=== PATIENT | female | born 1945 | race Caucasian/White ===

== ENCOUNTER → 2019-10-30 09:10 | Outpatient (CLI) | payer MEDICARE, SELFPAY ==
[2015-06-21 10:17] VITALS: BMI 33.3
== END ==
PROVIDERS: Family Provider Family Medicine; PCP Family Medicine; Referring Provider Internal Medicine Gastroenterology; Visit Provider Internal Medicine Gastroenterology
DX: R19.7 Diarrhea, unspecified (principal); E11.9 Type 2 diabetes mellitus without complications
CPT/HCPCS: 82705

== ENCOUNTER → 2021-06-26 16:39 | Outpatient (CLI) | payer MEDICARE, SELFPAY ==
--- NOTE | 2021-06-26 16:43 | US_ITS ---
INDICATION: UTI EXAMINATION: US Kidney(s) complete (eg, kidneys and bladder) TECHNIQUE: Miller scale and color doppler images were obtained of the kidneys. COMPARISON: None. FINDINGS: RIGHT KIDNEY: Measures 10.5 cm in length. There is moderate hydronephrosis. No shadowing calculus, focal lesion or perinephric collection is demonstrated. LEFT KIDNEY: Measures 10.5 cm in length. There is no hydronephrosis. There are multiple stones with twinkle artifact, largest measuring 9 mm. No focal lesion or perinephric collection is demonstrated. URINARY BLADDER: No acute abnormality. US/Kidney and Bladder IMPRESSION: Moderate right hydronephrosis with no visualized obstructing stone. Nephrolithiasis on the left with no hydronephrosis. Electronically Signed: Cristino Min MD at 23:58 EDT Tel , Service support ,
== END ==
PROVIDERS: PCP Family Medicine; Referring Provider Urology; Visit Provider Urology
DX: N39.0 Urinary tract infection, site not specified (principal)
CPT/HCPCS: 76770

== ENCOUNTER → 2021-06-28 14:02 | Outpatient (CLI) | payer MEDICARE, SELFPAY ==
[2021-06-28 18:56] LABS: Anion Gap 7 (5-15); BUN 17 mg/dL (7-18); BUN/Creat Ratio 14.8 RATIO (10-20); Calcium,Total 8.5 mg/dL (8.5-10.1); Chloride 100 mmol/L (98-107); Creatinine, Serum 1.15 mg/dL (0.55-1.02); EST Glomerular Filtration Rate 49 mL/min (>60); Est Glom Filt Rate - Afr Amer 59 mL/min (>60); Glucose 97 mg/dL (74-106); Potassium 3.4 mmol/L (3.5-5.1); Sodium Level 139 mmol/L (136-145)
== END ==
PROVIDERS: PCP Family Medicine; Referring Provider Urology; Visit Provider Urology
DX: N39.0 Urinary tract infection, site not specified (principal); N13.2 Hydronephrosis with renal and ureteral calculous obstruction
CPT/HCPCS: 36415; 80048

== ENCOUNTER → 2021-07-06 13:24 | Outpatient (CLI) | payer MEDICARE, SELFPAY ==
--- NOTE | 2021-07-06 13:28 | CT_ITS ---
EXAM: CT ABDOMEN AND PELVIS WITHOUT AND WITH INTRAVENOUS CONTRAST : 1945 CLINICAL INDICATION: STONES/HYDRONEPHROSIS/UTI TECHNIQUE: Helically acquired images were obtained of the abdomen and pelvis without and with intravenous contrast. This CT exam was performed using one or more of the following dose reduction techniques: automated exposure control, adjustment of the mA and/or kV according to patient size, and/or use of iterative reconstruction technique. This report was created using [employer] report generation technology. CONTRAST: IV 100mL Isovue-300 COMPARISON: None. FINDINGS: LOWER THORAX: Unremarkable. Lung bases are clear. No cardiomegaly. No significant pericardial effusion. ABDOMEN: LIVER: Unremarkable. Homogeneous. No focal mass. GALLBLADDER AND BILE DUCTS: Gallbladder is absent. No intra- or extrahepatic biliary ductal dilation. PANCREAS: Unremarkable. No focal cystic or solid mass. SPLEEN: Multiple splenic granulomata noted. ADRENALS: Unremarkable. No nodules. KIDNEYS AND URETERS: Several stones are in place within the distal right ureter associated with right hydronephrosis and hydroureter. A small stone is present within lower pole infundibulum of the left kidney. STOMACH AND BOWEL: Unremarkable. No stomach or bowel distention. No focal inflammatory change. PELVIS: APPENDIX: No evidence of acute appendicitis. BLADDER: Unremarkable. REPRODUCTIVE: Hysterectomy noted. No adnexal mass or pelvic fluid collection. ABDOMEN and PELVIS: INTRAPERITONEAL SPACE: No ascites BONES/JOINTS: Unremarkable. No suspicious lytic or blastic abnormality. SOFT TISSUES: Unremarkable. No discrete abdominal or pelvic wall hernia. VASCULATURE: Unremarkable. Abdominal aorta is non-dilated. LYMPH NODES: Unremarkable. No enlarged lymph nodes. CT/CT Abd/Pelvis W/WO Contrast IMPRESSION: 1. Multiple small obstructive distal right ureteral stones. 2. Single nonobstructive left renal stone. Individualized dose optimization techniques were used for this CT. at 1521 Reported and signed by: Brad Carrera MD Electronically Signed: Brad Carrera MD at 15:20 EDT Tel , Service support ,
== END ==
PROVIDERS: PCP Family Medicine; Visit Provider Urology
DX: N39.0 Urinary tract infection, site not specified (principal); N13.2 Hydronephrosis with renal and ureteral calculous obstruction
CPT/HCPCS: 74178; Q9967

== ENCOUNTER 2021-07-20 06:14 | Day surgery (SDC) | payer MEDICARE, SELFPAY ==
[2021-07-20 06:50] VITALS: BP 162/68; PULSE 65; RESP 18; TEMP 36.1; O2SAT 94; BMI 33.1
[2021-07-20] MEDS: Lactated Ringers 1,000 ML 100 ML IV (06:50)
[2021-07-20 07:31] LABS: Bedside Glucose 175 mg/dL (70-110)
--- NOTE | 2021-07-20 08:12 | HP.PCM_ITS ---
HPI - General HPI Narrative APPLE HALEY, is a 75 F who presents for surgical management of right distal ureteral stones found on evaluation. She is not having pain, hematuria, dysuria etc. Informed consent was obtained. [facility] Medical History (Updated 07/20/21 @ 08:[address] Millie Little MD) Anxiety Arthritis Back pain Benign hypertension CAD (coronary artery disease) Cancer Cardiology follow-up encounter Cataract Deficient knowledge of hysterectomy Depression Diabetes Diabetes Dietary restriction Easy bruising Gallstones Gastrointestinal problem Heart disease Heartburn High blood pressure High cholesterol High triglycerides History of diverticulitis History of edema History of heart attack History of IBS History of irregular heartbeat History of pain when walking History of stress test Hydronephrosis IBS (irritable bowel syndrome) Insulin dependent diabetes mellitus Leg cramps Mixed hyperlipidemia Murmur Neuropathy Non-smoker Obesity Polyneuropathy due to type 2 diabetes mellitus Restless legs Tonsillectomy planned Ureteral calculi UTI (urinary tract infection) Wears glasses Home Medications aspirin 81 mg PO DAILY@0800 06/19/15 [History Last Taken Unknown] atorvastatin 80 mg PO QHS 06/19/15 [History Last Taken Unknown] hydrochlorothiazide 12.5 mg PO DAILY 06/19/15 [History Last Taken Unknown] insulin lispro [Humalog] 14 unit SUBCUT TID 06/19/15 [History Last Taken Unknown] potassium gluconate 500 mg PO DAILY 06/19/15 [History Last Taken Unknown] sertraline 100 mg PO DAILY 06/19/15 [History Last Taken Unknown] nqjoyt-qldzxlxq-whjzjha 36,000-114,000-180,000 unit capsule,delay rel 2 cap PO TID 02/21/21 [History Last Taken Unknown] loperamide 2 mg tablet 2 mg PO Q6H PRN 02/21/21 [History Last Taken Unknown] pen needle, diabetic 32 gauge x #150 ea 02/21/21 [Rx Last Taken Unknown] ramipril 2.5 mg capsule 2.5 ea PO QHS 02/21/21 [History Last Taken Unknown] triamterene 37.5 mg-hydrochlorothiazide 25 mg tablet 1 tab PO DAILY 02/21/21 [History Last Taken Unknown] metoprolol tartrate 25 mg tablet 25 mg PO BID 07/09/21 [History Last Taken 07/20/21 05:00] ascorbic acid (vitamin C) [Vitamin C] 500 mg PO DAILY 07/13/21 [History Last Taken Unknown] d-mannose 1,000 mg PO DAILY 07/13/21 [History Last Taken Unknown] ergocalciferol (vitamin D2) [Vitamin D2] 1,250 mcg PO BAZAN 07/13/21 [History Last Taken Unknown] insulin glargine [Lantus Solostar U-100 Insulin] 35 unit SUBCUT QHS 07/13/21 [History Last Taken Unknown] lactobacillus combination no.4 [Probiotic] 3,000 mmu cells PO DAILY 07/13/21 [History Last Taken Unknown] semaglutide [Ozempic] 1 mg SUBCUT BAZAN 07/13/21 [History Last Taken Unknown] Allergy/AdvReac Type Severity Reaction Status Date / Time Iodinated Contrast Media Allergy Other Verified 07/20/21 07:00 [CONTRASTS] niacin Allergy Anaphylaxis Verified 07/20/21 07:00 Family History Other Bowel disease CVA (cerebral vascular accident) Diabetes Myocardial infarction Parkinson disease Surgical History H/O knee surgery History of intestinal surgery Hx laparoscopic cholecystectomy Hx of colonoscopy Hx of foot surgery Hx of heart bypass surgery Hx of hysterectomy Hx of left cataract extraction Hx of tonsillectomy Social History Smoking Status: Never smoker ROS Constitutional Constitutional: Denies chills or fever(s) Eyes Eyes: Reports systems reviewed and no addt'l complaints, except as documented ENT HEENT: Reports systems reviewed and no addt'l complaints, except as documented Cardiovascular Cardiovascular: Denies abdominal pain, chest pain, diaphoresis, fatigue or naus ea Respiratory/Chest Respiratory/Chest: Denies cough, inability to speak, productive cough, shortness of breath at rest or tachypnea Gastrointestinal Gastrointestinal: Denies abdominal pain, cramping or taste impaired Genitourinary Genitourinary: Denies burning urination, flank pain, hematuria or low back pain Musculoskeletal Musculoskeletal: Reports systems reviewed and no addt'l complaints, except as documented Integumentary Integumentary: Reports systems reviewed and no addt'l complaints, except as documented Neurologic Neurologic: Reports systems reviewed and no addt'l complaints, except as documented Psychiatric Psychiatric: Reports systems reviewed and no addt'l complaints, except as documented Vital Signs Vital Signs Vital Signs: 07/20/21 06:50 Temperature 96.9 F L Temperature Source Temporal Pulse Rate 65 Respiratory Rate 18 Respiratory Pattern Normal Blood Pressure 162/68 H Blood Pressure Mean 99 Blood Pressure Source Monitor Blood Pressure Position Sitting Blood Pressure Location Left Arm Pulse Ox 94 Oxygen Delivery Method Room Air Weight Weight: 96 kg Body Mass Index (BMI) 33.1 Physical Exam Const alert, oriented x3 and no apparent distress General Appearance: cooperative, comfortable and well kempt HEENT normocephalic, head/scalp atraumatic and external ears normal Nose: external nose normal Mouth: lips normal and tongue normal Eyes no scleral icterus General Eye: normal appearance of both eyes Neck supple General: trachea midline Lymph Lymphatic: no lymphedema noted Chest inspection of chest normal and palpation of chest normal Resp normal respiratory effort, normal air movement, no retractions and no use of accessory muscles Cardio regular rate and regular rhythm GI soft to palpation, non-tender and non-distended no CVA tenderness Back/Spine no CVA tenderness Extremity normal to inspection and no calf tenderness Skin no rashes or lesions noted, no wounds, skin turgor normal, no jaundice, no petechiae and no mottling Neuro oriented x3, CN's II-XII intact bilaterally and moves all extremities Psych mental status grossly normal, thought process normal, cooperative and affect normal Results Lab / Micro Data Labs: Laboratory Results - last 24 hr 07/20/21 07:08: POC Glucose 175 H Assessment & Plan Assessment/Plan (1) Ureteral calculi: (2) Hydronephrosis: PLAN: proceed with cystoscopy, ureteroscopy, laser lithotripsy, stent insertion. informed consent obtained.
--- NOTE | 2021-07-20 08:19 | PCM.OPRPT ---
Problems Associated Problem List Diagnoses (1) Hydronephrosis: (2) Ureteral calculi: Report of Operation Date of Procedure: 07/20/21 Pre-Operative Diagnosis: Right distal ureteral calculi, right hydronephrosis Post-Operative Diagnosis: Same, passed stones with resolution of hydronephrosis, urethral prolapse Surgery/Procedure Performed:: Cystoscopy, right ureteroscopy Surgeon: Millie Little Type of Anesthesia: General Specimen's removed: None Description of Procedure: The patient is a 75-year-old female has had issues with urinary tract infections and was evaluated with a renal ultrasound. This revealed right hydronephrosis and she was further evaluated with a CT scan showing distal right ureteral stones with obstruction. Informed consent was obtained and she now presents for surgical intervention. The patient was taken to the operating room placed on the operating room table. Anesthesia monitored the head, neck, airway, IV access and vital signs throughout the case. Once anesthesia was appropriate ministered the patient was placed into dorsal lithotomy position was prepped and draped in usual sterile fashion. The patient's urethra was noted to have a significantly sized urethral prolapse. The cystoscope was inserted through the urethra under direct visualization into the urinary bladder. The bladder mucosa was visualized in its entirety and found to be without evidence of erythema ulceration or abnormality including mass or foreign body. At this time a 0.035 Glidewire was carefully used to intubate the right ureteral orifice and was seen to be curling in the renal pelvis under fluoroscopic visualization. This was secured to the drapes and a semirigid SlimLine ureteroscope was used to gently intubate the right ureteral orifice. Ureteroscopy was performed all the way up to the renal pelvis. No stones, areas of abnormality, stricture or foreign bodies were identified. The ureteroscope was removed under direct visualization. The ureteroscope was very wide and there was no evidence of injury during the ureteroscopy. This time the ureteroscope and the Glidewire were removed. The patient's bladder was emptied. She was awakened and taken to the recovery room in good condition. There were no complications during this procedure. Grafts/Implants Used: None Complications none Admit VTE Documentation VTE Present on Admission: Yes VTE Mechan Device Prophylaxis: SCD's Reason prophylaxis not ordered:: Treatment Not Indicated
[2021-07-20] MEDS: Cefazolin 2 GM in 0.9% Normal Saline 100 ML IV (08:30)
[2021-07-20 09:00] VITALS: BP 158/61; BP 162/68; PULSE 67; RESP 18; TEMP 36; O2SAT 93
[2021-07-20 09:15] VITALS: BP 136/57; BP 162/68; PULSE 64; RESP 16; O2SAT 92
--- NOTE | 2021-07-20 09:18 | PCM.DC ---
Discharge Instructions Diet Discharge Diet: No restrictions Activity Discharge Activity: No Restrictions May resume sexual activity in: No Restrictions Dressing / Incision Call your doctor if you observe: Fever of 101 or Higher, Inability to urinate, Inability to have a bowel movement and Uncontrolled pain Follow Up Care Please Follow Up With: Millie Little MD When: call for appt to be seen in 4-6 weeks Test Results: Test results from this visit will be discussed in further detail at your follow-up appointment, if applicable. Discharge Plan Admission Attending Provider: Millie Little Primary Care Provider: Reshma Marsh Discharge Orders/Prescriptions Prescriptions: New oxycodone-acetaminophen [Percocet] 5-325 mg tablet 1 tab PO Q8H PRN (Reason: pain) 2 Days Qty: 4 RF: 0 cephalexin [cephalexin] 500 MG capsule 500 mg PO Q12 3 Days Qty: 6 RF: 0 Continued ramipril 2.5 mg capsule 2.5 ea PO QHS RF: 0 triamterene-hydrochlorothiazid 37.5-25 mg tablet 1 tab PO DAILY RF: 0 Creon 36,000-114,000- 180,000 unit capsule,delayed release(DR/EC) 2 cap PO TID RF: 0 loperamide [Imodium A-D] 2 mg tablet 2 mg PO Q6H PRN (Reason: Diarrhea) RF: 0 (DME) pen needle, diabetic [BD Ultra-Fine Roseanna Pen Needle] 32 gauge x 5/32 needle See Rx Instructions .ROUTE .MEDSUPPLY Qty: 150 RF: 5 metoprolol tartrate 25 mg tablet 25 mg PO BID RF: 0 atorvastatin 80 MG tablet 80 mg PO QHS RF: 0 sertraline 100 MG tablet 100 mg PO DAILY RF: 0 aspirin 81 MG tablet,chewable 81 mg PO DAILY@0800 RF: 0 hydrochlorothiazide 25 MG tablet 12.5 mg PO DAILY RF: 0 Humalog U-100 Insulin 100 UNIT/ML cartridge 14 unit subcut TID RF: 0 potassium gluconate 500 MG tablet 500 mg PO DAILY RF: 0 ascorbic acid (vitamin C) [Vitamin C] 500 mg Tablet 500 mg PO DAILY RF: 0 ergocalciferol (vitamin D2) [Vitamin D2] 1,250 mcg (50,000 unit) Capsule 1,250 mcg PO BAZAN RF: 0 Probiotic 3 billion cell Capsule 3,000 mmu cells PO DAILY RF: 0 d-mannose 500 mg Capsule 1,000 mg PO DAILY RF: 0 Lantus Solostar U-100 Insulin 100 unit/mL (3 mL) insulin pen 35 unit subcut QHS RF: 0 Ozempic 1 mg/dose (2 mg/1.5 mL) pen injector 1 mg subcut BAZAN RF: 0 Referrals / Follow Up: Reshma Marsh PA-C [Primary Care Provider] - Disposition Disposition (needs filled in before D/C Order can be placed): Home, Self Care
[2021-07-20 09:21] LABS: Bedside Glucose 162 mg/dL (70-110)
[2021-07-20 09:30] VITALS: BP 134/56; BP 162/68; PULSE 61; RESP 16; O2SAT 94
[2021-07-20 09:41] VITALS: BP 144/61; BP 162/68; PULSE 61; RESP 16; TEMP 36.2; O2SAT 95
[2021-07-20 10:12] VITALS: BP 109/77; BP 162/68; PULSE 62; RESP 16; TEMP 36.2; O2SAT 99
== END 2021-07-20 10:19 | disposition home or self-care (01) ==
LOC: SDC 06:14 → AC 06:15
PROVIDERS: PCP Family Medicine; Referring Provider Urology; Visit Provider Urology
PROC: 0TJ98ZZ Inspection of Ureter, Via Natural or Artificial Opening Endoscopic (ICD-10-PCS; CPT 52352; principal; 2021-07-20 08:10)
DX: N81.0 Urethrocele (principal); E66.9 Obesity, unspecified; Z68.33 Body mass index [BMI] 33.0-33.9, adult; E78.2 Mixed hyperlipidemia; F32.9 Major depressive disorder, single episode, unspecified; F41.9 Anxiety disorder, unspecified; I10 Essential (primary) hypertension; I25.10 Atherosclerotic heart disease of native coronary artery without angina pectoris; I25.2 Old myocardial infarction; E11.36 Type 2 diabetes mellitus with diabetic cataract; E11.42 Type 2 diabetes mellitus with diabetic polyneuropathy; K58.9 Irritable bowel syndrome, unspecified; G25.81 Restless legs syndrome; E78.00 Pure hypercholesterolemia, unspecified; M19.90 Unspecified osteoarthritis, unspecified site; Z87.19 Personal history of other diseases of the digestive system; Z87.440 Personal history of urinary (tract) infections; Z87.442 Personal history of urinary calculi; Z79.4 Long term (current) use of insulin; Z79.82 Long term (current) use of aspirin; Z79.899 Other long term (current) drug therapy
CPT/HCPCS: 00910; 52351; 76000; 82962; J7120; J2310; J2405

== ENCOUNTER → 2021-09-17 11:17 | Outpatient (CLI) | payer MEDICARE, SELFPAY ==
--- NOTE | 2021-09-17 11:23 | US_ITS ---
EXAM: US RETROPERITONEAL LIMITED, RENAL : 1945 CLINICAL INDICATION: STONES TECHNIQUE: Limited grayscale and color Doppler sonographic evaluation of the retroperitoneum was performed. This report was created using [employer] technology. COMPARISON: None. FINDINGS: RIGHT KIDNEY: The right kidney measures 10.9 x 5.5 x 5.6 cm. No hydronephrosis. No shadowing calculus. No perinephric collection is demonstrated. LEFT KIDNEY: The left kidney measures 10.0 x 4.6 x 4.4 cm. There is a 4 mm echogenic focus in the kidney compatible with a nonobstructing calyceal stone. No perinephric collection is demonstrated. BLADDER: The bladder measures 5.4 x 6.9 x 4.7 cm for a volume of 91 mL. The bladder wall measures 3 mm. There was a left ureteral jet. US/Kidney and Bladder IMPRESSION: Nonobstructing left calyceal stone. No other abnormalities identified. at 1704 Reported and signed by: Ender Jay MD Electronically Signed: Ender Jay MD at 17:02 EST Tel , Service support ,
== END ==
PROVIDERS: PCP Family Medicine; Referring Provider Urology; Visit Provider Urology
DX: N20.0 Calculus of kidney (principal)
CPT/HCPCS: 76770

== ENCOUNTER → 2022-04-25 | Outpatient (CLI) | payer MEDICARE, SELFPAY ==
[2022-04-25 12:24] LABS: Erythrocyte Sedimentation Rate 22 mm/hr (0-30)
[2022-04-25 12:26] LABS: Absolute Lymphocyte Count 1.94 X10^3/uL (0.83-4.51); Basophil# 0.08 X10^3/uL; Basophil% 0.7 % (0-1); Eosinophil# 0.27 X10^3/uL; Eosinophils% 2.4 % (0-5); Hemoglobin 14.9 g/dL (12.0-15.0); Lymphocyte # 1.94 X10^3/ul (0.83-4.51); Lymphocyte % 17.1 % (19-41); Mean Corp Hgb Conc 32.4 g/dL (32-36); Mean Corpuscular Hgb 28.8 pg (27.0-32.0); Mean Corpuscular Volume 88.8 fL (81-99); Mean Platelet Vol. 11.5 fl (6.2-12.0); Monocyte# 0.97 X10^3/uL; Monocyte% 8.5 % (0-10); NRBC Flagged by Analyzer 0 % (0-5); Neutrophil # 7.95 X10^3/uL (2.7-7.7); Neutrophil % 70.1 % (47-70); Platelet Count 249 K/mm3 (150-450); Red Blood Count 5.18 M/mm3 (4.2-5.4); White Blood Count 11.4 K/mm3 (4.4-11.0)
[2022-04-25 12:56] LABS: ALB/GLOB Ratio 0.8 RATIO (0.9-2.4); AST(SGOT) 30 U/L (15-37); Alanine Aminotransfer ALT/SGPT 51 U/L (13-56); Albumin, Serum 3.3 g/dL (3.2-5.0); Alkaline Phosphatase 69 U/L (45-117); Amylase 59 U/L (25-115); Anion Gap 6 (5-15); BUN 25 mg/dL (7-18); BUN/Creat Ratio 18.9 RATIO (10-20); CRP 5.25 mg/L (0.0-3.0); Calcium,Total 9.3 mg/dL (8.5-10.1); Chloride 102 mmol/L (98-107); Creatinine, Serum 1.32 mg/dL (0.55-1.02); EST Glomerular Filtration Rate 42 mL/min (>60); Est Glom Filt Rate - Afr Amer 50 mL/min (>60); Glucose 191 mg/dL (74-106); LDH 185 U/L (84-246); Lipase 52 U/L (73-393); Potassium 4.2 mmol/L (3.5-5.1); Protein, Total 7.3 g/dL (6.4-8.2); Sodium Level 139 mmol/L (136-145); Thyroid Stim Hormone (TSH) 4.58 uIU/mL (0.358-3.74)
[2022-04-26 12:10] LABS: Anti-Centromere B Ab <0.2 AI (0.0-0.9); Anti-Chromatin <0.2 AI (0.0-0.9); Anti-Jo <0.2 AI (0.0-0.9); Anti-Scleroderma-70 AB <0.2 AI (0.0-0.9); RNP Ab <0.2 AI (0.0-0.9); SJOGREN'S Anti-SS-A test < 0.2 AI (0.0-0.9); SJOGREN'S Anti-SS-B test < 0.2 AI (0.0-0.9); Smith Ab <0.2 AI (0.0-0.9)
[2022-04-26 12:28] LABS: Anti-dsDNA Ab 1 IU/mL (0-9)
[2022-04-27 14:10] LABS: Endomysial Antibody IgA Negative (Negative)
[2022-04-28 14:08] LABS: Immunoglobulin A 274 mg/dL (64-422); t-Transglutaminase IgA <2 U/mL (0-3)
[2022-04-29 01:06] LABS: Albumin 3.3 g/dL (2.9-4.4); Alpha-1-Globulins 0.3 g/dL (0.0-0.4); Alpha-2-Globulins 0.9 g/dL (0.4-1.0); Cytoplasmic Ab (C-ANCA) <1:20 titer (Neg:<1:20); Immunoglobulin A 279 mg/dL (64-422); Immunoglobulin E 4 IU/mL (6-495); Immunoglobulin G 972 mg/dL (586-1602); Immunoglobulin M 109 mg/dL (26-217); PROEL- TOTAL PROTEIN 6.6 g/dL (6.0-8.5)
[2022-04-29 13:20] LABS: Perinuclear Ab (P-ANCA) <1:20 titer (Neg:<1:20)
== END | disposition home or self-care (01) ==
PROVIDERS: PCP Family Medicine; Visit Provider Nurse Practitioner Adult Health
DX: K50.90 Crohn's disease, unspecified, without complications (principal); E11.22 Type 2 diabetes mellitus with diabetic chronic kidney disease; Z79.4 Long term (current) use of insulin; N18.31 Chronic kidney disease, stage 3a; K58.9 Irritable bowel syndrome, unspecified
CPT/HCPCS: 80053; 82150; 82784; 82785; 83516; 83615; 83690; 84165; 84443; 85025; 85652; 86140; 86225; 86235; 86255; 86256; 86334

== ENCOUNTER → 2022-04-26 | Outpatient (CLI) | payer MEDICARE, SELFPAY ==
[2022-04-30 20:06] LABS: Pancreatic Elastase, Fecal 131 (>200)
[2022-05-02 15:26] LABS: Calprotectin, Stool 130 ug/g (0-120); Fats, Neutral Normal (.); Fats, Total Increased (.)
== END | disposition home or self-care (01) ==
LOC: LABSPEC 10:38
PROVIDERS: PCP Family Medicine; Referring Provider Nurse Practitioner Adult Health; Visit Provider Nurse Practitioner Adult Health
DX: K58.9 Irritable bowel syndrome, unspecified (principal); D84.9 Immunodeficiency, unspecified
CPT/HCPCS: 82653; 82705; 83630; 83993; 87177; 87209; 87506

== ENCOUNTER → 2022-05-08 | Outpatient (CLI) | payer MEDICARE, SELFPAY ==
--- NOTE | 2022-05-08 14:00 | CT_ITS ---
STUDY: CT ABDOMEN AND PELVIS WITH CONTRAST REASON FOR EXAM: Female, 76 years old. Crohn''s -- enteroscopy RADIATION DOSAGE (If Supplied By Facility): CTDIvol = ( 20.77 ) mGy, DLP = ( 2674.78 ) mGycm TECHNIQUE: Transaxial images were obtained from the dome of the diaphragm to the symphysis pubis with oral contrast. Oral and amp; IV BREEZA NEUTRAL and amp; 100mL Isovue-370 was administered. Sagittal and coronal images were reconstructed. Individualized dose optimization techniques were used for this CT. COMPARISON: Comparison is made with prior study dated 07/06/2021. FINDINGS: Stable calcified granulomas at the right lung base. Mild increased markings at the right lung base suggestive of atelectasis and/or scarring. The visualized portions of the heart are within normal limits. Normal liver. Normal gallbladder and extrahepatic biliary system. There are multiple benign calcified granulomata of the spleen. There is diffuse atrophy of the pancreas. Normal bilateral adrenal glands. 1 cm cyst in the lower pole of the right kidney. Tiny nonobstructive left intrarenal calculus. Normal visualized stomach. Normal small intestine. There are scattered colonic diverticula consistent with diverticulosis. There are surgical clips in the region of the appendix consistent with a prior appendectomy. There is diffuse atherosclerotic calcification of the abdominal aorta and its major visceral branches, without a demonstrated aneurysm. Normal inferior vena cava. Normal retroperitoneum. Normal urinary bladder. There is absence of the uterus consistent with a prior hysterectomy. Thinning of the right anterior lateral abdominal wall musculature. There are degenerative changes of the visualized lumbar spine. CT/Abdomen/Pelvis WITH Contrast IMPRESSION: Stable calcified granulomas at the right lung base with scarring. Atrophy of the pancreas. Scattered sigmoid diverticula. Electronically Signed: Leander Hill MD at 15:29 EDT ,
== END | disposition home or self-care (01) ==
LOC: CT 13:59
PROVIDERS: PCP Family Medicine; Referring Provider Nurse Practitioner Adult Health; Visit Provider Nurse Practitioner Adult Health
DX: K50.90 Crohn's disease, unspecified, without complications (principal)
CPT/HCPCS: 74177; Q9967

== ENCOUNTER → 2022-05-13 | Outpatient (CLI) | payer MEDICARE, SELFPAY ==
[2022-05-17 15:07] LABS: QNTFERON TB Mitogen Value > 10.00 IU/mL (.); QNTFERON TB Nil Value 0.04 IU/mL (.); QNTFERON TB1+ Ag Value 0.03 IU/mL (.); QNTFERON TB2+ Ag Value 0.04 IU/mL (.)
[2022-05-17 16:15] LABS: QNTIFERON TB Positive Criteria Negative (Negative)
== END | disposition home or self-care (01) ==
LOC: LAB 10:35
PROVIDERS: PCP Family Medicine; Referring Provider Nurse Practitioner Adult Health; Visit Provider Nurse Practitioner Adult Health
DX: K50.90 Crohn's disease, unspecified, without complications (principal)
CPT/HCPCS: 36415; 86480

== ENCOUNTER 2022-06-20 10:29 | Outpatient (CLI) | payer MEDICARE, SELFPAY ==
[2022-06-20] MEDS: 0.9% NaCl Peripheral Flush Adult/Peds IV (10:40)
[2022-06-20 10:47] VITALS: BP 125/50; PULSE 71; RESP 16; TEMP 35.7; O2SAT 94; BMI 34.1
== END 2022-06-20 23:59 | disposition home or self-care (01) ==
LOC: MEDOUTP 10:30
PROVIDERS: PCP Family Medicine; Referring Provider Nurse Practitioner Adult Health; Visit Provider Nurse Practitioner Adult Health
DX: K50.90 Crohn's disease, unspecified, without complications (principal)
CPT/HCPCS: 96415; 96413; J7050; A4216; Q5103

== ENCOUNTER → 2022-07-04 | Outpatient (CLI) | payer MEDICARE, SELFPAY ==
[2022-07-04 09:50] VITALS: BP 138/54; PULSE 64; RESP 16; TEMP 35.6; O2SAT 94; BMI 34.1
[2022-07-04] MEDS: 0.9% NaCl IVPB Med Flush (250 mL) 15 ML IV (10:23)
== END | disposition home or self-care (01) ==
LOC: MEDOUTP 09:41
PROVIDERS: PCP Family Medicine; Referring Provider Nurse Practitioner Adult Health; Visit Provider Nurse Practitioner Adult Health
DX: K50.90 Crohn's disease, unspecified, without complications (principal)
CPT/HCPCS: 96415; 96413; J7050; A4216; Q5103

== ENCOUNTER 2022-07-24 08:20 | Day surgery (SDC) | payer MEDICARE, SELFPAY ==
[2022-07-24] VITALS (7 sets, daily range): BP systolic 111–134; BP diastolic 54–85; PULSE 59–70; RESP 14–20; TEMP 36.4–37.3; O2SAT 95–100; BMI 33.8
--- NOTE | 2022-07-24 | EGD_PTH ---
PATIENT: APPLE HALEY LOC: EN U#:[id number] AGE/SX: 76/F ROOM: RE07/24/[address]: Dr. Artem Cortes DO : 1945 BED: DIS: 07/24/2022 SPEC #: [id number] RECD: 07/24/22 13:57 STATUS: CHARLIE REJoanne #: [id number] GEORGE: 07/24/22 00:[address]: Artem Cortes DEPT: SURGICAL PATHOLOGY RECD BY: Yash Franks ENTERED: 07/25/22 08:45 SP TYPE: EGD BIOPSY OT DR: Reshma Marsh PA-C Tissues: A - Pylorus B - Esophageal mucous membrane C - Ileum, NOS D - COLON BIOPSY Procedures: Special Stain Group II Surgery Specimen Level IV Alcian Blue/PAS (control) HEADER OPERATION: Colonoscopy, EGD ([facility] [place]) PRE-OP DIAGNOSIS: Crohn?s disease, exocrine pancreatic insufficiency TISSUE SUBMITTED: A ? Pylorus biopsy, B ? Distal esophagus biopsy, C ? Terminal ileum biopsy, D ? Random colon biopsy MICROSCOPIC DIAGNOSIS A. Pylorus, biopsy: Moderate gastritis. See microscopic description and comment. B. Distal esophagus, biopsy: Fragments of gastroesophageal mucosa with chronic inflammation. Intestinal metaplasia (goblet cell metaplasia) not identified. See comment. C. Terminal ileum, biopsy: Fragments of small intestinal mucosa, no pathologic diagnosis. D. Colon, random biopsy: A fragment of colonic mucosa with focal hyperplastic polyp changes. Additional fragments of colonic mucosa, no pathologic diagnosis. SJ:rg 07/26/2022 COMMENT A. The results of immunohistochemistry for Helicobacter pylori will be reported separately ([id number]). B. Alcian blue/PAS stain with matched control is used in the evaluation of the specimen. MICROSCOPIC DESCRIPTION Slides are reviewed. A. The specimen shows fragments of gastric mucosa with chronic inflammatory cell infiltrates in the lamina propria consisting of lymphocytes and plasma cells, consistent with moderate chronic gastritis. Focal mucosal congestion and hemorrhage are also noted. GROSS DESCRIPTION A - Received in fixative is one container labeled with the patient's name and designated pylorus biopsy. The specimen consists of two irregular fragments of light barnes soft tissue that in aggregate measure 0.6 x 0.4 x 0.1 cm. The specimen is totally submitted in one cassette. B - Received in fixative is one container labeled with the patient's name and designated distal esophagus biopsy. The specimen consists of multiple irregular fragments of light barnes soft tissue that in aggregate measure 1 x 0.3 x 0.1 cm. The specimen is totally submitted in one cassette. C - Received in fixative is one container labeled with the patient's name and designated terminal ileum biopsy. The specimen consists of one irregular fragment of light barnes soft tissue that measures 0.5 x 0.3 x 0.1 cm. The specimen is totally submitted in one cassette. D - Received in fixative is one container labeled with the patient's name and designated random colon biopsy. The specimen consists of multiple irregular fragments of light barnes soft tissue that in aggregate measure 2 x 0.8 x 0.1 cm. The specimen is totally submitted in one cassette. / SJ:dominick 07/25/2022 TC:3 CPT: 70148 x4, 90064
[2022-07-24] MEDS: Lactated Ringers 1,000 ML 15 ML IV (08:40)
--- NOTE | 2022-07-24 09:26 | HP.PCM_ITS ---
History and Physical Date of Admission: 07/24/22 ?76 F who presents to the office today for f/u Crohn's disease She established with us on 05/01/22 for 10 yrs of severe diarrhea. We confirmed that she does have Crohn's disease--Prometheus test is consistent with Crohn's, positive stool calprotectin. She also has EPI--low fecal elastase, so she should remain on Creon. Initially colestipol 1 gram BID did help with her diarrhea, she had formed stools and no nocturnal diarrhea; but the efficacy waned quickly and she still requires Imodium and is having nocturnal diarrhea again. No prior treatment for Crohn's. Infliximab has been approved, she wanted to discuss that further before starting it. 04/2022 workup: positive calprotectin, negative fecal lactoferrin, negative O&P, negative enteric pathogens, negative Quantiferon TB, Prometheus consistent with Crohn's, CRP 5.25, creatinine 1.32, BUN 25, low fecal elastase, TSH 4.58 Initial visit 05/01/22: Approximately 10 years ago, while she was still working, Tricia developed diarrhea.? This was gradual in onset, has become much worse over time, now to the point where it has a significant negative impact on her quality of life.? It is very difficult for her to leave her home due to the chronic severe urgent diarrhea.? Unless she takes multiple Imodium pills she will have watery or loose diarrhea.? Stool can occasionally be mushy.? The only time stool is formed as when she has taken Imodium.? She can still have breakthrough diarrhea even with with Imodium.? She has nocturnal diarrhea, this can be urgent and wake her up, other times she has accidents, she now has to wear depends to bed and have a pad on the bed.? The only other treatment for the diarrhea has been Creon, she thinks it may have helped a tiny bit with the diarrhea, her does not think it has helped at all. Diarrhea can be worse after greasy foods or salads. She was evaluated by quilting machine operator Dr. Sousa at [facility] several years ago.? After he did a colonoscopy he told her she had Crohn's disease.? He was transferred to another office before she could be treated.? She went to see another local quilting machine operator who repeated colonoscopy, told her she did not have Crohn's, told her she had IBS, and put her on Creon. She does have some cramping abdominal pain but denies any more significant abdominal pain.? She denies seeing any blood in the stool, no hematochezia or melena.? She denies nausea, vomiting, hematemesis.? She has occasional heartburn which she treats with Tums as needed.? She has no difficulty swallowing.? She has no early satiety.? No constipation ever.? Weight is stable. Colonoscopy report from [facility] 05/02/2016: 15 mm polyp in proximal tra nsverse colon resected, otherwise entire examined colon normal.? Pathology: Inflammatory polyp, random colon biopsy??focal active colitis with crypt ruptured granulomas. Approx 1979 needed EGD to diagnose/treat ?blockage in proximal small bowel, this was 10 yrs after cholecystectomy, told it was a buildup in the small bowel since she was status postcholecystectomy. Comorbidities include obesity, CKD, CAD, hypertension, essential tremor, anxiety, hyperlipidemia, type 2 diabetes, recurrent UTIs, depression Past surgical history: Hysterectomy, cholecystectomy, appendectomy, small bowel resection, knee surgery, heart surgery 05/08/22 CT/Abdomen/Pelvis WITH Contrast IMPRESSION: Stable calcified granulomas at the right lung base with scarring. Atrophy of the pancreas. Scattered sigmoid diverticula. ROS Const Constitutional: Positive for weight change; No fatigue ENT ENT: No difficulty swallowing Gastro GI: Positive for bloating, diarrhea and excessive flatus; No abdominal pain, belching, change in bowel habits, change in stool character, coffee ground emesis, constipation, cramping, heartburn, difficulty swallowing, feeling full early, incontinent of stools, Vomiting blood/hematemesis, Blood in stool, loose stools, Black,tarry stools, nausea/dyspepsia, pain with swallowing, vomiting or other Musc Musculoskeletal: Positive for back pain and Arthritis; No joint pain Skin Skin: No yellowing of the eye or itchy eyes Psych Psychiatric: No anxiety and No depression Endo Endocrine: Positive for weight change; No fatigue Aller/Imm Allergy/Immunologic: No itchy eyes Jose/Lymp Hematologic/Lymphatic: Positive for easy bruising; No easy bleeding Exam Const General: cooperative, healthy appearing and comfortable Nutritional Appearance: obese Orientation: alert, awake and oriented x3 HENMT Head: normal to inspection Eyes General: appearance normal, both eyes and all related structures Resp Effort & Inspection: normal respiratory effort Skin General: no rashes or lesions noted and no jaundice Neuro Speech: speech normal Gait: normal gait Psych Mood: euthymic mood Affect: normal affect Quality Reporting Tobacco Screening ([facility] 138) Smoking Status: Never smoker Assessment and Plan Assessment and Plan (1) Crohn's disease: ?Status:?Acute ?Plan: 76 yr old female with Crohn's disease Reviewed with pt and her the w/u we have done so far, confirmation of Crohn's and EPI Colestipol was actually very helpful initially but efficacy waned quickly, will rx Lomotil today Discussed treatment options, she will proceed with infliximab infusions, induction is 0, 2 and 6 wks, then maintenance is q8 wks. Discussed immune suppression. She is scheduled for EGD and colonoscopy in early Jul with f/u 2 wks later (2) Exocrine pancreatic insufficiency: ?Status:?Acute ?Plan: Continue Creon Will check CA 19-9 with future lab draw ? ? ? Medications: New I have re-examined the patient. There are no clinical changes since date of exam.
--- NOTE | 2022-07-24 09:45 | IMM_PTH ---
PATIENT: APPLE HALEY LOC: EN U#:[id number] AGE/SX: 76/F ROOM: RE07/24/[address]: Dr. Artem Cortes DO : 1945 BED: DIS: 07/24/2022 SPEC #: [id number] RECD: 07/25/22 10:21 STATUS: CHARLIE REQ #: [id number] GEORGE: 07/24/22 09:[address]: Artem Cortes DEPT: IMMUNOHISTOCHEMISTRY RECD BY: Rhona Price ENTERED: 07/25/22 10:22 SP TYPE: IMMUNO OTHR DR: Reshma Marsh PA-C Tissues: A - Pylorus Procedures: H Pylori (initial) PHYSICIAN & INSTITUTION [place] [id number] SPECIMEN INFORMATION: Tissue Source: A ? Pylorus biopsy Clinical Info: Crohn?s disease, exocrine pancreatic insufficiency Specimen Number: [id number] CPT code: 40277 METHODOLOGY: Deparaffinized sections of prefer/formalin-fixed tissue or PAP/DQ stained slides are incubated with monoclonal/polyclonal antibodies/oligonucleotide probes. Localization is made via biotin free immunoperoxidase method. Appropriate controls are performed and reacted as expected. Results on target cell population are indicated in the following table: RESULTS: ANTIBODY / CLONE RESULT Block A H Pylori (polyclonal) negative These tests were developed and their performance characteristics determined by [facility]. They may not have been cleared or approved by the U.S. Food and Drug Administration. The FDA has determined that such clearance or approval is not necessary. The above immunohistochemical/dualISH markers are ordered and reviewed by the Pathologist. INTERPRETATION: A. Pylorus, biopsy: Negative for Helicobacter pylori organisms. ASIA:dominick 07/29/2022
[2022-07-24 09:55] LABS: Bedside Glucose 194 mg/dL (74-106)
--- NOTE | 2022-07-24 10:27 | OP.CCLET_ITS ---
07/24/2022 [facility] Re : Upper GI endoscopy procedure for Tricia Marsh This procedure was performed on Sunday, July 24, 2022. My impressions and recommendations are as follows: Impressions : - LA Grade A reflux esophagitis. Biopsied. - Small hiatal hernia. - Gastric stenosis was found at the pylorus. Dilated. Biopsied. - Normal first portion of the duodenum. Recommendations : - Discharge patient to home. - Resume previous diet. - Continue present medications. - Await pathology results. - Repeat upper endoscopy for surveillance. - Return to GI office. My findings are described in the full procedure note, which is enclosed. If I can be of further assistance, please feel free to contact me at . Sincerely, Artem Cortes, 07/24/2022 10:27:03 AM This report has been signed electronically.
--- NOTE | 2022-07-24 10:27 | OP.EGD_ITS ---
Patient Name: Tricia Esteban Procedure Date: 07/24/2022 9:28 AM Date of : 1945 Age: 76 Procedure: Upper GI endoscopy Indications: Epigastric abdominal pain, Functional Dyspepsia Providers: Artem Cortes DO Medicines: Monitored Anesthesia Care Patient Profile: This is a 76 year old female. Refer to note in patient chart for documentation of history and physical. Patient has symptoms of acute abdominal distention and acute epigastric abdominal pain. Complications: No immediate complications. Procedure: Pre-Anesthesia Assessment: - Prior to the procedure, a History and Physical was performed, and patient medications and allergies were reviewed. The risks and benefits of the procedure and the sedation options and risks were discussed with the patient. All questions were answered and informed consent was obtained. Patient identification and proposed procedure were verified by the physician in the pre-procedure area. Mental Status Examination: alert and oriented. Airway Examination: normal oropharyngeal airway and neck mobility. Respiratory Examination: clear to auscultation. CV Examination: normal. Prophylactic Antibiotics: The patient does not require prophylactic antibiotics. Prior Anticoagulants: The patient has taken no previous anticoagulant or antiplatelet agents. After reviewing the risks and benefits, the patient was deemed in satisfactory condition to undergo the procedure. The anesthesia plan was to use monitored anesthesia care (MAC). Immediately prior to administration of medications, the patient was re-assessed for adequacy to receive sedatives. The heart rate, respiratory rate, oxygen saturations, blood pressure, adequacy of pulmonary ventilation, and response to care were monitored throughout the procedure. The physical status of the patient was re-assessed after the procedure. After obtaining informed consent, the endoscope was passed under direct vision. Throughout the procedure, the patient's blood pressure, pulse, and oxygen saturations were monitored continuously. The pediatric colonoscope was introduced through the mouth, and advanced to the second part of duodenum. The upper GI endoscopy was accomplished without difficulty. The patient tolerated the procedure well. Scope In: 9:39:28 AM Scope Out: 9:45:00 AM Total Procedure Duration Time 0 hours 5 minutes 32 seconds Findings: LA Grade A (one or more mucosal breaks less than 5 mm, not extending between tops of 2 mucosal folds) esophagitis with no bleeding was found 35 to 37 cm from the incisors. Biopsies were taken with a cold forceps for histology. Verification of patient identification for the specimen was done. Estimated blood loss was minimal. A small hiatal hernia was present. A benign-appearing, intrinsic moderate stenosis was found at the pylorus. This was traversed. A guide wire was placed, then the scope was withdrawn. Using the wire as a guide, dilation with a 15 mm pyloric balloon dilator was performed. The dilation site was examined following endoscope reinsertion and showed moderate improvement in luminal narrowing. Biopsies were taken with a cold forceps for histology. Verification of patient identification for the specimen was done. Estimated blood loss was minimal. The first portion of the duodenum was normal. Impression: - LA Grade A reflux esophagitis. Biopsied. - Small hiatal hernia. - Gastric stenosis was found at the pylorus. Dilated. Biopsied. - Normal first portion of the duodenum. Recommendation: - Discharge patient to home. - Resume previous diet. - Continue present medications. - Await pathology results. - Repeat upper endoscopy for surveillance. - Return to GI office. Procedure Code(s): --- Professional --- 91924, Esophagogastroduodenoscopy, flexible, transoral; with dilation of gastric/duodenal stricture(s) (eg, balloon, bougie) 22989, 59,51, Esophagogastroduodenoscopy, flexible, transoral; with biopsy, single or multiple CPT copyright 2017 [employer]. All rights reserved. The codes documented in this report are preliminary and upon journeyman glazier review may be revised to meet current compliance requirements. Artem Cortes DO 07/24/2022 10:27:03 AM This report has been signed electronically. Number of Addenda: 0 Note Initiated On: 07/24/2022 9:28 AM
--- NOTE | 2022-07-24 10:29 | OP.CCLET_ITS ---
07/24/2022 [facility] Re : Colonoscopy procedure for Tricia Marsh This procedure was performed on Sunday, July 24, 2022. My impressions and recommendations are as follows: Impressions : - Congested mucosa in the sigmoid colon, at the splenic flexure, in the transverse colon and in the ascending colon. Biopsied. - The examined portion of the ileum was normal. Biopsied. Recommendations : - Discharge patient to home. - Resume previous diet. - Continue present medications. - Await pathology results. Retroflexion was not performed on this procedure due to mild rectal prolapse. - Repeat colonoscopy is recommended for surveillance. The colonoscopy date will be determined after pathology results from today's exam become available for review. My findings are described in the full procedure note, which is enclosed. If I can be of further assistance, please feel free to contact me at . Sincerely, Artem Cortes, 07/24/2022 10:29:39 AM This report has been signed electronically.
--- NOTE | 2022-07-24 10:29 | OP.COLON_ITS ---
Patient Name: Tricia Esteban Procedure Date: 07/24/2022 9:45 AM Date of : 1945 Age: 76 Procedure: Colonoscopy Indications: Chronic diarrhea Providers: Artem Cortes DO Medicines: Monitored Anesthesia Care Patient Profile: This is a 76 year old female. Refer to note in patient chart for documentation of history and physical. Patient has symptoms of acute abdominal distention and acute epigastric abdominal pain. Last Colonoscopy: 5 years ago. Complications: No immediate complications. Procedure: Pre-Anesthesia Assessment: - Prior to the procedure, a History and Physical was performed, and patient medications and allergies were reviewed. The risks and benefits of the procedure and the sedation options and risks were discussed with the patient. All questions were answered and informed consent was obtained. Patient identification and proposed procedure were verified by the physician in the pre-procedure area. Mental Status Examination: alert and oriented. Airway Examination: normal oropharyngeal airway and neck mobility. Respiratory Examination: clear to auscultation. CV Examination: normal. Prophylactic Antibiotics: The patient does not require prophylactic antibiotics. Prior Anticoagulants: The patient has taken no previous anticoagulant or antiplatelet agents. After reviewing the risks and benefits, the patient was deemed in satisfactory condition to undergo the procedure. The anesthesia plan was to use monitored anesthesia care (MAC). Immediately prior to administration of medications, the patient was re-assessed for adequacy to receive sedatives. The heart rate, respiratory rate, oxygen saturations, blood pressure, adequacy of pulmonary ventilation, and response to care were monitored throughout the procedure. The physical status of the patient was re-assessed after the procedure. After I obtained informed consent, the scope was passed under direct vision. Throughout the procedure, the patient's blood pressure, pulse, and oxygen saturations were monitored continuously. The colonoscope was introduced through the anus and advanced to the terminal ileum. The colonoscopy was performed without difficulty. The patient tolerated the procedure well. The quality of the bowel preparation was good. Moderate Sedation: Moderate (conscious) sedation was personally administered by an anesthesia professional. The following parameters were monitored: oxygen saturation, heart rate, blood pressure, respiratory rate, EKG, adequacy of pulmonary ventilation, and response to care. Scope In: 9:47:30 AM Scope Out: 10:10:40 AM Total Procedure Duration Time 0 hours 23 minutes 10 seconds Findings: The perianal and digital rectal examinations were normal. An area of mildly congested mucosa was found in the sigmoid colon, at the splenic flexure, in the transverse colon and in the ascending colon. Biopsies were taken with a cold forceps for histology. Verification of patient identification for the specimen was done. Estimated blood loss was minimal. The terminal ileum appeared normal. Biopsies were taken with a cold forceps for histology. Verification of patient identification for the specimen was done. Estimated blood loss was minimal. Retroflexion in the rectum was not performed due to anatomy. Impression: - Congested mucosa in the sigmoid colon, at the splenic flexure, in the transverse colon and in the ascending colon. Biopsied. - The examined portion of the ileum was normal. Biopsied. Recommendation: - Discharge patient to home. - Resume previous diet. - Continue present medications. - Await pathology results. Retroflexion was not performed on this procedure due to mild rectal prolapse. - Repeat colonoscopy is recommended for surveillance. The colonoscopy date will be determined after pathology results from today's exam become available for review. Procedure Code(s): --- Professional --- 86067, Colonoscopy, flexible; with biopsy, single or multiple CPT copyright 2017 [employer]. All rights reserved. The codes documented in this report are preliminary and upon community case manager review may be revised to meet current compliance requirements. Artem Cortes DO 07/24/2022 10:29:39 AM This report has been signed electronically. Number of Addenda: 0 Note Initiated On: 07/24/2022 9:45 AM
== END 2022-07-24 11:08 | disposition home or self-care (01) ==
LOC: EN 08:25 → AC 08:26
PROVIDERS: PCP Family Medicine; Referring Provider Family Medicine; Visit Provider Internal Medicine Gastroenterology
PROC: 0DJD8ZZ Inspection of Lower Intestinal Tract, Via Natural or Artificial Opening Endoscopic (ICD-10-PCS; CPT 45378; principal; 2022-07-24 09:40)
DX: K31.1 Adult hypertrophic pyloric stenosis (principal); K50.90 Crohn's disease, unspecified, without complications; Z79.4 Long term (current) use of insulin; E11.9 Type 2 diabetes mellitus without complications; K44.9 Diaphragmatic hernia without obstruction or gangrene; K29.50 Unspecified chronic gastritis without bleeding; K21.00 Gastro-esophageal reflux disease with esophagitis, without bleeding; K63.5 Polyp of colon; K63.89 Other specified diseases of intestine; I25.10 Atherosclerotic heart disease of native coronary artery without angina pectoris; I10 Essential (primary) hypertension; F41.9 Anxiety disorder, unspecified; F32.A Depression, unspecified; E78.00 Pure hypercholesterolemia, unspecified; I25.2 Old myocardial infarction; Z79.82 Long term (current) use of aspirin; Z79.899 Other long term (current) drug therapy
CPT/HCPCS: 45380; 43245; 43239; 82962; 88305; 88313; 88342; J7120; J2405

== ENCOUNTER → 2022-08-01 | Outpatient (CLI) | payer MEDICARE, SELFPAY ==
[2022-08-01 09:43] VITALS: BP 145/54; PULSE 66; RESP 16; TEMP 35.7; O2SAT 95; BMI 34.4
[2022-08-01] MEDS: 0.9% NaCl Peripheral Flush Adult/Peds IV (09:54)
== END | disposition home or self-care (01) ==
LOC: MEDOUTP 09:36
PROVIDERS: PCP Family Medicine; Referring Provider Nurse Practitioner Adult Health; Visit Provider Nurse Practitioner Adult Health
DX: K50.90 Crohn's disease, unspecified, without complications (principal)
CPT/HCPCS: 96413; 96415; J7050; A4216; Q5103

== ENCOUNTER → 2022-08-16 | Outpatient (CLI) | payer MEDICARE, SELFPAY ==
--- NOTE | 2022-08-16 13:21 | RAD_ITS ---
STUDY: X-RAY - ABDOMEN/PELVIS REASON FOR EXAM: Female, 77 years old. KIDNEY STONES TECHNIQUE: Single AP view of the abdomen / pelvis. COMPARISON: None. FINDINGS: Normal visualized lung bases. There is an unremarkable bowel gas pattern. 6 mm calcific opacity overlying the upper pole of the right kidney worrisome for right renal stone. 3 mm calcific opacity overlying the midsection left kidney worrisome for renal stone. No definite ureteral stone. Normal soft tissue structures. Normal visualized osseous structures. RAD/Abdomen Single View IMPRESSION: Suspect bilateral renal stones. No definite ureteral stone. Electronically Signed: Trenton Oconnor MD at 17:14 EDT ,
== END | disposition home or self-care (01) ==
PROVIDERS: PCP Family Medicine; Referring Provider Urology; Visit Provider Urology
DX: N20.0 Calculus of kidney (principal)
CPT/HCPCS: 74018

== ENCOUNTER → 2022-10-03 | Outpatient (CLI) | payer MEDICARE, SELFPAY ==
[2022-10-03 09:58] VITALS: BMI 34.7
[2022-10-03] MEDS: 0.9% NaCl Peripheral Flush Adult/Peds IV (10:00)
[2022-10-03 10:07] VITALS: BP 126/51; PULSE 66; RESP 16; TEMP 35.6; BMI 34.7
[2022-10-03 12:36] VITALS: BP 143/65; PULSE 60; RESP 16; TEMP 36
[2022-10-03 13:14] VITALS: BP 116/50; PULSE 64
== END | disposition home or self-care (01) ==
LOC: MEDOUTP 09:38
PROVIDERS: PCP Family Medicine; Referring Provider Nurse Practitioner Adult Health; Visit Provider Nurse Practitioner Adult Health
DX: K50.90 Crohn's disease, unspecified, without complications (principal)
CPT/HCPCS: 96415; 96413; J7050; A4216; Q5103

== ENCOUNTER → 2022-11-29 | Outpatient (CLI) | payer MEDICARE, SELFPAY ==
[2022-11-29 09:03] VITALS: BP 112/54; PULSE 69; RESP 16; TEMP 35.9; O2SAT 95; BMI 34.7
[2022-11-29] MEDS: 0.9% NaCl Peripheral Flush Adult/Peds IV (09:30)
== END | disposition home or self-care (01) ==
LOC: MEDOUTP 08:50
PROVIDERS: PCP Family Medicine; Referring Provider Nurse Practitioner Adult Health; Visit Provider Nurse Practitioner Adult Health
DX: K50.90 Crohn's disease, unspecified, without complications (principal)
CPT/HCPCS: 96413; 96415; J7050; A4216; Q5103

== ENCOUNTER → 2022-12-16 | Outpatient (CLI) | payer MEDICARE, SELFPAY ==
[2022-12-16 12:11] LABS: Erythrocyte Sedimentation Rate 6 mm/hr (0-30)
[2022-12-16 12:12] LABS: Absolute Lymphocyte Count 2.83 X10^3/uL (0.83-4.51); Absolute Neutrophil Count 6.9 X10^3/uL (2.0-7.7); Basophil# 0.11 X10^3/uL; Eosinophil# 0.29 X10^3/uL; Eosinophils% 2.6 % (0-5); Hematocrit 45.9 % (37-47); Lymphocyte # 2.83 X10^3/ul (0.83-4.51); Lymphocyte % 25.4 % (19-41); Mean Corp Hgb Conc 32.7 g/dL (32-36); Mean Corpuscular Hgb 29.1 pg (27.0-32.0); Mean Corpuscular Volume 89.1 fL (81-99); Monocyte# 0.99 X10^3/uL; Monocyte% 8.9 % (0-10); NRBC Flagged by Analyzer 0 % (0-5); Neutrophil # 6.86 X10^3/uL (2.7-7.7); Neutrophil % 61.6 % (47-70); Platelet Count 198 K/mm3 (150-450); RBC Distribution Width CV 14.2 % (11.6-14.6); RBC Distribution Width SD 45.5 fl (35.1-43.9); Red Blood Count 5.15 M/mm3 (4.2-5.4); White Blood Count 11.1 K/mm3 (4.4-11.0)
[2022-12-16 12:43] LABS: ALB/GLOB Ratio 0.9 RATIO (0.9-2.4); AST(SGOT) 25 U/L (15-37); Alanine Aminotransfer ALT/SGPT 38 U/L (13-56); Albumin, Serum 3.5 g/dL (3.2-5.0); Alkaline Phosphatase 49 U/L (45-117); Anion Gap 3 (5-15); BUN 42 mg/dL (7-18); BUN/Creat Ratio 31.8 RATIO (10-20); CRP < 2.90 mg/L (0.0-3.0); Calcium,Total 9.5 mg/dL (8.5-10.1); Chloride 104 mmol/L (98-107); Creatinine, Serum 1.32 mg/dL (0.55-1.02); EST Glomerular Filtration Rate 42 mL/min (>60); Est Glom Filt Rate - Afr Amer 50 mL/min (>60); Globulin 4.1 g/dL (2.2-4.2); Glucose 93 mg/dL (74-106); Potassium 3.7 mmol/L (3.5-5.1); Protein, Total 7.6 g/dL (6.4-8.2); Sodium Level 139 mmol/L (136-145)
[2022-12-20 17:28] LABS: Pancreatic Elastase, Fecal 74 (>200)
[2022-12-22 13:59] LABS: Calprotectin, Stool 64 ug/g (0-120)
== END | disposition home or self-care (01) ==
PROVIDERS: PCP Family Medicine; Visit Provider Nurse Practitioner Adult Health
DX: E11.22 Type 2 diabetes mellitus with diabetic chronic kidney disease (principal); K50.90 Crohn's disease, unspecified, without complications; Z79.4 Long term (current) use of insulin; N18.31 Chronic kidney disease, stage 3a; K86.81 Exocrine pancreatic insufficiency; K58.9 Irritable bowel syndrome, unspecified
CPT/HCPCS: 36415; 80053; 82653; 83630; 83993; 85025; 85652; 86140

== ENCOUNTER 2023-01-24 09:43 | Outpatient (CLI) | payer MEDICARE, SELFPAY ==
[2023-01-24 09:52] VITALS: BP 142/52; PULSE 73; RESP 16; TEMP 35.9; O2SAT 95; BMI 35.3
[2023-01-24] MEDS: 0.9% NaCl Peripheral Flush Adult/Peds IV (10:15)
== END 2023-01-24 23:59 | disposition home or self-care (01) ==
LOC: MEDOUTP 09:43
PROVIDERS: PCP Family Medicine; Referring Provider Nurse Practitioner Adult Health; Visit Provider Nurse Practitioner Adult Health
DX: K50.90 Crohn's disease, unspecified, without complications (principal)
CPT/HCPCS: 96413; 96415; J7050; A4216; Q5103

== ENCOUNTER 2023-03-28 09:47 | Outpatient (CLI) | payer MEDICARE, SELFPAY ==
[2023-03-28 09:54] VITALS: BP 108/48; PULSE 66; RESP 14; TEMP 35.6; O2SAT 96; BMI 34.4
[2023-03-28] MEDS: 0.9% NaCl Peripheral Flush Adult/Peds IV (10:01)
== END 2023-03-28 09:48 | disposition home or self-care (01) ==
LOC: MEDOUTP 09:47
PROVIDERS: PCP Family Medicine; Referring Provider Nurse Practitioner Adult Health; Visit Provider Nurse Practitioner Adult Health
DX: K50.90 Crohn's disease, unspecified, without complications (principal)
CPT/HCPCS: 96413; 96415; J7050; A4216; Q5103

== ENCOUNTER → 2023-04-26 | Outpatient (CLI) | payer MEDICARE, SELFPAY ==
--- NOTE | 2023-04-26 07:48 | MRI_ITS ---
STUDY: MRI LEFT HIP REASON FOR EXAM: Female, 77 years old. TROCHANTERIC BURSITIS LEFT HIP TECHNIQUE: Standardized fat and water weighted pulse sequences were obtained in all 3 orthogonal planes. . MRI of the pelvis/right hip dated April 26, 2023 COMPARISON: CT of abdomen and pelvis dated May 08, 2022 FINDINGS: There is mild articular narrowing of the hip joint, with less than 50% loss of the hyaline cartilage. A small left hip joint effusion is present. No bone marrow edema or fracture or osteochondral defect is seen. There is no evidence of avascular necrosis. Labral degeneration is present without a visualized tear or detachment. Normal acetabulum. Normal femoral head. Normal femoral neck and intratrochanteric region. There is no demonstrated labral tear. Normal gluteus minimus, medius and iliopsoas tendons and distal insertions. There is no trochanteric, iliopsoas or iliopectineal bursitis. Normal superior and inferior pubic rami. Normal pubic symphysis. Normal ischial tuberosity. Normal origin of the hamstring tendons. Normal visualized iliac wing, sacroiliac joint, and sacral ala. Normal visualized soft tissue structures of the pelvis. MRI/Lower Ext Joint Only (Routine) IMPRESSION: 1. Mild left hip joint space narrowing with a small left hip joint effusion and diffuse labral degeneration Electronically Signed: Jeffrey Morel MD at 16:00 EDT ,
--- NOTE | 2023-04-26 07:49 | MRI_ITS ---
STUDY: MRI RIGHT HIP REASON FOR EXAM: Female, 77 years old. TROCHANTERIC BURSITIS TECHNIQUE: Standardized fat and water weighted pulse sequences were obtained in all 3 orthogonal planes. COMPARISON: CT of abdomen and pelvis dated May 08, 2022 FINDINGS: There is mild articular narrowing of the hip joint, with less than 50% loss of the hyaline cartilage. Normal acetabulum. Unfused small apophyseal fragments at the periphery of the acetabular roofs bilaterally, which is a normal variant. Calcification of the acetabular labrum at the lateral aspect of the right acetabular roof noted. No visualized labral tear or detachment. Normal femoral head. Normal femoral neck and intratrochanteric region. No marrow edema or occult fractures present. A small right hip joint effusion is present. There is no evidence of avascular necrosis. Normal gluteus minimus, medius and iliopsoas tendons and distal insertions. There is no trochanteric, iliopsoas or iliopectineal bursitis. Normal superior and inferior pubic rami. Normal pubic symphysis. Normal ischial tuberosity. Normal origin of the hamstring tendons. Normal visualized iliac wing, sacroiliac joint, and sacral ala. Normal visualized soft tissue structures of the pelvis. MRI/Lower Ext Joint Only (Routine) IMPRESSION: 1. Mild right hip joint space narrowing with a small joint effusion. 2. No demonstrated intertrochanteric bursitis 3. Calcification of the acetabular labrum at the lateral aspect of the right acetabular roof noted. No visualized labral tear or detachment Electronically Signed: Jeffrey Morel MD at 16:03 EDT ,
== END | disposition home or self-care (01) ==
LOC: MRI 07:41
PROVIDERS: PCP Family Medicine; Referring Provider Nurse Practitioner Family; Visit Provider Nurse Practitioner Family
DX: M70.62 Trochanteric bursitis, left hip (principal); M70.61 Trochanteric bursitis, right hip
CPT/HCPCS: 73721

== ENCOUNTER 2023-05-23 09:41 | Outpatient (CLI) | payer MEDICARE, SELFPAY ==
[2023-05-23 09:50] VITALS: BP 111/52; PULSE 66; RESP 16; TEMP 36; O2SAT 97; BMI 34.5
[2023-05-23] MEDS: 0.9% NaCl Peripheral Flush Adult/Peds IV (10:29)
[2023-05-23 13:26] VITALS: BP 120/44; PULSE 63; RESP 16; TEMP 36; O2SAT 95
== END 2023-05-23 09:42 | disposition home or self-care (01) ==
LOC: MEDOUTP 09:41
PROVIDERS: PCP Family Medicine
DX: K50.90 Crohn's disease, unspecified, without complications (principal)
CPT/HCPCS: 96413; 96415; J7050; A4216; Q5103

== ENCOUNTER 2023-07-18 09:21 | Outpatient (CLI) | payer MEDICARE, SELFPAY ==
[2023-07-18 09:31] VITALS: BP 168/71; PULSE 70; RESP 16; TEMP 35.9; O2SAT 95; BMI 35.4
[2023-07-18] MEDS: 0.9% NaCl Peripheral Flush Adult/Peds IV (09:57)
[2023-07-18] MEDS: NORMAL SALINE 0.9% IV (09:57)
[2023-07-18] MEDS: INFLIXIMAB DYYB IV (09:57)
== END 2023-07-18 09:22 | disposition home or self-care (01) ==
DX: K50.90 Crohn's disease, unspecified, without complications (principal)
CPT/HCPCS: 96413; 96415; J7050; A4216; Q5103

== ENCOUNTER → 2023-07-29 | Outpatient (CLI) | payer MEDICARE, SELFPAY ==
--- NOTE | 2023-07-29 15:40 | RAD_ITS ---
STUDY: X-RAY - ABDOMEN/PELVIS REASON FOR EXAM: Female, 77 years old. KUB- KIDNEY STONES TECHNIQUE: Single AP view of the abdomen / pelvis. COMPARISON: 08/16/2022. FINDINGS: There is a right calcified granuloma projecting over the posterior right lung base measuring 1.1 cm. Otherwise clear visualized lung bases. Midline sternotomy wires noted. There is an unremarkable bowel gas pattern. There is no demonstrated free abdominal air. The visualized liver, spleen and kidneys are grossly normal in size and morphology. Normal soft tissue structures. There are diffuse degenerative changes of the visualized lumbar spine. Degenerative disease of bilateral SI joints and hips. RAD/Abdomen Single View IMPRESSION: Nonspecific gas pattern. No distinct calcification in the region of the kidneys seen. Electronically Signed: Angella Carlson MD at 19:13 EDT ,
== END | disposition home or self-care (01) ==
LOC: MTRAD 15:39
PROVIDERS: PCP Family Medicine; Referring Provider Urology; Visit Provider Urology
DX: N20.0 Calculus of kidney (principal)
CPT/HCPCS: 74018

== ENCOUNTER 2023-09-12 09:36 | Outpatient (CLI) | payer MEDICARE, SELFPAY ==
[2023-09-12 10:06] VITALS: BP 184/87; PULSE 63; RESP 16; TEMP 36; O2SAT 98; BMI 36.0
[2023-09-12] MEDS: 0.9% NaCl Peripheral Flush Adult/Peds IV (10:20)
[2023-09-12] MEDS: 0.9% NaCl IVPB Med Flush (250 mL) 15 ML IV (10:21)
[2023-09-12] MEDS: INFLIXIMAB DYYB IV (10:46)
[2023-09-12] MEDS: NORMAL SALINE 0.9% IV (10:46)
[2023-09-12 13:54] VITALS: BP 213/79; PULSE 68; RESP 16; TEMP 36.1; O2SAT 94
== END 2023-09-12 09:37 | disposition home or self-care (01) ==
LOC: MEDOUTP 09:37
PROVIDERS: PCP Family Medicine; Referring Provider Internal Medicine Gastroenterology; Visit Provider Internal Medicine Gastroenterology
DX: K50.90 Crohn's disease, unspecified, without complications (principal)
CPT/HCPCS: 96413; 96415; J7050; A4216; Q5103

== ENCOUNTER 2023-09-12 14:05 | Emergency (ER) | payer MEDICARE, SELFPAY ==
[2023-09-12 14:06] VITALS: BP 245/95; PULSE 70; RESP 18; TEMP 35.5; O2SAT 98
[2023-09-12 14:15] VITALS: BP 244/89; PULSE 70; RESP 18; BMI 36.3
--- NOTE | 2023-09-12 14:25 | CT_ITS ---
HISTORY: hypertensive urgency. TECHNIQUE: Multiple axial images were obtained of the head without intravenous contrast. A radiation dose optimization technique was used for this scan. 234 images. COMPARISON: None. FINDINGS: BRAIN PARENCHYMA: Small zone of low attenuation in the right frontal lobe. Multiple foci and zones of low attenuation in the bilateral cerebral white matter compatible with chronic small vessel ischemic gliosis. No acute intra-axial hemorrhage identified. CSF SPACES: Generalized volume loss. No midline shift or other significant mass effect. No acute extra-axial hemorrhage seen. OTHER: Intact calvarium. No significant air fluid levels in the paranasal sinuses or mastoid air cells. Unremarkable orbits. 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 No acute intracranial hemorrhage identified. Mild chronic involutional and white matter changes. Electronically Signed: Janae Franklin MD at 15:36 EST ,
--- NOTE | 2023-09-12 14:27 | EX.ED.DYSGE1 ---
HPI History of Present Illness Chief Complaint: Hypertension Informant: patient and spouse/S.O. Narrative Narrative: 78-year-old female presenting to the emergency room with hypertension. Patient has known hypertension and currently takes ramipril 2.5 mg daily. She recently went off of metoprolol due to low blood pressure. She sees cardiology through [facility]. She states that today she went to the infusion center to get her scheduled infusion for Crohn's disease. She states her blood pressure steadily increased. She typically takes it every day but did not take it yesterday as it is Thanksgiving and she was busy cooking. She states that she does not feel any symptomology from hypertension. She denies any headache vision changes speech arm or leg symptoms. No chest pain shortness of breath or back pain. No urinary complaints. No significant swelling of the legs. Patient notes that they kept checking her pressure at the infusion center her blood pressure kept going up and she started getting more more worried and now tearful. [facility] Medical History Abnormal results of thyroid function studies Anxiety Arthritis Back pain Benign hypertension CAD (coronary artery disease) Cancer Cardiology follow-up encounter Deficient knowledge of hysterectomy Depression Dietary restriction Easy bruising Gastrointestinal problem Heart disease Heartburn High blood pressure High cholesterol High triglycerides History of Crohn's disease History of diverticulitis History of edema History of heart attack History of IBS History of irregular heartbeat History of pain when walking History of stress test Hydronephrosis Hypokalemia IBS (irritable bowel syndrome) Insulin dependent diabetes mellitus Leg cramps Mixed hyperlipidemia Murmur Neuropathy Non-smoker Obesity Polyneuropathy due to type 2 diabetes mellitus Restless legs Ureteral calculi UTI (urinary tract infection) Wears glasses Home Medications aspirin 81 mg chewable tablet 81 mg PO DAILY@0800 06/19/15 [History Last Taken 07/18/22] atorvastatin 80 mg tablet 80 mg PO QHS 06/19/15 [History Last Taken Unknown] potassium gluconate 500 mg (83 mg) tablet 500 mg PO DAILY 06/19/15 [History Last Taken Unknown] sertraline 100 mg tablet 100 mg PO DAILY 06/19/15 [History Last Taken Unknown] [id number] 36,000-114,000-180,000 unit capsule,delay rel (Creon) 2 cap PO TID 02/21/21 [History Last Taken 07/22/22] pen needle, diabetic 32 gauge x 5/32 (BD Ultra-Fine Roseanna Pen Needle) #150 ea 02/21/21 [Rx Last Taken Unknown] ramipril 2.5 mg capsule 2.5 ea PO QHS 02/21/21 [History Last Taken Unknown] metoprolol tartrate 25 mg tablet 37.5 mg PO BID 07/09/21 [History Last Taken 07/20/21 05:00] d-mannose 500 mg capsule 1,000 mg PO DAILY 07/13/21 [History Last Taken Unknown] lactobacillus combination no.4 3 billion cell capsule (Probiotic) 3,000 mmu cells PO DAILY 07/13/21 [History Last Taken Unknown] ergocalciferol (vitamin D2) 1,250 mcg (50,000 unit) capsule (Vitamin D2) 1,250 mcg PO BAZAN #4 caps 11/13/21 [Rx Last Taken Unknown] inflectra infusion 0 mg subcut PRN PRN CROHN 07/10/22 [History Last Taken 07/04/22] Humalog KwikPen Insulin 100 unit/mL subcutaneous (insulin lispro) 18 unit (0.18 mL) subcut TID SLIDING SCALE #45 mL 07/01/23 [Rx Last Taken Unknown] Lantus Solostar U-100 Insulin 100 unit/mL (3 mL) subcutaneous pen (insulin glargine) 42 unit (0.42 mL) subcut QHS #36 mL 07/01/23 [Rx Last Taken Unknown] Ozempic 2 mg/dose (8 mg/3 mL) subcutaneous pen injector (semaglutide) 2 mg (0.75 mL) subcut QWEEK #9 mL 07/01/23 [Rx Last Taken Unknown] clonidine HCl 0.1 mg tablet 0.1 mg PO Q8H PRN hypertensive emergency #10 tabs 09/12/23 [Rx Last Taken Unknown] Allergy/AdvReac Type Severity Reaction Status Date / Time Gadolinium-MRI Contrast Allergy CHILLS.AQUILES Verified 09/12/23 14:08 Medium RS [contrast dye] niacin Allergy Anaphylaxis Verified 09/12/23 14:08 Family History Mother Diabetes Hypertension Father Diabetes Hypertension Other Bowel disease CVA (cerebral vascular accident) Myocardial infarction Parkinson disease Surgical History H/O knee surgery History of cystoscopy History of intestinal surgery Hx laparoscopic cholecystectomy Hx of colonoscopy Hx of foot surgery Hx of heart bypass surgery Hx of hysterectomy Hx of left cataract extraction Hx of tonsillectomy Social History Smoking Status: Never smoker ROS ROS ED Constitutional Constitutional ED: Denies chills, fever(s) or weight loss Eyes Eyes: Denies change in vision or diplopia ENT ENT ED: Denies ear pain, rhinorrhea or sore throat Cardiovascular Cardiovascular: Denies chest pain, orthopnea, palpitations or racing heartbeat Respiratory/Chest Respiratory/Chest: Denies cough, dyspnea or orthopnea Gastrointestinal Gastrointestinal: Denies abdominal pain, diarrhea, nausea or vomiting Genitourinary Genitourinary ED: Denies dysuria, hematuria or urinary frequency Musculoskeletal Musculoskeletal: Denies arthralgias or myalgias Integumentary Denies abscess or rash Neurologic Neurologic: Denies headache(s) or weakness Psychiatric Psychiatric: Denies anxiety, depression, suicidal ideation or suicidal thoughts Endocrine Endocrinology: Denies polydipsia, polyphagia or polyuria Allergic/Immunologic Allergic/Immunologic ED: Denies mouth swelling, tongue swelling or urticaria EXAM Physical Exam Const Vital Signs: 09/12/23 14:06 09/12/23 14:15 09/12/23 14:17 Temperature 96 F L Temperature Source Temporal Pulse Rate 70 70 Respiratory Rate 18 18 Respiratory Effort Normal Respiratory Pattern Normal Blood Pressure 245/95 H 244/89 H Blood Pressure Mean 145 140 Pulse Ox 98 Oxygen Delivery Method Room Air Room Air 09/12/23 14:37 09/12/23 15:14 09/12/23 16:33 Temperature Temperature Source Pulse Rate 66 64 66 Respiratory Rate 12 14 14 Respiratory Effort Respiratory Pattern Blood Pressure 222/89 H 204/80 H 186/73 H Blood Pressure Mean 133 121 110 Pulse Ox 97 97 95 Oxygen Delivery Method Room Air Positive well nourished and well developed General Appearance ED: well developed HEENT Reports normocephalic, head/scalp atraumatic and moist mucous membranes Eyes PERRL and EOMs intact bilaterally Neck no lymphadenopathy, supple and no JVD Resp normal respiratory effort and clear to auscultation bilaterally Cardio regular rate and regular rhythm Cardio Narrative: 3 out of 6 systolic murmur GI normal to inspection, nondistended, normoactive bowel sounds and non-tender Palpation: soft Back/Spine no CVA tenderness and normal ROM Extremity normal to inspection General Extremety ED: Negative for edema General Extremity: Negative for edema Neuro oriented x3 and CN's II-XII intact bilaterally Sensorium / Orientation: alert Motor Exam: strength 5/5 throughout Psych Mood & Affect: anxious and tearful; Negative for depressed Skin no rashes or lesions noted and no wounds MDM MDM MDM Narrative Medical decision making narrative: My independent interpretation of the single view chest x-ray is no acute process. CT the brain demonstrates no acute findings. There is a noted area of hypotension in the right frontal lobe. Radiology says subacute to chronic. Patient does not recall any episodes of neurologic symptoms. Basic blood work was obtained. Creatinine 1.10 which is at baseline for the patient. Troponin at 13. No significant electrolyte abnormality. BUN is 22. Hemoglobin 14.9. Patient received a dose of clonidine. Her blood pressure is coming back down. She remains asymptomatic. I spoke with the patient and her . We talked about the evaluation findings and whether or not to admit her versus discharged home. Using shared decision making patient will be discharged home. I will write her prescription of clonidine. She is to monitor her pressure take it if she reaches 180/110 range. Should she develop any neurologic or cardiopulmonary symptoms she is to return to the emergency department or if her pressures are not declining. She will follow-up with primary care/cardiology. Patient and her History & Record Review Discussion w/independent historian: Patient and Significant other Additional record(s) reviewed:: Prior labs Lab Data Attestation: I reviewed the patient's lab results. Labs: Laboratory Results - last 24 hr 09/12/23 09/12/23 14:30 15:40 WBC 9.4 RBC 5.16 Hgb 14.9 Hct 47.7 H MCV 92.4 MCH 28.9 MCHC 31.2 L RDW Std Deviation 46.9 H RDW Coeff of Jhonny 13.7 Plt Count 182 MPV 10.8 Immature Gran % (Auto) 0.600 Neut % (Auto) 59.4 Lymph % (Auto) 26.8 [place] % (Auto) 9.7 Eos % (Auto) 2.6 Baso % (Auto) 0.9 Absolute Neuts (auto) 5.6 Absolute Lymphs (auto) 2.51 Nucleated RBC % 0 Sodium 138 Potassium 4.3 Chloride 104 Carbon Dioxide 30.0 Anion Gap 4 L BUN 22 H Creatinine 1.10 H Estim Creat Clear Calc 41.65 Est GFR (MDRD) Af Amer 62 Est GFR (MDRD) Non-Af 51 L BUN/Creatinine Ratio 20.0 Glucose 232 H Calcium 8.4 L Total Bilirubin 0.60 AST 35 ALT 32 Alkaline Phosphatase 47 Troponin I High Sens 13 Total Protein 7.2 Albumin 3.2 Globulin 4.0 Albumin/Globulin Ratio 0.8 L Urine Color Yellow Urine Clarity Clear Urine pH 7.0 Ur Specific [place] 1.010 Urine Protein Negative Urine Glucose (UA) 100 H Urine Ketones Negative Urine Occult Blood Negative Urine Nitrite Negative Urine Bilirubin Negative Urine Urobilinogen Normal Ur Leukocyte Esterase 25 H Urine RBC 0 SEEN Urine WBC 0-5 SEEN Ur Squamous Epith Cells 5-10 SEEN Urine Bacteria 1+ Urine Mucus 0 SEEN Radiography Diagnostic Testing: Clinical Impression(s) from Imaging Studies Brain CT 09/12/23 14:25 IMPRESSION: 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 No acute intracranial hemorrhage identified. Mild chronic involutional and white matter changes. Electronically Signed: Janae Franklin MD at 15:36 EST , Chest X-Ray 09/12/23 14:32 IMPRESSION: Cardiomegaly with hyperinflation and no acute or emergent finding. Electronically Signed: Cas Morgan MD at 14:49 EST , EKG Initial EKG: Attestation: I personally reviewed and interpreted this EKG as follows: Comments: Normal sinus rhythm with a ventricular rate of 63 bpm. No definitive features of ACS noted. Discharge Plan Triage Chief Complaint: Hypertension ED Provider: Catrachito Gilmore Dx/Rx/DC Orders Clinical Impression: CAD (coronary artery disease), Asymptomatic hypertensive urgency Instructions: ED High Blood Pressure Hypertension Prescriptions: New clonidine HCl 0.1 mg tablet 0.1 mg PO Q8H PRN (Reason: hypertensive emergency) Qty: 10 0RF Rx Instructions: For systolic blood pressure greater than 180 mmHg or diastolic pressure greater than 110 mmHg No Action ramipril 2.5 mg capsule 2.5 ea PO QHS Patient Comments: TAKE 1 CAPSULE BY MOUTH ONCE DAILY Creon 36,000-114,000- 180,000 unit capsule,delayed release(DR/EC) 2 cap PO TID Rx Instructions: administer with meals and/or snacks (DME) pen needle, diabetic [BD Ultra-Fine Roseanna Pen Needle] 32 gauge x 5/32 needle See Rx Instructions .ROUTE .MEDSUPPLY Qty: 150 5RF Rx Instructions: 5 times daily metoprolol tartrate 25 mg tablet 37.5 mg PO BID Hold Instructions: Order Changed inflectra infusion 0 mg subcut PRN PRN (Reason: CROHN) Ozempic 2 mg/dose (8 mg/3 mL) pen injector 2 mg subcut QWEEK Qty: 9 3RF insulin glargine [Lantus Solostar U-100 Insulin] 100 unit/mL (3 mL) insulin pen 42 unit subcut QHS Qty: 36 1RF insulin lispro [Humalog KwikPen Insulin] 100 unit/mL insulin pen 18 unit subcut TID Qty: 45 1RF atorvastatin 80 MG tablet 80 mg PO QHS sertraline 100 MG tablet 100 mg PO DAILY aspirin 81 MG tablet,chewable 81 mg PO DAILY@0800 potassium gluconate 500 MG tablet 500 mg PO DAILY Probiotic 3 billion cell Capsule 3,000 mmu cells PO DAILY d-mannose 500 mg Capsule 1,000 mg PO DAILY ergocalciferol (vitamin D2) [Vitamin D2] 1,250 mcg (50,000 unit) capsule 1,250 mcg PO BAZAN Qty: 4 2RF Hold Instructions: patient only takes in winter Primary Care Provider: Reshma Marsh Referrals: Reshma Marsh PA-C [Primary Care Provider] - 1 Week Activity Restrictions/Additional Instructions: Please monitor your blood pressure at home. If your blood pressure is substantially elevated like today take a dose of the clonidine. Recheck your blood pressure about 3 hours later. If it is still elevated you may require another emergency department visit Should you develop chest pain shortness of breath or any neurologic symptoms please return to the emergency department Please discuss your head CT with your doctor. There was a area of low attenuation of indeterminate age in the right frontal lobe. You appear asymptomatic from this. You may require further evaluation with an MRI. Disposition Disposition: Home, Self Care
--- NOTE | 2023-09-12 14:32 | RAD_ITS ---
STUDY: X-RAY CHEST REASON FOR EXAM: Female, 78 years old. Hypertension. TECHNIQUE: Single frontal view of the chest. COMPARISON: None. FINDINGS: Mild cardiomegaly, sternotomy wires, aortic tortuosity with calcification, prominent central pulmonary arteries, hyperinflation and scattered healed parenchymal granulomatous calcifications. No acute or emergent finding. No abnormality of the visualized soft tissue structures of the upper abdomen. RAD/Chest 1 View (Portable) IMPRESSION: Cardiomegaly with hyperinflation and no acute or emergent finding. Electronically Signed: Cas Morgan MD at 14:49 EST ,
[2023-09-12 14:37] VITALS: BP 222/89; PULSE 66; RESP 12; O2SAT 97
[2023-09-12 14:41] LABS: Absolute Lymphocyte Count 2.51 X10^3/uL (0.83-4.51); Absolute Neutrophil Count 5.6 X10^3/uL (2.0-7.7); Basophil# 0.08 X10^3/uL; Basophil% 0.9 % (0-1); Eosinophil# 0.24 X10^3/uL; Eosinophils% 2.6 % (0-5); Hematocrit 47.7 % (37-47); Hemoglobin 14.9 g/dL (12.0-15.0); Lymphocyte # 2.51 X10^3/ul (0.83-4.51); Lymphocyte % 26.8 % (19-41); Mean Corp Hgb Conc 31.2 g/dL (32-36); Mean Corpuscular Hgb 28.9 pg (27.0-32.0); Mean Corpuscular Volume 92.4 fL (81-99); Mean Platelet Vol. 10.8 fl (6.2-12.0); Monocyte# 0.91 X10^3/uL; Monocyte% 9.7 % (0-10); NRBC Flagged by Analyzer 0 % (0-5); Neutrophil # 5.58 X10^3/uL (2.7-7.7); Neutrophil % 59.4 % (47-70); Platelet Count 182 K/mm3 (150-450); RBC Distribution Width CV 13.7 % (11.6-14.6); RBC Distribution Width SD 46.9 fl (35.1-43.9); Red Blood Count 5.16 M/mm3 (4.2-5.4); White Blood Count 9.4 K/mm3 (4.4-11.0)
[2023-09-12] MEDS: cloNIDine HCl 0.1 MG Tablet PO (14:51)
[2023-09-12 14:59] LABS: ALB/GLOB Ratio 0.8 RATIO (0.9-2.4); AST(SGOT) 35 U/L (15-37); Alanine Aminotransfer ALT/SGPT 32 U/L (13-56); Albumin, Serum 3.2 g/dL (3.2-5.0); Alkaline Phosphatase 47 U/L (45-117); Anion Gap 4 (5-15); BUN 22 mg/dL (7-18); Calcium,Total 8.4 mg/dL (8.5-10.1); Chloride 104 mmol/L (98-107); EST Glomerular Filtration Rate 51 mL/min (>60); Est Glom Filt Rate - Afr Amer 62 mL/min (>60); Estimated Creatinine Clearance 41.65 ml/min; Glucose 232 mg/dL (74-106); Potassium 4.3 mmol/L (3.5-5.1); Protein, Total 7.2 g/dL (6.4-8.2); Sodium Level 138 mmol/L (136-145); Troponin-I HS 13 pg/mL (3.0-54.0)
[2023-09-12 15:14] VITALS: BP 204/80; PULSE 64; RESP 14; O2SAT 97
[2023-09-12 15:53] LABS: Color, Urine Yellow (Yellow); Glucose, Dipstick 100 mg/dl (Normal); Ketone-Dipstick Negative (Negative); Leukocyte Esterase-Dipstick 25 /ul (Negative); Mucous, Urine 0 SEEN /hpf (<or=2+); Nitrite-Dipstick Negative (Negative); Occult Blood-Urine Negative /ul (Negative); Protein-Dipstick Negative (Negative); Red Blood Cells-Urine 0 SEEN /hpf (0-5); Urine Bilirubin Dipstick Negative (Negative); Urine Clarity Clear (Clear); Urine Urobilinogen Normal (Normal)
[2023-09-12 16:00] LABS: Bacteria 1+ /hpf (None Seen); Squamous Epithelial Cells - UA 5-10 SEEN /hpf (5-10); White Blood Cells 0-5 SEEN /hpf (0-5)
[2023-09-12 16:33] VITALS: BP 186/73; PULSE 66; RESP 14; O2SAT 95
[2023-09-12 17:20] VITALS: BP 178/70; PULSE 66; RESP 12
== END 2023-09-12 17:21 | disposition home or self-care (01) ==
PROVIDERS: Emergency Provider Emergency Medicine; PCP Family Medicine; Visit Provider Emergency Medicine
DX: I16.0 Hypertensive urgency (principal); K50.90 Crohn's disease, unspecified, without complications; E11.42 Type 2 diabetes mellitus with diabetic polyneuropathy; I10 Essential (primary) hypertension; E78.2 Mixed hyperlipidemia; I25.10 Atherosclerotic heart disease of native coronary artery without angina pectoris; Z79.899 Other long term (current) drug therapy
CPT/HCPCS: 70450; 71045; 80053; 81001; 84484; 85025; 93005; 99283; A4216

== ENCOUNTER 2024-01-28 10:37 | Outpatient (CLI) | payer MEDICARE, SELFPAY ==
[2024-01-28 10:54] VITALS: BP 143/49; PULSE 68; RESP 16; TEMP 36; O2SAT 93; BMI 34.9
[2024-01-28] MEDS: NORMAL SALINE 0.9% IV (11:45)
[2024-01-28] MEDS: INFLIXIMAB DYYB IV (11:45)
[2024-01-28] MEDS: 0.9% NaCl Peripheral Flush Adult/Peds IV (13:00)
== END 2024-01-28 10:38 | disposition home or self-care (01) ==
LOC: MEDOUTP 10:38
PROVIDERS: PCP Family Medicine; Referring Provider Internal Medicine Gastroenterology; Visit Provider Internal Medicine Gastroenterology
DX: K50.90 Crohn's disease, unspecified, without complications (principal)
CPT/HCPCS: 96413; 96415; J7050; A4216; Q5103

== ENCOUNTER 2024-03-24 10:46 | Outpatient (CLI) | payer MEDICARE, SELFPAY ==
[2024-03-24 11:03] VITALS: BP 142/67; PULSE 67; RESP 16; TEMP 36.1; O2SAT 94; BMI 35.5
[2024-03-24] MEDS: 0.9% NaCl Peripheral Flush Adult/Peds IV (11:07)
[2024-03-24] MEDS: NORMAL SALINE 0.9% IV (11:52)
[2024-03-24] MEDS: INFLIXIMAB DYYB IV (11:52)
== END 2024-03-24 23:59 | disposition home or self-care (01) ==
LOC: MEDOUTP 10:47
PROVIDERS: PCP Family Medicine; Referring Provider Internal Medicine Gastroenterology; Visit Provider Internal Medicine Gastroenterology
DX: K50.90 Crohn's disease, unspecified, without complications (principal)
CPT/HCPCS: 96365; 96366; J7050; A4216; Q5103

== ENCOUNTER → 2024-04-01 | Outpatient (CLI) | payer MEDICARE, SELFPAY | END | disposition home or self-care (01) | PROVIDERS: PCP Family Medicine; Referring Provider Internal Medicine Gastroenterology; Visit Provider Internal Medicine Gastroenterology | DX: K50.00 Crohn's disease of small intestine without complications (principal) | CPT/HCPCS: 36415 ==

== ENCOUNTER → 2024-05-17 | Outpatient (CLI) | payer MEDICARE, SELFPAY | END | disposition home or self-care (01) | PROVIDERS: PCP Family Medicine; Referring Provider Internal Medicine Gastroenterology; Visit Provider Internal Medicine Gastroenterology | DX: K50.00 Crohn's disease of small intestine without complications (principal) | CPT/HCPCS: 36415 ==

== ENCOUNTER 2024-07-16 10:25 | Outpatient (CLI) | payer MEDICARE, SELFPAY ==
[2024-07-16 10:35] VITALS: BP 150/70; PULSE 64; RESP 16; TEMP 35.7; O2SAT 95; BMI 33.8
[2024-07-16] MEDS: 0.9% NaCl Peripheral Flush Adult/Peds IV (11:20)
[2024-07-16] MEDS: INFLIXIMAB DYYB IV (11:21)
[2024-07-16] MEDS: NORMAL SALINE 0.9% IV (11:21)
== END 2024-07-16 23:59 | disposition home or self-care (01) ==
LOC: MEDOUTP 10:25
PROVIDERS: PCP Family Medicine; Referring Provider Internal Medicine Gastroenterology; Visit Provider Internal Medicine Gastroenterology
DX: K50.90 Crohn's disease, unspecified, without complications (principal)
CPT/HCPCS: 96413; 96415; J7050; A4216; Q5103

== ENCOUNTER 2024-09-10 09:42 | Outpatient (CLI) | payer MEDICARE, SELFPAY ==
[2024-09-10 09:49] VITALS: BMI 33.7
[2024-09-10 09:59] VITALS: BP 151/90; PULSE 70; RESP 16; TEMP 35.3; O2SAT 16
[2024-09-10] MEDS: 0.9% NaCl IVPB Med Flush (250 mL) 15 ML IV (10:24)
[2024-09-10] MEDS: 0.9% NaCl Peripheral Flush Adult/Peds IV (10:24)
[2024-09-10] MEDS: NORMAL SALINE 0.9% IV (10:31)
[2024-09-10] MEDS: INFLIXIMAB DYYB IV (10:31)
[2024-09-10 13:11] VITALS: BP 176/86
== END 2024-09-10 23:59 | disposition home or self-care (01) ==
PROVIDERS: PCP Family Medicine; Referring Provider Internal Medicine Gastroenterology; Visit Provider Internal Medicine Gastroenterology
DX: K50.90 Crohn's disease, unspecified, without complications (principal)
CPT/HCPCS: 96413; 96415; J7050; A4216; Q5103

== ENCOUNTER → 2024-10-01 | Outpatient (CLI) | payer MEDICARE, SELFPAY ==
[2024-10-01 13:57] LABS: Absolute Lymphocyte Count 3.18 X10^3/uL (0.83-4.51); Absolute Neutrophil Count 6.8 X10^3/uL (2.0-7.7); Basophil# 0.13 X10^3/uL; Basophil% 1.2 % (0-1); Eosinophil# 0.19 X10^3/uL; Eosinophils% 1.7 % (0-5); Hematocrit 44.9 % (37-47); Hemoglobin 14.5 g/dL (12.0-15.0); Lymphocyte # 3.18 X10^3/ul (0.83-4.51); Lymphocyte % 28.5 % (19-41); Mean Corp Hgb Conc 32.3 g/dL (32-36); Mean Corpuscular Hgb 27.9 pg (27.0-32.0); Mean Corpuscular Volume 86.5 fL (81-99); Monocyte# 0.79 X10^3/uL; Monocyte% 7.1 % (0-10); NRBC Flagged by Analyzer 0 % (0-5); Neutrophil # 6.82 X10^3/uL (2.7-7.7); Neutrophil % 61.1 % (47-70); Platelet Count 191 K/mm3 (150-450); RBC Distribution Width SD 44.5 fl (35.1-43.9); Red Blood Count 5.19 M/mm3 (4.2-5.4); White Blood Count 11.2 K/mm3 (4.4-11.0)
[2024-10-01 14:02] LABS: Erythrocyte Sedimentation Rate 3 mm/hr (0-30)
[2024-10-01 14:23] LABS: CRP < 2.90 mg/L (0.0-3.0)
== END | disposition home or self-care (01) ==
LOC: LAB 13:40
PROVIDERS: PCP Family Medicine; Referring Provider Student in an Organized Health Care Education/Training Program; Visit Provider Student in an Organized Health Care Education/Training Program
DX: K50.00 Crohn's disease of small intestine without complications (principal)
CPT/HCPCS: 36415; 85025; 85652; 86140

== ENCOUNTER → 2024-10-07 | Outpatient (CLI) | payer MEDICARE, SELFPAY ==
[2024-10-10 03:06] LABS: Calprotectin, Stool 113 ug/g (0-120)
== END | disposition home or self-care (01) ==
LOC: LABSPEC 09:48
PROVIDERS: PCP Family Medicine; Referring Provider Student in an Organized Health Care Education/Training Program; Visit Provider Student in an Organized Health Care Education/Training Program
DX: K50.00 Crohn's disease of small intestine without complications (principal)
CPT/HCPCS: 83993

== ENCOUNTER 2024-11-05 09:53 | Outpatient (CLI) | payer MEDICARE, SELFPAY ==
[2024-11-05 10:01] VITALS: BP 165/72; PULSE 68; RESP 16; TEMP 35.6; O2SAT 94; BMI 33.2
[2024-11-05] MEDS: 0.9% NaCl Peripheral Flush Adult/Peds IV (10:04)
[2024-11-05] MEDS: INFLIXIMAB DYYB IV (10:45)
[2024-11-05] MEDS: NORMAL SALINE 0.9% IV (10:45)
== END 2024-11-05 23:59 | disposition home or self-care (01) ==
LOC: MEDOUTP 09:55
PROVIDERS: PCP Family Medicine; Referring Provider Internal Medicine Gastroenterology; Visit Provider Internal Medicine Gastroenterology
DX: K50.90 Crohn's disease, unspecified, without complications (principal)
CPT/HCPCS: 96413; 96415; A4216; Q5103

== ENCOUNTER 2024-12-31 09:51 | Outpatient (CLI) | payer MEDICARE, SELFPAY ==
[2024-12-31 10:01] VITALS: BP 155/87; PULSE 70; RESP 16; TEMP 35.7; O2SAT 95; BMI 32.5
[2024-12-31] MEDS: 0.9% NaCl Peripheral Flush Adult IV (10:15)
[2024-12-31] MEDS: INFLIXIMAB DYYB IV (10:31)
[2024-12-31] MEDS: 0.9% Normal Saline (100mL Bag) 100 ML 15 ML IV (10:31)
[2024-12-31] MEDS: NORMAL SALINE 0.9% IV (10:31)
[2024-12-31 12:54] VITALS: BP 197/67; PULSE 60; RESP 16
== END 2024-12-31 23:59 | disposition home or self-care (01) ==
LOC: MEDOUTP 09:51
PROVIDERS: PCP Family Medicine; Referring Provider Internal Medicine Gastroenterology; Visit Provider Internal Medicine Gastroenterology
DX: K50.90 Crohn's disease, unspecified, without complications (principal)
CPT/HCPCS: 96413; 96415; A4216; Q5103

== ENCOUNTER 2025-02-25 09:48 | Outpatient (CLI) | payer MEDICARE, SELFPAY ==
[2025-02-25 09:57] VITALS: BP 179/56; PULSE 64; RESP 16; TEMP 36.1; O2SAT 92; BMI 32.4
[2025-02-25] MEDS: 0.9% NaCl Peripheral Flush Adult IV (10:01)
[2025-02-25] MEDS: INFLIXIMAB DYYB IV (10:27)
[2025-02-25] MEDS: NORMAL SALINE 0.9% IV (10:27)
[2025-02-25 12:58] VITALS: BP 188/66; PULSE 61; RESP 16; TEMP 36; O2SAT 94
== END 2025-02-25 23:59 | disposition home or self-care (01) ==
LOC: MEDOUTP 09:48
PROVIDERS: PCP Family Medicine; Referring Provider Internal Medicine Gastroenterology; Visit Provider Internal Medicine Gastroenterology
DX: K50.90 Crohn's disease, unspecified, without complications (principal)
CPT/HCPCS: 96413; 96415; 96365; 96366; A4216; Q5103

== ENCOUNTER → 2025-07-09 | Outpatient (CLI) | payer MEDICARE, SELFPAY | END | disposition home or self-care (01) | PROVIDERS: PCP Family Medicine; Referring Provider Physician Assistant; Visit Provider Physician Assistant | DX: R82.90 Unspecified abnormal findings in urine (principal) | CPT/HCPCS: 87077; 87086; 87088; 87186 ==

== ENCOUNTER → 2025-09-16 | Outpatient (CLI) | payer MEDICARE, SELFPAY ==
--- OUTSIDE RECORDS SUMMARY | 2025-09-16 12:02 | XMS RPT_ITS | CCD ---
Author Organization [facility] Care Team Providers Care Pipe Straightener Name Role Phone [place] PA, PA-C Reshma Primary Care Provider [place] PA, PA-C Reshma Referring Provider Dr. Mouna Zamora Attending Provider Tracey HERNANDEZ, PLUMBING MECHANIC-C Joan Chau Attending Provider [phone] [place] PA, PA-C Reshma Primary Care Provider [place] PA, PA-C Reshma Referring Provider GIO Morataya Attending Provider FriendDr. Mcgill Attending Provider [phone] FriendDr. Mcgill Other Provider [place] PA, PA-C Reshma Primary Care Provider [place] PA, PA-C Reshma Referring Provider [phone] GIO Morataya Attending Provider FriendDr. Mcgill Attending Provider [phone] FriendDr. Mcgill Other Provider Tracey HERNANDEZ NP-Bibiana Chau Attending Provider [phone] [place] PA, PA-C Reshma Primary Care Provider [place] PA, PA-C Reshma Referring Provider [place] PA, PA-C Reshma Primary Care Provider [place] PA, PA-C Reshma Referring Provider Tracey HERNANDEZ PLUMBING MECHANIC-C Joan Chau Attending Provider [place] PA, PA-C Reshma Primary Care Provider [place] PA, PA-C Reshma Referring Provider Tracey PLUMBING MECHANIC, PLUMBING MECHANIC-C Joan Chau Attending Provider Dr. Mouna Zamora Attending Provider [phone] [place] PA, PA-C Reshma Primary Care Provider [phone] [place] PA, PA-C Reshma Referring Provider Tracey PLUMBING MECHANIC, PLUMBING MECHANIC-C Joan hCau Attending Provider [phone] Dr. Mouna Zamora Attending Provider [phone] [place] PA, PA-C Reshma Referring Provider Dr. Mouna Zamora Attending Provider VIVIEN JACOBO MD Attending Unavail able [place] PA-C, RESHMA Primary Care Unavailable VIVIEN JACOBO MD Attending Unavail able [place] PA-C, RESHMA Primary Care Unavailable [place] PA-C, RESHMA Primary Care Physician Dr. Mouna Zamora Attending Provider [place] PA, PA-C Reshma Primary Care Provider [place] PA, PA-C Reshma Referring Provider Friend, Dr. Mcgill Attending Provider Margarita Corrigan Unavailable Unavailable PILLAI AUTOMOTIVE WORKER-SPEECH TEACHERSEBASTIAN Attending Unavail able [place] PA-C, RESHMA Primary Care Unavailable [place]ILLAI AUTOMOTIVE WORKER-SPEECH TEACHERSEBASTIAN Attending Unavail able [place] PA-C, RESHMA Primary Care Unavailable ROSAS CASESPEECH TEACHERSEBASTIAN Attending Unavail able [place] PA-C, RESHMA Primary Care Unavailable LETICIA HACKETT MD, DR EID Admitting Unav ailable LETICIA HACKETT MD, DR EID Attending Unav ailable [place] PA-C, RESHMA Primary Care Unavailable LETICIA HACKETT MD, DR EID Admitting Unav ailable LETICIA HACKETT MD, DR EID Attending Unav ailable [place] PA-C, RESHMA Primary Care Unavailable LETICIA HACKETT MD, DR EID Attending Unav ailable [place] PA-C, RESHMA Primary Care Unavailable LETICIA HACKETT MD, DR EID Admitting Unav ailable LETICIA HACKETT MD, DR EID Attending Unav ailable ISRAEL GOINS, DANNY Pan Consulting Unavailable [place] PA-C, RESHMA Primary Care Unavailable [place] PA-C, Reshma Primary Care Provider Sebastian BARILLAS, Dr. Mcgill Attending Provider Sebastian BARILLAS, Dr. Mcgill Referring Provider [place] PA-C, Reshma Referring Provider Gayla Hooker Attending Provider Gayla Hooker Referring Provider [place] PA-C, Reshma Primary Care Provider Sebastian BARILLAS, Dr. Mcgill Attending Provider Sebastian BARILLAS, Dr. Mcgill Referring Provider [place] PA-C, Reshma Referring Provider King BUSTER, Dr. Perez Attending Provider [place] PA-C, Reshma Primary Care Provider Sebastian BARILLAS, Dr. Mcgill Attending Provider Sebastian BARILLAS, Dr. Mcgill Referring Provider Gayla Hooker Attending Provider [place] PA-C, Reshma Primary Care Physician [place] PA-C, Reshma Referring Provider Gayla Hooker Attending Physician Anabel GOINS, Dr. Pinto Attending Physician Arely Kc Attending Physician Jeromy Lucia Attending Physician Jeromy Lucia Attending Physician [phone] Jeromy Lucia Referring Provider Mouna Zamora Attending Unavailable [place] PA, Reshma Primary Care Unavailable [place] PA, Reshma Referring Unavailable [place] PA, Reshma Referring Unavailable [place] PA, Reshma Primary Care Unavailable Gayla Mandel Attending Unavailable [place] PA, Reshma Primary Care Unavailable Friend, Artem Attending Unavailable Friend, Artem Referring Unavailable [place] PA, Reshma Primary Care Unavailable Friend, Artem Referring Unavailable Friend, Artem Attending Unavailable Jeromy Gaytan Attending Unavailable Jeromy Gaytan Referring Unavailable [place] PA, Reshma Primary Care Unavailable [place] PA, Reshma Primary Care Unavailable Friend, Artem Attending Unavailable Friend, Artem Referring Unavailable [place] PA, Reshma Primary Care Unavailable Gayla Mandel Attending Unavailable Gayla Mandel Referring Unavailable [place] PA, Reshma Primary Care Unavailable Gayla Mandel Attending Unavailable Gayla Mandel Referring Unavailable [place] PA, Reshma Primary Care Unavailable Friend, Artem Attending Unavailable Friend, Artem Referring Unavailable [place] PA, Reshma Referring Unavailable [place] PA, Reshma Primary Care Unavailable Arely Morataya Attending Unavailable Jeromy Gaytan Attending Unavailable [place] PA, Reshma Referring Unavailable [place] PA, Reshma Primary Care Unavailable [place] PA, Reshma Primary Care Unavailable [place] PA, Reshma Referring Unavailable Gayla Mandel Attending Unavailable [place], RESHMA Consulting Unavailable [place], RESHMA Attending Unavailable [place], RESHMA Admitting Unavailable [place], RESHMA Primary Care Unavailable PROVIDER, UNKNOWN Consulting Unavailable [place], RESHMA Consulting Unavailable GAYLA MANDEL Primary Care Unavailable GAYLA MANDEL Attending Unavailable GAYLA MANDEL Admitting Unavailable PROVIDER, UNKNOWN Consulting Unavailable [place], RESHMA Consulting Unavailable GAYLA MANDEL Attending Unavailable GAYLA MANDEL Admitting Unavailable GAYLA MANDEL Primary Care Unavailable PROVIDER, UNKNOWN Consulting Unavailable ARELY MORATAYA Attending Unavailable [place], RESHMA Consulting Unavailable ARELY MORATAYA Admitting Unavailable RAFIAARELY Primary Care Unavailable PROVIDER, UNKNOWN Consulting Unavailable [place], RESHMA Attending Unavailable [place], RESHMA Admitting Unavailable [place], RESHMA Primary Care Unavailable [place], RESHMA Consulting Unavailable PROVIDER, UNKNOWN Consulting Unavailable [place], RESHMA Consulting Unavailable MOUNA ZAMORA MD Primary Care Unavailable MOUNA ZAMORA MD Attending Unavailable MOUNA ZAMORA MD Admitting Unavailable PROVIDER, UNKNOWN Consulting Unavailable [place], RESHMA Attending Unavailable [place], RSEHMA Admitting Unavailable [place], RESHMA Primary Care Unavailable [place], RESHMA Consulting Unavailable PROVIDER, UNKNOWN Consulting Unavailable [place], RESHMA Consulting Unavailable [place], RESHMA Referring Unavailable ALESHIA CARROLL MD Admitting Unavailable ALESHIA CARROLL MD Primary Care Unavailable RAOUL, ALESHIA GOINS Attending Unavailable PROVIDER, UNKNOWN Consulting Unavailable [place], RESHMA Consulting Unavailable SEBASTIAN PILLAI Primary Care Unavailable SEBASTIAN PILLAI Attending Unavailable SEBASTIAN PILLAI Admitting Unavailable PROVIDER, UNKNOWN Consulting Unavailable Allergies Allergy Classification Reported Allergen(s) Allergy Type Date of Onset Reaction(s) Facility (12 sources) guaiFENesin; Translations: [guaifenesin] Drug Allergy 04-25-20 Unknown (qualifier value) [facility] (20 sources) Niacin; Translations: [niacin] Drug Allergy 04-25-20 Anaphylaxis (disorder), Unknown (qualifier value) [facility] (4 sources) Nialamide Drug Allergy 04-25-20 [facility] Work Phone: (1 source) Iodinated Contrast Media Allergy to substance 04-25-20 Other [facility] Work Phone: (16 sources) Gadolinium-MRI Contrast Medium Allergy to substance 07-23-20 [facility] (8 sources) Contrast media; Translations: [contrast media (gadolinium-bas ed)] Drug allergy Hypothermia (finding) [facility] (8 sources) metFORMIN; Translations: [metformin] Drug Allergy Renal insufficiency (disorder) [facility] (8 sources) Sulfonamide; Translations: [sulfa drugs] Drug allergy Unknown (qualifier value) [facility] (1 source) Niacin Drug Allergy 07-09-20 [facility] Rep[facility] (1 source) Gadolinium-MRI Contrast Medium Drug allergy (disorder) 07-09-20 [facility] Repository (1 source) Contrast media Drug allergy (disorder) [facility] Rep[facility] (1 source) Niacin Drug Allergy [facility] Repository (1 source) Sulfonamides (Antibiotic) Drug allergy (disorder) [facility] Repository Medications Current Medications Medication Drug Class(es) Dates Sig (Normalized) Sig (Original) 3 ML semaglutide 2.68 MG/ML Pen Injector [Ozempic] (6 sources) Start: 07-28-2024 inject 1 dose by subcutaneous injection every week Ozempic 8 mg/3 mL (2 mg dose) subcutaneous solution Dose : 2 mg =, Subcutaneous, qWeek, in the abdomen, thigh, or upper arm, # 3 mL, 0 Refill(s) Start Date: 07/28/24 Status: Ordered acetaminophen 325 mg / oxyCODONE hydrochloride 5 mg oral tablet (4 sources) Opioid Agonist Start: 07-20-2021 take 1 tablet by mouth every eight hours Oxycodone-Acetamino phen (Percocet) 5-325 mg tablet Active 1 TABLET PO Q8H 4 2 July 20, 2021 amylase [id number] unt / lipase [id number] unt / protease [id number] unt delayed release oral capsule (20 sources) Start: 08-12-2024 take 2 capsules by mouth once daily Creon 36,000 units oral delayed release capsule 2 cap(s), Oral, qDay, swallow whole or sprinkle contents over a teaspoonful of applesauce, # 450 cap(s), 0 Refill(s) Start Date: 08/12/24 Status: Ordered Start: 04-18-2020 take [id number] ca psules by mouth three times daily at mealtime Start: 04-18-2020 Creon 36,000 u nits oral delayed release capsule 2 cap(s), Oral, TID, with each meal and 1 cap with snack, 0 Refill(s) Start Date: 04/18/20 Status: Ordered apixaban 5 mg oral tablet (14 sources) Factor Xa Inhibitor Start: 02-16-2024 take 1 tablet by mouth twice daily ascorbic acid 500 mg oral tablet (2 sources) Vitamin C Start: 07-13-2021 take 1 tablet by mouth once daily Ascorbic Acid (Vitamin C) (Vitamin C) 500 mg Tablet Active 500 MG PO DAILY July 13, 2021 12:00am aspirin 81 mg delayed release oral tablet (20 sources) Platelet Aggregation Inhibitor, Nonsteroidal Anti-inflammatory Drug Start: 08-12-2024 aspirin 81 mg oral delayed release tablet Dose : 81 mg = 1 tab(s), Oral, qAM, # 30 tab(s), 0 Refill(s) Start Date: 08/12/24 Status: Ordered Start: 03-28-2022 aspirin 81 mg oral delayed release tablet Dose : 81 mg = 1 tab(s), Oral, Daily, 0 Refill(s) Start Date: 03/28/22 Status: Ordered Start: 06-19-2015 End: 11-05-2024 take 1 tablet by mouth once daily Aspirin 81 MG tablet,chewable Discontinued 81 mg PO DAILY@0800 June 19, 2015 12:00am November 05, 2024 11:03am On Hold: recent surgery atorvastatin 80 mg oral tablet (20 sources) HMG-CoA Reductase Inhibitor Start: 06-19-2015 take 1 tablet by mouth at bedtime cephalexin 500 mg oral capsule (20 sources) Cephalosporin Antibacterial Start: 07-09-2025 End: 07-14-2025 take 1 capsule by mouth twice daily Cephalexin 500 mg capsule Discontinued 500 mg PO TWICE A DAY 10 5 0 July 09, 2025 12:00am July 13, 2025 12:00am July 14, 2025 12:11am Start: 07-20-2021 End: 04-25-2022 take 1 capsule by mouth every twelve hours Cephalexin 500 MG capsule Discontinued 500 mg PO EVERY 12 HOURS 6 3 0 July 20, 2021 12:00am April 25, 2022 10:30am post-operative cloNIDine hydrochloride 0.1 mg oral tablet (7 sources) Central alpha-2 Adrenergic Agonist Start: 09-12-2023 clopidogrel 75 mg oral tablet (12 sources) [id number] Platelet Inhibitor Start: 07-21-2024 take 1 tablet by mouth once daily colestipol hydrochloride 1000 mg oral tablet (20 sources) Bile Acid Sequestrant Start: 09-27-2022 colestipol 1 g oral tablet Dose : 2 gram(s) = 2 tab(s), Oral, BID, # 120 tab(s), 0 Refill(s) Start Date: 09/27/22 Status: Ordered Start: 07-23-2022 End: 12-19-2022 Colestipol 1 gram Tablet Dis continued 1 g PO TWICE A DAY July 23, 2022 12:00am December 19, 2022 10:06am Start: 04-25-2022 take 1 g by mouth twice daily Colestipol Active 1 GM PO TWICE A DAY 60 April 25, 2022 12:00am Take your other medicines at least 1 hour before or 4 hours after you take colestipol. D-Mannose (20 sources) Start: 07-13-2021 take 1 capsule by mouth once d aily Start: 07-13-2021 take 1 capsule by mo uth once daily D-Mannose 500 mg Capsule Active 1000 mg PO DAILY July 13, 2021 12:00am Complies with drug therapy Start: 07-13-2021 take 1 capsule by mo uth once daily D-Mannose 500 mg Capsule Active 1000 mg PO DAILY July 13, 2021 12:00am Start: 07-13-2021 take 1000 mg by mouth once kev ly D-Mannose Active 1000 MG PO DAILY July 12, 2021 11:00pm Start: 07-13-2021 take 1000 mg by mouth once kev ly D-Mannose Active 1000 MG PO DAILY July 13, 2021 12:00am D3-50 (50,000 units) oral capsule (2 sources) Start: 10-02-2020 D3-50 (50,000 units) oral capsule Dose : 50,000 International_Unit = 1 cap(s), Oral, qWeek, # 12 cap(s), 3 Refill(s), Pharmacy: [id number], 170.2, cm, 06/21/20 14:39:00 EDT, Height, kg, 06/21/20 14:39:00 EDT, Dosing Weight Start Date: 10/02/20 Status: Ordered ezetimibe 10 mg oral tablet (2 sources) Dietary Cholesterol Absorption Inhibitor Start: 07-06-2025 take 1 tablet by mouth once daily hydroCHLOROthiazide 25 mg oral tablet (5 sources) Thiazide Diuretic Start: 11-13-2023 hydroCHLOROthiazide 25 mg oral tablet Dose : 25 mg = 1 tab(s), Oral, qDay, # 30 tab(s), 0 Refill(s) Start Date: 11/13/23 Status: Ordered Start: 06-19-2015 take 12.5 mg by mout h once daily Hydrochlorothiazide Active 12.5 MG PO DAILY June 19, 2015 12:00am hydroCHLOROthiazide 25 mg / triamterene 37.5 mg oral tablet (2 sources) Potassium-sparing Diuretic, Thiazide Diuretic Start: 02-21-2021 take 1 tablet by mouth once daily Triamterene-Hydrochlorothiazid Active 1 TABLET PO DAILY February 21, 2021 12:00am inflectra infusion (16 sources) Start: 07-10-2022 Start: 07-10-2022 inflectra infu bo Active 0 mg SC NEEDED as needed for CROHN July 10, 2022 12:00am Complies with drug therapy Start: 07-10-2022 inflectra infu bo Active 0 mg SC NEEDED as needed for CROHN July 10, 2022 12:00am Start: 07-10-2022 inflectra infu bo Active 0 MG SC NEEDED July 09, 2022 11:00pm Start: 07-10-2022 inflectra infu bo Active 0 MG SC NEEDED July 10, 2022 12:00am inFLIXimab-dyyb 100 mg injection (8 sources) Tumor Necrosis Factor Jennifer Start: 06-26-2023 Inflectra 100 mg intravenous injection Dose : 3 mg/kg =, Intravenous, q8wk, as an infusion, # 3 EA, 0 Refill(s) Start Date: 06/26/23 Status: Ordered 3 ml insulin lispro 100 unt/ml pen injector (20 sources) Insulin Analog Start: 08-12-2024 HumaLOG Alfonso KwikPen 100 units/mL injectable PEN Dose : 8 unit(s) =, Subcutaneous, acLunch, # 5 EA, 0 Refill(s), PEN Start Date: 08/12/24 Status: Ordered Start: 07-01-2023 End: 01-24-2025 Insulin Lispro (Humalog Kwik pen Insulin) 100 unit/mL insulin pen Discontinued 18 U SC THREE TIMES A DAY 45 February 09, 2024 11:36am January 24, 2025 10:56am SLIDING SCALE Start: 09-06-2021 End: 07-01-2023 Insulin Lispro (Humalog Kwik pen Insulin) 100 unit/mL insulin pen Discontinued 14 U SC THREE TIMES A DAY July 23, 2022 9:54am January 03, 2023 10:27am SLIDING SCALE Start: 10-02-2020 HumaLOG KwikPe n 100 units/mL injectable PEN Dose : 10 unit(s) =, Subcutaneous, acBreakfast, # 12 mL, 3 Refill(s), Pharmacy: [id number], Uncontrolled diabetes mellitus, 170.2, cm, 06/21/20 14:39:00 EDT, Height, kg, 06/21/20 14:39:00 EDT, Dosing Weight Start Date: 10/02/20 Status: Ordered Start: 10-02-2020 inject 10 [IU] by bazan bcutaneous injection at breakfast, then inject 10 [IU] by subcutaneous injection once at dinner, then inject 40 [IU] by subcutaneous injection once daily HumaLOG KwikPen 100 units/mL injectable PEN See Instructions, INJECT 10 UNITS SUBCUTANEOUSLY WITH BREAKFAST AND 8u at LUNCH AND 10 UNITS WITH DINNER OR PER SLIDING SCALE. (MAXIMUM OF 40 UNITS PER DAY.), # 12 mL, 3 Refill(s), Pharmacy: [id number], Uncontrolled diabetes mellitus, 170.2, cm, 06/21/20 14:39:00 EDT, Height, kg, 06/21/20 14:39:00 EDT, Dosing Weight Start Date: 10/02/20 Status: Ordered Start: 06-19-2015 End: 09-06-2021 Insulin Lispro (Humalog U-10 0 Insulin) 100 unit/mL cartridge Discontinued 14 U SC THREE TIMES A DAY 37.8 3 September 06, 2021 3:06pm September 06, 2021 4:17pm Lactobacillus Combination No .4 (Probiotic) 3 billion cell Capsule (20 sources) Start: 07-13-2021 take 3 capsules by m outh once daily Start: 07-13-2021 take 3 capsules by m outh once daily Lactobacillus Combination No.4 (Probiotic) 3 billion cell Capsule Active 3000 NMA PO DAILY July 13, 2021 12:00am Complies with drug therapy Start: 07-13-2021 take 3 capsules by m outh once daily Lactobacillus Combination No.4 (Probiotic) 3 billion cell Capsule Active 3000 NMA PO DAILY July 13, 2021 12:00am Start: 07-13-2021 take 3 capsules by m outh once daily Lactobacillus Combination No.4 (Probiotic) 3 billion cell Capsule Active 3000 MMU CELLS PO DAILY July 12, 2021 11:00pm Start: 07-13-2021 take 3 capsules by m outh once daily Lactobacillus Combination No.4 (Probiotic) 3 billion cell Capsule Active 3000 MMU CELLS PO DAILY July 13, 2021 12:00am methocarbamol 500 mg oral tablet (1 source) Muscle Relaxant Start: 07-28-2024 End: 08-04-2024 methocarbamol 500 mg oral tablet Dose : 1,000 mg = 2 tab(s), Oral, QID, PRN as needed for pain, X 7 day(s), # 21 tab(s), 0 Refill(s), 08/04/24 2:54:00 PM EDT, Pharmacy: [facility], 170.2, cm, 07/27/24 16:29:00 EDT, Height, kg, 07/27/24 16:29:00 EDT, Dosing Weight Start Date: 07/28/24 Stop Date: 08/04/24 Status: Ordered 24 hr metoprolol succinate 25 mg extended release oral tablet (20 sources) beta-Adrenergic Jennifer Start: 07-06-2025 take 1 tablet by mouth every twenty-four hours at bedtime Start: 01-24-2025 End: 07-06-2025 take 1 tablet by mouth twice daily Metoprolol Tartrate 25 mg tablet Discontinued 25 mg PO TWICE A DAY January 24, 2025 10:36am July 06, 2025 10:22am Start: 08-17-2024 End: 08-18-2024 take 3 tablets by mouth once in the morning metoprolol tartrate 25 mg oral tablet Start: 08/18/24 8:00:00 AM EDT, Dose = 37.5 mg, = 3 EA, Oral, Hold if HR (bpm) Start Date: 08/18/24 Stop Date: 08/18/24 Status: Completed Start: 07-27-2024 End: 07-28-2024 metoprolol tartrate 25 mg or al tablet Start: 07/28/24 8:00:00 AM EDT, Dose = 37.5 mg, = 3 EA, Oral, 0, 07/27/24 16:55:00 EDT Start Date: 07/28/24 Stop Date: 07/28/24 Status: Completed Start: 07-21-2024 End: 07-21-2024 metoprolol tartrate 25 mg or al tablet Start: 07/21/24 8:00:00 AM EDT, Dose = 37.5 mg, = 3 EA, Oral, 07/20/24 15:09:00 EDT Start Date: 07/21/24 Stop Date: 07/21/24 Status: Completed Start: 07-20-2024 End: 07-20-2024 metoprolol tartrate 25 mg or al tablet Start: 07/20/24 5:00:00 PM EDT, Dose = 37.5 mg, = 3 EA, Oral, 07/20/24 15:09:00 EDT Start Date: 07/20/24 Stop Date: 07/20/24 Status: Completed Start: 04-26-2024 metoprolol tar trate 37.5 mg oral tablet Dose : 37.5 mg = 1 tab(s), Oral, BID, # 60 tab(s), 6 Refill(s), Pharmacy: [id number], 170.2, cm, 02/16/24 14:02:00 EDT, Height, kg, 02/16/24 14:02:00 EDT, Dosing Weight Start Date: 04/26/24 Status: Ordered Start: 04-10-2023 metoprolol tar trate 37.5 mg oral tablet Dose : 37.5 mg = 1 tab(s), Oral, BID, # 180 tab(s), 3 Refill(s), Pharmacy: [id number], 170.2, cm, 04/10/23 13:09:00 EDT, Height, kg, 04/10/23 13:09:00 EDT, Dosing Weight Start Date: 04/10/23 Status: Ordered Start: 07-09-2021 End: 01-24-2025 Metoprolol Tartrate 25 mg ta blet Discontinued 37.5 mg PO TWICE A DAY July 09, 2021 12:00am January 24, 2025 10:36am Start: 07-09-2021 take 37.5 mg by mout h twice daily Metoprolol Tartrate Active 37.5 MG PO TWICE A DAY July 09, 2021 12:00am Start: 07-09-2021 take 25 mg by mouth twice reinaldo y Metoprolol Tartrate Active 25 MG PO TWICE A DAY July 08, 2021 11:00pm nutritional supplement (2 sources) Start: 09-27-2022 nutritional supplement 0 Refill(s) Start Date: 09/27/22 Status: Ordered potassium chloride 1.33 meq oral tablet (8 sources) Start: 06-21-2020 potassium chlo ride 99 mg oral tablet Dose : 99 mg = 1 tab(s), Oral, qAM, Take with food, # 100 tab(s), 0 Refill(s) Start Date: 06/21/20 Status: Ordered potassium gluconate 2.13 meq oral tablet (20 sources) Start: 06-19-2015 take 1 tablet by mouth once daily Probiotic Formula (Bacillus Coagulans) oral capsule (4 sources) Start: 08-12-2024 take 1 capsule by mouth once daily in the morning Probiotic Formula (Bacillus Coagulans) oral capsule Dose = 1 cap(s), Oral, qAM, # 30 cap(s), 0 Refill(s) Start Date: 08/12/24 Status: Ordered ramipril 2.5 mg oral capsule (20 sources) Angiotensin Converting Enzyme Inhibitor Start: 02-21-2021 Start: 04-18-2020 ramipril 2.5 m g oral capsule Dose : 2.5 mg = 1 cap(s), Oral, qHS, TAKE 1 CAPSULE BY MOUTH ONCE DAILY Start Date: 04/18/20 Status: Ordered semaglutide 14 mg oral tablet (20 sources) Start: 10-23-2022 take 1 tablet by mouth once daily Semaglutide (Rybelsus) 14 mg tablet Active 14 MG PO DAILY October 23, 2022 12:00am Start: 07-13-2021 End: 11-13-2021 Semaglutide (Ozempic) 1 mg/d ose (2 mg/1.5 mL) pen injector Discontinued 1 MG SC July 13, 2021 10:58am November 13, 2021 8:55am Start: 02-21-2021 End: 07-13-2021 Semaglutide (Ozempic) 1 mg/d ose (2 mg/1.5 mL) pen injector Discontinued 1 MG SC EVERY WEEK May 30, 2021 8:06am July 13, 2021 10:58am Start: 10-03-2020 Ozempic (0.25 mg or 0.5 mg dose) 2 mg/1.5 mL subcutaneous solution See Instructions, INJECT 0.5 SUBCUTANEOUSLY ONCE A WEEK, # 2 mL, 2 Refill(s), Pharmacy: [id number], 170.2, cm, 06/21/20 14:39:00 EDT, Height, kg, 06/21/20 14:39:00 EDT, Dosing Weight Start Date: 10/03/20 Status: Ordered Semaglutide (12 sources) Start: 10-25-2024 Start: 10-25-2024 Semaglutide (O zempic) 2 mg/dose (8 mg/3 mL) pen injector Active 2 mg SC EVERY WEEK 9 October 25, 2024 9:33am Complies with drug therapy Start: 02-09-2024 End: 10-25-2024 Semaglutide (Ozempic) 2 mg/d ose (8 mg/3 mL) pen injector Discontinued 2 mg SC EVERY WEEK 9 February 09, 2024 11:36am October 25, 2024 9:33am Start: 10-10-2023 End: 02-09-2024 Semaglutide (Ozempic) 2 mg/d ose (8 mg/3 mL) pen injector Discontinued 2 mg SC EVERY WEEK 9 October 10, 2023 2:16pm February 09, 2024 11:36am Start: 07-01-2023 End: 10-10-2023 Semaglutide (Ozempic) 2 mg/d ose (8 mg/3 mL) pen injector Discontinued 2 mg SC EVERY WEEK 9 July 01, 2023 10:31am October 10, 2023 2:16pm Start: 01-24-2023 End: 07-01-2023 Semaglutide (Ozempic) 2 mg/d ose (8 mg/3 mL) pen injector Discontinued 1 mg SC EVERY WEEK January 24, 2023 9:59am July 01, 2023 10:32am Start: 01-03-2023 End: 01-24-2023 Semaglutide (Ozempic) 2 mg/d ose (8 mg/3 mL) pen injector Discontinued 2 mg SC EVERY WEEK 9 January 03, 2023 12:00am January 24, 2023 9:59am Semaglutide (Ozempic) 2 mg/d ose (8 mg/3 mL) pen injector (20 sources) Start: 10-25-2024 Semaglutide (O zempic) 2 mg/dose (8 mg/3 mL) pen injector Active 2 mg SC EVERY WEEK October 25, 2024 9:33am Start: 02-09-2024 End: 10-25-2024 Semaglutide (Ozempic) 2 mg/d ose (8 mg/3 mL) pen injector Discontinued 2 mg SC EVERY WEEK February 09, 2024 11:36am October 25, 2024 9:33am Start: 10-10-2023 End: 02-09-2024 Semaglutide (Ozempic) 2 mg/d ose (8 mg/3 mL) pen injector Discontinued 2 mg SC EVERY WEEK October 10, 2023 2:16pm February 09, 2024 11:36am Start: 10-10-2023 Semaglutide (O zempic) 2 mg/dose (8 mg/3 mL) pen injector Active 2 MG SC EVERY WEEK October 10, 2023 2:16pm Start: 07-01-2023 End: 10-10-2023 Semaglutide (Ozempic) 2 mg/d ose (8 mg/3 mL) pen injector Discontinued 2 mg SC EVERY WEEK July 01, 2023 10:31am October 10, 2023 2:16pm Start: 07-01-2023 End: 10-10-2023 Semaglutide (Ozempic) 2 mg/d ose (8 mg/3 mL) pen injector Discontinued 2 MG SC EVERY WEEK July 01, 2023 10:31am October 10, 2023 2:16pm Start: 07-01-2023 Semaglutide (O zempic) 2 mg/dose (8 mg/3 mL) pen injector Active 2 MG SC EVERY WEEK July 01, 2023 9:31am Start: 07-01-2023 Semaglutide (O zempic) 2 mg/dose (8 mg/3 mL) pen injector Active 2 MG SC EVERY WEEK July 01, 2023 10:31am Start: 01-24-2023 End: 07-01-2023 Semaglutide (Ozempic) 2 mg/d ose (8 mg/3 mL) pen injector Discontinued 1 mg SC EVERY WEEK January 24, 2023 9:59am July 01, 2023 10:32am Start: 01-24-2023 End: 07-01-2023 Semaglutide (Ozempic) 2 mg/d ose (8 mg/3 mL) pen injector Discontinued 1 MG SC EVERY WEEK January 24, 2023 8:59am July 01, 2023 9:32am Start: 01-24-2023 End: 07-01-2023 Semaglutide (Ozempic) 2 mg/d ose (8 mg/3 mL) pen injector Discontinued 1 MG SC EVERY WEEK January 24, 2023 9:59am July 01, 2023 10:32am Start: 01-24-2023 Semaglutide (O zempic) 2 mg/dose (8 mg/3 mL) pen injector Active 1 MG SC EVERY WEEK January 24, 2023 9:59am Start: 01-03-2023 End: 01-24-2023 Semaglutide (Ozempic) 2 mg/d ose (8 mg/3 mL) pen injector Discontinued 2 mg SC EVERY WEEK January 03, 2023 12:00am January 24, 2023 9:59am Start: 01-03-2023 End: 01-24-2023 Semaglutide (Ozempic) 2 mg/d ose (8 mg/3 mL) pen injector Discontinued 2 MG SC EVERY WEEK January 02, 2023 11:00pm January 24, 2023 8:59am Start: 01-03-2023 End: 01-24-2023 Semaglutide (Ozempic) 2 mg/d ose (8 mg/3 mL) pen injector Discontinued 2 MG SC EVERY WEEK January 03, 2023 12:00am January 24, 2023 9:59am sertraline 100 mg oral tablet (20 sources) Serotonin Reuptake Inhibitor Start: 06-19-2015 take 1 tablet by mouth at bedtime Rortqps-Dnyv-Epsts- Oreg-Capryl (6 sources) Start: 07-23-2022 take 1 capsule by mouth once daily Vcxmlsc-Jlyv-Kb zzs-Qmol-Bahsga Active 1 CAP PO DAILY July 22, 2022 11:00pm Start: 07-23-2022 take 1 capsule by mouth once daily Yjdclvx-Fnzf-Evljy-Oreg-Capryl Active 1 CAP PO DAILY July 23, 2022 12:00am Turmeric extract (5 sources) Start: 08-12-2024 turmeric 1000 mg oral capsule Dose : 1,000 mg = 1 cap(s), Oral, qHS, 0 Refill(s) Start Date: 08/12/24 Status: Ordered Start: 07-20-2024 take 1 tablet by shameka th once daily turmeric 500 mg oral capsule 1 tab, Oral, Daily, 0 Refill(s) Start Date: 07/20/24 Status: Ordered Completed/Discontinued Medications Medication Drug Class(es) Dates Sig (Normalized) Sig (Original) atropine sulfate 0.025 mg / diphenoxylate hydrochloride 2.5 mg oral tablet (18 sources) Anticholinergic, Cholinergic Muscarinic Antagonist, Antidiarrheal Start: 06-06-2022 End: 08-15-2022 Diphenoxylate-Atrop ine (Lomotil) 2.5-0.025 mg tablet Discontinued 1 {tbl} PO TWICE A DAY as needed for diarrhea 60 2 June 06, 2022 12:00am August 15, 2022 10:34am ergocalciferol 1.25 mg oral capsule (20 sources) Provitamin D2 Compound Start: 07-13-2021 End: 07-26-2024 Ergocalciferol (Vitamin D2) (Vitamin D2) 1,250 mcg (50,000 unit) capsule Discontinued 1250 ug PO BAZAN 4 2 November 13, 2021 8:56am July 26, 2024 9:58am 3 ml insulin glargine 100 unt/ml pen injector (20 sources) Insulin Analog Start: 07-01-2023 End: 01-12-2025 Insulin Glargine (Lantus Solostar U-100 Insulin) 100 unit/mL (3 mL) insulin pen Discontinued 42 U SC AT BEDTIME 36 1 February 09, 2024 11:36am January 12, 2025 8:26am Diabetes mellitus Type 2 diabetes mellitus without complications Start: 06-20-2022 End: 07-01-2023 Insulin Glargine (Lantus Alexa ostar U-100 Insulin) 100 unit/mL (3 mL) insulin pen Discontinued 38 U SC AT BEDTIME 36 1 January 03, 2023 10:24am July 01, 2023 10:33am Diabetes mellitus Type 2 diabetes mellitus without complications Start: 07-13-2021 End: 06-20-2022 Insulin Glargine (Lantus Alexa ostar U-100 Insulin) 100 unit/mL (3 mL) insulin pen Discontinued 35 U SC AT BEDTIME 31.5 3 September 06, 2021 3:06pm June 20, 2022 10:54am Start: 02-21-2021 End: 07-13-2021 Insulin Glargine (Lantus Alexa ostar U-100 Insulin) 100 unit/mL (3 mL) insulin pen Discontinued 35 U SC DAILY 15 5 February 21, 2021 12:00am July 13, 2021 10:58am Start: 04-18-2020 inject 1 dose by sub cutaneous injection once daily at bedtime Lantus Solostar Pen 100 units/mL 3 mL Pen Dose : 42 unit(s) =, Subcutaneous, qHS Start Date: 04/18/20 Status: Ordered Start: 06-19-2015 End: 02-21-2021 Insulin Glargine (Lantus) 10 0 UNIT/ML solution Discontinued 55 U SC AT BEDTIME June 19, 2015 12:00am February 21, 2021 2:41pm loperamide hydrochloride 2 mg oral tablet (20 sources) Opioid Agonist Start: 02-21-2021 End: 12-19-2022 take 1 tablet by mouth every six hours as needed for diarrhea Loperamide (Imodium A-D) 2 mg tablet Discontinued 2 mg PO EVERY 6 HOURS as needed for Diarrhea February 21, 2021 12:00am December 19, 2022 10:06am [facility] Medication (5 sources) Start: 07-20-2024 [facility] Medicatio n 1 cap(s), Oral, BID, 0 Refill(s), 97.3 Start Date: 07/20/24 Status: Ordered Start: 07-20-2024 [facility] Medicatio n Oral, Daily, 0 Refill(s), 97.3 Start Date: 07/20/24 Status: Ordered nitrofurantoin, macrocrystals 25 mg / nitrofurantoin, monohydrate 75 mg oral capsule (1 source) Nitrofuran Antibacterial Start: 06-26-2023 End: 07-06-2023 nitrofurantoin macrocrystals-monohydrate 100 mg oral capsule Dose : 100 mg = 1 cap(s), Oral, BID, Take with food, # 20 cap(s), 0 Refill(s), 99.9 Start Date: 06/26/23 Stop Date: 07/06/23 Status: Ordered pioglitazone 15 mg oral tablet (20 sources) Peroxisome Proliferator Receptor alpha Agonist, Peroxisome Proliferator Receptor gamma Agonist, Thiazolidinedione Start: 06-19-2015 End: 07-09-2021 take 1 tablet by mouth once daily Pioglitazone 15 MG tablet Discontinued 15 mg PO DAILY June 19, 2015 12:00am July 09, 2021 11:42am Semaglutide (20 sources) Start: 07-23-2022 End: 01-03-2023 Semaglutide (Ozempic) 1 mg/dose (4 mg/3 mL) pen injector Discontinued 1 mg SC BAZAN July 23, 2022 9:54am January 03, 2023 10:26am Start: 07-23-2022 End: 01-03-2023 Semaglutide (Ozempic) 1 mg/d ose (4 mg/3 mL) pen injector Discontinued 1 MG SC BAZAN July 23, 2022 8:54am January 03, 2023 9:26am Start: 07-23-2022 End: 01-03-2023 Semaglutide (Ozempic) 1 mg/d ose (4 mg/3 mL) pen injector Discontinued 1 MG SC BAZAN July 23, 2022 9:54am January 03, 2023 10:26am Start: 07-23-2022 Semaglutide (O zempic) 1 mg/dose (4 mg/3 mL) pen injector Active 1 MG SC BAZAN July 23, 2022 8:54am Start: 07-23-2022 Semaglutide (O zempic) 1 mg/dose (4 mg/3 mL) pen injector Active 1 MG SC BAZAN July 23, 2022 9:54am Start: 07-10-2022 End: 07-23-2022 Semaglutide (Ozempic) 1 mg/d ose (4 mg/3 mL) pen injector Discontinued 1 mg SC EVERY WEEK 3 July 10, 2022 11:32am July 23, 2022 9:54am Start: 07-10-2022 End: 07-23-2022 Semaglutide (Ozempic) 1 mg/d ose (4 mg/3 mL) pen injector Discontinued 1 mg SC EVERY WEEK 3 July 10, 2022 11:32am July 23, 2022 9:54am Start: 07-10-2022 End: 07-23-2022 Semaglutide (Ozempic) 1 mg/d ose (4 mg/3 mL) pen injector Discontinued 1 MG SC EVERY WEEK 3 July 10, 2022 10:32am July 23, 2022 8:54am Start: 07-10-2022 End: 07-23-2022 Semaglutide (Ozempic) 1 mg/d ose (4 mg/3 mL) pen injector Discontinued 1 MG SC EVERY WEEK July 10, 2022 11:32am July 23, 2022 9:54am Start: 01-07-2022 End: 07-10-2022 Semaglutide (Ozempic) 1 mg/d ose (4 mg/3 mL) pen injector Discontinued 1 mg SC EVERY WEEK 3 January 07, 2022 11:56am July 10, 2022 11:32am Start: 01-07-2022 End: 07-10-2022 Semaglutide (Ozempic) 1 mg/d ose (4 mg/3 mL) pen injector Discontinued 1 mg SC EVERY WEEK January 07, 2022 11:56am July 10, 2022 11:32am Start: 01-07-2022 End: 07-10-2022 Semaglutide (Ozempic) 1 mg/d ose (4 mg/3 mL) pen injector Discontinued 1 MG SC EVERY WEEK January 07, 2022 10:56am July 10, 2022 10:32am Start: 01-07-2022 End: 07-10-2022 Semaglutide (Ozempic) 1 mg/d ose (4 mg/3 mL) pen injector Discontinued 1 MG SC EVERY WEEK January 07, 2022 11:56am July 10, 2022 11:32am Start: 01-07-2022 Semaglutide (O zempic) 1 mg/dose (4 mg/3 mL) pen injector Active 1 MG SC EVERY WEEK 3 January 07, 2022 11:56am Start: 11-13-2021 End: 01-07-2022 Semaglutide (Ozempic) 1 mg/d ose (4 mg/3 mL) pen injector Discontinued 1 mg SC EVERY WEEK 3 November 13, 2021 1:00am January 07, 2022 11:56am Start: 11-13-2021 End: 01-07-2022 Semaglutide (Ozempic) 1 mg/d ose (4 mg/3 mL) pen injector Discontinued 1 mg SC EVERY WEEK 3 November 13, 2021 1:00am January 07, 2022 11:56am Start: 11-13-2021 End: 01-07-2022 Semaglutide (Ozempic) 1 mg/d ose (4 mg/3 mL) pen injector Discontinued 1 MG SC EVERY WEEK 3 November 13, 2021 12:00am January 07, 2022 10:56am Start: 11-13-2021 End: 01-07-2022 Semaglutide (Ozempic) 1 mg/d ose (4 mg/3 mL) pen injector Discontinued 1 MG SC EVERY WEEK 3 November 13, 2021 1:00am January 07, 2022 11:56am Semaglutide (Ozempic) 1 mg/d ose (2 mg/1.5 mL) pen injector (15 sources) Start: 07-13-2021 End: 11-13-2021 Semaglutide (Ozempic) 1 mg/d ose (2 mg/1.5 mL) pen injector Discontinued 1 mg SC July 13, 2021 10:58am November 13, 2021 8:55am Start: 05-30-2021 End: 07-13-2021 Semaglutide (Ozempic) 1 mg/d ose (2 mg/1.5 mL) pen injector Discontinued 1 mg SC EVERY WEEK 3 May 30, 2021 8:06am July 13, 2021 10:58am Start: 05-30-2021 End: 07-13-2021 Semaglutide (Ozempic) 1 mg/d ose (2 mg/1.5 mL) pen injector Discontinued 1 mg SC EVERY WEEK 3 May 30, 2021 8:06am July 13, 2021 10:58am Start: 02-21-2021 End: 05-30-2021 Semaglutide (Ozempic) 1 mg/d ose (2 mg/1.5 mL) pen injector Discontinued 1 mg SC EVERY WEEK 3 February 21, 2021 12:00am May 30, 2021 8:06am Start: 02-21-2021 End: 05-30-2021 Semaglutide (Ozempic) 1 mg/d ose (2 mg/1.5 mL) pen injector Discontinued 1 mg SC EVERY WEEK 3 February 21, 2021 12:00am May 30, 2021 8:06am Problems Active Problems Problem Classification Problem Date Documented Date Episodic/Chronic Calculus of urinary tract (20 sources) Ureteric stone; Translations: [Calculus of ureter] 07-20-2021 Episodic Cardiac dysrhythmias (10 sources) Atrial fibrillation; Translations: [Paroxysmal atrial fibrillation] Onset: 07-20-2024 06-28-2021 Chronic Cardiac dysrhythmias (8 sources) Intermittent palpitations 06-14-2020 Episodic Chronic kidney disease (9 sources) Chronic kidney disease stage 3; Translations: [Chronic kidney disease, stage 3 unspecified] Onset: 07-20-2024 04-18-2020 Chronic Chronic kidney disease (2 sources) Chronic kidney disease; Translations: [Chronic kidney disease, stage 3a] Onset: 07-06-2025 Conditions associated with dizziness or vertigo (8 sources) Lightheadedness 09-29-2023 Episodic Coronary atherosclerosis and other heart disease (20 sources) Coronary arteriosclerosis; Translations: [Atherosclerotic heart disease of [place] coronary artery without angina pectoris] Onset: 07-20-2024 Chronic Comment on above: S/P JOSUE to LAD in 1 994 Diabetes mellitus with complications (20 sources) Polyneuropathy due to type 2 diabetes mellitus; Translations: [Type 2 diabetes mellitus with diabetic polyneuropathy] Onset: 08-17-2024 Chronic Diabetes mellitus without complication (20 sources) Diabetes mellitus; Translations: [Type 2 diabetes mellitus without complications] Onset: 07-20-2024 Chronic Disorders of lipid metabolism (20 sources) Mixed hyperlipidemia; Translations: [Mixed hyperlipidemia] Onset: 07-20-2024 Chronic Essential hypertension (20 sources) Benign hypertension; Translations: [Essential (primary) hypertension] Onset: 07-20-2024 Chronic Genitourinary symptoms and ill-defined conditions (2 sources) Unspecified abnormal findings in urine; Translations: [Urgency of urination] Onset: 07-09-2025 Episodic Heart valve disorders (19 sources) Aortic valve stenosis; Translations: [Aortic stenosis, non-rheumatic ] Onset: 07-20-2024 04-10-2023 Chronic Hypertension with complications and secondary hypertension (7 sources) Hypertensive urgency ; Translations: [Hypertensive urgency] 09-12-2023 Chronic Nutritional deficiencies (9 sources) Vitamin D deficiency; Translations: [Vitamin D deficiency, unspecified] Onset: 01-24-2025 04-18-2020 Chronic Other aftercare (2 sources) MCFP (current) use of insulin; Translations: [MCFP (current) use of insulin] Onset: 07-06-2025 Episodic Other circulatory disease (1 source) History of transient ischemic attack; Translations: [Personal history of transient ischemic attack (TIA), and cerebral infarction without residual deficits] Onset: 07-20-2024 Episodic Other diseases of kidney and ureters (20 sources) Hydronephrosis; Translations: [Unspecified hydronephrosis] 07-20-2021 Episodic Other lower respiratory disease (8 sources) Lung mass 06-14-2020 Episodic Other lower respiratory disease (3 sources) Shortness of breath; Translations: [Shortness of breath] Onset: 07-25-2025 Episodic Other nutritional; endocrine; and metabolic disorders (20 sources) Obesity; Translations: [Obesity, unspecified] 01-07-2022 Chronic Other nutritional; endocrine; and metabolic disorders (9 sources) Obesity, unspecified; Translations: [Obesity, unspecified] Chronic Other nutritional; endocrine; and metabolic disorders (1 source) Obese class I; Translations: [Body mass index (BMI) 33.0-33.9, adult] Onset: 07-20-2024 Chronic Other nutritional; endocrine; and metabolic disorders (8 sources) Overweight 06-14-2020 Episodic Other screening for suspected conditions (not mental disorders or infectious disease) (20 sources) Raised TSH level; Translations: [Other specified abnormal findings of blood chemistry] Episodic Pancreatic disorders (not diabetes) (20 sources) Exocrine pancreatic insufficiency; Translations: [Exocrine pancreatic insufficiency] Episodic Regional enteritis and ulcerative colitis (20 sources) Crohn's disease; Translations: [Crohn's disease, unspecified, without complications] Onset: 07-20-2024 Chronic Residual codes; unclassified (8 sources) Preoperative state 06-14-2020 Episodic Syncope (8 sources) Syncope 06-27-2023 Episodic Transient cerebral ischemia (1 source) Transient cerebral ischemic attack, unspecified; Translations: [Transient cerebral ischemic attack, unspecified] Onset: 04-02-2025 Chronic Unclassified (1 source) Flank pain, right side; Translations: [Flank pain, right side] Onset: 08-23-2025 Unclassified (1 source) Long-term (current) use of injectable non-insulin antidiabetic drugs; Translations: [Long-term (current) use of injectable non-insulin antidiabetic drugs] Onset: 04-02-2025 Urinary tract infections (2 sources) Urinary tract infectious disease; Translations: [Urinary tract infection, site not specified] 07-09-2025 Episodic Past or Other Problems Problem Classification Problem Date Documented Date Episodic/Chronic Allergic reactions (2 sources) Radiographic dye allergy status; Translations: [Allergy status to sulfonamides status] Onset: 04-02-2025 Episodic Bacterial infection; unspecified site (1 source) Personal history of Methicillin resistant Staphylococcus aureus infection; Translations: [Personal history of Methicillin resistant Staphylococcus aureus infection] Onset: 04-02-2025 Episodic Coronary atherosclerosis and other heart disease (2 sources) Presence of aortocoronary bypass graft; Translations: [Presence of coronary angioplasty implant and graft] Onset: 04-02-2025 Episodic Malaise and fatigue (2 sources) Weakness; Translations: [Weakness] Onset: 04-02-2025 Episodic Noninfectious gastroenteritis (20 sources) Chronic diarrhea; Translations: [Noninfective gastroenteritis and colitis, unspecified] Onset: 03-30-2025 Episodic Other aftercare (1 source) Other local company intermodal truck driver (current) drug therapy; Translations: [Other local company intermodal truck driver (current) drug therapy] Onset: 04-02-2025 Episodic Other aftercare (1 source) terminal block assembler (current) use of anticoagulants; Translations: [MCFP (current) use of anticoagulants] Onset: 04-02-2025 Episodic Other aftercare (1 source) terminal block assembler (current) use of aspirin; Translations: [terminal block assembler (current) use of aspirin] Onset: 04-02-2025 Episodic Other circulatory disease (1 source) Personal history of transient ischemic attack (TIA), and cerebral infarction without residual deficits; Translations: [Personal history of transient ischemic attack (TIA), and cerebral infarction without residual deficits] Onset: 04-02-2025 Episodic Residual codes; unclassified (1 source) Acquired absence of other specified parts of digestive tract; Translations: [Acquired absence of other specified parts of digestive tract] Onset: 04-02-2025 Episodic Residual codes; unclassified (1 source) Acquired absence of both cervix and uterus; Translations: [Acquired absence of both cervix and uterus] Onset: 04-02-2025 Episodic Results Test Name Value Interpretation Reference Range Facility URINE CULTURE [CCL]on 2024 Bacteria identified Cx Nom (U) URCUL See Results Below See Below CULTURE, URINE NORMAL UROGENITAL JEROME 50,000-<100,000 CFU/ml Normal urogenital jerome SOURCE: Urine (Nonspecific) [facility] [place] [address] Curly Martínez III, M.D. [id number] SEND TO IC NO Normal [facility] Comment on above: Performed By: #### 2 [id number] #### [place] [id number] Bacteria Ur Culton Bacteria identified Cx Nom (U) ORGANISM ID: 1 50,000-<100,000 CFU/ml Normal urogenital jerome Normal [facility] Comment on above: Performed By: #### 6 30-4 #### [facility] CLIA [id number] [address] [place] [address] [place] CBC + DIFFon 07-15-2025 Baso # 0.03 x10EE3/UL Normal 0.00 - 0.10 [facility] Comment on above: Performed By: #### 2 [id number] #### [facility],[address] [place], [place] [id number] Basophils/100 WBC (Bld) 0.4 % Normal 0.0 - 2.0 [facility] Comment on above: Performed By: #### 2 [id number] #### [place] [address] CBC + DIFF Normal [facility] Comment on above: Result Comment: CBC- COMPLETE BLOOD COUNT Performed By: #### 2 [id number] #### [facility],[address] [place] [address] EO # 0.12 x10EE3/UL Normal 0.00 - 0.50 [facility] Comment on above: Performed By: #### 2 [id number] #### [place] [address] Eosinophils/100 WBC (Bld) 1.5 % Normal 0.0 - 7.0 [facility] Comment on above: Performed By: #### 2 [id number] #### [place] [address] Erythrocyte distribution width (RBC) [Ratio] 14.7 % Normal 12.0 - 15.6 [facility] Comment on above: Performed By: #### 2 82877 #### [place] [address] Hematocrit (Bld) [Volume fraction] 43.2 % Normal 34.0 - 46.0 [facility] Comment on above: Performed By: #### 2 [id number] #### [facility],[address] [place] [address] Hemoglobin (Bld) [Mass/Vol] 14.8 g/dL Normal 12.0 - 16.0 [facility] Comment on above: Performed By: #### 2 13819 #### [place] [address] Lymph # 1.77 x10EE3/UL Normal 0.80 - 2.80 [facility] Comment on above: Performed By: #### 2 31789 #### [facility],[address] [place] [address] Lymphocytes/100 WBC (Bld) 22.3 % Normal 20.0 - 45.0 [facility] Comment on above: Performed By: #### 2 60182 #### [facility],[address] [place] [address] MANUAL DIFF N/A Normal [facility] Comment on above: Performed By: #### 2 [id number] #### [facility],[address] [place] [address] MCH (RBC) [Entitic mass] 29 pg Normal 27 - 33 [facility] Comment on above: Performed By: #### 2 [id number] #### [facility],[address] [place] [address] MCHC 34 X10 3 Normal 32 - 36 [facility] Comment on above: Performed By: #### 2 [id number] #### [facility],[address] [place] [address] MCV (RBC) [Entitic vol] 84 fL Normal 80 - 99 [facility] Comment on above: Performed By: #### 2 [id number] #### [facility],[address] [place] [address] [place] # 0.78 x10EE3/UL Normal 0.20 - 1.00 [facility] Comment on above: Performed By: #### 2 38203 #### [facility],[address] [place] [address] MONOS % 9.9 % Normal 0.0 - 10.0 [facility] Comment on above: Performed By: #### 2 [id number] #### [place] [address] Morphology Marshal (Bld) [Interp] N/A Normal [facility] Comment on above: Performed By: #### 2 01256 #### [place] [address] Neut # 5.21 x10EE3/UL Normal 1.50 - 7.10 [facility] Comment on above: Performed By: #### 2 20931 #### [facility],[address] [place] [address] Neutrophils/100 WBC (Bld) 65.9 % Normal 46.0 - 76.0 [facility] Comment on above: Performed By: #### 2 [id number] #### [facility],[address] [place] [address]44 PLATELET 183 x10EE3/UL Normal 150 - 450 [facility] Comment on above: Performed By: #### 2 93900 #### [facility],[address] [place] [address]39 Platelet mean volume (Bld) [Entitic vol] 9.4 fL Normal 6.6 - 10.5 [facility] Comment on above: Result Comment: AUTO MATED DIFFERENTIAL Performed By: #### 2 [id number] #### [facility],[address] [place] [address]502 RBC 5.14 x 10EE6/UL Normal 4.10 - 5.30 [facility] Comment on above: Performed By: #### 2 20624 #### [facility],[address] [place] [address]758 WBC 7.9 x 10EE3/UL Normal 4.5 - 10.8 [facility] Comment on above: Performed By: #### 2 79748 #### [facility],[address] [place] [address] 12181 CMP with eGFRon 07-15-2025 AGE 79 years Normal [facility] Comment on above: Performed By: #### 2 05771 #### [facility],[address] [place] [address] 13593 Albumin [Mass/Vol] 3.2 g/dL Low 3.4 - 5.0 [facility] Comment on above: Performed By: #### 2 17626 #### [facility],[address] [place] [address] Albumin/Globulin [Mass ratio] 0.9 {ratio} Normal 0.9 - 1.6 [facility] Comment on above: Performed By: #### 2 [id number] #### [facility],[address] [place] [address] 36712 ALK PHOS 55 U/L Normal 46 - 116 [facility] Comment on above: Performed By: #### 2 [id number] #### [facility],[address] [place] [address] 27483 ALT [Catalytic activity/Vol] 45 U/L Normal 16 - 63 [facility] Comment on above: Performed By: #### 2 11088 #### [facility],[address] [place] [address] 32448 Anion gap [Moles/Vol] 8 mmol/L Low 10 - 20 [facility] Comment on above: Performed By: #### 2 [id number] #### [facility],[address] [place] [address] 84820 AST [Catalytic activity/Vol] 36 U/L Normal 13 - 39 [facility] Comment on above: Performed By: #### 2 [id number] #### [facility],[address] [place] [address] 39388 B/C RATIO 20 ratio Normal 0 - 30 [facility] Comment on above: Performed By: #### 2 80848 #### [facility],[address] [place] [address] 47537 Bilirubin [Mass/Vol] 0.6 mg/dL Normal 0.2 - 1.0 [facility] Comment on above: Performed By: #### 2 23492 #### [facility],[address] [place] [address] 66443 Calcium [Mass/Vol] 8.6 mg/dL Normal 8.5 - 10.1 [facility] Comment on above: Performed By: #### 2 87678 #### [facility],[address] [place] [address] 67417 Chloride [Moles/Vol] 103 mmol/L Normal 98 - 107 [facility] Comment on above: Performed By: #### 2 67809 #### [facility],[address] [place] [address] 68873 CMP with eGFR Normal [facility] Comment on above: Result Comment: COMP REHENSIVE METABOLIC PANEL Performed By: #### 2 51739 #### [facility],[address] [place] [address] 63134 CO2 [Moles/Vol] 33.5 mmol/L High 21.0 - 32.0 [facility] Comment on above: Performed By: #### 2 58085 #### [facility],[address] [place] [address] 78039 Creatinine [Mass/Vol] 1.19 mg/dL High 0.55 - 1.02 [facility] Comment on above: Performed By: #### 2 13477 #### [facility],[address] [place] [address] 95113 eGFR 44 ML/MINUTE Low 60 - 999 [facility] Comment on above: Performed By: #### 2 72161 #### [facility],[address] [place] [address] 48661 eGFR(AA) 53 ML/MINUTE Low 60 - 999 [facility] Comment on above: Result Comment: ACCO RDING TO THE NATIONAL KIDNEY DISEASE EDUCATION PROGRAM(NKDE), A NORMAL eGFR IS A VALUE GREATER THAN OR EQUAL TO 60 ML/MIN/1.73 SQ METERS. CHRONIC KIDNEY DISEASE: <60mL/MIN/1.73 SQ METERS KIDNEY FAILURE: <15mL/MIN/1.73 SQ METERS THIS TEST SHOULD ONLY BE USED FOR PATIENTS 18 YEARS OF AGE AND OLDER. Performed By: #### 2 78054 #### [facility],[address] [place] [address] 07191 Globulin (S) [Mass/Vol] 3.5 g/dL Normal 1.5 - 3.8 [facility] Comment on above: Performed By: #### 2 46636 #### [facility],[address] [place] [address] 29438 Glucose [Mass/Vol] 144 mg/dL High 74 - 106 [facility] Comment on above: Performed By: #### 2 67269 #### [facility],[address] [place] [address] 12480 Potassium [Moles/Vol] 4.2 mmol/L Normal 3.5 - 5.1 [facility] Comment on above: Performed By: #### 2 98428 #### [facility],[address] [place] [address] 93282 Protein [Mass/Vol] 6.7 g/dL Normal 6.4 - 8.2 [facility] Comment on above: Performed By: #### 2 39982 #### [facility],[address] [place] [address] 83872 Sodium [Moles/Vol] 140 mmol/L Normal 136 - 145 [facility] Comment on above: Performed By: #### 2 75630 #### [facility],[address] [place] [address] 05302 Urea nitrogen [Mass/Vol] 24 mg/dL High 7 - 18 [facility] Comment on above: Performed By: #### 2 88310 #### [facility],[address] [place] [address] 82165 LIPID PROFILEon 07-15-2025 Cholesterol [Mass/Vol] 101 mg/dL Normal 0 - 240 [facility] Comment on above: Performed By: #### 2 07776 #### [facility],[address] [place] [address] 67119 Cholesterol in HDL [Mass/Vol] 48 mg/dL Normal 40 - 60 [facility] Comment on above: Performed By: #### 2 86450 #### [facility],[address] [place] [address] 28427 Cholesterol in LDL [Mass/Vol] 33 mg/dL Normal 0 - 129 [facility] Comment on above: Performed By: #### 2 44825 #### [facility],[address] [place] [address] 19245 Cholesterol.total/Chol esterol in HDL [Mass ratio] 2.1 {ratio} Normal 0.0 - 5.0 [facility] Comment on above: Performed By: #### 2 17845 #### [facility],[address] [place] [address] 08320 Lipid 1996 panel Normal [facility] Comment on above: Result Comment: LIPI D PROFILE Performed By: #### 2 60166 #### [facility],[address] [place], [place] [id number] Triglyceride [Mass/Vol] 101 mg/dL Normal 0 - 150 [facility] Comment on above: Performed By: #### 2 13365 #### [facility],[address] [place] [address] 06998 TSHon 07-15-2025 TSH Qn 3.00 m[IU]/L Normal 0.35 - 3.74 [facility] Comment on above: Performed By: #### 2 60468 #### [facility],[address] [place] [address] 15292 URINE MICROALBUMIN W/CREATIN INE, RANDOMon 07-15-2025 CREATININE UR 145.66 mg/dl Normal [facility] Comment on above: Performed By: #### 2 78448 #### [facility],[address] [place] [address] 53695 MICROALBUMIN UR 3.8 mg/dL Normal 0.1 - 11.6 [facility] Comment on above: Performed By: #### 2 80116 #### [facility],[address] [place] [address] 35710 UACR 26 mg/g Normal [facility] Comment on above: Performed By: #### 2 54474 #### [facility],[address] [facility] [address] Urine Cultureon 07-14-2025 [facility] Urine Culture Urine Culture Escherichia coli [place] Count 11,000-25,000 Escherichia coli: REACTION Ampicillin Islt DREW >=32 Ampicillin+Sulbac Islt DREW 4 S Cefepime Islt DREW <=0.12 S cefTRIAXone Islt DREW <=0.25 S Ciprofloxacin Islt DREW >=4 R B-Lactamase Extended Susc Islt NEG Gentamicin Islt DREW <=1 S levoFLOXacin Islt DREW 4 R Meropenem Islt DREW <=0.25 S Nitrofurantoin Islt DREW 32 S Pip+Tazo Islt DREW <=4 S TMP SMX Islt DREW >=320 R Normal [facility] Comment on above: Performed By: #### M 100.2200 #### [facility] [address] [place] [address], [id number] Laboratory - Chemistry and C hemistry - challengeOrdered By: Jeromy Gaytan on 07-09-2025 Bilirubin Ql (U) Negative [facility] Glucose Ql (U) Negative [facility] Ketones Ql (U) Negative [facility] pH (U) 6.5 [pH] [facility] Specific gravity (U) [Rel density] 1.020 [facility] Urobilinogen (U) [Mass/Vol] Negative [facility] - Hematology and Cell countsOrdered By: Jeromy Gaytan on 07-09-2025 Hemoglobin Ql (U) Negative [facility] - Specimen inform ationOrdered By: Jeromy Gaytan on 07-09-2025 Clarity (U) Cloudy [facility] Color (U) Dk Yellow [facility] - UrinalysisOrder ed By: Jeromy Gaytan on 07-09-2025 Nitrite Ql (U) Negative [facility] Protein Ql (U) 2+ [facility] No Panel InformationOrdered By: Jeromy Gaytan on 07-09-2025 Urine Leukocytes Positive [facility] Urine Non-Hemolyzed Blood Moderate [facility] Urgent Care Visit Reporton 0 07-09-2025 Urgent Care Visit Report [facility] [address], [address] [place] [address] OFFICE VISIT Date of Service: 07/09/25 MR#: [id number] Acct: [id number] Name: APPLE ESTEBAN Rep #: [id number] : 1945 Provider: ALBERTO Sauceda Age/Sex: 79/F Location: [facility] [place] [facility] Status: Signed Intake Vital Signs 07/06/25 10:17 07/09/25 08:58 Height 5 ft 7 in Weight: 200 lb BMI 31.3 BP 128/82 H 126/60 H Blood Pressure Location Lt brachial Lt brachial Position Sitting Sitting Respiration 16 Pulse 63 74 Pulse Source Monitor NIBP Temp 97.6 F L Temp Source Oral Pulse Oximetry (%) 93 94 Oxygen Delivery Method room air room air Intake Visit Reasons: CONCERN FOR UTI Chief Complaint: urinary urgency and decreased output Program Writer Required: No Is patient in pain?: No Allergies Gadolinium-MRI Contrast Medium (contrast dye) Allergy (Verified 07/09/25 08:59) CHILLS.RIGORS niacin Allergy (Verified 07/09/25 08:59) Anaphylaxis Is last menstrual period known: No Post menopausal: Yes Patient : No Have you fallen in the past year?: No Nurse's Note: urinary urgency and decreased output today. denies abd pain/back pain/fever. concern for UTI [facility] Medical History (Updated 07/09/25 @ 11:11 by ALBERTO Sauceda) Abnormal results of thyroid function studies History of Crohn's disease Hypokalemia Hydronephrosis Ureteral calculi Wears glasses Cancer Depression Anxiety Insulin dependent diabetes mellitus Easy bruising Restless legs Back pain Dietary restriction History of IBS History of diverticulitis Heartburn Non-smoker Leg cramps History of pain when walking History of edema History of heart attack History of stress test Cardiology follow-up encounter History of irregular heartbeat Obesity Benign hypertension Mixed hyperlipidemia CAD (coronary artery disease) Polyneuropathy due to type 2 diabetes mellitus Deficient knowledge of hysterectomy Neuropathy Murmur IBS (irritable bowel syndrome) High triglycerides High cholesterol High blood pressure Heart disease Gastrointestinal problem UTI (urinary tract infection) Arthritis Surgical History History of cystoscopy Hx of left cataract extraction Hx of colonoscopy History of intestinal surgery Hx of foot surgery Hx of heart bypass surgery Hx of hysterectomy Hx laparoscopic cholecystectomy Hx of tonsillectomy H/O knee surgery Family History Mother Diabetes Hypertension Father Diabetes Hypertension Other Bowel disease CVA (cerebral vascular accident) Myocardial infarction Parkinson disease Social History Smoking Status: Never smoker HPI HPI Chief Complaint: urinary urgency and decreased output Details: APPLE ESTEBAN, is a 79 F who presents to the office today for evaluation of UTI symptoms. Patient states that she has been experiencing urinary urgency and decreased urinary output starting today but denies symptoms of dysuria, fever, chills, abdominal pain, nausea, and vomiting. Patient notes that she has a past medical history for recurrent UTI for which she sees urology. Patient denies any treatment for this issue at this time. ROS Const Constitutional: No body ache, chills, fatigue or fever(s) Gastro GI: No abdominal pain, change in bowel habits, diarrhea or vomiting Genitourinary-Female: Positive for urinary frequency, urinary urgency and suprapubic fullness; No painful urination or blood in urine Musc Musculoskeletal: Positive for back pain; No joint pain Endo Endocrine: No fatigue Exam Const General: healthy appearing and no acute distress GI Palpation: soft, no guarding and nontender Other: No CVA tenderness bilaterally Results POC Urinalysis Dip (Clinic) Office Urine Color Dk Yellow Last Edit by Lauren Henderson on 07/09/25 09:17 Office Urine Clarity Cloudy Last Edit by Lauren Henderson on 07/09/25 09:17 Office Urine Glucose Negative Last Edit by Lauren Henderson on 07/09/25 09:17 Office Urine Ketones Negative Last Edit by Lauren Henderson on 07/09/25 09:17 Off Ur Spec [place] 1.020 Last Edit by Lauren Henderson on 07/09/25 09:17 Office Urine pH 6.5 Last Edit by Lauren Henderson on 07/09/25 09:17 Office Urine Bilirubin Negative Last Edit by Lauren Henderson on 07/09/25 09:17 Office Urine Urobilinogen Negative Last Edit by Lauren Henderson on 07/09/25 09:17 Office Urine Blood Negative Last Edit by Lauren Henderson on 07/09/25 09:17 Office Urine Blood Hemolyzed Moderate Last Edit by Lauren Henderson on 07/09/25 09:17 Office Urine Protein 2+ Last Edit by Lauren Henderson on 07/09/25 09:17 Office (more content not included)... Normal [facility] Urine cultureOrdered By: Jamar Gaytan on 07-09-2025 Bacteria identified Cx Nom (U) Escherichia coli Abnormal [facility] Endocrinology Visit Reporton 07-06-2025 Endocrinology Visit Report [facility] [address] [facility] [place] [address] OFFICE VISIT Date of Service: 07/06/25 MR#: [id number] Acct: [id number] Name: APPLE ESTEBAN Rep #: [id number] : 1945 Provider: GIO trindiad Age/Sex: 79/F Location: [facility] Status: Signed Intake Vital Signs 01/24/25 10:32 02/25/25 09:57 07/06/25 10:17 Height 5 ft 7 in 5 ft 7 in 5 ft 7 in Weight: 207 lb 3.2 oz 200 lb BMI 32.4 31.3 BP 179/56 H 128/82 H Blood Pressure Location Lt brachial Position Sitting Sitting Respiration 16 Pulse 64 63 Pulse Source Monitor Temp 96.9 F L Temp Source Temporal Pulse Oximetry (%) 92 93 Oxygen Delivery Method room air Intake Visit Reasons: 4 M FU Chief Complaint: f/u diabetes Program Writer Required: No Accompanied by: Self Is patient in pain?: No Allergies Gadolinium-MRI Contrast Medium (contrast dye) Allergy (Verified 07/06/25 10:22) CHILLS.RIGORS niacin Allergy (Verified 07/06/25 10:22) Anaphylaxis Medications ???Medication ???Instructions ???Recorded ???Confirmed ???Type atorvastatin 80 mg tablet 80 mg PO QHS 06/19/15 07/06/25 His tory potassium gluconate 500 mg (83 mg) 500 mg PO DAILY 06/19/15 5 History tablet sertraline 100 mg tablet 100 mg PO QHS 06/19/15 07/06/25 Hi story oaotyb-xtjbklat-ggynglx 3 cap PO TID 02/21/21 07/06/25 His tory 36,000-114,000-180,000 unit capsule,delay rel (Creon) ramipril 2.5 mg capsule 2.5 ea PO QHS 02/21/21 07/06/25 Hi story d-mannose 500 mg capsule 1,000 mg PO DAILY 07/13/21 5 History lactobacillus combination no.4 3 3,000 mmu cells PO DAILY 07/13/21 07/06/25 History billion cell capsule (Probiotic) inflectra infusion 0 mg subcut PRN PRN CROHN 07/10/22 07/06/25 History clonidine HCl 0.1 mg tablet 0.1 mg PO Q8H PRN hypertensive 07/06/25 Rx emergency #10 tabs pen needle, diabetic 32 gauge x #150 ea 10/10/23 07/06/25 Rx 5/32 (BD Ultra-Fine Roseanna Pen Needle) apixaban 5 mg tablet (Eliquis) 5 mg PO BID 03/24/24 07/06/25 Hist ory clopidogrel 75 mg tablet 75 mg PO DAILY 09/10/24 07/06/25 H istory Ozempic 2 mg/dose (8 mg/3 mL) 2 mg (0.75 mL) subcut QWEEK #9 mL 10/25/24 07/06/25 Rx subcutaneous pen injector (semaglutide) Lantus Solostar U-100 Insulin 100 42 unit (0.42 mL) subcut QHS #36 mL 01/12/25 07/06/25 Rx unit/mL (3 mL) subcutaneous pen (insulin glargine) Humalog KwikPen Insulin 100 18 unit (0.18 mL) subcut TID 01/2407/06/25 Rx unit/mL subcutaneous (insulin SLIDING SCALE #45 mL lispro) ezetimibe 10 mg tablet 10 mg PO QDAY 07/06/25 07/06/25 Hi story metoprolol succinate 25 mg 25 mg PO QHS 07/06/25 07/06/25 His tory tablet,extended release 24 hr Have you fallen in the past year?: No PFSH Medical History Abnormal results of thyroid function studies History of Crohn's disease Hypokalemia Hydronephrosis Ureteral calculi Wears glasses Cancer Depression Anxiety Insulin dependent diabetes mellitus Easy bruising Restless legs Back pain Dietary restriction History of IBS History of diverticulitis Heartburn Non-smoker Leg cramps History of pain when walking History of edema History of heart attack History of stress test Cardiology follow-up encounter History of irregular heartbeat Obesity Benign hypertension Mixed hyperlipidemia CAD (coronary artery disease) Polyneuropathy due to type 2 diabetes mellitus Deficient knowledge of hysterectomy Neuropathy Murmur IBS (irritable bowel syndrome) High triglycerides High cholesterol High blood pressure Heart disease Gastrointestinal problem UTI (urinary tract infection) Arthritis Surgical History History of cystoscopy Hx of left cataract extraction Hx of colonoscopy History of intestinal surgery Hx of foot surgery Hx of heart bypass surgery Hx of hysterectomy Hx laparoscopic cholecystectomy Hx of tonsillectomy H/O knee surgery Family History Mother Diabetes Hypertension Father Diabetes Hypertension Other Bowel disease CVA (cerebral vascular accident) Myocardial infarction Parkinson disease Social History Smoking Status: Never smoker HPI HPI Chief Complaint: f/u diabetes Details: APPLE ESTEBAN, is a 79 F who presents to the office today for evaluation and management of diabetes. Pt had stroke in March of this year resulting in right sided deficits, reports she is recovering well. A1C today is 6.8%, improved from 01/24/25 at 7.2%. She has lost 6 lbs since that (more content not included)... Normal [facility] - Hematology and Cell countsOrdered By: Arely Morataya on 07-06-2025 HbA1c (Bld) [Mass fraction] 6.8 % High 4.2-6.3 [facility] CALPROTECTIN, FECAL [CCL]on 04-15-2025 CALPROTECTIN, FECAL [CCL] Normal [facility] Comment on above: Result Comment: _CAL PROTECTIN, FECAL [CCL]_ SEE SCANNED REPORT Performed By: #### 2 53363 #### [facility],[address] [place] [address] 80258 Calprotectin (Stl) [Mass/Mas s]on 04-13-2025 CALPROTECTIN, FECAL QUANTITATIVE 51.8 ug/g High <50 [facility] Comment on above: Order Comment: Speci men Type: STOOL SPECIMEN Ordering Facility: [facility] Address: [address] [place] [address] Performed By: #### 3 8445-3 #### [facility] CLIA [id number] [address] [place] [address] STATES OF [facility] C-REACTIVE PROTEINon 025 CRP 0.06 mg/dl Normal 0.00 - 0.90 [facility] Comment on above: Performed By: #### 2 73444 #### [facility],[address] [place], [place] [phone] SEDRATEon 04-11-2025 SEDRATE 4 mm/hr Normal 0 - 30 [facility] Comment on above: Performed By: #### 2 37823 #### [facility],[address] [place], [place] [phone] BMP with eGFRon 04-04-2025 AGE 79 years Normal [facility] Comment on above: Performed By: #### 2 65180 #### [facility],[address] [place], [place] [phone] Anion gap [Moles/Vol] 14 mmol/L Normal 10 - 20 [facility] Comment on above: Performed By: #### 2 80728 #### [facility],[address] [place], [place] [phone] BMP with eGFR Normal [facility] Comment on above: Result Comment: BASI C METABOLIC PANEL Performed By: #### 2 83802 #### [facility],[address] [place] [address] 13516 Calcium [Mass/Vol] 8.7 mg/dL Normal 8.5 - 10.1 [facility] Comment on above: Performed By: #### 2 62225 #### [facility],[address] [place], [place] [phone] Chloride [Moles/Vol] 105 mmol/L Normal 98 - 107 [facility] Comment on above: Performed By: #### 2 91808 #### [facility],[address] [place] [address] CO2 [Moles/Vol] 27.5 mmol/L Normal 21.0 - 32.0 [facility] Comment on above: Performed By: #### 2 68269 #### [facility],[address] [place] [address] Creatinine [Mass/Vol] 1.27 mg/dL High 0.55 - 1.02 [facility] Comment on above: Performed By: #### 2 57116 #### [facility],[address] [place], [place] [phone] eGFR 41 ML/MINUTE Low 60 - 999 [facility] Comment on above: Performed By: #### 2 09956 #### [facility],[address] [place], [place] [phone] eGFR(AA) 49 ML/MINUTE Low 60 - 999 [facility] Comment on above: Result Comment: ACCO RDING TO THE NATIONAL KIDNEY DISEASE EDUCATION PROGRAM(NKDE), A NORMAL eGFR IS A VALUE GREATER THAN OR EQUAL TO 60 ML/MIN/1.73 SQ METERS. CHRONIC KIDNEY DISEASE: <60mL/MIN/1.73 SQ METERS KIDNEY FAILURE: <15mL/MIN/1.73 SQ METERS THIS TEST SHOULD ONLY BE USED FOR PATIENTS 18 YEARS OF AGE AND OLDER. Performed By: #### 2 57295 #### [facility],[address] [place], [place] [phone] Glucose [Mass/Vol] 210 mg/dL High 74 - 106 [facility] Comment on above: Performed By: #### 2 04805 #### [facility],[address] [place] [address] 95782 Potassium [Moles/Vol] 3.7 mmol/L Normal 3.5 - 5.1 [facility] Comment on above: Performed By: #### 2 31559 #### [facility],[address] [place] [address] 92158 Sodium [Moles/Vol] 143 mmol/L Normal 136 - 145 [facility] Comment on above: Performed By: #### 2 63269 #### [facility],[address] [place] [address] 86609 Urea nitrogen [Mass/Vol] 39 mg/dL High 7 - 18 [facility] Comment on above: Performed By: #### 2 08458 #### [facility],[address] [place] [address] 42106 CBC + DIFFon 04-04-2025 Baso # 0.03 x10EE3/UL Normal 0.00 - 0.10 [facility] Comment on above: Performed By: #### 2 06163 ####[facility],[address] [place] [address] 13851 Basophils/100 WBC (Bld) 0.3 % Normal 0.0 - 2.0 [facility] Comment on above: Performed By: #### 2 81923 ####[facility],[address] [place] [address] 12731 CBC + DIFF Normal [facility] Comment on above: Result Comment: CBC- COMPLETE BLOOD COUNT Performed By: #### 2 69902 ####[facility],[address] [place] [address] 22999 EO # 0.22 x10EE3/UL Normal 0.00 - 0.50 [facility] Comment on above: Performed By: #### 2 48838 ####[facility],[address] [place] [address] 91148 Eosinophils/100 WBC (Bld) 2.0 % Normal 0.0 - 7.0 [facility] Comment on above: Performed By: #### 2 38823 ####[facility],[address] [place] [address] Erythrocyte distribution width (RBC) [Ratio] 14.3 % Normal 12.0 - 15.6 [facility] Comment on above: Performed By: #### 2 46852 ####[facility],[address] [place] [address] Hematocrit (Bld) [Volume fraction] 42.4 % Normal 34.0 - 46.0 [facility] Comment on above: Performed By: #### 2 94863 ####[facility],[address] [place] [address] Hemoglobin (Bld) [Mass/Vol] 14.4 g/dL Normal 12.0 - 16.0 [facility] [place] Comment on above: Performed By: #### 2 71681 ####[place] [address] Lymph # 3.79 x10EE3/UL High 0.80 - 2.80 [facility] Comment on above: Performed By: #### 2 29870 ####[facility],[address] [place] [address] Lymphocytes/100 WBC (Bld) 35.7 % Normal 20.0 - 45.0 [facility] Comment on above: Performed By: #### 2 27017 ####[facility],[address] [place], [place] [id number] MANUAL DIFF N/A Normal [facility] Comment on above: Performed By: #### 2 46207 ####[facility],[address] [place], [place] [address] MCH (RBC) [Entitic mass] 29 pg Normal 27 - 33 [facility] Comment on above: Performed By: #### 2 10172 ####[place] [address] MCHC 34 X10 3 Normal 32 - 36 [facility] Comment on above: Performed By: #### 2 88828 ####[facility],[address] [place] [address] MCV (RBC) [Entitic vol] 86 fL Normal 80 - 99 [facility] Comment on above: Performed By: #### 2 43618 ####[facility],[address] [place] [address] [place] # 0.92 x10EE3/UL Normal 0.20 - 1.00 [facility] Comment on above: Performed By: #### 2 50105 ####[facility],[address] [place] [address] MONOS % 8.6 % Normal 0.0 - 10.0 [facility] Comment on above: Performed By: #### 2 91019 ####[facility],[address] [place] [address] Morphology Marshal (Bld) [Interp] N/A Normal [facility] Comment on above: Performed By: #### 2 31223 ####[facility],[address] [place] [address] Neut # 5.66 x10EE3/UL Normal 1.50 - 7.10 [facility] Comment on above: Performed By: #### 2 50801 ####[facility],[address] [place] [address] Neutrophils/100 WBC (Bld) 53.4 % Normal 46.0 - 76.0 [facility] Comment on above: Performed By: #### 2 14681 ####[facility],[address] [place] [address] PLATELET 149 x10EE3/UL Low 150 - 450 [facility] Comment on above: Performed By: #### 2 35952 ####[facility],[address] [place] [address] Platelet mean volume (Bld) [Entitic vol] 9.7 fL Normal 6.6 - 10.5 [facility] Comment on above: Result Comment: AUTO MATED DIFFERENTIAL Performed By: #### 2 47525 ####[address] [address] RBC 4.94 x 10EE6/UL Normal 4.10 - 5.30 [facility] Comment on above: Performed By: #### 2 49776 ####[facility],[address] [place] [address] WBC 10.6 x 10EE3/UL Normal 4.5 - 10.8 [facility] Comment on above: Performed By: #### 2 13610 ####[facility],[address] [place] [address]682 CV ECHO COMPLETE WITHOUT CON TRASTon 04-04-2025 CV ECHO COMPLETE WITHOUT CONTRAST [place] [address] Patient: APPLE ESTEBAN Phone#: : 1945 Age: 79 Gender: F Pt. Type: Out Account: [id number] Location: [facility] Ordering: SALMA ADAME Exam Date: 04/04/2025/10:01 Family Phys: RESHMA MARSH Charge Code: [id number] Physician: Johnston Order #: [id number] Dose#: PROCEDURE: ECHOCARDIOGRAM WITH DOPPLER AND COLOR FLOW HISTORY: Isabelle, Hyster, open heart INDICATIONS: TIA/CVA COMPARISON: None. TECHNIQUE: A 2-D ultrasound, color spectral Doppler and M-mode evaluation of the heart and great vessels. PATIENT MEASUREMENTS: Height (in.): 67 BSA: 2.03 Weight (lbs.): 201 BP: 152/100 [employer] Principal: GEOVANI M MODE 2D MEASUREMENTS AND CALCULATIONS: LVIDd: 4.46 cm LVIDs: 3.14 cm IVSd: 0.80 cm LVPWd: 1.07 cm LVOT diam: 1.85 cm FS: 29.48 % LA diam: 4.1 cm LA Volume Index: 23.4 mm/m2 LA A4 Area: 14.91 cm2 RA A4 Area: 12 cm2 RVDd: 3.7 cm TAPSE: 19.9 mm DOPPLER MEASUREMENTS AND CALCULATIONS MITRAL MV E MAX scarlet: 1.06 m/s MV A MAX scarlet: 1.17 m/s MV E-A ratio: 0.90 MVA VTI 1.77 cm2 MV V2 max: 1.21 m/s MV max P.82 mm[Hg] MV V2 mean: 0.76 m/s Continued Report - Page 2 of 3 Patient: APPLE ESTEBAN Phone#: : 1945 Age: 79 Gender: F Pt. Type: Out Account: [id number] Location: [facility] Ordering: SALMA ADAME Exam Date: 04/04/2025/10:01 Family Phys: RESHMA [place] Charge Code: [id number] Physician: Johnston Order #: [id number] Dose#: MV mean P.57 mm[Hg] MV V2 VTI: 39.79 cm MV PHT: 91.17 ms MVA PHT 2.41 cm2 Lat Peak E' Scarlet Septal Peak E' SCARLET AORTIC Ao V2 max: 2.34 m/s Ao max P.84 mm[Hg] Ao V2 mean: 1.77 m/s Ao mean P.38 mm[Hg] Ao V2 VTI: 55.64 cm MIRTHA (V Max): 1.40 cm2 MIRTHA (VTI): 1.26 cm2 LV V1 Max 1.21 m/s LV V1 Max PG 5.86 mm[Hg] LV V1 Mean PG 3.32 mm[Hg] LV V1 mean 0.84 m/s LV V1 VTI 26.11 cm PULMONIC PA V2 Max 0.89 m/s PA Max PG 3.15 mm[Hg] TRICUSPID TR Max Scarlet 3.19 m/s TR max PG 40.76 mm[Hg] RVSP 44 mm Hg 2D/M-MODE AND COLOR FLOW LEFT VENTRICLE: Left ventricle is normal in size and thickness. Systolic ejection fraction 55-60% with normal wall motion. Diastolic dysfunction is present. WALL MOTION: 1 - Basal anterior: Normal. 7 - Mid anterior: Normal. 13 - Apical anterior: Normal. 2 - Basal anteroseptal: Normal. 8 - Mid anteroseptal: Normal. 14 - Apical septal: Normal. 3 - Basal inferoseptal: Normal. 9 - Mid inferoseptal: Normal. 15 - Apical inferior: Normal. 4 - Basal inferior: Normal. 10-Mid inferior: Normal. 16 - Apical lateral: Normal. 5 - Basal inferolateral: Normal. 11-Mid inferolateral: Normal. 6 - Basal anterolateral: Normal. 12-Mid anterolateral: Normal. RIGHT VENTRICLE: Right ventricle is normal in size and systolic function. LEFT ATRIUM: Left atrium is normal in size. RIGHT ATRIUM: Right atrium is normal in size. Continued Report - Page 3 of 3 Patient: APPLE ESTEBAN Phone#: : 1945 Age: 79 Gender: F Pt. Type: Out Account: [id number] Location: [facility] Ordering: SALMA ADAME Exam Date: 04/04/2025/10:01 Family Phys: [facility] Charge Code: [id number] Physician: Johnston Order #: [id number] Dose#: ATRIAL SEPTUM: There is no large interatrial shunt seen. PFO was not assessed. MITRAL VALVE: There is mild mitral annular calcification seen. Mitral valve leaflets appear normal in structure. There is trivial regurgitation no stenosis seen TRICUSPID VALVE: Tricuspid valve is normal structure. There is mild regurgitation and no stenosis seen. AORTIC VALVE: There is a well-seated bioprosthetic aortic valve seen. Maximum velocity across the valve is 2.3 m/sec with mean gradient of 13 mm Hg. Acceleration time across the valve is 75 ms. There is no prosthetic valve stenosis or regurgitation seen. PULMONIC VALVE: Inadequately visualized. AORTIC ROOT: Inadequately visualized AORTIC ARCH: Inadequately visualized DESC THORACIC AORTA: Inadequately visualized. Doppler shows normal flow IVC/SVC: IVC is normal in size with more than 50% collapse of inspiration. Estimated atrial pressure is 3 mm Hg. PULMONARY VEINS: Normal pulmonic vein flow. PERICARDIUM: There is no pericardial effusion seen. CONCLUSION: 1. Left ventricle is normal in size and thickness. Systolic ejection fraction 55-60% with normal wall motion 2. There is mild mitral annular calcification seen. Mitral valve leaflets appear normal in structure. There is trivial regurgitation seen. 3. There is mild tricuspid valve regurgitation seen. 4. There is a well-seated bioprosthetic aortic valve seen. There is no prosthetic valve stenosis or regurgitation seen. 5. Right ventricle is normal in size and systolic function. 6. Estimated systolic pressure is 44 mm Hg suggestive of mild pulmonary hyperte (more content not included)... Normal [facility] MR MRI BRAIN W/O CONTRASTon 04-04-2025 MR MRI BRAIN W/O CONTRAST [place] [address] Patient: APPLE ESTEBAN Phone#: : 1945 Age: 79 Gender: F Pt. Type: Out Account: [id number] Location: [facility] Ordering: SALMA ADAME Exam Date: 04/04/2025/8:38 Family Phys: RESHMA MARSH Charge Code: [id number] Physician: Johnston Order #: [id number] Dose#: PROCEDURE: MRI BRAIN WITHOUT CONTRAST COMPARISON: None. INDICATIONS: Stroke TECHNIQUE: A variety of imaging planes and parameters were utilized for visualization of suspected pathology. Images were performed without contrast. FINDINGS: CEREBRUM: Age-appropriate atrophy is present, without visible acute hemorrhage or lesion. Abnormal signal in the right frontal Gonzales consistent with encephalomalacia. There is an 8 millimeter focus of abnormal signal on FLAIR imaging and diffusion weighted imaging in the left thalamus consistent with acute ischemia. CEREBELLUM: No edema, hemorrhage, mass, acute infarction, or inappropriate atrophy. BRAINSTEM: No edema, hemorrhage, mass, acute infarction, or inappropriate atrophy. CSF SPACES: Ventricles, cisterns, and sulci are appropriate for age. No hydrocephalus, subarachnoid hemorrhage, or mass. SKULL: No mass or other significant visible lesion. SINUSES: Limited views demonstrate no significant mucosal thickening or fluid. ORBITS: Limited views are unremarkable. OTHER: Negative. CONCLUSION: 1. 8 millimeter focus of abnormal signal in the left thalamus consistent with acute ischemia. 2. This report was communicated by telephone to Dr. Carroll at the dictation time shown below. Dictated by: Gin Cardenas MD on 04/04/2025 at 9:35 Approved by: Gin Cardenas MD on 04/04/2025 at 9:57 Normal [facility] BMP with eGFRon 04-03-2025 AGE 79 years Normal [facility] Comment on above: Performed By: #### 2 89362 ####[facility],[address] [place], [place] [id number] Anion gap [Moles/Vol] 15 mmol/L Normal 10 - 20 [facility] Comment on above: Performed By: #### 2 95979 ####[facility],[address] [place] [address] BMP with eGFR Normal [facility] Comment on above: Result Comment: BASI C METABOLIC PANEL Performed By: #### 2 94437 ####[facility],[address] [place], [place] [id number] Calcium [Mass/Vol] 9.1 mg/dL Normal 8.5 - 10.1 [facility] Comment on above: Performed By: #### 2 78892 ####[facility],[address] [place] [address] Chloride [Moles/Vol] 103 mmol/L Normal 98 - 107 [facility] Comment on above: Performed By: #### 2 13511 ####[facility],[address] [place] [address] CO2 [Moles/Vol] 27.2 mmol/L Normal 21.0 - 32.0 [facility] Comment on above: Performed By: #### 2 86293 ####[facility],[address] [place], [place] [id number] Creatinine [Mass/Vol] 1.40 mg/dL High 0.55 - 1.02 [facility] Comment on above: Performed By: #### 2 07078 ####[facility],[address] [place], [place] [id number] eGFR 36 ML/MINUTE Low 60 - 999 [facility] Comment on above: Performed By: #### 2 07691 ####[facility],[address],[place] [address] eGFR(AA) 44 ML/MINUTE Low 60 - 999 [facility] Comment on above: Result Comment: ACCO RDING TO THE NATIONAL KIDNEY DISEASE EDUCATION PROGRAM(NKDE), A NORMAL eGFR IS A VALUE GREATER THAN OR EQUAL TO 60 ML/MIN/1.73 SQ METERS. CHRONIC KIDNEY DISEASE: <60mL/MIN/1.73 SQ METERS KIDNEY FAILURE: <15mL/MIN/1.73 SQ METERS THIS TEST SHOULD ONLY BE USED FOR PATIENTS 18 YEARS OF AGE AND OLDER. Performed By: #### 2 67165 ####[facility],[address] [place] [address]00 Glucose [Mass/Vol] 370 mg/dL High 74 - 106 [facility] Comment on above: Performed By: #### 2 59707 ####[facility],[address] [place] [address]134 Potassium [Moles/Vol] 4.2 mmol/L Normal 3.5 - 5.1 [facility] Comment on above: Performed By: #### 2 91307 ####[facility],[address] [place] [address]7737 Sodium [Moles/Vol] 141 mmol/L Normal 136 - 145 [facility] Comment on above: Performed By: #### 2 91452 ####[facility],[address] [place] [address] 99222 Urea nitrogen [Mass/Vol] 31 mg/dL High 7 - 18 [facility] Comment on above: Performed By: #### 2 82743 ####[facility],[address] [place] [address] 01589 CBC + DIFFon 04-03-2025 Baso # 0.01 x10EE3/UL Normal 0.00 - 0.10 [facility] Comment on above: Performed By: #### 2 67944 ####[facility],[address] [place] [address]59[address] Basophils/100 WBC (Bld) 0.1 % Normal 0.0 - 2.0 [facility] Comment on above: Performed By: #### 2 31242 ####[facility],[address] [place] [address] CBC + DIFF Normal [facility] Comment on above: Result Comment: CBC- COMPLETE BLOOD COUNT Performed By: #### 2 39969 ####[facility],[address] [place] [address] EO # 0.03 x10EE3/UL Normal 0.00 - 0.50 [facility] Comment on above: Performed By: #### 2 88409 ####[place] [address] Eosinophils/100 WBC (Bld) 0.3 % Normal 0.0 - 7.0 [facility] Comment on above: Performed By: #### 2 67212 ####[facility],[address] [place] [address] Erythrocyte distribution width (RBC) [Ratio] 13.9 % Normal 12.0 - 15.6 [facility] Comment on above: Performed By: #### 2 50439 ####[facility],[address] [place] [address] Hematocrit (Bld) [Volume fraction] 43.0 % Normal 34.0 - 46.0 [facility] Comment on above: Performed By: #### 2 06521 ####[facility],[address] [place] [address] Hemoglobin (Bld) [Mass/Vol] 15.0 g/dL Normal 12.0 - 16.0 [facility] Comment on above: Performed By: #### 2 44025 ####[place] [address] Lymph # 1.15 x10EE3/UL Normal 0.80 - 2.80 [facility] Comment on above: Performed By: #### 2 03211 ####[facility],[address] [place] [address] Lymphocytes/100 WBC (Bld) 10.3 % Low 20.0 - 45.0 [facility] Comment on above: Performed By: #### 2 35230 ####[facility],[address] [place] [address] MANUAL DIFF N/A Normal [facility] Comment on above: Performed By: #### 2 48669 ####[facility],[address] [place] [address] MCH (RBC) [Entitic mass] 29 pg Normal 27 - 33 [facility] Comment on above: Performed By: #### 2 06404 ####[place] [address] MCHC 35 X10 3 Normal 32 - 36 [facility] Comment on above: Performed By: #### 2 75565 ####[place] [address] MCV (RBC) [Entitic vol] 84 fL Normal 80 - 99 [facility] Comment on above: Performed By: #### 2 29449 ####[facility],[address] [place] [address] [place] # 0.14 x10EE3/UL Low 0.20 - 1.00 [facility] Comment on above: Performed By: #### 2 33980 ####[facility],[address] [place] [address] MONOS % 1.2 % Normal 0.0 - 10.0 [facility] Comment on above: Performed By: #### 2 68583 ####[facility],[address] [place] [address] Morphology Marshal (Bld) [Interp] N/A Normal [facility] Comment on above: Performed By: #### 2 18773 ####[place] [address] Neut # 9.93 x10EE3/UL High 1.50 - 7.10 [facility] Comment on above: Performed By: #### 2 22336 ####[facility],[address] [place] [address]49 Neutrophils/100 WBC (Bld) 88.2 % High 46.0 - 76.0 [facility] Comment on above: Performed By: #### 2 23591 ####[facility],[address] [place] [address]4095 PLATELET 132 x10EE3/UL Low 150 - 450 [facility] Comment on above: Performed By: #### 2 54824 ####[address] [address] Platelet mean volume (Bld) [Entitic vol] 9.9 fL Normal 6.6 - 10.5 [facility] Comment on above: Result Comment: AUTO MATED DIFFERENTIAL Performed By: #### 2 83737 ####[address] [address] RBC 5.12 x 10EE6/UL Normal 4.10 - 5.30 [facility] Comment on above: Performed By: #### 2 67811 ####[address] [address] WBC 11.3 x 10EE3/UL High 4.5 - 10.8 [facility] Comment on above: Performed By: #### 2 08693 ####[facility],[address] [place] [address] ED MED ADMINISTRATION DETAIL on 04-03-2025 ED MED ADMINISTRATION DETAIL Resource Room [place] [address] [phone] 04/02/2025 Patient: APPLE ESTEBAN Sex: Female : 1945 Age: 79y MEASUREMENTS: Wt: 95.3 kg, Ht/Amaury: 67.0 in, BMI: 32.89 ALLERGIES: CT contrast dye, heart cath dye, niacin Medication Ordered Medication Administration Date/Time DiphenhydrAMINE 18:46 04/02 DiphenhydrAMINE (Benadryl) IVP 50 mg given via Given (Benadryl) IVP 50 Site# 1. Allergies verified and confirmed 5 rights. IV patency 18:46 04/02/2025 mg (NOW x1) established. IV site checked: no pain, redness, or swelling. IV Padmini Kruger R.N. flushed thoroughly pre-medication administration. Information Scanned reviewed with patient. Verbalizes understanding. - 18:46 Padmini Kruger R.N. MethylPREDNISolo 18:45 04/02 MethylPREDNISolone Sodium Succ (Solu-Medrol) IVP Given ne Sodium Succ 125 mg given via Site# 1. Allergies verified and confirmed 5 rights. 18:45 04/02/2025 (Solu-Medrol) IVP IV patency established. IV site checked: no pain, redness, or Padmini Kruger R.N. 125 mg (NOW x1) swelling. IV flushed thoroughly pre-medication administration. Scanned Information reviewed with patient. Verbalizes understanding. - 18:46 Padmini Kruger R.N. HydrALAZINE IVP 5 19:06 04/02 HydrALAZINE IVP 5 mg given via Site# 1. Allergies Given mg (NOW x1) verified and confirmed 5 rights. IV patency established. IV site 19:06 04/02/2025 checked: no pain, redness, or swelling. IV flushed thoroughly Padmini Kruger R.N. pre-medication administration. Information reviewed with patient. Scanned Verbalizes understanding. Medication Wastage: 15 mg wasted. - 19:08 Padmini Kruger R.N. 1 of 1 Normal [facility] ED NURSES CLINICAL NOTEon ED NURSES CLINICAL NOTE Nurse Narrative Nurse Clinical [address] [address] [id number] 04/02/2025 18:15:00 Patient: APPLE ESTEBAN Sex: Female : 1945 Age: 79y Disposition: Observation to Med/Surg Disposition Decision Time: 22:37 04/02/2025 Departure Time: 23:01 04/02/2025 TRIAGE Arrived by private vehicle. Historian: (patient). Accompanied by family. Primary physician (Salma). Triage time: 18:15 04/02/2025. Acuity: LEVEL 2. Chief Complaint: NUMBNESS and (numbness and tingling to the right side). Patient was last known well (10:00 04/02/2025). The patient has had trouble walking. Patient is on anticoagulation (blood thinner) therapy: includes eliquis. SEPSIS SCREEN: NEGATIVE. SIRS criteria negative. No possible sources of infection. -- 18:35 04/02/25 EDT Padimni Kruger R.N. 18:17 04/02/25. BP: 191/76 MAP: 114. HR: 75. RR: 18. O2 saturation: 96% -- 18:29 04/02/25 BRI Kruger R.N. 18:29 04/02/25. Pain level now 0/10. -- 18:30 04/02/25 BRI Kruger R.N. 19:27 04/02/25. Temperature: 98.1 F. -- 19:27 04/02/25 BRI Kruger R.N. Measurements: 18:35 04/02/25 Wt: 95.3 kg, Ht/Amaury: 67.0 in, BMI: 32.89 -- 18:35 04/02/25 BRI Kruger R.N. Medications: 1 of 6 Nurse Narrative Gogo [place] U-100 Insulin 100 unit/mL (3 mL) subcutaneous pen: 42 units once a day at bedtime. -- 18:46 04/02/25 RBI Ferraro R.N. semaglutide 2 mg/dose (8 mg/3 mL) subcutaneous pen injector: 2 mg weekly . -- 18:48 04/02/25 MATHEUST Maida Ferraro R.N. Eliquis 5 mg tablet: 5 mg twice a day . -- 18:48 04/02/25 MATHEUST Maida Ferraro R.N. atorvastatin 80 mg tablet: 80 mg once a day . -- 18:49 04/02/25 BRI Ferraro R.N. inFLIXimab 100 mg intravenous solution: (Every 8 weeks) -- 18:51 04/02/25 EDT Maida Ferraro R.N. insulin lispro (U-100) 100 unit/mL subcutaneous pen: 1 sliding scale dose . -- 18:53 04/02/25 BRI Ferraro R.N. metoprolol tartrate 25 mg tablet: 25 mg once a day . -- 18:54 04/02/25 BRI Ferraro R.N. Creon 36,000 unit-114,000 unit-180,000 unit capsule,delayed release: (3 capsules with meal, 2 capsules with snack) -- 18:55 04/02/25 MATHEUST Maida Ferraro R.N. ramipriL 2.5 mg capsule: 2.5 mg once a day . -- 18:56 04/02/25 BRI Ferraro R.N. sertraline 100 mg tablet: 100 mg once a day . -- 18:57 04/02/25 BRI Ferraro R.N. potassium chloride oral: 99 mg . -- 18:59 04/02/25 BRI Ferraro R.N. aspirin 81 mg tablet -- 18:59 04/02/25 BRI Ferraro R.N. 18:15 04/02/25. Preferred Pharmacy: ([facility] in [place]). -- 18:35 04/02/25 BRI Kruger R.N. Allergies: niacin -- 18:22 04/02/25 BRI Kruger R.N. heart cath dye -- 18:22 04/02/[address] contrast dye -- 18:34 04/02/25 BRI Kruger R.N. Home Medications/Allergy Information Source: patient -- 18:23 04/02/25 MATHEUST Padmini Kruger R.N. Problems: Myocardial Infarction -- 18:24 04/02/25 BRI Kruger R.N. Heart Disease -- 18:25 04/02/25 BRI Kruger R.N. Hypercholesterolemia -- 18:25 04/02/25 BRI Kruger R.N. Hypertension -- 18:25 04/02/25 BRI Kruger R.N. CVA - Cerebrovascular Accident -- 18:25 04/02/25 BRI Kruger R.N. Diabetes Mellitus -- 18:26 04/02/25 BRI Kruger R.N. Neuropathy -- 18:32 04/02/25 BRI Kruger R.N. 2 of 6 Nurse Narrative Crohn's Disease -- 18:55 04/02/25 BRI Kruger R.N. Surgeries: Valve Replacement -- 18:24 04/02/25 BRI Kruger R.N. cardiac bypass -- 18:24 04/02/25 BRI Kruger R.N.Correction -- 18:35 04/02/25 BRI Kruger R.N. Appendectomy -- 18:24 04/02/25 BRI Kruger R.N. Cholecystectomy -- 18:24 04/02/25 BRI Kruger R.N. Bowel Surgery -- 18:26 04/02/25 BRI Kruger R.N. Tonsillectomy -- 18:26 04/02/25 BRI Kruger R.N. Hysterectomy -- 18:27 04/02/25 BRI Kruger R.N. Arthroplasty of knee -- 18:27 04/02/25 BRI Kruger R.N. Coronary Artery Bypass Graft -- 18:35 04/02/25 BRI Kruger R.N. History 18:15 04/02/25. PAST MEDICAL HX: Immunizations: up-to-date. SOCIAL HX: Never smoker. No alcohol use or drug use. The patient has not traveled outside the [place] Infectious disease exposure: No infectious disease exposure. ABUSE ASSESSMENT: The patient answered yes to the question(s) Do you feel safe in your home? and no to the question(s) Are you afraid to go home?. Abuse denied. No suspicion of abuse. -- 18:35 04/02/25 BRI Kruger R.N. 19:27 04/02/25. SELF HARM ASSESSMENT: Self harm assessment was performed. The patient answered no to the question(s) Have you recently felt down, depressed, or hopeless? and Do you have thoughts of harming or killing yourself?. FALL RISK ASSESSMENT: Fall risk assessment completed. Risk factors identified include patient medications (more content not included)... Normal [facility] ED ORDER SHEET (CPOE ONLY)on 04-03-2025 ED ORDER SHEET (CPOE ONLY) Order Sheet Order Sheet [facility] [address] [place] [address] [id number] 04/02/2025 Patient: APPLE ESTEBAN Sex: Female : 1945 Age: 79y MEASUREMENTS: Wt: 95.3 kg, Ht/Amaury: 67.0 in, BMI: 32.89 ALLERGIES: CT contrast dye, heart cath dye, niacin MEDICATION/IV/DRIP/FLUID ORDERS Order Description Priority Entered Acknowledged Completed DiphenhydrAMINE (Benadryl) 18:35 04/02/2025 18:46 IVP50 mg (NOW x1) Elio Valverde D.O. 04/02/2025 Padmini Kruger R.N. MethylPREDNISolone Sodium 18:35 04/02/2025 18:46 Succ (Solu-Medrol) INR164 mg Elio Valverde D.O. 04/02/2025 (NOW x1) Padmini Kruger R.N. HydrALAZINE IVP5 mg (NOW 18:58 04/02/2025 19:04 19:08 x1) Elio Valverde D.O. 04/02/2025 04/02/2025 Padmini Mcdermott R.N. R.NEnriqueta LAB ORDERS Order Description Priority Entered Acknowledged Collected Completed CBC w Diff Stat Stat 18:25 04/02/2025 18:38 04/02/2025 18:53 04/02/2025 Padmini Jennings Shauna Ewing, 1 of 4 Order Sheet Shaggy.Roland Perez.N. R.N. CMP Stat Stat 18:25 04/02/2025 18:38 04/02/2025 18:53 04/02/2025 Padmini Jennings Shauna Ewing, D.O. R.N. REnriquetaN. Glucose Bedside Stat Stat 18:25 04/02/2025 18:38 04/02/2025 18:53 04/02/2025 Padmini Jennings Shauna Ewing, D.O. R.N. R.NEnriqueta EKG - ED Stat Stat 18:25 04/02/2025 18:38 04/02/2025 18:53 04/02/2025 Padmini Jennings Shauna Ewing, D.O. R.N. R.N. Troponin-I Stat Stat 18:26 04/02/2025 18:38 04/02/2025 18:53 04/02/2025 Padmini Jennings Shauna Ewing, D.O. R.N. R.N. hospitalist please 21:57 04/02/2025 21:58 04/02/2025 22:13 04/02/2025 King Mercer, Gerald Russell, R.Clement DIAGNOSTIC STUDY ORDERS Order Description Priority Entered Acknowledged Completed CT Brain wo Cont Stat Stat 18:25 04/02/2025 18:38 18:53 Elio Valverde D.O. 04/02/2025 04/02/2025 Padmini Mcdermott R.N. R.N. Reason for Study: Brain Attack CTA Head [place] of [place] w Stat 18:25 04/02/2025 18:38 18:53 Recons Stat Elio Valverde D.O. 04/02/2025 04/02/2025 Padmini Mcdermott, 2 of 4 Order Sheet R.N. R.N. Reason for Study: stroke symptoms CTA Carotids w IVC Recons Stat 18:25 04/02/2025 18:38 18:53 Stat Elio Valverde D.O. 04/02/2025 04/02/2025 Padmini Mcdermott R.N. R.N. Order Comments: 18:25 04/02/2025: Status: Not . Elio Valverde D.O. Reason for Study: stroke symptoms STAFF ORDERS Order Description Priority Entered Acknowledged Collected Completed IV Saline Lock 18:25 04/02/2025 18:38 04/02/2025 18:53 04/02/2025 Padmini Jennings Shauna Ewing, D.O. R.N. R.N. Hand Rounder 18:25 04/02/2025 18:38 04/02/2025 18:53 04/02/2025 Padmini Jennings Shauna Ewing, D.O. R.N. REnriquetaNEnriqueta Pulse Oximeter 18:25 04/02/2025 18:38 04/02/2025 18:53 04/02/2025 Padmini Jennings Shauna Ewing, D.O. R.NEnriqueta REnriquetaNEnriqueta Vital signs every 15 18:25 04/02/2025 18:38 04/02/2025 18:53 04/02/2025 minutes Padmini Jennings Shauna Ewing, D.O. R.NEnriqueta R.NEnriqueta perform NIH stroke 18:25 04/02/2025 18:38 04/02/2025 18:53 04/02/2025 scale if neuro changes Padmini Jennings Shauna Ewing, D.O. R.N. RMohan Initiate Telemedicine 18:25 04/02/2025 18:38 04/02/2025 18:53 04/02/2025 3 of 4 Order Sheet Consult Padmini Jennings Shauna Ewing, D.O. R.NEnriqueta RMohan [Electronically signed by Elio Valverde D.O. (04/02/2025 19:05 EDT)] 4 of 4 Normal [facility] ED PHYSICIAN CLINICAL REPORT on 04-03-2025 ED PHYSICIAN CLINICAL REPORT Narrative Physician Clinical Narrative [address] [address] [id number] 04/02/2025 18:15:00 Patient: APPLE ESTEBAN Sex: Female : 1945 Age: 79y Measurements Wt: 95.3 kg, Ht/Amaury: 67.0 in, BMI: 32.89 Initial Vital Sign Measured Time BP MAP HR RR O2Sat ETCO2 Temp Pain GCS RTS 18:17 04/02/2025 191/76 114 75 18 96% Time Seen: 18:15 04/02/2025. Arrived- By private vehicle. Historian- patient. HISTORY OF PRESENT ILLNESS Chief Complaint: WEAKNESS and DIFFICULTY STANDING. This started 8 hours 15 minutes ago and is still present. The patient has had weakness, numbness,, tingling, and difficulty walking. No impaired speech or swallowing, visual disturbance or recent fall. No dizziness or altered mental status. Similar symptoms previously. None. Recent medical care: Not recently seen/assessed. REVIEW OF SYSTEMS RESPIRATORY: No difficulty breathing. CVS: No chest pain. NEUROLOGICAL: No headache or head injury. CONSTITUTIONAL: No fever. GI: No abdominal pain, nausea, black stools or vomiting. THROAT: No sore throat. Status: Not . 1 of 15 Narrative PAST HISTORY See nurses notes. Crohn's Disease CVA - Cerebrovascular Accident Diabetes Mellitus Heart Disease Hypercholesterolemia Hypertension Myocardial Infarction Neuropathy Surgeries: Appendectomy Arthroplasty of knee Bowel Surgery Cholecystectomy Coronary Artery Bypass Graft Hysterectomy Tonsillectomy Valve Replacement Medications: aspirin 81 mg tablet atorvastatin 80 mg tablet: 80 mg once a day . Creon 36,000 unit-114,000 unit-180,000 unit capsule,delayed release: (3 capsules with meal, 2 capsules with snack) Eliquis 5 mg tablet: 5 mg twice a day . inFLIXimab 100 mg intravenous solution: (Every 8 weeks) insulin lispro (U-100) 100 unit/mL subcutaneous pen: 1 sliding scale dose . Lantus Solostar U-100 Insulin 100 unit/mL (3 mL) subcutaneous pen: 42 units once a day at bedtime. metoprolol tartrate 25 mg tablet: 25 mg once a day . potassium chloride oral: 99 mg . ramipriL 2.5 mg capsule: 2.5 mg once a day . semaglutide 2 mg/dose (8 mg/3 mL) subcutaneous pen injector: 2 mg weekly . sertraline 100 mg tablet: 100 mg once a day . 2 of 15 Narrative Allergies: CT contrast dye heart cath dye niacin Home Medications/Allergy Information Source: patient - Padmini Gerald Kruger, 04/02/2025 18:23 EDT SOCIAL HISTORY Never smoker. No alcohol use or drug use. ADDITIONAL NOTES The nursing notes have been reviewed. PHYSICAL EXAM Vital Signs: Have been reviewed. Appearance: Alert. No acute distress. Head: Head atraumatic. Eyes: Pupils equal, round and reactive to light. No nystagmus. ENT: Normal ENT inspection. Airway intact. Pharynx normal. Neck: Normal inspection. Neck supple. CVS: Normal heart rhythm and rate. Heart sounds normal. Pulses normal. Respiratory: No respiratory distress. Painless inspiration. Skin: Skin warm and dry. Normal skin color. No rash. Normal skin turgor. Extremities: Extremities exhibit normal ROM. No lower extremity edema. Neuro: Alert. Oriented X 3. Mood/affect normal. Speech normal. No cranial nerve deficit. No cerebellar findings. No motor deficit. No sensory deficit. PROGRESS AND PROCEDURES MEDICAL DECISION MAKING: (79-year-old female presenting with right-sided weakness in her right arm and right leg. Onset was about 10:00 a.m. this morning. Patient has a history of stroke. She is on Eliquis for history of heart valve replacement. Patient is outside the window for tenecteplase. Patient noted to be hypertensive on arrival. She states she has been hypotensive recently. Differential includes intracranial hemorrhage, stroke, 3 of 15 Narrative TIA, ACS, dehydration, anemia, electrolyte abnormalities. NIH stroke scale score is [address] brain and CTA will be obtained. Patient reports history of contrast dye therefore she will be premedicated before CT angiogram. She will go down for CT of the brain before this. EKG will be obtained to rule out Arrhythmia or AFib. Chest x-ray to rule out any acute process. CBC, CMP, troponin we will also be obtained to rule out metabolic causes. EKG interpreted by myself shows sinus rhythm at 74 change presently on my interpretation.). (Electronically signed by Elio Valverde D.O. 04/02/25 19:05:12 EDT) Generated by [facility] Physician Clinical [address] [address] [phone] 04/02/2025 18:15:00 [id number] Sex: Female : 1945 Age: 79y Disposition: Observation to Med/Surg Disposition Decision Time: 22:37 04/02/2025 Departure Time: 23:01 04/02/2025 Measurements Wt: 95.3 kg, Ht/Amaury: 67.0 in, BMI: 32.89 Init (more content not included)... Normal [facility] ED [facility] 04-03-[address] [place] [address] [phone] 04/02/2025 Patient: APPLE ESTEBAN Sex: Female : 1945 Age: 79y Facility Professional Category Item Description Code Code Quantity Fee Total Nurse/E/M EMERGENCY 892984 1 $0.00 $0.00 DEPT VISIT HIGH SEVERITYFUNCJ (70436-22) Nurse/IV/IM/Infusions IVP additional 200160 2 $0.00 $0.00 push (62219) Nurse/IV/IM/Infusions IVP initial (12352) 156820 1 $0.00 $0.00 Grand $0.00 Total Providers King Jennings D.O. Chief Complaint WEAKNESS and DIFFICULTY STANDING. Principal Diagnosis 1 of 2 Superbill Single acute transient ischemic attack. ICD-10 Codes G45.9: Transient cerebral ischemic attack, unspecified 2 of 2 Normal [facility] ED VISIT SUMMARYon ED VISIT SUMMARY Visit Overview Visit Overview [facility] [address] [place] [address] [id number] 04/02/2025 Patient: APPLE ESTEBAN Sex: Female : 1945 Age: 79y 04/03/2025 06:57 AM EDT ED Arrival:18:15 04/02/2025 EDT Status:not Recent Travel:no Language:eng Adv Directive: Isolation Status: Ethnicity:N Fall Risk:risk Infectious Disease Exposure:no Measurements:5'7 / 170.2 Self-Harm Status:no risk Sepsis Screen:negative cm 210.0 lb / 95.3 kg Chief Complaint:NUMBNESS, ([place]), and (numbness and tingling to the right side) ALLERGIES CT contrast dye heart cath dye niacin HOME MEDICATIONS aspirin 81 mg tablet atorvastatin 80 mg tablet: 80 mg once a day . Creon 36,000 unit-114,000 unit-180,000 unit capsule,delayed release: (3 capsules with meal, 2 capsules with snack) 1 of 4 Visit Overview Eliquis 5 mg tablet: 5 mg twice a day . inFLIXimab 100 mg intravenous solution: (Every 8 weeks) insulin lispro (U-100) 100 unit/mL subcutaneous pen: 1 sliding scale dose . Lantus Solostar U-100 Insulin 100 unit/mL (3 mL) subcutaneous pen: 42 units once a day at bedtime. metoprolol tartrate 25 mg tablet: 25 mg once a day . potassium chloride oral: 99 mg . ramipriL 2.5 mg capsule: 2.5 mg once a day . semaglutide 2 mg/dose (8 mg/3 mL) subcutaneous pen injector: 2 mg weekly . sertraline 100 mg tablet: 100 mg once a day . PAST MEDICAL HISTORY / PROBLEMS Crohn's Disease CVA - Cerebrovascular Accident Diabetes Mellitus Heart Disease Hypercholesterolemia Hypertension Immunizations: up-to-date Myocardial Infarction Neuropathy See nurses notes PAST SURGICAL HISTORY Appendectomy Arthroplasty of knee Bowel Surgery Cholecystectomy Coronary Artery Bypass Graft Hysterectomy Tonsillectomy Valve Replacement SOCIAL HISTORY Smoking status: No Alcohol use: No Drug use: No 2 of 4 Visit Overview ED COURSE MEDICATIONS GIVEN IN EMERGENCY DEPARTMENT 18:45 04/02/25 MethylPREDNISolone Sodium Succ (Solu-Medrol) IVP 125 mg 18:46 04/02/25 DiphenhydrAMINE (Benadryl) IVP 50 mg 19:06 04/02/25 HydrALAZINE IVP 5 mg IV SITE INFORMATION 18:20 04/02/25 Site #1 right AC, 18g. Saline lock. INTAKE OUTPUT REASSESMENT (most recent) 18:22 04/02/25. Ambulatory to room. ( Pt arrives ambulatory with assisted help to ER#2 c/o numbness to the right arm and difficulty walking with the right leg. Pt reports sxs were sudden at 1000am. Pt is a known diabetic, hx of previous CVA to the right side, HTN, cardiac stents and bypass on Eliquis. No difficulty with speech, no facial droop is noted.). GENERAL / NEURO / PSYCH: Awake. Oriented X 4. Alert. Appears in no acute distress. Speech normal. Mood/affect normal. Moves extremities with decreased movement of the right upper and lower extremity. Strength is unequal; left wastewater treatment operator is greater than the right wastewater treatment operator and left foot push/pull is greater than the right foot push/pull. The patient has weakness. The patient has numbness. No sensory deficit. Abnormal gait. NIH Stroke Scale: score 2. Performed at 18:04/02/2025. Level of Consciousness: alert (0). LOC Questions: both (0). LOC Commands: both (0). Best gaze: normal (0). Visual field loss: none (0). Facial palsy: normal (0). Motor arm: no drift right arm (0) and no drift left arm (0). Motor leg: drift right leg (1). Limb ataxia: one limb (1). Sensory loss: none (0). Aphasia: none (0). Dysarthria: normal (0). Extinction and inattention: none (0). HEENT: No facial asymmetry noted. RESPIRATORY: Respirations not labored. CVS: Normal sinus rhythm noted. Capillary refill less than 2 seconds. SKIN: Skin is intact, warm and dry. VITAL SIGNS First Vitals Last Vitals Temp 18:17 04/02/25 Temp 22:55 04/02/25 BP 18:17 04/02/25 191/76 BP 22:55 04/02/25 HR 18:17 04/02/25 75 HR 22:55 04/02/25 76 RR 18:17 04/02/25 18 RR 22:55 04/02/25 O2 Sat 18:17 04/02/25 96% O2 Sat 22:55 04/02/25 92% Pain 18:17 04/02/25 Pain 22:55 04/02/25 3 of 4 Visit Overview First Vitals Last Vitals ETCO2 18:17 04/02/25 ETCO2 22:55 04/02/25 GCS 18:17 04/02/25 GCS 22:55 04/02/25 RTS 18:17 04/02/25 RTS 22:55 04/02/25 PROCEDURES NURSING INTERVENTIONS LABS / STUDIES LABS / STUDIES ORDERED CBC w Diff CMP CT Brain wo Cont CTA Carotids w IVC Recons CTA Head [place] of [place] w Recons EKG - ED Glucose Bedside hospitalist please Troponin-I CLINICAL IMPRESSION SINGLE ACUTE TRANSIENT ISCHEMIC ATTACK 4 of 4 Normal [facility] ED VITALS FLOW SHEETon 04-03 ED VITALS FLOW SHEET Vitals Vital Sign Flow Sheet [facility] [address] [place] [address] [id number] 04/02/2025 Patient: APPLE ESTEBAN Sex: Female : 1945 Age: 79y Measurements Wt: 95.3 kg, Ht/Amaury: 67.0 in, BMI: 32.89 Measured Time BP MAP HR RR O2Sat ETCO2 Temp Pain GCS RTS 22:55 04/02/2025 76 92% 22:50 04/02/2025 76 91% 22:50 04/02/2025 192/72 107 76 22:45 04/02/2025 78 92% 22:40 04/02/2025 76 89% 22:35 04/02/2025 75 93% 22:35 04/02/2025 203/72 115 76 22:30 04/02/2025 76 89% 22:25 04/02/2025 74 91% 22:20 04/02/2025 75 93% 22:20 04/02/2025 189/75 113 74 22:15 04/02/2025 75 92% 22:10 04/02/2025 75 92% 22:05 04/02/2025 75 92% 22:05 04/02/2025 174/100 124 75 1 of 4 Vitals Measured Time BP MAP HR RR O2Sat ETCO2 Temp Pain GCS RTS 22:00 04/02/2025 75 94% 21:55 04/02/2025 76 93% 21:50 04/02/2025 189/83 108 75 21:50 04/02/2025 76 93% 21:45 04/02/2025 77 93% 21:40 04/02/2025 76 92% 21:35 04/02/2025 201/70 113 73 21:35 04/02/2025 74 90% 21:30 04/02/2025 72 93% 21:25 04/02/2025 75 95% 21:20 04/02/2025 71 94% 21:20 04/02/2025 200/66 106 71 21:15 04/02/2025 70 93% 21:10 04/02/2025 71 93% 21:05 04/02/2025 70 93% 21:05 04/02/2025 197/74 115 70 21:00 04/02/2025 70 93% 20:55 04/02/2025 70 93% 20:50 04/02/2025 71 93% 20:50 04/02/2025 191/70 110 71 20:45 04/02/2025 71 95% 20:40 04/02/2025 71 93% 20:35 04/02/2025 71 94% 20:35 04/02/2025 171/63 122 71 20:30 04/02/2025 76 94% 2 of 4 Vitals Measured Time BP MAP HR RR O2Sat ETCO2 Temp Pain GCS RTS 20:25 04/02/2025 73 94% 20:21 04/02/2025 176/59 112 71 20:20 04/02/2025 73 93% 20:15 04/02/2025 74 94% 20:10 04/02/2025 87 97% 20:05 04/02/2025 76 92% 20:05 04/02/2025 216/67 121 78 20:04 04/02/2025 81 91% 19:59 04/02/2025 79 91% 19:54 04/02/2025 75 93% 19:49 04/02/2025 79 93% 19:44 04/02/2025 72 95% 19:40 04/02/2025 74 95% 19:35 04/02/2025 74 93% 19:35 04/02/2025 206/71 116 74 19:30 04/02/2025 72 94% 19:27 04/02/2025 98.1 F 19:25 04/02/2025 70 95% 19:20 04/02/2025 71 93% 19:20 04/02/2025 215/70 118 71 19:17 04/02/2025 210/75 120 71 19:15 04/02/2025 72 93% 19:10 04/02/2025 225/78 118 74 19:10 04/02/2025 74 93% 19:05 04/02/2025 74 95% 3 of 4 Vitals Measured Time BP MAP HR RR O2Sat ETCO2 Temp Pain GCS RTS 19:05 04/02/2025 219/78 125 73 19:00 04/02/2025 77 96% 18:55 04/02/2025 78 93% 18:51 04/02/2025 201/73 115 79 18:50 04/02/2025 80 93% 18:45 04/02/2025 77 94% 18:42 04/02/2025 77 93% 18:37 04/02/2025 77 95% 18:35 04/02/2025 203/82 122 77 18:34 04/02/2025 75 93% 18:33 04/02/2025 236/135 169 74 18:29 04/02/2025 0 18:29 04/02/2025 74 96% 18:24 04/02/2025 74 96% 18:19 04/02/2025 75 94% 18:17 04/02/2025 191/76 114 75 18 96% 4 of 4 Normal [facility] CBC + DIFFon 04-02-2025 Baso # 0.03 x10EE3/UL Normal 0.00 - 0.10 [facility] Comment on above: Performed By: #### 2 [id number] #### [facility],[address] [place] [id number] Basophils/100 WBC (Bld) 0.4 % Normal 0.0 - 2.0 [facility] Comment on above: Performed By: #### 2 16300 #### [facility],[address] [place] [address] [phone] CBC + DIFF Normal [facility] Comment on above: Result Comment: CBC- COMPLETE BLOOD COUNT Performed By: #### 2 05950 #### [facility],[address] [place] [address] 66422 EO # 0.23 x10EE3/UL Normal 0.00 - 0.50 [facility] Comment on above: Performed By: #### 2 39372 #### [facility],[address] [place] [address] 52477 Eosinophils/100 WBC (Bld) 2.8 % Normal 0.0 - 7.0 [facility] Comment on above: Performed By: #### 2 16580 #### [facility],[address] [place] [address] 65489 Erythrocyte distribution width (RBC) [Ratio] 14.2 % Normal 12.0 - 15.6 [facility] Comment on above: Performed By: #### 2 01678 #### [facility],[address] [place] [address] Hematocrit (Bld) [Volume fraction] 43.3 % Normal 34.0 - 46.0 [facility] Comment on above: Performed By: #### 2 22659 #### [facility],[address] [place] [address] Hemoglobin (Bld) [Mass/Vol] 15.0 g/dL Normal 12.0 - 16.0 [facility] Comment on above: Performed By: #### 2 19712 #### [facility],[address] [place] [address] Lymph # 2.57 x10EE3/UL Normal 0.80 - 2.80 [facility] Comment on above: Performed By: #### 2 65198 #### [facility],[address] [place] [address] Lymphocytes/100 WBC (Bld) 31.2 % Normal 20.0 - 45.0 [facility] Comment on above: Performed By: #### 2 61179 #### [facility],[address] [place] [address] MANUAL DIFF N/A Normal [facility] Comment on above: Performed By: #### 2 17886 #### [facility],[address] [place] [address] MCH (RBC) [Entitic mass] 30 pg Normal 27 - 33 [facility] Comment on above: Performed By: #### 2 90531 #### [facility],[address] [place] [address] MCHC 35 X10 3 Normal 32 - 36 [facility] Comment on above: Performed By: #### 2 53631 #### [facility],[address] [place], [place] [phone] MCV (RBC) [Entitic vol] 85 fL Normal 80 - 99 [facility] Comment on above: Performed By: #### 2 40146 #### [facility],[address] [place] [address]265 [place] # 0.86 x10EE3/UL Normal 0.20 - 1.00 [facility] Comment on above: Performed By: #### 2 75505 #### [facility],[address] [place] [address] 16684 MONOS % 10.4 % High 0.0 - 10.0 [facility] Comment on above: Performed By: #### 2 82739 #### [facility],[address] [place] [address] 32012 Morphology Marshal (Bld) [Interp] N/A Normal [facility] Comment on above: Performed By: #### 2 76538 #### [facility],[address] [place] [address] 39904 Neut # 4.56 x10EE3/UL Normal 1.50 - 7.10 [facility] Comment on above: Performed By: #### 2 94318 #### [facility],[address] [place] [address] 89853 Neutrophils/100 WBC (Bld) 55.3 % Normal 46.0 - 76.0 [facility] Comment on above: Performed By: #### 2 45405 #### [facility],[address] [place] [address] 91264 PLATELET 152 x10EE3/UL Normal 150 - 450 [facility] Comment on above: Performed By: #### 2 67812 #### [facility],[address] [place] [address] 96691 Platelet mean volume (Bld) [Entitic vol] 9.4 fL Normal 6.6 - 10.5 [facility] Comment on above: Result Comment: AUTO MATED DIFFERENTIAL Performed By: #### 2 62954 #### [facility],[address] [place] [address] 62423 RBC 5.08 x 10EE6/UL Normal 4.10 - 5.30 [facility] Comment on above: Performed By: #### 2 05298 #### [facility],[address] [place] [address] 41637 WBC 8.3 x 10EE3/UL Normal 4.5 - 10.8 [facility] Comment on above: Performed By: #### 2 57489 #### [facility],[address] [place] [address] CMP with eGFRon 04-02-2025 AGE 79 years Normal [facility] Comment on above: Performed By: #### 2 64658 #### [facility],[address] [place] [address] Albumin [Mass/Vol] 3.8 g/dL Normal 3.4 - 5.0 [facility] Comment on above: Performed By: #### 2 78321 #### [facility],[address] [place] [address] Albumin/Globulin [Mass ratio] 1.0 {ratio} Normal 0.9 - 1.6 [facility] Comment on above: Performed By: #### 2 05979 #### [facility],[address] [place] [address] ALK PHOS 76 U/L Normal 46 - 116 [facility] Comment on above: Performed By: #### 2 63104 #### [facility],[address] [place], [place] [phone] ALT [Catalytic activity/Vol] 41 U/L Normal 16 - 63 [facility] Comment on above: Performed By: #### 2 17815 #### [address] [address] Anion gap [Moles/Vol] 10 mmol/L Normal 10 - 20 [facility] Comment on above: Performed By: #### 2 65851 #### [facility],[address] [place] [address] 45644 AST [Catalytic activity/Vol] 31 U/L Normal 13 - 39 [facility] Comment on above: Performed By: #### 2 61254 #### [facility],[address] [place] [address] 35216 B/C RATIO 19 ratio Normal 0 - 30 [facility] Comment on above: Performed By: #### 2 [id number] #### [facility],[address] [place] [address]285 Bilirubin [Mass/Vol] 0.6 mg/dL Normal 0.2 - 1.0 [facility] Comment on above: Performed By: #### 2 43268 #### [facility],[address] [place] [address] 59093 Calcium [Mass/Vol] 9.2 mg/dL Normal 8.5 - 10.1 [facility] Comment on above: Performed By: #### 2 62059 #### [facility],[address] [place], [place] [id number] Chloride [Moles/Vol] 104 mmol/L Normal 98 - 107 [facility] Comment on above: Performed By: #### 2 49452 #### [facility],[address] [place] [address] CMP with eGFR Normal [facility] Comment on above: Result Comment: COMP REHENSIVE METABOLIC PANEL Performed By: #### 2 82341 #### [facility],[address] [place], [place] [id number] CO2 [Moles/Vol] 32.2 mmol/L High 21.0 - 32.0 [facility] Comment on above: Performed By: #### 2 21440 #### [facility],[address] [place] [address] 76050 Creatinine [Mass/Vol] 1.64 mg/dL High 0.55 - 1.02 [facility] Comment on above: Performed By: #### 2 85894 #### [facility],[address],[place] [address] eGFR 30 ML/MINUTE Low 60 - 999 [facility] Comment on above: Performed By: #### 2 40191 #### [facility],[address] [place] [address] 71482 eGFR(AA) 37 ML/MINUTE Low 60 - 999 [facility] Comment on above: Result Comment: ACCO RDING TO THE NATIONAL KIDNEY DISEASE EDUCATION PROGRAM(NKDE), A NORMAL eGFR IS A VALUE GREATER THAN OR EQUAL TO 60 ML/MIN/1.73 SQ METERS. CHRONIC KIDNEY DISEASE: <60mL/MIN/1.73 SQ METERS KIDNEY FAILURE: <15mL/MIN/1.73 SQ METERS THIS TEST SHOULD ONLY BE USED FOR PATIENTS 18 YEARS OF AGE AND OLDER. Performed By: #### 2 77807 #### [address] [address] Globulin (S) [Mass/Vol] 4.0 g/dL High 1.5 - 3.8 [facility] Comment on above: Performed By: #### 2 43438 #### [address] [address] Glucose [Mass/Vol] 126 mg/dL High 74 - 106 [facility] Comment on above: Performed By: #### 2 19385 #### [address] [address] Potassium [Moles/Vol] 3.9 mmol/L Normal 3.5 - 5.1 [facility] Comment on above: Performed By: #### 2 36426 #### [address] [address] Protein [Mass/Vol] 7.8 g/dL Normal 6.4 - 8.2 [facility] Comment on above: Performed By: #### 2 04918 #### [address] [address] Sodium [Moles/Vol] 142 mmol/L Normal 136 - 145 [facility] Comment on above: Performed By: #### 2 42561 #### [facility],[address] [place] [address] 24700 Urea nitrogen [Mass/Vol] 31 mg/dL High 7 - 18 [facility] Comment on above: Performed By: #### 2 60971 #### [facility],[address] [place] [address] ANGIOGRAPHY HEAD W/CONTRA STon 04-02-2025 CT ANGIOGRAPHY HEAD W/CONTRAST [address] [address] Patient: APPLE ESTEBAN Phone#: : 1945 Age: 79 Gender: F Pt. Type: ER Account: [id number] Location: [facility] Ordering: ELIO VALVERDE Exam Date: 04/02/2025/18:38 Family Phys: RESHMA [place] Charge Code: [id number] Physician: Johnston Order #: [id number] Dose#: 5.1 mGy PROCEDURE: CT ANGIOGRAPHY HEAD WITH CONTRAST COMPARISON: None. INDICATIONS: Stroke symptoms. TECHNIQUE: After obtaining the patient's consent, CT images of the head were obtained with non- ionic contrast, and MPR and 3D imaging were created and interpreted to optimize visualization of vascular anatomy. All CT scans at this facility use dose modulation, iterative reconstruction, and/or weight based dosing when appropriate to reduce radiation dose to as low as reasonably achievable. IV CONTRAST: Omnipaque 350,70ml TOTAL DOSE: 5.1 CTDIvol(mGy) FINDINGS: VASCULATURE: Intercranial internal carotid arteries: Atherosclerotic calcification of the cavernous carotid arteries with narrowing. Anterior circulation: Normal. No significant stenosis. No visible aneurysm or vascular malformation. Middle circulation: Normal. No significant stenosis. No visible aneurysm or vascular malformation. Posterior circulation: Normal. No significant stenosis. No visible aneurysm or vascular malformation. Left posterior communicating artery present. Vertebrobasilar circulation: Normal. No significant stenosis. No visible aneurysm or vascular malformation. CONCLUSION: 1. Patient intercranial arteries. 2. Atherosclerotic narrowing of the cavernous carotid arteries. Dictated by: Nahomy Kendrick MD on 04/02/2025 at 21:18 Approved by: Nahomy Kendrick MD on 04/02/2025 at 21:42 Normal [facility] CT ANGIOGRAPHY [facility] [address] CT [address]GRAPHY [address] [address] Patient: APPLE ESTEBNA Phone#: : 1945 Age: 79 Gender: F Pt. Type: ER Account: [id number] Location: [facility] Ordering: ELIOJALEESA VALVERDE Exam Date: 04/02/2025/19:54 Family Phys: RESHMA [place] Charge Code: [id number] Physician: Johnston Order #: [id number] Dose#: 5.1 mGy PROCEDURE: CT ANGIOGRAPHY CAROTIDS WITH CONTRAST COMPARISON: None. INDICATIONS: Stroke symptoms. TECHNIQUE: After obtaining the patient's consent, CT images of the neck were obtained with non- ionic intravenous contrast material. MPR/MIPS and 3D images were created to optimize visualization of vascular anatomy. All CT scans at this facility use dose modulation, iterative reconstruction, and/or weight based dosing when appropriate to reduce radiation dose to as low as reasonably achievable. IV CONTRAST: Omnipaque 350,70ml TOTAL DOSE: 5.1 CTDIvol(mGy) FINDINGS: LEFT INTERNAL CAROTID: No hemodynamically significant stenosis or dissection. EXTERNAL CAROTID: No hemodynamically significant stenosis or dissection. COMMON CAROTID: Atherosclerotic calcification at the bifurcation. VERTEBRAL: No hemodynamically significant stenosis or dissection. RIGHT INTERNAL CAROTID: No hemodynamically significant stenosis or dissection. EXTERNAL CAROTID: No hemodynamically significant stenosis or dissection. COMMON CAROTID: Atherosclerotic calcification resulting in approximately 50% narrowing at the bifurcation. VERTEBRAL: No hemodynamically significant stenosis or dissection. OTHER: The visualized soft tissues of the neck are also unremarkable. CONCLUSION: 1. Patent carotid and vertebral arteries of the neck. [address] [address] Patient: APPLE ESTEBAN Phone#: : 1945 Age: 79 Gender: F Pt. Type: ER Account: [id number] Location: 052 Ordering: ELIO VALVERDE Exam Date: 04/02/2025/19:54 Family Phys: RESHMA MARSH Charge Code: [id number] Physician: Johnston Order #: [id number] Dose#: 5.1 mGy Dictated by: Nahomy Kendrick MD on 04/02/2025 at 21:08 Approved by: Nahomy Kendrick MD on 04/02/2025 at 21:17 Normal [facility] CT BRAIN W/O CONTRASTon - CT BRAIN W/O CONTRAST [place] [address] Patient: APPLE ESTEBAN Phone#: : 1945 Age: 79 Gender: F Pt. Type: ER Account: [id number] Location: 052 Ordering: ELIO VALVERDE Exam Date: 04/02/2025/18:38 Family Phys: RESHMA MARSH Charge Code: [id number] Physician: Johnston Order #: [id number] Dose#: 57.50 PROCEDURE: CT BRAIN WITHOUT CONTRAST COMPARISON: None. INDICATIONS: Brain attack. TECHNIQUE: CT images were obtained without contrast material. All CT scans at this facility use dose modulation, iterative reconstruction, and/or weight based dosing when appropriate to reduce radiation dose to as low as reasonably achievable. IV CONTRAST: No IV contrast used,0ml TOTAL DOSE: 57.50 CTDIvol(mGy) FINDINGS: CEREBRUM: No edema, hemorrhage, mass. Global atrophy. Age-indeterminate lacunar infarct in the left frontal lobe. Right frontal lobe encephalomalacia. Periventricular deep cerebral white matter hypodensities, in a patient this age group most consistent with small vessel ischemic disease. CEREBELLUM: No edema, hemorrhage, mass. Global atrophy. BRAINSTEM: No edema, hemorrhage, mass, or inappropriate atrophy. CSF SPACES: Ventricles, cisterns, and sulci are proportionate to the degree of atrophy and symmetric in size and configuration. No subarachnoid hemorrhage, or mass. SKULL: No mass or other significant visible lesion. SINUSES: Limited views demonstrate no significant mucosal thickening or fluid. ORBITS: Limited views are unremarkable. OTHER: Atherosclerotic calcifications of the intracranial arteries. CONCLUSION: 1. Age-indeterminate left frontal lobe infarct, otherwise no appreciable acute intracranial abnormality. Note: An acute ischemic event or extension of a chronic ischemic process may not be initially evident on CT. 2. Right frontal encephalomalacia, presumably from prior infarct. 3. Small vessel ischemic disease 4. Global atrophy and atherosclerosis [place] [address] Patient: APPLE ESTEBAN Phone#: : 1945 Age: 79 Gender: F Pt. Type: ER Account: [id number] Location: [facility] Ordering: ELIO VALVERDE Exam Date: 04/02/2025/18:38 Family Phys: RESHMA MARSH Charge Code: [id number] Physician: Johnston Order #: [id number] Dose#: 57.50 Dictated by: Nahomy Kendrick MD on 04/02/2025 at 19:11 Approved by: Nahomy Kendrick MD on 04/02/2025 at 19:19 Normal [facility] TROPONINon 04-02-2025 HS TROPONIN 10.2 pg/mL Normal 0.0 - 51.4 [facility] Comment on above: Performed By: #### 2 98150 ####[facility],[address] [place], [place] [id number] Gastroenterology Visit Repor ton 03-30-2025 Gastroenterology Visit Report [facility]astroenterology [address] [place] [id number] OFFICE VISIT Date of Service: 03/30/25 MR#: [id number] Acct: [id number] Name: APPLE ESTEBAN Rep #: [id number] 3 : 1945 Provider: ALBERTO Quinonez Age/Sex: 79/F Location: [facility] Status: Signed Intake Vital Signs 09/10/24 09:49 02/25/25 09:57 Height 5 ft 7 in 5 ft 7 in Intake Visit Reasons: 6 M FU Chief Complaint: Crohns Allergies Gadolinium-MRI Contrast Medium (contrast dye) Allergy (Verified 02/25/25 09:59) CHILLS.RIGORS niacin Allergy (Verified 02/25/25 09:59) Anaphylaxis Have you fallen in the past year?: No Nurse's Note: * OV 03/30/25 Pt here for a f/u and reports she is doing well. Pt reports she has occasional diarrhea but feels it is well controlled. Continues Creon. [facility] Medical History Abnormal results of thyroid function studies History of Crohn's disease Hypokalemia Hydronephrosis Ureteral calculi Wears glasses Cancer Depression Anxiety Insulin dependent diabetes mellitus Easy bruising Restless legs Back pain Dietary restriction History of IBS History of diverticulitis Heartburn Non-smoker Leg cramps History of pain when walking History of edema History of heart attack History of stress test Cardiology follow-up encounter History of irregular heartbeat Obesity Benign hypertension Mixed hyperlipidemia CAD (coronary artery disease) Polyneuropathy due to type 2 diabetes mellitus Deficient knowledge of hysterectomy Neuropathy Murmur IBS (irritable bowel syndrome) High triglycerides High cholesterol High blood pressure Heart disease Gastrointestinal problem UTI (urinary tract infection) Arthritis Surgical History History of cystoscopy Hx of left cataract extraction Hx of colonoscopy History of intestinal surgery Hx of foot surgery Hx of heart bypass surgery Hx of hysterectomy Hx laparoscopic cholecystectomy Hx of tonsillectomy H/O knee surgery Family History Mother Diabetes Hypertension Father Diabetes Hypertension Other Bowel disease CVA (cerebral vascular accident) Myocardial infarction Parkinson disease Social History Smoking Status: Never smoker HPI HPI Chief Complaint: Crohns Details: APPLE ESTEBAN, is a 79 F who presents to the office today for f/u. OV 04.01.24 pt reports that she is doing well overall denies GI symptoms of concern at this time. Pt reports a formed BM every day or every other day; denies blood in the stool. P:t denies diarrhea, abdominal pain, skin changes, new arthritis, and new vision changes. Pt continues with inflectra infusions and creon. Last OV 10.01.24 Pt has been doing well with no GI complaints. She continues with Inflectra infusions every 12 weeks. She is having diarrhea only on occasion. Certain foods will give her diarrhea like onions. Also continues with creon. She had heart valve surgery in July 2024 and continues to recover from this. CRP 12..24; normal ESR 12..24; 3 normal Calprotectin 10.07.24; 113 normal *Continue inflectra OV 03.30.25 Pt doing well today. She is having diarrhea just on occasion. She continues with Inflectra. ROS Const Constitutional: No anorexia, fatigue, fever(s), weight change or sleep problems Eyes Eyes: No change in vision ENT ENT: No abnormal hearing, difficulty swallowing, mouth lesions, tongue swelling or throat swelling Resp Respiratory: No cough or shortness of breath Cardio Cardiology: No chest pain at rest, chest pain with exertion, shortness of breath or dyspnea on exertion Gastro GI: No difficulty swallowing Genitourinary-Female: No difficulty urinating or burning urination Musc Musculoskeletal: No joint pain, joint swelling, muscle weakness or decreased muscle mass Skin Skin: No hair loss in leg, yellowing of the eye, itchy eyes, rash, skin ulcer or skin swelling Neuro Neurology: No abnormal hearing, abnormal movements, confusion, unsteady gait/balance or memory loss Psych Psychiatric: No anxiety, No confusion and No memory loss Endo Endocrine: No fatigue or weight change Aller/Imm Allergy/Immunologic: No itchy eyes, throat swelling or tongue swelling Jose/Lymp Hematologic/Lymphatic: No easy bleeding, easy bruising or enlarged lymph nodes Exam Const General: cooperative and healthy appearing Resp Effort Inspection: normal respiratory effort Cardio Rate: regular rate Rhythm: regular rhythm GI Inspection: normal to inspection Auscultation: normal bowel sounds Palpation: soft and nontender Assessment and Plan Assessment an (more content not included)... Normal [facility] CMP with eGFRon 02-11-2025 AGE 79 years Normal [facility] Comment on above: Performed By: #### 2 96478 #### [facility],[address] [place] [address] Albumin [Mass/Vol] 3.4 g/dL Normal 3.4 - 5.0 [facility] Comment on above: Performed By: #### 2 32261 #### [facility],[address] [place] [address] Albumin/Globulin [Mass ratio] 1.0 {ratio} Normal 0.9 - 1.6 [facility] Comment on above: Performed By: #### 2 56388 #### [facility],[address] [place] [address] ALK PHOS 52 U/L Normal 46 - 116 [facility] Comment on above: Performed By: #### 2 90164 #### [facility],[address] [place] [address]99 ALT [Catalytic activity/Vol] 45 U/L Normal 16 - 63 [facility] Comment on above: Performed By: #### 2 50357 #### [facility],[address] [place] [address] Anion gap [Moles/Vol] 8 mmol/L Low 10 - 20 [facility] Comment on above: Performed By: #### 2 88986 #### [facility],[address] [place] [address]362 AST [Catalytic activity/Vol] 37 U/L Normal 13 - 39 [facility] Comment on above: Performed By: #### 2 92905 #### [facility],[address] [place] [address] B/C RATIO 18 ratio Normal 0 - 30 [facility] Comment on above: Performed By: #### 2 85796 #### [facility],[address] [place] [address] Bilirubin [Mass/Vol] 0.6 mg/dL Normal 0.2 - 1.0 [facility] Comment on above: Performed By: #### 2 33862 #### [facility],[address] [place] [address] Calcium [Mass/Vol] 8.8 mg/dL Normal 8.5 - 10.1 [facility] Comment on above: Performed By: #### 2 51691 #### [facility],[address] [place] [address] Chloride [Moles/Vol] 108 mmol/L High 98 - 107 [facility] Comment on above: Performed By: #### 2 61157 #### [facility],[address] [place] [address] CMP with eGFR Normal [facility] Comment on above: Result Comment: COMP REHENSIVE METABOLIC PANEL Performed By: #### 2 45005 #### [facility],[address] [place] [address] CO2 [Moles/Vol] 33.2 mmol/L High 21.0 - 32.0 [facility] Comment on above: Performed By: #### 2 65919 #### [facility],[address] [place] [address] Creatinine [Mass/Vol] 1.12 mg/dL High 0.55 - 1.02 [facility] Comment on above: Performed By: #### 2 98553 #### [facility],[address] [place] [address] eGFR 47 ML/MINUTE Low 60 - 999 [facility] Comment on above: Performed By: #### 2 06933 #### [facility],[address] [place] [address] eGFR(AA) 57 ML/MINUTE Low 60 - 999 [facility] Comment on above: Result Comment: ACCO RDING TO THE NATIONAL KIDNEY DISEASE EDUCATION PROGRAM(NKDE), A NORMAL eGFR IS A VALUE GREATER THAN OR EQUAL TO 60 ML/MIN/1.73 SQ METERS. CHRONIC KIDNEY DISEASE: <60mL/MIN/1.73 SQ METERS KIDNEY FAILURE: <15mL/MIN/1.73 SQ METERS THIS TEST SHOULD ONLY BE USED FOR PATIENTS 18 YEARS OF AGE AND OLDER. Performed By: #### 2 18775 #### [facility],[address] [place] [address] Globulin (S) [Mass/Vol] 3.5 g/dL Normal 1.5 - 3.8 [facility] Comment on above: Performed By: #### 2 83024 #### [facility],[address] [place] [address]31 Glucose [Mass/Vol] 91 mg/dL Normal 74 - 106 [facility] Comment on above: Performed By: #### 2 88859 #### [facility],[address] [place] [address]66 Potassium [Moles/Vol] 3.1 mmol/L Low 3.5 - 5.1 [facility] Comment on above: Performed By: #### 2 62915 #### [facility],[address] [place] [address] Protein [Mass/Vol] 6.9 g/dL Normal 6.4 - 8.2 [facility] Comment on above: Performed By: #### 2 63035 #### [facility],[address] [place] [address] Sodium [Moles/Vol] 146 mmol/L High 136 - 145 [facility] Comment on above: Performed By: #### 2 35499 #### [facility],[address] [place] [address] Urea nitrogen [Mass/Vol] 20 mg/dL High 7 - 18 [facility] Comment on above: Performed By: #### 2 73810 #### [facility],[address] [place] [address] LIPID PROFILEon 02-11-2025 Cholesterol [Mass/Vol] 133 mg/dL Normal 0 - 240 [facility] Comment on above: Performed By: #### 2 46911 #### [facility],[address] [place] [address]64 Cholesterol in HDL [Mass/Vol] 49 mg/dL Normal 40 - 60 [facility] Comment on above: Performed By: #### 2 90350 #### [facility],[address] [place] [address] Cholesterol in LDL [Mass/Vol] 60 mg/dL Normal 0 - 129 [facility] Comment on above: Performed By: #### 2 11102 #### [facility],[address] [place] [address]408 Cholesterol.total/Chol esterol in HDL [Mass ratio] 2.7 {ratio} Normal 0.0 - 5.0 [facility] Comment on above: Performed By: #### 2 21932 #### [facility],[address] [place] [address]21 Lipid 1996 panel Normal [facility] Comment on above: Result Comment: LIPI D PROFILE Performed By: #### 2 80655 #### [facility],[address] [place] [address] Triglyceride [Mass/Vol] 122 mg/dL Normal 0 - 150 [facility] Comment on above: Performed By: #### 2 83569 #### [facility],[address] [place] [address]953 TSHon 02-11-2025 TSH Qn 3.39 m[IU]/L Normal 0.35 - 3.74 [facility] Comment on above: Performed By: #### 2 65834 #### [facility],[address] [place] [address] 32976 URINE MICROALBUMIN W/CREATIN INE, RANDOMon 02-11-2025 CREATININE UR 104.21 mg/dl Normal [facility] Comment on above: Performed By: #### 2 11714 ####[facility],[address] [place] [address]889 MICROALBUMIN UR 7.3 mg/dL Normal 0.1 - 11.6 [facility] Comment on above: Performed By: #### 2 76160 ####[facility],[address] [place] [address] 16604 UACR 70 mg/g Normal [facility] Comment on above: Performed By: #### 2 48548 ####[facility],[address] [place], [place] [id number] VITAMIN D, 25 HYDROXYon 01-19 VitD 34.20 ng/mL Normal 30.00 - 100 [facility] Comment on above: Result Comment: 25-O HD3 indicates both endogenous production and supplementation. 25-OHD2 is an indicator of exogenous sources, such as diet or supplementation. Therapy is based on measurement of Total 25-OHD, with levels <20 ng/mL indicative of Vitamin D deficiency, while levels between 20 ng/mL and 30 ng/mL suggest insufficiency. Optimal levels are >=30ng/mL. Vitamin D, 25-OH D3 Not Established Vitamin D, 25-OH D2 Not Established Performed By: #### 2 87258 ####[facility],[address] [place], [place] [id number] Endocrinology Visit Reporton 01-24-2025 Endocrinology Visit Report [facility] [address] [place] [address] OFFICE VISIT Date of Service: 01/24/25 MR#: [id number] Acct: [id number] Name: APPLE ESTEBAN Rep #: [id number] 1 : 1945 Provider: Isac Soliz Age/Sex: 79/F Location: [facility] Status: Signed Intake Vital Signs 07/26/24 09:52 12/31/24 10:01 01/24/25 10:32 Height 5 ft 7 in 5 ft 7 in 5 ft 7 in Weight: 206 lb 4 oz BMI 32.3 BP 136/80 H Blood Pressure Location Rt brachial Position Sitting Pulse 70 Pulse Source Monitor Pulse Oximetry (%) 92 Oxygen Delivery Method room air Intake Visit Reasons: 6 M FU Chief Complaint: Diabetes Allergies Gadolinium-MRI Contrast Medium (contrast dye) Allergy (Verified 01/24/25 10:34) CHILLS.RIGORS niacin Allergy (Verified 01/24/25 10:34) Anaphylaxis Medications ???Medication ???Instructions ???Recorded ???Confirmed ???Type atorvastatin 80 mg tablet 80 mg PO QHS 06/19/15 01/24/25 His tory potassium gluconate 500 mg (83 mg) 500 mg PO DAILY 06/19/15 5 History tablet sertraline 100 mg tablet 100 mg PO QHS 06/19/15 01/24/25 Hi story ybnvte-lhkvwzsu-fcbvtfu 3 cap PO TID 02/21/21 01/24/25 His tory 36,000-114,000-180,000 unit capsule,delay rel (Creon) ramipril 2.5 mg capsule 2.5 ea PO QHS 02/21/21 01/24/25 Hi story d-mannose 500 mg capsule 1,000 mg PO DAILY 07/13/21 5 History lactobacillus combination no.4 3 3,000 mmu cells PO DAILY 07/13/21 01/24/25 History billion cell capsule (Probiotic) inflectra infusion 0 mg subcut PRN PRN CROHN 07/10/22 01/24/25 History clonidine HCl 0.1 mg tablet 0.1 mg PO Q8H PRN hypertensive 01/24/25 Rx emergency #10 tabs pen needle, diabetic 32 gauge x #150 ea 10/10/23 10/01/24 Rx 5/32 (BD Ultra-Fine Roseanna Pen Needle) apixaban 5 mg tablet (Eliquis) 5 mg PO BID 03/24/24 01/24/25 Hist ory clopidogrel 75 mg tablet 75 mg PO DAILY 09/10/24 01/24/25 H istory Ozempic 2 mg/dose (8 mg/3 mL) 2 mg (0.75 mL) subcut QWEEK #9 mL 10/25/24 01/24/25 Rx subcutaneous pen injector (semaglutide) Lantus Solostar U-100 Insulin 100 42 unit (0.42 mL) subcut QHS #36 mL 01/12/25 01/24/25 Rx unit/mL (3 mL) subcutaneous pen (insulin glargine) Humalog KwikPen Insulin 100 18 unit (0.18 mL) subcut TID 01/2401/24/25 Rx unit/mL subcutaneous (insulin SLIDING SCALE #45 mL lispro) metoprolol tartrate 25 mg tablet 25 mg PO BID 04/07/25 04/07/25 His tory Have you fallen in the past year?: No PFSH Medical History Abnormal results of thyroid function studies History of Crohn's disease Hypokalemia Hydronephrosis Ureteral calculi Wears glasses Cancer Depression Anxiety Insulin dependent diabetes mellitus Easy bruising Restless legs Back pain Dietary restriction History of IBS History of diverticulitis Heartburn Non-smoker Leg cramps History of pain when walking History of edema History of heart attack History of stress test Cardiology follow-up encounter History of irregular heartbeat Obesity Benign hypertension Mixed hyperlipidemia CAD (coronary artery disease) Polyneuropathy due to type 2 diabetes mellitus Deficient knowledge of hysterectomy Neuropathy Murmur IBS (irritable bowel syndrome) High triglycerides High cholesterol High blood pressure Heart disease Gastrointestinal problem UTI (urinary tract infection) Arthritis Surgical History History of cystoscopy Hx of left cataract extraction Hx of colonoscopy History of intestinal surgery Hx of foot surgery Hx of heart bypass surgery Hx of hysterectomy Hx laparoscopic cholecystectomy Hx of tonsillectomy H/O knee surgery Family History Mother Diabetes Hypertension Father Diabetes Hypertension Other Bowel disease CVA (cerebral vascular accident) Myocardial infarction Parkinson disease Social History Smoking Status: Never smoker HPI HPI Chief Complaint: Diabetes Details: APPLE ESTEBAN, is a 79 F who presents to the office today for follow up. A1C is 7.2% up from 6.8% She is taking Lantus daily and Humalog with meals. She is using fingersticks. She is now interested in using a CGM. She has exocrine pancreatic insufficiency. She has hypothyroidism and is taking levothyroxine. She has CAD. She is on statin and NOEL. ROS Const Constitutional: No fatigue or weight change ENT ENT: No dizziness/vertigo Cardio Cardiology: No chest pain at rest, chest pain with exertion, shortness of breath or palpitations Skin (more content not included)... Normal [facility] - Hematology and Cell countsOrdered By: Mouna Zamora on 01-24-2025 HbA1c (Bld) [Mass fraction] 7.2 % High 4.2-6.3 [facility] Calprotectin, Stoolon [address] 113 ug/g Normal 0-120 [facility] Comment on above: Result Comment: Conc entration Interpretation Follow-Up < 5 - 50 ug/g Normal None >50 -120 ug/g Borderline Re-evaluate in 4-6 weeks >120 ug/g Abnormal Repeat as clinically indicated Performed at: [facility] [facility] [id number] [place] Attendant: Jovanna Carrasquillo MD, Phone: [phone] Performed By: #### L 7000.0700 #### [facility] [address] [place], [place], [id number] Calprotectin stoolOrdered By : Gayla Mandel on 10-07-2024 Stool Calprotectin 113 ug/g 0-120 [facility] Comment on above: Concentration Interp retation Follow-Up< 5 - 50 ug/g Normal None>50 -120 ug/g Borderline Re-evaluate in 4-6 weeks >120 ug/g Abnormal Repeat as clinically indicatedPerformed at: [facility] [facility] [address] [id number] Director: Jovanna Carrasquillo MD, Phone: [phone] Absolute neutrophil countOrd ered By: Gayla Mandel on 10-01-2024 Neutrophils (Bld) [#/Vol] 6.8 10*3/uL 2.0-7.7 [facility] Basophil percentageOrdered B y: Gayla Mandel on 10-01-2024 Basophils/100 WBC (Bld) 1.2 % High 0-1 [facility] C-reactive protein measureme nt by high sensitivity methodOrdered By: Gayla Mandel on 10-01-2024 C-Reactive Protein Extended Range < 2.90 mg/L 0.0-3.0 [facility] Comment on above: C-Reactive Protein ( CRP) provides useful information for thediagnosis, therapy and monitoring of inflammatory processesand associated diseases. For the evaluation of Relative Riskfor Cardiovascular Disease, a High Sensitivity CRP (HSCRP)should be ordered. CBC W/Diff, Automatedon 12-1 3-2024 Absolute Lymph 3.18 X10 3/uL Normal 0.83-4.51 [facility] Comment on above: Performed By: #### L 100.0100, L501.6710, L101.9900 #### [facility] [address] [place], [address] Absolute Neut 6.8 X10 3/uL Normal 2.0-7.7 [facility] Comment on above: Performed By: #### L 100.0100, L501.6710, L101.9900 #### [facility] [address] [place], [address] Basophils/100 WBC (Bld) 1.2 % High 0-1 [facility] Comment on above: Performed By: #### L 100.0100, L501.6710, L101.9900 #### [facility] [address] [place], [address] Eosinophils/100 WBC (Bld) 1.7 % Normal 0-5 [facility] Comment on above: Performed By: #### L 100.0100, L501.6710, L101.9900 #### [facility] [address] [place], [address] Erythrocyte distribution width (RBC) [Ratio] 14.0 % Normal 11.6-14.6 [facility] Comment on above: Performed By: #### L 100.0100, L501.6710, L101.9900 #### [facility] [address] [place], [address] Hematocrit (Bld) [Volume fraction] 44.9 % Normal 37-47 [facility] Comment on above: Performed By: #### L 100.0100, L501.6710, L101.9900 #### [facility] [address] [place], [address] Hemoglobin (Bld) [Mass/Vol] 14.5 g/dL Normal 12.0-15.0 [facility] Comment on above: Performed By: #### L 100.0100, L501.6710, L101.9900 #### [facility] [address] [place], [address] IG% 0.400 Normal 0.0-0.9 [facility] Comment on above: Result Comment: IG% - Immature Granulocytes (promyelocytes, myelocytes and metamyelocytes) > 1% indicates that a LEFT SHIFT is Present. Performed By: #### L 100.0100, L501.6710, L101.9900 #### [facility] [address] [place], [address] Lymphocytes/100 WBC (Bld) 28.5 % Normal 19-41 [facility] Comment on above: Performed By: #### L 100.0100, L501.6710, L101.9900 #### [facility] [address] [place], [address] MCH (RBC) [Entitic mass] 27.9 pg Normal 27.0-32.0 [facility] Comment on above: Performed By: #### L 100.0100, L501.6710, L101.9900 #### [facility] [address] [place], [address] MCHC (RBC) [Mass/Vol] 32.3 g/dL Normal 32-36 [facility] Comment on above: Performed By: #### L 100.0100, L501.6710, L101.9900 #### [facility] [address] [place], [address] MCV (RBC) [Entitic vol] 86.5 fL Normal 81-99 [facility] Comment on above: Performed By: #### L 100.0100, L501.6710, L101.9900 #### [facility] [address] [place], [address] Monocytes/100 WBC (Bld) 7.1 % Normal 0-10 [facility] Comment on above: Performed By: #### L 100.0100, L501.6710, L101.9900 #### [facility] [address] [place], [address] Neutrophils/100 WBC (Bld) 61.1 % Normal 47-70 [facility] Comment on above: Performed By: #### L 100.0100, L501.6710, L101.9900 #### [facility] [address] [place], [address] Nucleated RBC (Bld) [#/Vol] 0 10*3/uL Normal 0-5 [facility] Comment on above: Performed By: #### L 100.0100, L501.6710, L101.9900 #### [facility] [address] [place], [address] Platelet mean volume (Bld) [Entitic vol] 11.0 fL Normal 6.2-12.0 [facility] Comment on above: Performed By: #### L 100.0100, L501.6710, L101.9900 #### [facility] [address] [place], [address] Platelets (Bld) [#/Vol] 191 10*3/uL Normal 150-450 [facility] Comment on above: Performed By: #### L 100.0100, L501.6710, L101.9900 #### [facility] [address] [place], [address] RBC (Bld) [#/Vol] 5.19 10*6/uL Normal 4.2-5.4 [facility] Comment on above: Performed By: #### L 100.0100, L501.6710, L101.9900 #### [facility] [address] [place], [address] RDW SD 44.5 fl High 35.1-43.9 [facility] Comment on above: Performed By: #### L 100.0100, L501.6710, L101.9900 #### [facility] [address] [place], [address] WBC (Bld) [#/Vol] 11.2 10*3/uL High 4.4-11.0 [facility] Comment on above: Performed By: #### L 100.0100, L501.6710, L101.9900 #### [facility] [address] [place], [address] CRPon 10-01-2024 C-REACTIVE PROT < 2.90 Normal 0.0-3.0 [facility] Comment on above: Result Comment: C-Re active Protein (CRP) provides useful information for the diagnosis, therapy and monitoring of inflammatory processes and associated diseases. For the evaluation of Relative Risk for Cardiovascular Disease, a High Sensitivity CRP (HSCRP) should be ordered. Performed By: #### L 100.0100, L501.6710, L101.9900 #### [facility] [address] [place], [address] Eosinophil percentageOrdered By: Gayla Mandel on 10-01-2024 Eosinophils/100 WBC (Bld) 1.7 % 0-5 [facility] Erythrocyte Sed Rateon 10-01 SED RATE 3 mm/hr Normal 0-30 [facility] Comment on above: Performed By: #### L 100.0100, L501.6710, L101.9900 #### [facility] [address] [place], [address] Erythrocyte distribution wid th ratioOrdered By: Gayla Mandel on 10-01-2024 Erythrocyte distribution width (RBC) [Ratio] 14.0 % 11.6-14.6 [facility] Erythrocyte distribution wid th standard deviationOrdered By: Gayla Mandel on 10-01-2024 Erythrocyte distribution width (RBC) [Entitic vol] 44.5 fL High 35.1-43.9 [facility] Erythrocyte sedimentation ra teOrdered By: Gayla Mandel on 10-01-2024 ESR (Bld) [Velocity] 3 mm/h 0-30 [facility] Gastroenterology Visit Repor ton 10-01-2024 Gastroenterology Visit Report [facility] Gastroenterology [address] [place] [address] OFFICE VISIT Date of Service: 10/01/24 MR#: [id number] Acct: [id number] Name: APPLE ESTEBAN Rep #: [id number] 4 : 1945 Provider: ALBERTO Quinonez Age/Sex: 79/F Location: [facility] [place] Status: Signed Intake Vital Signs 03/24/24 11:03 09/10/24 09:49 Height 5 ft 7 in 5 ft 7 in Intake Visit Reasons: 6 M FU Chief Complaint: Crohn disease Allergies Gadolinium-MRI Contrast Medium (contrast dye) Allergy (Verified 09/10/24 09:50) CHILLS.RIGORS niacin Allergy (Verified 09/10/24 09:50) Anaphylaxis Medications ???Medication ???Instructions ???Recorded ???Confirmed ???Type aspirin 81 mg chewable tablet 81 mg PO DAILY@0800 06/19/15 10/01/24 History atorvastatin 80 mg tablet 80 mg PO QHS 06/19/15 10/01/24 History potassium gluconate 500 mg (83 mg) 500 mg PO DAILY 06/19/15 10/01/24 History tablet sertraline 100 mg tablet 100 mg PO QHS 06/19/15 10/01/24 History zennqe-thsbqhnl-dgiefbi 3 cap PO TID 02/21/21 10/01/24 History 36,000-114,000-180,000 unit capsule,delay rel (Creon) ramipril 2.5 mg capsule 2.5 ea PO QHS 02/21/21 10/01/24 History metoprolol tartrate 25 mg tablet 37.5 mg PO BID 07/09/21 10/01/24 History d-mannose 500 mg capsule 1,000 mg PO DAILY 07/13/21 10/01/24 History lactobacillus combination no.4 3 3,000 mmu cells PO DAILY 07/13/21 10/01/24 History billion cell capsule (Probiotic) inflectra infusion 0 mg subcut PRN PRN CROHN 07/10/22 10/01/24 History clonidine HCl 0.1 mg tablet 0.1 mg PO Q8H PRN hypertensive 09/12/23 10/01/24 Rx emergency #10 tabs pen needle, diabetic 32 gauge x #150 ea 10/10/23 10/01/24 Rx 5/32 (BD Ultra-Fine Roseanna Pen Needle) Humalog KwikPen Insulin 100 18 unit (0.18 mL) subcut TID 02/09/24 10/01/24 Rx unit/mL subcutaneous (insulin SLIDING SCALE #45 mL lispro) Lantus Solostar U-100 Insulin 100 42 unit (0.42 mL) subcut QHS #36 mL 02/09/24 10/01/24 Rx unit/mL (3 mL) subcutaneous pen (insulin glargine) Ozempic 2 mg/dose (8 mg/3 mL) 2 mg (0.75 mL) subcut QWEEK #9 mL 02/09/24 10/01/24 Rx subcutaneous pen injector (semaglutide) apixaban 5 mg tablet (Eliquis) 5 mg PO BID 03/24/24 10/01/24 History clopidogrel 75 mg tablet 75 mg PO DAILY 09/10/24 10/01/24 History Have you fallen in the past year?: No PFSH Medical History Abnormal results of thyroid function studies History of Crohn's disease Hypokalemia Hydronephrosis Ureteral calculi Wears glasses Cancer Depression Anxiety Insulin dependent diabetes mellitus Easy bruising Restless legs Back pain Dietary restriction History of IBS History of diverticulitis Heartburn Non-smoker Leg cramps History of pain when walking History of edema History of heart attack History of stress test Cardiology follow-up encounter History of irregular heartbeat Obesity Benign hypertension Mixed hyperlipidemia CAD (coronary artery disease) Polyneuropathy due to type 2 diabetes mellitus Deficient knowledge of hysterectomy Neuropathy Murmur IBS (irritable bowel syndrome) High triglycerides High cholesterol High blood pressure Heart disease Gastrointestinal problem UTI (urinary tract infection) Arthritis Surgical History History of cystoscopy Hx of left cataract extraction Hx of colonoscopy History of intestinal surgery Hx of foot surgery Hx of heart bypass surgery Hx of hysterectomy Hx laparoscopic cholecystectomy Hx of tonsillectomy H/O knee surgery Family History Mother Diabetes Hypertension Father Diabetes Hypertension Other Bowel disease CVA (cerebral vascular accident) Myocardial infarction Parkinson disease Social History Smoking Status: Never smoker HPI HPI Chief Complaint: Crohn disease Details: APPLE ESTEBAN, is a 79 F who presents to the office today for f/u. OV 04.01.24 pt reports that she is doing well overall denies GI symptoms of concern at this time. Pt reports a formed BM every day or every other day; denies blood in the stool. P:t denies diarrhea, abdominal pain, skin changes, new arthritis, and new vision changes. Pt continues with inflectra infusions and creon. OV 10.01.24 Pt has been doing well with no GI complaints. She continues with Inflectra infusions every 12 weeks. She is having diarrhea only on occasion. Certain foods will give her diarrhea like onions. Also continues with creon. She had heart valve surgery in July 2024 and continues to recover from this. ROS Const Constitutional: No fatigue, fever(s) or weight change ENT ENT: N (more content not included)... Normal [facility] Hematocrit Auto (Bld) [Volum e fraction]Ordered By: Gayla Mandel on 10-01-2024 Hematocrit (Bld) [Volume fraction] 44.9 % 37-47 [facility] Hemoglobin measurementOrdere d By: Gayla Mandel on 10-01-2024 Hemoglobin (Bld) [Mass/Vol] 14.5 g/dL 12.0-15.0 [facility] Immature granulocytes/100 WB C Auto (Bld)Ordered By: Gayla Mandel on 10-01-2024 Immature granulocytes/100 WBC (Bld) 0.400 % 0.0-0.9 [facility] Comment on above: IG% - Immature Granu locytes (promyelocytes, myelocytes and metamyelocytes) > 1% indicates that a LEFT SHIFT is Present. Lymphocytes Auto (Unsp spec) [#/Vol]Ordered By: Gayla Mandel on 10-01-2024 Lymphocytes (Bld) [#/Vol] 3.18 10*3/uL 0.83-4.51 [facility] Lymphocytes/100 WBC Auto (Un sp spec)Ordered By: Gayla Mandel on 10-01-2024 Lymphocytes/100 WBC (Bld) 28.5 % 19-41 [facility] MCV (mean corpuscular volume ) determinationOrdered By: Gayla Mandel on 10-01-2024 MCV (RBC) [Entitic vol] 86.5 fL 81-99 [facility] Mean corpuscular hemoglobin (MCH) determinationOrdered By: Gayla Mandel on 10-01-2024 MCH (RBC) [Entitic mass] 27.9 pg 27.0-32.0 [facility] Mean corpuscular hemoglobin concentration (MCHC) determinationOrdered By: Gayla Mandel on 10-01-2024 MCHC (RBC) [Mass/Vol] 32.3 g/dL 32-36 [facility] Mean platelet volume determi nationOrdered By: Gayla Mandel on 10-01-2024 Platelet mean volume (Bld) [Entitic vol] 11.0 fL 6.2-12.0 [facility] Monocyte percentageOrdered B y: Gayla Mandel on 10-01-2024 Monocytes/100 WBC (Bld) 7.1 % 0-10 [facility] Neutrophil percentageOrdered By: Gayla Mandel on 10-01-2024 Neutrophils/100 WBC (Bld) 61.1 % 47-70 [facility] Nucleated red blood cell per centageOrdered By: Gayla Mandel on 10-01-2024 Nucleated RBC/100 WBC (Bld) [Ratio] 0 % 0-5 [facility] Platelet countOrdered By: Theresa Mandel on 10-01-2024 Platelets (Bld) [#/Vol] 191 10*3/uL 150-450 [facility] RBC Auto (Bld) [#/Vol]Ordere d By: Gayla Mandel on 10-01-2024 RBC (Bld) [#/Vol] 5.19 10*6/uL 4.2-5.4 [facility] White blood cell (WBC) count Ordered By: Gayla Mandel on 10-01-2024 WBC (Bld) [#/Vol] 11.2 10*3/uL High 4.4-11.0 [facility] .Auto Diffon 09-14-2024 Basophil, Absolute 0.1 10 3/mcL Normal 0.0-0.3 [facility] Comment on above: Performed By: #### C BC, ADIFF, ANEU, BMP, GFR #### [address] [address] Basophils/100 WBC (Bld) 0.6 % Normal 0.0-2.5 [facility] Comment on above: Performed By: #### C BC, ADIFF, ANEU, BMP, GFR #### [address] [address] Eosinophil, Absolute 0.3 10 3/mcL Normal 0.0-0.7 [facility] Comment on above: Performed By: #### C BC, ADIFF, ANEU, BMP, GFR #### [address] [address] Eosinophils/100 WBC (Bld) 2.7 % Normal 0.0-6.0 [facility] Comment on above: Performed By: #### C BC, ADIFF, ANEU, BMP, GFR #### [address] [address] Lymphocyte, Absolute 3.0 10 3/mcL Normal 0.9-4.3 [facility] Comment on above: Performed By: #### C BC, ADIFF, ANEU, BMP, GFR #### [address] [address] Lymphocytes/100 WBC (Bld) 29.8 % Normal 20.0-40.0 [facility] Comment on above: Performed By: #### C BC, ADIFF, ANEU, BMP, GFR #### [address] [address] Monocyte, Absolute 0.8 10 3/mcL Normal 0.1-1.4 [facility] Comment on above: Performed By: #### C BC, ADIFF, ANEU, BMP, GFR #### [address] [address] Monocytes/100 WBC (Bld) 8.3 % Normal 2.0-13.0 [facility] Comment on above: Performed By: #### C BC, ADIFF, ANEU, BMP, GFR #### [address] [address] Neutrophils/100 WBC (Bld) 58.6 % Normal 50.0-75.0 [facility] Comment on above: Performed By: #### C BC, ADIFF, ANEU, BMP, GFR #### [address] [address] .GFRon 09-14-2024 GFR Non- 56 ml/min/1.73sqm [facility] Comment on above: Result Comment: GFR Population mean for , Non- Americans Ages 20-29 = 116 mL/min/1.73 sq.m. Ages 30-39 = 107 mL/min/1.73 sq.m. Ages 40-49 = 99 mL/min/1.73 sq.m. Ages 50-59 = 93 mL/min/1.73 sq.m. Ages 60-69 = 85 mL/min/1.73 sq.m. Ages 70+ = 75 mL/min/1.73 sq.m. Chronic Kidney Disease: Less than 60 mL/min/1.73 square meters End Stage Renal Disease: Less than 15 mL/min/1.73 square meters Performed By: #### C BC, ADIFF, ANEU, BMP, GFR #### [address] [address] GFR >60 Normal [facility] Comment on above: Result Comment: GFR Population mean for , Non- Americans Ages 20-29 = 116 mL/min/1.73 sq.m. Ages 30-39 = 107 mL/min/1.73 sq.m. Ages 40-49 = 99 mL/min/1.73 sq.m. Ages 50-59 = 93 mL/min/1.73 sq.m. Ages 60-69 = 85 mL/min/1.73 sq.m. Ages 70+ = 75 mL/min/1.73 sq.m. Chronic Kidney Disease: Less than 60 mL/min/1.73 square meters End Stage Renal Disease: Less than 15 mL/min/1.73 square meters Performed By: #### C BC, ADIFF, ANEU, BMP, GFR #### [address] [address] .NEUABSon 09-14-2024 Neutrophil, Absolute 5.9 10 3/mcL Normal 2.3-8.1 [facility] Comment on above: Performed By: #### C BC, ADIFF, ANEU, BMP, GFR #### [address] [address] BMPon 09-14-2024 BUN/Creatinine Ratio 18.8 ratio Normal 10.0-22.0 [facility] Comment on above: Order Comment: TO BE COMPLETED BETWEEN 09/07/24-10/31/24 AT [facility] PRIOR TO OFFICE VISIT. Performed By: #### C BC, ADIFF, ANEU, BMP, GFR #### [place] [address] Calcium [Mass/Vol] 9.5 mg/dL Normal 8.7-10.4 [facility] Comment on above: Order Comment: TO BE COMPLETED BETWEEN 09/07/24-10/31/24 AT ANY [facility] PRIOR TO OFFICE VISIT. Performed By: #### C BC, ADIFF, ANEU, BMP, GFR #### [place] [id number] Chloride [Moles/Vol] 102 mmol/L Normal 98-110 [facility] Comment on above: Order Comment: TO BE COMPLETED BETWEEN 09/07/24-10/31/24 AT ANY [facility] PRIOR TO OFFICE VISIT. Performed By: #### C BC, ADIFF, ANEU, BMP, GFR #### [address] [address] CO2 [Moles/Vol] 36 mmol/L High 22-32 [facility] Comment on above: Order Comment: TO BE COMPLETED BETWEEN 09/07/24-10/31/24 AT ANY [facility] PRIOR TO OFFICE VISIT. Performed By: #### C BC, ADIFF, ANEU, BMP, GFR #### [address] [address] Creatinine [Mass/Vol] 0.96 mg/dL Normal 0.50-1.20 [facility] Comment on above: Order Comment: TO BE COMPLETED BETWEEN 09/07/24-10/31/24 AT ANY [facility] PRIOR TO OFFICE VISIT. Result Comment: Test ing performed on Hyperpia analyzer using enzymatic creatinine methodology. Performed By: #### C BC, ADIFF, ANEU, BMP, GFR #### [address] [address] Electrolyte Balance 6.0 mEq/L Normal 4.0-15.0 [facility] Comment on above: Order Comment: TO BE COMPLETED BETWEEN 09/07/24-10/31/24 AT ANY [facility] PRIOR TO OFFICE VISIT. Performed By: #### C BC, ADIFF, ANEU, BMP, GFR #### [place] [id number] Glucose [Mass/Vol] 133 mg/dL High 82-115 [facility] Comment on above: Order Comment: TO BE COMPLETED BETWEEN 09/07/24-10/31/24 AT ANY [facility] PRIOR TO OFFICE VISIT. Performed By: #### C BC, ADIFF, ANEU, BMP, GFR #### [address] [address] Potassium [Moles/Vol] 4.1 mmol/L Normal 3.5-5.0 [facility] Comment on above: Order Comment: TO BE COMPLETED BETWEEN 09/07/24-10/31/24 AT ANY [facility] PRIOR TO OFFICE VISIT. Performed By: #### C BC, ADIFF, ANEU, BMP, GFR #### [address] [address] Sodium [Moles/Vol] 144 mmol/L Normal 136-145 [facility] Comment on above: Order Comment: TO BE COMPLETED BETWEEN 09/07/24-10/31/24 AT ANY [facility] PRIOR TO OFFICE VISIT. Performed By: #### C BC, ADIFF, ANEU, BMP, GFR #### [place] [address] Urea nitrogen [Mass/Vol] 18.0 mg/dL Normal 8.0-22.0 [facility] Comment on above: Order Comment: TO BE COMPLETED BETWEEN 09/07/24-10/31/24 AT ANY [facility] PRIOR TO OFFICE VISIT. Performed By: #### C BC, ADIFF, ANEU, BMP, GFR #### [place] [id number] CBCon 09-14-2024 Erythrocyte distribution width (RBC) [Ratio] 14.7 % Normal 11.5-15.5 [facility] Comment on above: Order Comment: TO BE COMPLETED BETWEEN 09/07/24-10/31/24 AT [facility] PRIOR TO OFFICE VISIT. Performed By: #### C BC, ADIFF, ANEU, BMP, GFR #### [place] [address] Hematocrit (Bld) [Volume fraction] 44.3 % Normal 34.0-46.0 [facility] Comment on above: Order Comment: TO BE COMPLETED BETWEEN 09/07/24-10/31/24 AT ANY [facility] PRIOR TO OFFICE VISIT. Performed By: #### C BC, ADIFF, ANEU, BMP, GFR #### [place] [address] Hgb 14.8 G/dL Normal 12.0-16.0 [facility] Comment on above: Order Comment: TO BE COMPLETED BETWEEN 09/07/24-10/31/24 AT ANY [facility] PRIOR TO OFFICE VISIT. Performed By: #### C BC, ADIFF, ANEU, BMP, GFR #### [place] [address] MCH (RBC) [Entitic mass] 29.0 pg Normal 27.0-33.0 [facility] Comment on above: Order Comment: TO BE COMPLETED BETWEEN 09/07/24-10/31/24 AT ANY [facility] PRIOR TO OFFICE VISIT. Performed By: #### C BC, ADIFF, ANEU, BMP, GFR #### [place] [id number] MCHC 33.3 G/dL Normal 32.0-36.0 [facility] Comment on above: Order Comment: TO BE COMPLETED BETWEEN 09/07/24-10/31/24 AT ANY [facility] PRIOR TO OFFICE VISIT. Performed By: #### C BC, ADIFF, ANEU, BMP, GFR #### [address] [address] MCV (RBC) [Entitic vol] 87.0 fL Normal 80.0-99.0 [facility] Comment on above: Order Comment: TO BE COMPLETED BETWEEN 09/07/24-10/31/24 AT ANY [facility] PRIOR TO OFFICE VISIT. Performed By: #### C BC, ADIFF, ANEU, BMP, GFR #### [place] [id number] Platelet 169 10 3/mcL Normal 150-450 [facility] Comment on above: Order Comment: TO BE COMPLETED BETWEEN 09/07/24-10/31/24 AT ANY [facility] PRIOR TO OFFICE VISIT. Performed By: #### C BC, ADIFF, ANEU, BMP, GFR #### [place] [address] Platelet mean volume (Bld) [Entitic vol] 9.9 fL Normal 6.6-10.5 [facility] Comment on above: Order Comment: TO BE COMPLETED BETWEEN 09/07/24-10/31/24 AT ANY [facility] PRIOR TO OFFICE VISIT. Performed By: #### C BC, ADIFF, ANEU, BMP, GFR #### [place] [id number] RBC 5.09 10 6/mcL Normal 4.10-5.30 [facility] Comment on above: Order Comment: TO BE COMPLETED BETWEEN 09/07/24-10/31/24 AT ANY [facility] PRIOR TO OFFICE VISIT. Performed By: #### C BC, ADIFF, ANEU, BMP, GFR #### [place] [address] WBC 10.0 10 3/mcL Normal 4.5-10.8 [facility] Comment on above: Order Comment: TO BE COMPLETED BETWEEN 09/07/24-10/31/24 AT ANY [facility] PRIOR TO OFFICE VISIT. Performed By: #### C BC, ADIFF, ANEU, BMP, GFR #### [place] [address] LABORATORYOrdered By: SYSTEM SYSTEM on 09-14-2024 Basophils (Bld) [#/Vol] 0.1 103/mcL Normal 0.0 - 0.3 10^3/mcL AH Workflow SS Basophils/100 WBC (Bld) 0.6 % Normal 0.0 - 2.5 % AH Workflow SS Calcium [Mass/Vol] 9.5 mg/dL Normal 8.7 - 10. 4 mg/dL ADM SS Chloride [Moles/Vol] 102 mmol/L Normal 98 - 11 0 mEq/L ADM SS CO2 [Moles/Vol] 36 mmol/L High 22 - 32 mEq/L ADM SS Creatinine [Mass/Vol] 0.96 mg/dL Normal 0.50 - 1.20 mg/dL AH ADM SS Comment on above: Interpretive Data: T esting performed on Hyperpia analyzer using enzymatic creatinine methodology. Electrolyte Balance 6.0 mEq/L Normal 4.0 - 15 .0 mEq/L ADM SS Eosinophils (Bld) [#/Vol] 0.3 103/mcL Normal 0.0 - 0.7 10^3/mcL AH Workflow SS Eosinophils/100 WBC (Bld) 2.7 % Normal 0.0 - 6.0 % AH Workflow SS Erythrocyte distribution width (RBC) [Ratio] 14.7 % Normal 11.5 - 15.5 % AH Workflow SS GFR/1.73 sq M.predicted among blacks MDRD (S/P/Bld) [Vol rate/Area] ml/min/1.73sqm Invalid Interpretation Code Chemistry S Comment on above: Interpretive Data: GFR Population mean for , Non- Americans Ages 20-29 = 116 mL/min/1.73 sq.m. Ages 30-39 = 107 mL/min/1.73 sq.m. Ages 40-49 = 99 mL/min/1.73 sq.m. Ages 50-59 = 93 mL/min/1.73 sq.m. Ages 60-69 = 85 mL/min/1.73 sq.m. Ages 70+ = 75 mL/min/1.73 sq.m. Chronic Kidney Disease: Less than 60 mL/min/1.73 square meters End Stage Renal Disease: Less than 15 mL/min/1.73 square meters GFR/1.73 sq M.predicted among non-blacks MDRD (S/P/Bld) [Vol rate/Area] 56 ml/min/1.73sqm Invalid Interpretation Code Chemistry S Comment on above: Interpretive Data: GFR Population mean for , Non- Americans Ages 20-29 = 116 mL/min/1.73 sq.m. Ages 30-39 = 107 mL/min/1.73 sq.m. Ages 40-49 = 99 mL/min/1.73 sq.m. Ages 50-59 = 93 mL/min/1.73 sq.m. Ages 60-69 = 85 mL/min/1.73 sq.m. Ages 70+ = 75 mL/min/1.73 sq.m. Chronic Kidney Disease: Less than 60 mL/min/1.73 square meters End Stage Renal Disease: Less than 15 mL/min/1.73 square meters Glucose [Mass/Vol] 133 mg/dL High 82 - 115 mg/dL AH ADM SS Hematocrit (Bld) [Volume fraction] 44.3 % Normal 34.0 - 46.0 % AH Workflow SS Hemoglobin (Bld) [Mass/Vol] 14.8 G/dL Normal 12.0 - 16.0 G/dL AH Workflow SS Lymphocytes (Bld) [#/Vol] 3.0 103/mcL Normal 0.9 - 4.3 10^3/mcL AH Workflow SS Lymphocytes/100 WBC (Bld) 29.8 % Normal 20.0 - 40.0 % AH Workflow SS MCH (RBC) [Entitic mass] 29.0 pg Normal 27.0 - 33.0 pg AH Workflow SS MCHC 33.3 G/dL Normal 32.0 - 36.0 G/dL AH Workflow SS MCV (RBC) [Entitic vol] 87.0 fL Normal 80.0 - 99.0 fL AH Workflow SS Monocytes (Bld) [#/Vol] 0.8 103/mcL Normal 0.1 - 1.4 10^3/mcL AH Workflow SS Monocytes/100 WBC (Bld) 8.3 % Normal 2.0 - 13.0 % AH Workflow SS Neutrophils (Bld) [#/Vol] 5.9 103/mcL Normal 2.3 - 8.1 10^3/mcL Workflow SS Neutrophils/100 WBC (Bld) 58.6 % Normal 50.0 - 75.0 % AH Workflow SS Platelet mean volume (Bld) [Entitic vol] 9.9 fL Normal 6.6 - 10.5 fL Workflow SS Platelets (Bld) [#/Vol] 169 103/mcL Normal 150 - 450 10^3/mcL AH Workflow SS Potassium [Moles/Vol] 4.1 mmol/L Normal 3.5 - 5.0 mEq/L ADM SS RBC (Bld) [#/Vol] 5.09 106/mcL Normal 4.10 - 5.30 10^6/mcL Workflow SS Sodium [Moles/Vol] 144 mmol/L Normal 136 - 145 mEq/L ADM SS Urea nitrogen [Mass/Vol] 18.0 mg/dL Normal 8.0 - 22.0 mg/dL ADM SS Urea nitrogen/Creatinine [Mass ratio] 18.8 ratio Normal 10.0 - 22.0 ratio ADM SS WBC (Bld) [#/Vol] 10.0 103/mcL Normal 4.5 - 10.8 10^3/mcL Workflow SS .Auto Diffon 08-18-2024 Basophil, Absolute 0.1 10 3/mcL Normal 0.0-0.3 [facility] Comment on above: Performed By: #### C BC, ADIFF, ANEU, BMP, GFR #### [address] [address] Basophils/100 WBC (Bld) 0.5 % Normal 0.0-2.5 [facility] Comment on above: Performed By: #### C BC, ADIFF, ANEU, BMP, GFR #### [address] [address] Eosinophil, Absolute 0.0 10 3/mcL Normal 0.0-0.7 [facility] Comment on above: Performed By: #### C BC, ADIFF, ANEU, BMP, GFR #### [address] [address] Eosinophils/100 WBC (Bld) 0.1 % Normal 0.0-6.0 [facility] Comment on above: Performed By: #### C BC, ADIFF, ANEU, BMP, GFR #### [address] [address] Lymphocyte, Absolute 1.4 10 3/mcL Normal 0.9-4.3 [facility] Comment on above: Performed By: #### C BC, ADIFF, ANEU, BMP, GFR #### [address] [address] Lymphocytes/100 WBC (Bld) 9.7 % Low 20.0-40.0 [facility] Comment on above: Performed By: #### C BC, ADIFF, ANEU, BMP, GFR #### [address] [address] Monocyte, Absolute 1.4 10 3/mcL Normal 0.1-1.4 [facility] Comment on above: Performed By: #### C BC, ADIFF, ANEU, BMP, GFR #### [address] [address] Monocytes/100 WBC (Bld) 9.3 % Normal 2.0-13.0 [facility] Comment on above: Performed By: #### C BC, ADIFF, ANEU, BMP, GFR #### [address] [address] Neutrophils/100 WBC (Bld) 80.4 % High 50.0-75.0 [facility] Comment on above: Performed By: #### C BC, ADIFF, ANEU, BMP, GFR #### [address] [address] .GFRon 08-18-2024 GFR >60 Normal [facility] Comment on above: Result Comment: GFR Population mean for , Non- Americans Ages 20-29 = 116 mL/min/1.73 sq.m. Ages 30-39 = 107 mL/min/1.73 sq.m. Ages 40-49 = 99 mL/min/1.73 sq.m. Ages 50-59 = 93 mL/min/1.73 sq.m. Ages 60-69 = 85 mL/min/1.73 sq.m. Ages 70+ = 75 mL/min/1.73 sq.m. Chronic Kidney Disease: Less than 60 mL/min/1.73 square meters End Stage Renal Disease: Less than 15 mL/min/1.73 square meters Performed By: #### C BC, ADIFF, ANEU, BMP, GFR #### [address] [address] GFR Non- 51 ml/min/1.73sqm Normal [facility] Comment on above: Result Comment: GFR Population mean for , Non- Americans Ages 20-29 = 116 mL/min/1.73 sq.m. Ages 30-39 = 107 mL/min/1.73 sq.m. Ages 40-49 = 99 mL/min/1.73 sq.m. Ages 50-59 = 93 mL/min/1.73 sq.m. Ages 60-69 = 85 mL/min/1.73 sq.m. Ages 70+ = 75 mL/min/1.73 sq.m. Chronic Kidney Disease: Less than 60 mL/min/1.73 square meters End Stage Renal Disease: Less than 15 mL/min/1.73 square meters Performed By: #### C BC, ADIFF, ANEU, BMP, GFR #### [address] [address] .NEUABSon 08-18-2024 Neutrophil, Absolute 11.9 10 3/mcL High 2.3-8.1 [facility] Comment on above: Performed By: #### C BC, ADIFF, ANEU, BMP, GFR #### [address] [address] BMPon 08-18-2024 BUN/Creatinine Ratio 27.6 ratio High 10.0-22.0 [facility] Comment on above: Performed By: #### C BC, ADIFF, ANEU, BMP, GFR #### [address] [address] Calcium [Mass/Vol] 9.3 mg/dL Normal 8.7-10.4 [facility] Comment on above: Performed By: #### C BC, ADIFF, ANEU, BMP, GFR #### [address] [address] Chloride [Moles/Vol] 105 mmol/L Normal 98-110 [facility] Comment on above: Performed By: #### C BC, ADIFF, ANEU, BMP, GFR #### [address] [address] CO2 [Moles/Vol] 31 mmol/L Normal 22-32 [facility] Comment on above: Performed By: #### C BC, ADIFF, ANEU, BMP, GFR #### [address] [address] Creatinine [Mass/Vol] 1.05 mg/dL Normal 0.50-1.20 [facility] Comment on above: Result Comment: Test ing performed on Hyperpia analyzer using enzymatic creatinine methodology. Performed By: #### C BC, ADIFF, ANEU, BMP, GFR #### [address] [address] Electrolyte Balance 6.0 mEq/L Normal 4.0-15.0 [facility] Comment on above: Performed By: #### C BC, ADIFF, ANEU, BMP, GFR #### [address] [address] Glucose [Mass/Vol] 290 mg/dL High 82-115 [facility] Comment on above: Performed By: #### C BC, ADIFF, ANEU, BMP, GFR #### [address] [address] Potassium [Moles/Vol] 3.5 mmol/L Normal 3.5-5.0 [facility] Comment on above: Performed By: #### C BC, ADIFF, ANEU, BMP, GFR #### [address] [address] Sodium [Moles/Vol] 142 mmol/L Normal 136-145 [facility] Comment on above: Performed By: #### C BC, ADIFF, ANEU, BMP, GFR #### [address] [address] Urea nitrogen [Mass/Vol] 29.0 mg/dL High 8.0-22.0 [facility] Comment on above: Performed By: #### C BC, ADIFF, ANEU, BMP, GFR #### [address] [address] CBCon 08-18-2024 Erythrocyte distribution width (RBC) [Ratio] 15.4 % Normal 11.5-15.5 [facility] Comment on above: Performed By: #### C BC, ADIFF, ANEU, BMP, GFR #### [place] [address] Hematocrit (Bld) [Volume fraction] 36.9 % Normal 34.0-46.0 [facility] Comment on above: Performed By: #### C BC, ADIFF, ANEU, BMP, GFR #### [place] [address] Hgb 12.4 G/dL Normal 12.0-16.0 [facility] Comment on above: Performed By: #### C BC, ADIFF, ANEU, BMP, GFR #### [place] [address] MCH (RBC) [Entitic mass] 29.5 pg Normal 27.0-33.0 [facility] Comment on above: Performed By: #### C BC, ADIFF, ANEU, BMP, GFR #### [place] [address] MCHC 33.5 G/dL Normal 32.0-36.0 [facility] Comment on above: Performed By: #### C BC, ADIFF, ANEU, BMP, GFR #### [place] [address] MCV (RBC) [Entitic vol] 87.9 fL Normal 80.0-99.0 [facility] Comment on above: Performed By: #### C BC, ADIFF, ANEU, BMP, GFR #### [place] [address] Platelet 154 10 3/mcL Normal 150-450 [facility] Comment on above: Performed By: #### C BC, ADIFF, ANEU, BMP, GFR #### [place] [address] Platelet mean volume (Bld) [Entitic vol] 9.7 fL Normal 6.6-10.5 [facility] Comment on above: Performed By: #### C BC, ADIFF, ANEU, BMP, GFR #### [facility] [address] [place] [address] RBC 4.20 10 6/mcL Normal 4.10-5.30 [facility] Comment on above: Performed By: #### C BC, ADIFF, ANEU, BMP, GFR #### [facility] [address] [place] [address] WBC 14.8 10 3/mcL High 4.5-10.8 [facility] Comment on above: Performed By: #### C BC, ADIFF, ANEU, BMP, GFR #### [facility] [address] [place] [address] LABORATORYOrdered By: Pearl Morataya on 08-18-2024 Blood Glucose Testing Reason Routine (08/18/24 11:19 AM) [facility] Work Phone: Glucose [Mass/Vol] 99 mg/dL Normal 82 - 115 mg/dL [facility] Work Phone: Blood Glucose Testing Reason Routine (08/18/24 7:17 AM) [facility] Work Phone: Glucose [Mass/Vol] 184 mg/dL High 82 - 115 mg/dL [facility] Work Phone: LABORATORYOrdered By: Marva scott on 08-18-2024 Blood Glucose Testing Reason Routine (08/18/24 8:26 AM) [facility] Work Phone: Glucose [Mass/Vol] 184 mg/dL High 82 - 115 mg/dL [facility] Work Phone: LABORATORYOrdered By: SYSTEM SYSTEM on 08-18-2024 Basophils (Bld) [#/Vol] 0.1 103/mcL Normal 0.0 - 0.3 10^3/mcL AH Workflow SS Basophils/100 WBC (Bld) 0.5 % Normal 0.0 - 2.5 % AH Workflow SS Calcium [Mass/Vol] 9.3 mg/dL Normal 8.7 - 10. 4 mg/dL AH ADM SS Chloride [Moles/Vol] 105 mmol/L Normal 98 - 11 0 mEq/L ADM SS CO2 [Moles/Vol] 31 mmol/L Normal 22 - 32 mEq/L ADM SS Creatinine [Mass/Vol] 1.05 mg/dL Normal 0.50 - 1.20 mg/dL ADM SS Comment on above: Interpretive Data: T esting performed on Hyperpia analyzer using enzymatic creatinine methodology. Electrolyte Balance 6.0 mEq/L Normal 4.0 - 15 .0 mEq/L ADM SS Eosinophils (Bld) [#/Vol] 0.0 103/mcL Normal 0.0 - 0.7 10^3/mcL Workflow SS Eosinophils/100 WBC (Bld) 0.1 % Normal 0.0 - 6.0 % Workflow SS Erythrocyte distribution width (RBC) [Ratio] 15.4 % Normal 11.5 - 15.5 % Workflow SS GFR/1.73 sq M.predicted among blacks MDRD (S/P/Bld) [Vol rate/Area] ml/min/1.73sqm Invalid Interpretation Code ADM SS Comment on above: Interpretive Data: GFR Population mean for , Non- Americans Ages 20-29 = 116 mL/min/1.73 sq.m. Ages 30-39 = 107 mL/min/1.73 sq.m. Ages 40-49 = 99 mL/min/1.73 sq.m. Ages 50-59 = 93 mL/min/1.73 sq.m. Ages 60-69 = 85 mL/min/1.73 sq.m. Ages 70+ = 75 mL/min/1.73 sq.m. Chronic Kidney Disease: Less than 60 mL/min/1.73 square meters End Stage Renal Disease: Less than 15 mL/min/1.73 square meters GFR/1.73 sq M.predicted among non-blacks MDRD (S/P/Bld) [Vol rate/Area] 51 ml/min/1.73sqm Invalid Interpretation Code ADM SS Comment on above: Interpretive Data: GFR Population mean for , Non- Americans Ages 20-29 = 116 mL/min/1.73 sq.m. Ages 30-39 = 107 mL/min/1.73 sq.m. Ages 40-49 = 99 mL/min/1.73 sq.m. Ages 50-59 = 93 mL/min/1.73 sq.m. Ages 60-69 = 85 mL/min/1.73 sq.m. Ages 70+ = 75 mL/min/1.73 sq.m. Chronic Kidney Disease: Less than 60 mL/min/1.73 square meters End Stage Renal Disease: Less than 15 mL/min/1.73 square meters Glucose [Mass/Vol] 290 mg/dL High 82 - 115 mg/dL AH ADM SS Hematocrit (Bld) [Volume fraction] 36.9 % Normal 34.0 - 46.0 % AH Workflow SS Hemoglobin (Bld) [Mass/Vol] 12.4 G/dL Normal 12.0 - 16.0 G/dL AH Workflow SS Lymphocytes (Bld) [#/Vol] 1.4 103/mcL Normal 0.9 - 4.3 10^3/mcL AH Workflow SS Lymphocytes/100 WBC (Bld) 9.7 % Low 20.0 - 40.0 % AH Workflow SS MCH (RBC) [Entitic mass] 29.5 pg Normal 27.0 - 33.0 pg AH Workflow SS MCHC 33.5 G/dL Normal 32.0 - 36.0 G/dL AH Workflow SS MCV (RBC) [Entitic vol] 87.9 fL Normal 80.0 - 99.0 fL AH Workflow SS Monocytes (Bld) [#/Vol] 1.4 103/mcL Normal 0.1 - 1.4 10^3/mcL AH Workflow SS Monocytes/100 WBC (Bld) 9.3 % Normal 2.0 - 13.0 % AH Workflow SS Neutrophils (Bld) [#/Vol] 11.9 103/mcL High 2.3 - 8.1 10^3/mcL AH Workflow SS Neutrophils/100 WBC (Bld) 80.4 % High 50.0 - 75.0 % AH Workflow SS Platelet mean volume (Bld) [Entitic vol] 9.7 fL Normal 6.6 - 10.5 fL AH Workflow SS Platelets (Bld) [#/Vol] 154 103/mcL Normal 150 - 450 10^3/mcL AH Workflow SS Potassium [Moles/Vol] 3.5 mmol/L Normal 3.5 - 5.0 mEq/L AH ADM SS PT Coag (PPP) [Time] 12.0 s Normal 9.0 - 1 4.4 seconds AH [facility] SS Comment on above: Interpretive Data: E ffective 05/03/08, Protime results may be affected by some antibiotics (i.e. Ciprofloxacin, Azithromycin, Bactrim) which may potentiate the action of oral anticoagulants, with further increases in Protime/INR. PT International Ratio 1.0 ratio Invalid [facility] Code [facility]: Interpretive Data: [employer] (CHEST, 1991, [id number]) recommended therapeutic range for oral anticoagulant therapy is: LOW RISK: Prophylaxis of venous thrombosis INR: 2.0-3.0 Treatment of pulmonary embolism 2.0-3.0 Prevention of systemic embolism 2.0-3.0 HIGH RISK: Mechanical prosthetic valves 2.5-3.5 RBC (Bld) [#/Vol] 4.20 106/mcL Normal 4.10 - 5.30 10^6/mcL Workflow SS Sodium [Moles/Vol] 142 mmol/L Normal 136 - 145 mEq/L ADM SS Urea nitrogen [Mass/Vol] 29.0 mg/dL High 8.0 - 22.0 mg/dL ADM SS Urea nitrogen/Creatinine [Mass ratio] 27.6 ratio High 10.0 - 22.0 ratio ADM SS WBC (Bld) [#/Vol] 14.8 103/mcL High 4.5 - 10.8 10^3/mcL Workflow SS PROon 08-18-2024 INR Coag (PPP) [Relative time] 1.0 {INR} Normal [facility] Comment on above: Result Comment: [employer] (CHEST, 1991, [id number]) recommended therapeutic range for oral anticoagulant therapy is: LOW RISK: Prophylaxis of venous thrombosis INR: 2.0-3.0 Treatment of pulmonary embolism 2.0-3.0 Prevention of systemic embolism 2.0-3.0 HIGH RISK: Mechanical prosthetic valves 2.5-3.5 Performed By: #### C BC, ADIFF, ANEU, BMP, GFR #### [place] [address] PT Coag (PPP) [Time] 12.0 s Normal 9.0-14.4 [facility] Comment on above: Result Comment: Effe ctive 07/15/08, Protime results may be affected by some antibiotics (i.e. Ciprofloxacin, Azithromycin, Bactrim) which may potentiate the action of oral anticoagulants, with further increases in Protime/INR. Performed By: #### C BC, ADIFF, ANEU, BMP, GFR #### [address] [address] .Auto Diffon 08-17-2024 Basophil, Absolute 0.0 10 3/mcL Normal 0.0-0.3 [facility] Comment on above: Performed By: #### C BC, ADIFF, ANEU, BMP, GFR #### [address] [address] Basophils/100 WBC (Bld) 0.1 % Normal 0.0-2.5 [facility] Comment on above: Performed By: #### C BC, ADIFF, ANEU, BMP, GFR #### [address] [address] Eosinophil, Absolute 0.0 10 3/mcL Normal 0.0-0.7 [facility] Comment on above: Performed By: #### C BC, ADIFF, ANEU, BMP, GFR #### [address] [address] Eosinophils/100 WBC (Bld) 0.1 % Normal 0.0-6.0 [facility] Comment on above: Performed By: #### C BC, ADIFF, ANEU, BMP, GFR #### [address] [address] Lymphocyte, Absolute 0.8 10 3/mcL Low 0.9-4.3 [facility] Comment on above: Performed By: #### C BC, ADIFF, ANEU, BMP, GFR #### [address] [address] Lymphocytes/100 WBC (Bld) 7.1 % Low 20.0-40.0 [facility] Comment on above: Performed By: #### C BC, ADIFF, ANEU, BMP, GFR #### [address] [address] Monocyte, Absolute 0.2 10 3/mcL Normal 0.1-1.4 [facility] Comment on above: Performed By: #### C BC, ADIFF, ANEU, BMP, GFR #### [address] [address] Monocytes/100 WBC (Bld) 1.3 % Low 2.0-13.0 [facility] Comment on above: Performed By: #### C BC, ADIFF, ANEU, BMP, GFR #### [address] [address] Neutrophils/100 WBC (Bld) 91.4 % High 50.0-75.0 [facility] Comment on above: Performed By: #### C BC, ADIFF, ANEU, BMP, GFR #### [address] [address] .GFRon 08-17-2024 GFR Non- >[address] [facility] Comment on above: Result Comment: GFR Population mean for , Non- Americans Ages 20-29 = 116 mL/min/1.73 sq.m. Ages 30-39 = 107 mL/min/1.73 sq.m. Ages 40-49 = 99 mL/min/1.73 sq.m. Ages 50-59 = 93 mL/min/1.73 sq.m. Ages 60-69 = 85 mL/min/1.73 sq.m. Ages 70+ = 75 mL/min/1.73 sq.m. Chronic Kidney Disease: Less than 60 mL/min/1.73 square meters End Stage Renal Disease: Less than 15 mL/min/1.73 square meters Performed By: #### C BC, ADIFF, ANEU, BMP, GFR #### [address] [address] GFR >60 [facility] Comment on above: Result Comment: GFR Population mean for , Non- Americans Ages 20-29 = 116 mL/min/1.73 sq.m. Ages 30-39 = 107 mL/min/1.73 sq.m. Ages 40-49 = 99 mL/min/1.73 sq.m. Ages 50-59 = 93 mL/min/1.73 sq.m. Ages 60-69 = 85 mL/min/1.73 sq.m. Ages 70+ = 75 mL/min/1.73 sq.m. Chronic Kidney Disease: Less than 60 mL/min/1.73 square meters End Stage Renal Disease: Less than 15 mL/min/1.73 square meters Performed By: #### C BC, ADIFF, ANEU, BMP, GFR #### [address] [address] GFR Non- >[address] [facility] Comment on above: Result Comment: GFR Population mean for , Non- Americans Ages 20-29 = 116 mL/min/1.73 sq.m. Ages 30-39 = 107 mL/min/1.73 sq.m. Ages 40-49 = 99 mL/min/1.73 sq.m. Ages 50-59 = 93 mL/min/1.73 sq.m. Ages 60-69 = 85 mL/min/1.73 sq.m. Ages 70+ = 75 mL/min/1.73 sq.m. Chronic Kidney Disease: Less than 60 mL/min/1.73 square meters End Stage Renal Disease: Less than 15 mL/min/1.73 square meters Performed By: #### C BC, ADIFF, ANEU, BMP, GFR #### [address] [address] GFR >60 [facility] Comment on above: Result Comment: GFR Population mean for , Non- Americans Ages 20-29 = 116 mL/min/1.73 sq.m. Ages 30-39 = 107 mL/min/1.73 sq.m. Ages 40-49 = 99 mL/min/1.73 sq.m. Ages 50-59 = 93 mL/min/1.73 sq.m. Ages 60-69 = 85 mL/min/1.73 sq.m. Ages 70+ = 75 mL/min/1.73 sq.m. Chronic Kidney Disease: Less than 60 mL/min/1.73 square meters End Stage Renal Disease: Less than 15 mL/min/1.73 square meters Performed By: #### C BC, ADIFF, ANEU, BMP, GFR #### [address] [id number] .NEUABSon 08-17-2024 Neutrophil, Absolute 11.0 10 3/mcL High 2.3-8.1 [facility] Comment on above: Performed By: #### C BC, ADIFF, ANEU, BMP, GFR #### [address] [address] ABO/Rh (Gel)on 08-17-2024 ABO/Rh Interp Positive Invalid Interpretation Code [facility] Comment on above: Performed By: #### C BC, ADIFF, ANEU, BMP, GFR #### [address] [address] ABS (Gel)on 08-17-2024 ABSC Interp (Gel) Negative Normal [facility] Comment on above: Performed By: #### C BC, ADIFF, ANEU, BMP, GFR #### [address] [address] APTTon 08-17-2024 aPTT Coag (Bld) [Time] 27.3 s Normal 25.0-35.0 [facility] Comment on above: Result Comment: For Heparin anticoagulation therapy, the recommended therapeutic range is: 54-77 seconds (APTT Correlation with Anti-Xa therapeutic range of 0.3-0.7 units/ml). PLEASE REFERENCE THE PHARMACY PROTOCOL FOR DOSING. Performed By: #### G FR, LIPID, A1C, CBC, ADIFF, ANEU, BMP, MG #### [address] [id number] BMPon 08-17-2024 BUN/Creatinine Ratio 27.7 ratio High 10.0-22.0 [facility] Comment on above: Order Comment: withi n 1/2 hour of admission to [facility]ICU Performed By: #### C BC, ADIFF, ANEU, BMP, GFR #### [address] [address] Calcium [Mass/Vol] 8.8 mg/dL Normal 8.7-10.4 [facility] Comment on above: Order Comment: withi n 1/2 hour of admission to [facility] Performed By: #### C BC, ADIFF, ANEU, BMP, GFR #### [address] [address] Chloride [Moles/Vol] 106 mmol/L Normal 98-110 [facility] Comment on above: Order Comment: withi n 1/2 hour of admission to [facility] Performed By: #### C BC, ADIFF, ANEU, BMP, GFR #### [address] [address] CO2 [Moles/Vol] 25 mmol/L Normal 22-32 [facility] Comment on above: Order Comment: withi n 1/2 hour of admission to [facility] Performed By: #### C BC, ADIFF, ANEU, BMP, GFR #### [address] [address] Creatinine [Mass/Vol] 0.83 mg/dL Normal 0.50-1.20 [facility] Comment on above: Order Comment: withi n 1/2 hour of admission to [facility] Result Comment: Test ing performed on Hyperpia analyzer using enzymatic creatinine methodology. Performed By: #### C BC, ADIFF, ANEU, BMP, GFR #### [address] [address] [address] Electrolyte Balance 10.0 mEq/L Normal 4.0-15.0 [facility] Comment on above: Order Comment: withi n 1/2 hour of admission to CVSICU Performed By: #### C BC, ADIFF, ANEU, BMP, GFR #### [address] [address] Glucose [Mass/Vol] 369 mg/dL High 82-115 [facility] Comment on above: Order Comment: withi n 1/2 hour of admission to CVSICU Performed By: #### C BC, ADIFF, ANEU, BMP, GFR #### [address] [address] Potassium [Moles/Vol] 3.7 mmol/L Normal 3.5-5.0 [facility] Comment on above: Order Comment: withi n 1/2 hour of admission to CVSICU Performed By: #### C BC, ADIFF, ANEU, BMP, GFR #### [address] [address] Sodium [Moles/Vol] 141 mmol/L Normal 136-145 [facility] Comment on above: Order Comment: withi n 1/2 hour of admission to CVSICU Performed By: #### C BC, ADIFF, ANEU, BMP, GFR #### [address] [address] Urea nitrogen [Mass/Vol] 23.0 mg/dL High 8.0-22.0 [facility] Comment on above: Order Comment: withi n 1/2 hour of admission to CVSICU Performed By: #### C BC, ADIFF, ANEU, BMP, GFR #### [address] [address] BUN/Creatinine Ratio 28.6 ratio High 10.0-22.0 [facility] Comment on above: Performed By: #### C BC, ADIFF, ANEU, BMP, GFR #### [address] [address] Calcium [Mass/Vol] 9.4 mg/dL Normal 8.7-10.4 [facility] Comment on above: Performed By: #### C BC, ADIFF, ANEU, BMP, GFR #### [address] [address] Chloride [Moles/Vol] 105 mmol/L Normal 98-110 [facility] Comment on above: Performed By: #### C BC, ADIFF, ANEU, BMP, GFR #### [address] [address] CO2 [Moles/Vol] 27 mmol/L Normal 22-32 [facility] Comment on above: Performed By: #### C BC, ADIFF, ANEU, BMP, GFR #### [address] [address] Creatinine [Mass/Vol] 0.84 mg/dL Normal 0.50-1.20 [facility] Comment on above: Result Comment: Test ing performed on Hyperpia analyzer using enzymatic creatinine methodology. Performed By: #### C BC, ADIFF, ANEU, BMP, GFR #### [address] [address] Electrolyte Balance 9.0 mEq/L Normal 4.0-15.0 [facility] Comment on above: Performed By: #### C BC, ADIFF, ANEU, BMP, GFR #### [address] [address] Glucose [Mass/Vol] 299 mg/dL High 82-115 [facility] Comment on above: Performed By: #### C BC, ADIFF, ANEU, BMP, GFR #### [address] [address] Potassium [Moles/Vol] 4.2 mmol/L Normal 3.5-5.0 [facility] Comment on above: Result Comment: Spec imen slightly hemolyzed. Performed By: #### C BC, ADIFF, ANEU, BMP, GFR #### [place] [id number] Sodium [Moles/Vol] 141 mmol/L Normal 136-145 [facility] Comment on above: Performed By: #### C BC, ADIFF, ANEU, BMP, GFR #### [place] [id number] Urea nitrogen [Mass/Vol] 24.0 mg/dL High 8.0-22.0 [facility] Comment on above: Performed By: #### C BC, ADIFF, ANEU, BMP, GFR #### [place] [id number] CBCon 08-17-2024 Erythrocyte distribution width (RBC) [Ratio] 14.9 % Normal 11.5-15.5 [facility] Comment on above: Order Comment: withi n 1/2 hour of admission to CVSICU Performed By: #### C BC, ADIFF, ANEU, BMP, GFR #### [place] [id number] Hematocrit (Bld) [Volume fraction] 38.4 % Normal 34.0-46.0 [facility] Comment on above: Order Comment: withi n 1/2 hour of admission to CVSICU Performed By: #### C BC, ADIFF, ANEU, BMP, GFR #### [place] [id number] Hgb 13.0 G/dL Normal 12.0-16.0 [facility] Comment on above: Order Comment: withi n 1/2 hour of admission to CVSICU Performed By: #### C BC, ADIFF, ANEU, BMP, GFR #### [place] [address] MCH (RBC) [Entitic mass] 29.6 pg Normal 27.0-33.0 [facility] Comment on above: Order Comment: withi n 1/2 hour of admission to CVSICU Performed By: #### C BC, ADIFF, ANEU, BMP, GFR #### [place] [address] MCHC 33.9 G/dL Normal 32.0-36.0 [facility] Comment on above: Order Comment: withi n 1/2 hour of admission to CVSICU Performed By: #### C BC, ADIFF, ANEU, BMP, GFR #### [place] [address] MCV (RBC) [Entitic vol] 87.3 fL Normal 80.0-99.0 [facility] Comment on above: Order Comment: withi n 1/2 hour of admission to CVSICU Performed By: #### C BC, ADIFF, ANEU, BMP, GFR #### [place] [address] Platelet 151 10 3/mcL Normal 150-450 [facility] Comment on above: Order Comment: withi n 1/2 hour of admission to CVSICU Performed By: #### C BC, ADIFF, ANEU, BMP, GFR #### [place] [address] Platelet mean volume (Bld) [Entitic vol] 9.9 fL Normal 6.6-10.5 [facility] Comment on above: Order Comment: withi n 1/2 hour of admission to CVSICU Performed By: #### C BC, ADIFF, ANEU, BMP, GFR #### [place] [address] RBC 4.40 10 6/mcL Normal 4.10-5.30 [facility] Comment on above: Order Comment: withi n 1/2 hour of admission to CVSICU Performed By: #### C BC, ADIFF, ANEU, BMP, GFR #### [facility] [address] [place] [address] WBC 12.0 10 3/mcL High 4.5-10.8 [facility] Comment on above: Order Comment: withi n 1/2 hour of admission to CVSICU Performed By: #### C BC, ADIFF, ANEU, BMP, GFR #### [facility] [address] [place] [address] FIBon 08-17-2024 Fibrinogen 459 mg/dL Normal 250-560 [facility] Comment on above: Performed By: #### G FR, LIPID, A1C, CBC, ADIFF, ANEU, BMP, MG #### [address] [address] LABORATORYOrdered By: Bishop Browne on 08-17-2024 Blood Glucose Interventions Notify physician (08/17/24 3:37 PM) [facility] Work Phone: LABORATORYOrdered By: SYSTEM SYSTEM on 08-17-2024 Basophils (Bld) [#/Vol] 0.0 103/mcL Normal 0.0 - 0.3 10^3/mcL AH Workflow SS Basophils/100 WBC (Bld) 0.1 % Normal 0.0 - 2.5 % AH Workflow SS Calcium [Mass/Vol] 8.8 mg/dL Normal 8.7 - 10. 4 mg/dL ADM SS Chloride [Moles/Vol] 106 mmol/L Normal 98 - 11 0 mEq/L AH ADM SS CO2 [Moles/Vol] 25 mmol/L Normal 22 - 32 mEq/L AH ADM SS Creatinine [Mass/Vol] 0.83 mg/dL Normal 0.50 - 1.20 mg/dL AH ADM SS Comment on above: Interpretive Data: T esting performed on Hyperpia analyzer using enzymatic creatinine methodology. Electrolyte Balance 10.0 mEq/L Normal 4.0 - 15 .0 mEq/L AH ADM SS Eosinophils (Bld) [#/Vol] 0.0 103/mcL Normal 0.0 - 0.7 10^3/mcL AH Workflow SS Eosinophils/100 WBC (Bld) 0.1 % Normal 0.0 - 6.0 % Workflow SS Erythrocyte distribution width (RBC) [Ratio] 14.9 % Normal 11.5 - 15.5 % Workflow SS GFR/1.73 sq M.predicted among blacks MDRD (S/P/Bld) [Vol rate/Area] ml/min/1.73sqm Invalid Interpretation Code [facility] Comment on above: Interpretive Data: GFR Population mean for , Non- Americans Ages 20-29 = 116 mL/min/1.73 sq.m. Ages 30-39 = 107 mL/min/1.73 sq.m. Ages 40-49 = 99 mL/min/1.73 sq.m. Ages 50-59 = 93 mL/min/1.73 sq.m. Ages 60-69 = 85 mL/min/1.73 sq.m. Ages 70+ = 75 mL/min/1.73 sq.m. Chronic Kidney Disease: Less than 60 mL/min/1.73 square meters End Stage Renal Disease: Less than 15 mL/min/1.73 square meters GFR/1.73 sq M.predicted among non-blacks MDRD (S/P/Bld) [Vol rate/Area] ml/min/1.73sqm Invalid Interpretation Code [facility] Comment on above: Interpretive Data: GFR Population mean for , Non- Americans Ages 20-29 = 116 mL/min/1.73 sq.m. Ages 30-39 = 107 mL/min/1.73 sq.m. Ages 40-49 = 99 mL/min/1.73 sq.m. Ages 50-59 = 93 mL/min/1.73 sq.m. Ages 60-69 = 85 mL/min/1.73 sq.m. Ages 70+ = 75 mL/min/1.73 sq.m. Chronic Kidney Disease: Less than 60 mL/min/1.73 square meters End Stage Renal Disease: Less than 15 mL/min/1.73 square meters Glucose [Mass/Vol] 369 mg/dL High 82 - 115 mg/dL ADM Hematocrit (Bld) [Volume fraction] 38.4 % Normal 34.0 - 46.0 % Workflow SS Hemoglobin (Bld) [Mass/Vol] 13.0 G/dL Normal 12.0 - 16.0 G/dL AH Workflow SS Lymphocytes (Bld) [#/Vol] 0.8 103/mcL Low 0.9 - 4.3 10^3/mcL AH Workflow SS Lymphocytes/100 WBC (Bld) 7.1 % Low 20.0 - 40.0 % AH Workflow SS MCH (RBC) [Entitic mass] 29.6 pg Normal 27.0 - 33.0 pg AH Workflow SS MCHC 33.9 G/dL Normal 32.0 - 36.0 G/dL Workflow SS MCV (RBC) [Entitic vol] 87.3 fL Normal 80.0 - 99.0 fL Workflow SS Monocytes (Bld) [#/Vol] 0.2 103/mcL Normal 0.1 - 1.4 10^3/mcL AH Workflow SS Monocytes/100 WBC (Bld) 1.3 % Low 2.0 - 13.0 % AH Workflow SS Neutrophils (Bld) [#/Vol] 11.0 103/mcL High 2.3 - 8.1 10^3/mcL Workflow SS Neutrophils/100 WBC (Bld) 91.4 % High 50.0 - 75.0 % Workflow SS Platelet mean volume (Bld) [Entitic vol] 9.9 fL Normal 6.6 - 10.5 fL Workflow SS Platelets (Bld) [#/Vol] 151 103/mcL Normal 150 - 450 10^3/mcL AH Workflow SS Potassium [Moles/Vol] 3.7 mmol/L Normal 3.5 - 5.0 mEq/L ADM SS RBC (Bld) [#/Vol] 4.40 106/mcL Normal 4.10 - 5.30 10^6/mcL AH Workflow SS Sodium [Moles/Vol] 141 mmol/L Normal 136 - 145 mEq/L ADM SS Urea nitrogen [Mass/Vol] 23.0 mg/dL High 8.0 - 22.0 mg/dL AH ADM SS Urea nitrogen/Creatinine [Mass ratio] 27.7 ratio High 10.0 - 22.0 ratio AH ADM SS WBC (Bld) [#/Vol] 12.0 103/mcL High 4.5 - 10.8 10^3/mcL AH Workflow SS aPTT Coag (Bld) [Time] 27.3 s Normal 25.0 - 35.0 seconds [facility] SS Comment on above: Interpretive Data: F or Heparin anticoagulation therapy, the recommended therapeutic range is: 54-77 seconds (APTT Correlation with Anti-Xa therapeutic range of 0.3-0.7 units/ml). PLEASE REFERENCE THE PHARMACY PROTOCOL FOR DOSING. Calcium [Mass/Vol] 9.4 mg/dL Normal 8.7 - 10. 4 mg/dL AH ADM SS Chloride [Moles/Vol] 105 mmol/L Normal 98 - 11 0 mEq/L AH ADM SS CO2 [Moles/Vol] 27 mmol/L Normal 22 - 32 mEq/L AH ADM SS Creatinine [Mass/Vol] 0.84 mg/dL Normal 0.50 - 1.20 mg/dL AH ADM SS Comment on above: Interpretive Data: T esting performed on Hyperpia analyzer using enzymatic creatinine methodology. Electrolyte Balance 9.0 mEq/L Normal 4.0 - 15 .0 mEq/L AH ADM SS Fibrinogen 459 mg/dL Normal 250 - 560 mg/dL [facility] SS GFR/1.73 sq M.predicted among blacks MDRD (S/P/Bld) [Vol rate/Area] ml/min/1.73sqm Invalid Interpretation Code [facility] S Comment on above: Interpretive Data: GFR Population mean for , Non- Americans Ages 20-29 = 116 mL/min/1.73 sq.m. Ages 30-39 = 107 mL/min/1.73 sq.m. Ages 40-49 = 99 mL/min/1.73 sq.m. Ages 50-59 = 93 mL/min/1.73 sq.m. Ages 60-69 = 85 mL/min/1.73 sq.m. Ages 70+ = 75 mL/min/1.73 sq.m. Chronic Kidney Disease: Less than 60 mL/min/1.73 square meters End Stage Renal Disease: Less than 15 mL/min/1.73 square meters GFR/1.73 sq M.predicted among non-blacks MDRD (S/P/Bld) [Vol rate/Area] ml/min/1.73sqm Invalid Interpretation Code [facility] S Comment on above: Interpretive Data: GFR Population mean for , Non- Americans Ages 20-29 = 116 mL/min/1.73 sq.m. Ages 30-39 = 107 mL/min/1.73 sq.m. Ages 40-49 = 99 mL/min/1.73 sq.m. Ages 50-59 = 93 mL/min/1.73 sq.m. Ages 60-69 = 85 mL/min/1.73 sq.m. Ages 70+ = 75 mL/min/1.73 sq.m. Chronic Kidney Disease: Less than 60 mL/min/1.73 square meters End Stage Renal Disease: Less than 15 mL/min/1.73 square meters Glucose [Mass/Vol] 299 mg/dL High 82 - 115 mg/dL ADM SS Platelets (Bld) [#/Vol] 171 103/mcL Normal 150 - 450 10^3/mcL AH Workflow SS Potassium [Moles/Vol] 4.2 mmol/L Normal 3.5 - 5.0 mEq/L ADM SS Comment on above: Result Comment: Spec imen slightly hemolyzed. PT Coag (PPP) [Time] 12.9 s Normal 9.0 - 1 4.4 seconds [facility] SS Comment on above: Interpretive Data: E ffective 05/03/08, Protime results may be affected by some antibiotics (i.e. Ciprofloxacin, Azithromycin, Bactrim) which may potentiate the action of oral anticoagulants, with further increases in Protime/INR. PT International Ratio 1.1 ratio Invalid Interpretation Code [facility] Comment on above: Interpretive Data: Dhara lugo [employer] (CHEST, 1992, 102:[id number]) recommended therapeutic range for oral anticoagulant therapy is: LOW RISK: Prophylaxis of venous thrombosis INR: 2.0-3.0 Treatment of pulmonary embolism 2.0-3.0 Prevention of systemic embolism 2.0-3.0 HIGH RISK: Mechanical prosthetic valves 2.5-3.5 Sodium [Moles/Vol] 141 mmol/L Normal 136 - 145 mEq/L ADM SS Urea nitrogen [Mass/Vol] 24.0 mg/dL High 8.0 - 22.0 mg/dL ADM SS Urea nitrogen/Creatinine [Mass ratio] 28.6 ratio High 10.0 - 22.0 ratio ADM SS LABORATORYOrdered By: Erin Banks on 08-17-2024 ABO and Rh group Nom (Bld) Blood group A Rh(D) positive Invalid Interpretation Code BB Auto SS Blood group antibody screen Ql Negative ABSC (08/17/24 7:39 AM) Normal AH BB Auto SS PLTon 08-17-2024 Platelet 171 10 3/mcL Normal 150-450 [facility] Comment on above: Performed By: #### G FR, LIPID, A1C, CBC, ADIFF, ANEU, BMP, MG #### [facility] [address] [place] [address] PROon 08-17-2024 INR Coag (PPP) [Relative time] 1.1 {INR} Normal [facility] Comment on above: Result Comment: [employer] (CHEST, 1992, 102:[id number]) recommended therapeutic range for oral anticoagulant therapy is: LOW RISK: Prophylaxis of venous thrombosis INR: 2.0-3.0 Treatment of pulmonary embolism 2.0-3.0 Prevention of systemic embolism 2.0-3.0 HIGH RISK: Mechanical prosthetic valves 2.5-3.5 Performed By: #### G FR, LIPID, A1C, CBC, ADIFF, ANEU, BMP, MG #### [address] [address] PT Coag (PPP) [Time] 12.9 s Normal 9.0-14.4 [facility] Comment on above: Result Comment: Effe ctive 05/03/08, Protime results may be affected by some antibiotics (i.e. Ciprofloxacin, Azithromycin, Bactrim) which may potentiate the action of oral anticoagulants, with further increases in Protime/INR. Performed By: #### G FR, LIPID, A1C, CBC, ADIFF, ANEU, BMP, MG #### [address] [address] .Auto Diffon 08-12-2024 Basophil, Absolute 0.1 10 3/mcL Normal 0.0-0.3 [facility] Comment on above: Performed By: #### C BC, ADIFF, ANEU, BMP, GFR #### [facility] [address] [place] [address] Basophils/100 WBC (Bld) 0.7 % Normal 0.0-2.5 [facility] Comment on above: Performed By: #### C BC, ADIFF, ANEU, BMP, GFR #### [place] [id number] [place] [address] Eosinophil, Absolute 0.3 10 3/mcL Normal 0.0-0.7 [facility] Comment on above: Performed By: #### C BC, ADIFF, ANEU, BMP, GFR #### [address] [address] Eosinophils/100 WBC (Bld) 2.4 % Normal 0.0-6.0 [facility] Comment on above: Performed By: #### C BC, ADIFF, ANEU, BMP, GFR #### [address] [address] Lymphocyte, Absolute 2.0 10 3/mcL Normal 0.9-4.3 [facility] Comment on above: Performed By: #### C BC, ADIFF, ANEU, BMP, GFR #### [address] [address] Lymphocytes/100 WBC (Bld) 17.9 % Low 20.0-40.0 [facility] Comment on above: Performed By: #### C BC, ADIFF, ANEU, BMP, GFR #### [address] [address] Monocyte, Absolute 0.9 10 3/mcL Normal 0.1-1.4 [facility] Comment on above: Performed By: #### C BC, ADIFF, ANEU, BMP, GFR #### [address] [address] Monocytes/100 WBC (Bld) 7.8 % Normal 2.0-13.0 [facility] Comment on above: Performed By: #### C BC, ADIFF, ANEU, BMP, GFR #### [address] [address] Neutrophils/100 WBC (Bld) 71.2 % Normal 50.0-75.0 [facility] Comment on above: Performed By: #### C BC, ADIFF, ANEU, BMP, GFR #### [address] [address] .GFRon 08-12-2024 GFR >60 Normal [facility] Comment on above: Result Comment: GFR Population mean for , Non- Americans Ages 20-29 = 116 mL/min/1.73 sq.m. Ages 30-39 = 107 mL/min/1.73 sq.m. Ages 40-49 = 99 mL/min/1.73 sq.m. Ages 50-59 = 93 mL/min/1.73 sq.m. Ages 60-69 = 85 mL/min/1.73 sq.m. Ages 70+ = 75 mL/min/1.73 sq.m. Chronic Kidney Disease: Less than 60 mL/min/1.73 square meters End Stage Renal Disease: Less than 15 mL/min/1.73 square meters Performed By: #### G FR, LIPID, A1C, CBC, ADIFF, ANEU, BMP, MG #### [address] [address] GFR Non- 55 ml/min/1.73sqm Normal [facility] Comment on above: Result Comment: GFR Population mean for , Non- Americans Ages 20-29 = 116 mL/min/1.73 sq.m. Ages 30-39 = 107 mL/min/1.73 sq.m. Ages 40-49 = 99 mL/min/1.73 sq.m. Ages 50-59 = 93 mL/min/1.73 sq.m. Ages 60-69 = 85 mL/min/1.73 sq.m. Ages 70+ = 75 mL/min/1.73 sq.m. Chronic Kidney Disease: Less than 60 mL/min/1.73 square meters End Stage Renal Disease: Less than 15 mL/min/1.73 square meters Performed By: #### G FR, LIPID, A1C, CBC, ADIFF, ANEU, BMP, MG #### [address] [address] .NEUABSon 08-12-2024 Neutrophil, Absolute 8.1 10 3/mcL Normal 2.3-8.1 [facility] Comment on above: Performed By: #### C BC, ADIFF, ANEU, BMP, GFR #### [address] [address] BMPon 08-12-2024 BUN/Creatinine Ratio 21.4 ratio Normal 10.0-22.0 [facility] Comment on above: Performed By: #### G FR, LIPID, A1C, CBC, ADIFF, ANEU, BMP, MG #### [address] [address] Calcium [Mass/Vol] 9.3 mg/dL Normal 8.7-10.4 [facility] Comment on above: Performed By: #### G FR, LIPID, A1C, CBC, ADIFF, ANEU, BMP, MG #### [address] [address] Chloride [Moles/Vol] 105 mmol/L Normal 98-110 [facility] Comment on above: Performed By: #### G FR, LIPID, A1C, CBC, ADIFF, ANEU, BMP, MG #### [address] [address] CO2 [Moles/Vol] 34 mmol/L High 22-32 [facility] Comment on above: Performed By: #### G FR, LIPID, A1C, CBC, ADIFF, ANEU, BMP, MG #### [place] [id number] Creatinine [Mass/Vol] 0.98 mg/dL Normal 0.50-1.20 [facility] Comment on above: Result Comment: Test ing performed on Hyperpia analyzer using enzymatic creatinine methodology. Performed By: #### G FR, LIPID, A1C, CBC, ADIFF, ANEU, BMP, MG #### [address] [address] Electrolyte Balance 1.0 mEq/L Low 4.0-15.0 [facility] Comment on above: Performed By: #### G FR, LIPID, A1C, CBC, ADIFF, ANEU, BMP, MG #### [address] [address] Glucose [Mass/Vol] 187 mg/dL High 82-115 [facility] Comment on above: Performed By: #### G FR, LIPID, A1C, CBC, ADIFF, ANEU, BMP, MG #### [place] [id number] Potassium [Moles/Vol] 3.6 mmol/L Normal 3.5-5.0 [facility] Comment on above: Performed By: #### G FR, LIPID, A1C, CBC, ADIFF, ANEU, BMP, MG #### [place] [address] Sodium [Moles/Vol] 140 mmol/L Normal 136-145 [facility] Comment on above: Performed By: #### G FR, LIPID, A1C, CBC, ADIFF, ANEU, BMP, MG #### [place] [address] Urea nitrogen [Mass/Vol] 21.0 mg/dL Normal 8.0-22.0 [facility] Comment on above: Performed By: #### G FR, LIPID, A1C, CBC, ADIFF, ANEU, BMP, MG #### [place] [address] CBCon 08-12-2024 Erythrocyte distribution width (RBC) [Ratio] 15.0 % Normal 11.5-15.5 [facility] Comment on above: Performed By: #### C BC, ADIFF, ANEU, BMP, GFR #### [place] [address] Hematocrit (Bld) [Volume fraction] 42.6 % Normal 34.0-46.0 [facility] Comment on above: Performed By: #### C BC, ADIFF, ANEU, BMP, GFR #### [place] [address] Hgb 14.0 G/dL Normal 12.0-16.0 [facility] Comment on above: Performed By: #### C BC, ADIFF, ANEU, BMP, GFR #### [place] [address] MCH (RBC) [Entitic mass] 28.8 pg Normal 27.0-33.0 [facility] Comment on above: Performed By: #### C BC, ADIFF, ANEU, BMP, GFR #### [place] [address] MCHC 32.8 G/dL Normal 32.0-36.0 [facility] Comment on above: Performed By: #### C BC, ADIFF, ANEU, BMP, GFR #### [address] [address] MCV (RBC) [Entitic vol] 87.8 fL Normal 80.0-99.0 [facility] Comment on above: Performed By: #### C BC, ADIFF, ANEU, BMP, GFR #### [address] [address] Platelet 186 10 3/mcL Normal 150-450 [facility] Comment on above: Performed By: #### C BC, ADIFF, ANEU, BMP, GFR #### [address] [address] Platelet mean volume (Bld) [Entitic vol] 9.8 fL Normal 6.6-10.5 [facility] Comment on above: Performed By: #### C BC, ADIFF, ANEU, BMP, GFR #### [place] [address] RBC 4.86 10 6/mcL Normal 4.10-5.30 [facility] Comment on above: Performed By: #### C BC, ADIFF, ANEU, BMP, GFR #### [address] [address] WBC 11.3 10 3/mcL High 4.5-10.8 [facility] Comment on above: Performed By: #### C BC, ADIFF, ANEU, BMP, GFR #### [place] [address] LABORATORYOrdered By: SYSTEM SYSTEM on 08-12-2024 Basophils (Bld) [#/Vol] 0.1 103/mcL Normal 0.0 - 0.3 10^3/mcL AH Workflow SS Basophils/100 WBC (Bld) 0.7 % Normal 0.0 - 2.5 % AH Workflow SS Calcium [Mass/Vol] 9.3 mg/dL Normal 8.7 - 10. 4 mg/dL AH ADM SS Chloride [Moles/Vol] 105 mmol/L Normal 98 - 11 0 mEq/L AH ADM SS CO2 [Moles/Vol] 34 mmol/L High 22 - 32 mEq/L AH ADM SS Creatinine [Mass/Vol] 0.98 mg/dL Normal 0.50 - 1.20 mg/dL AH ADM SS Comment on above: Interpretive Data: T esting performed on Hyperpia analyzer using enzymatic creatinine methodology. Electrolyte Balance 1.0 mEq/L Low 4.0 - 15 .0 mEq/L ADM SS Eosinophils (Bld) [#/Vol] 0.3 103/mcL Normal 0.0 - 0.7 10^3/mcL AH Workflow SS Eosinophils/100 WBC (Bld) 2.4 % Normal 0.0 - 6.0 % Workflow SS Erythrocyte distribution width (RBC) [Ratio] 15.0 % Normal 11.5 - 15.5 % Workflow SS GFR/1.73 sq M.predicted among blacks MDRD (S/P/Bld) [Vol rate/Area] ml/min/1.73sqm Invalid Interpretation Code [facility] Comment on above: Interpretive Data: GFR Population mean for , Non- Americans Ages 20-29 = 116 mL/min/1.73 sq.m. Ages 30-39 = 107 mL/min/1.73 sq.m. Ages 40-49 = 99 mL/min/1.73 sq.m. Ages 50-59 = 93 mL/min/1.73 sq.m. Ages 60-69 = 85 mL/min/1.73 sq.m. Ages 70+ = 75 mL/min/1.73 sq.m. Chronic Kidney Disease: Less than 60 mL/min/1.73 square meters End Stage Renal Disease: Less than 15 mL/min/1.73 square meters GFR/1.73 sq M.predicted among non-blacks MDRD (S/P/Bld) [Vol rate/Area] 55 ml/min/1.73sqm Invalid Interpretation Code [facility] Comment on above: Interpretive Data: GFR Population mean for , Non- Americans Ages 20-29 = 116 mL/min/1.73 sq.m. Ages 30-39 = 107 mL/min/1.73 sq.m. Ages 40-49 = 99 mL/min/1.73 sq.m. Ages 50-59 = 93 mL/min/1.73 sq.m. Ages 60-69 = 85 mL/min/1.73 sq.m. Ages 70+ = 75 mL/min/1.73 sq.m. Chronic Kidney Disease: Less than 60 mL/min/1.73 square meters End Stage Renal Disease: Less than 15 mL/min/1.73 square meters Glucose [Mass/Vol] 187 mg/dL High 82 - 115 mg/dL ADM SS Hematocrit (Bld) [Volume fraction] 42.6 % Normal 34.0 - 46.0 % AH Workflow SS Hemoglobin (Bld) [Mass/Vol] 14.0 G/dL Normal 12.0 - 16.0 G/dL AH Workflow SS Lymphocytes (Bld) [#/Vol] 2.0 103/mcL Normal 0.9 - 4.3 10^3/mcL AH Workflow SS Lymphocytes/100 WBC (Bld) 17.9 % Low 20.0 - 40.0 % AH Workflow SS MCH (RBC) [Entitic mass] 28.8 pg Normal 27.0 - 33.0 pg AH Workflow SS MCHC 32.8 G/dL Normal 32.0 - 36.0 G/dL AH Workflow SS MCV (RBC) [Entitic vol] 87.8 fL Normal 80.0 - 99.0 fL AH Workflow SS Monocytes (Bld) [#/Vol] 0.9 103/mcL Normal 0.1 - 1.4 10^3/mcL AH Workflow SS Monocytes/100 WBC (Bld) 7.8 % Normal 2.0 - 13.0 % AH Workflow SS Neutrophils (Bld) [#/Vol] 8.1 103/mcL Normal 2.3 - 8.1 10^3/mcL AH Workflow SS Neutrophils/100 WBC (Bld) 71.2 % Normal 50.0 - 75.0 % AH Workflow SS Platelet mean volume (Bld) [Entitic vol] 9.8 fL Normal 6.6 - 10.5 fL AH Workflow SS Platelets (Bld) [#/Vol] 186 103/mcL Normal 150 - 450 10^3/mcL AH Workflow SS Potassium [Moles/Vol] 3.6 mmol/L Normal 3.5 - 5.0 mEq/L AH ADM SS RBC (Bld) [#/Vol] 4.86 106/mcL Normal 4.10 - 5.30 10^6/mcL AH Workflow SS Sodium [Moles/Vol] 140 mmol/L Normal 136 - 145 mEq/L ADM SS Urea nitrogen [Mass/Vol] 21.0 mg/dL Normal 8.0 - 22.0 mg/dL AH ADM SS Urea nitrogen/Creatinine [Mass ratio] 21.4 ratio Normal 10.0 - 22.0 ratio AH ADM SS WBC (Bld) [#/Vol] 11.3 103/mcL High 4.5 - 10.8 10^3/mcL AH Workflow SS CT ANGIOGRAPHY TAVR PLANNING on 08-06-2024 CT ANGIOGRAPHY TAVR PLANNING ORIGINAL EXAMINATION: 1. CTA HEART WITH IV CONTRAST 2. CTA CHEST WITH IV CONTRAST 3. CTA ABDOMEN & PELVIS WITH IV CONTRAST TECHNIQUE: 1. Noncontrast CT of the heart was obtained for calcium scoring (if performed). 2. CTA heart with IV contrast performed using retrospective ECG gating from the superior mediastinum to about 1 cm above the AV to the diaphragm. 3. CTA chest/abdomen/pelvis with IV contrast performed. 4. Aortic root measurements performed at 35% RR interval. Automated exposure control, iterative reconstruction, and/or weight based adjustment of the mA/kV was utilized to reduce the radiation dose to as low as reasonably achievable. Multiplanar and 3D reconstructions were created and reviewed on a separate workstation. COMPLICATIONS: None ACQUISITION HR (bpm): 74, Regular TECHNICAL QUALITY: Acceptable LIMITATIONS: None Lumen diameter measured as the narrowest point of the artery. STENOSIS: Normal: 0% stenosis Minimal: <25% stenosis Mild: 25-49% Moderate: 50-69% Severe: >=70% Abbreviations: LM: left main, RCA: right coronary artery, HR: heart rate, PA: pulmonary artery, Asc: ascending, Ao: Aorta, STJ: sinotubular junction, SoV: sinuses of Valsalva, LVOT: left ventricular outflow tract; Noris: diameter; Ht: height; NC: non-coronary; ABD: abdominal; AV: aortic valve; MV: mitral valve; NIRANJAN: common iliac artery; EIA: external iliac artery; HY[employer]OE[employer]IC PLANT ELECTRICAL ENGINEER: common femoral artery COMPARISON: None HISTORY: ORDERING SYSTEM PROVIDED HISTORY: Reason for Exam: severe aortic stenosis PRE-OP VALVE REPLACEMENT,HX OF SEVERE AORTIC STENOSIS FINDINGS: PRE-TAVR VASCULAR: Unless specified, all measurements are in mm. SoV Diameters RT: 29.7 NC: 27.2 LT: 29.8 3-cusp angulation (degrees): KAZAKH 3, CAU 4.8 Asc Ao Noris: 28.9 (@ 4 cm distal to annulus) STJ Noris: 27.5 SoV Ht: 17 LVOT Noris: 23.6 ANNULUS Diameter: 27.5 x 22.6 Area (mm^2): 460 Perimeter: 78.9 Height RCA: 15.8 Height LM: 14.3 ABD Ao Dmin: 8.8 RIGHT Dmin: NIRANJAN: 3.5 EIA: 6.9 [employer]OE[employer] ELECTRICAL ENGINEER: 7.0 LEFT Dmin: NIRANJAN: 5.2 EIA: 7.0 [employer]LECTRICAL ENGINEER: 7.2 Right axillary: 6.6 Right subclavian: 7.6 Brachiocephalic: 7.9 Left axillary 5.9 Left subclavian: 6.3 AORTIC VALVE Calcium Score: 2203.2 Calcium Vol (mm^3): 1404.3 Cusp #: Tricuspid Cusp thickening: Mild thickening. CALCIUM Cusp: Mild. No severely calcified cusp which may obstruct coronary ostia. Annulus: Mild Distribution: Asymmetric without extension to LVOT CORONARY DOMINANCE: Right ANOMALIES: None. LM gives rise to the LAD and LCx. CALCIUM: Severe with RCA stenting. GRAFTS: Josue to LAD territory is evident. NON-CORONARY HEART: Mild biatrial enlargement. MITRAL VALVE THICKENING: Mild thickening. CALCIFICATION: Moderate PERICARDIUM: EFFUSION: None THICKENING: None. CALCIFICATION: None MAIN PA: Non-dilated. No embolus centrally. THORACIC Ao ASCENDING: Diameter: Non-aneurysmal Calcified plaque: Minimal Tortuosity: None ARCH: Branches: 4-vessel, left vertebral artery arising as 4th branch Diameter: Non-aneurysmal Calcified plaque: Moderate Tortuosity: None DESCENDING: Diameter: Non-aneurysmal Calcified plaque: Mild Tortuosity: None ABD Ao SUPRARENAL Diameter: Non-aneurysmal Calcified plaque: Mild Tortuosity: None INFRARENAL Diameter: Non-aneurysmal Calcified plaque: Moderate Tortuosity: None Celiac: No severe stenosis. SMA: No severe stenosis. ALISSA: No severe stenosis. RIGHT Renal: No severe stenosis. Single renal artery. LEFT Renal: No severe stenosis. Dual renal arteries. RIGHT NIRANJAN Diameter: Non-aneurysmal Calcified plaque: Severe Tortuosity: None EIA Diameter: Non-aneurysmal Calcified plaque: None Tortuosity: None [employer] ELECTRICAL ENGINEER Diameter: Non-aneurysmal Calcified plaque: Mild Bifurcation: @ mid 1/3 of femoral head LEFT NIRANJAN Diameter: Non-aneurysmal Calcified plaque: Severe Tortuosity: None EIA Diameter: Non-aneurysmal Calcified plaque: None Tortuosity: None [employer] ELECTRICAL ENGINEER Diameter: Non-aneurysmal Calcified plaque: Mild Bifurcation: Below femoral head NONVASCULAR: CHEST LUNGS: No consolidation. There is evidence of prior granulomatous disease, with calcified nodules and lymph nodes throughout the chest. There are other scattered punctate noncalcified nodules in the right upper lobe measuring to 3 mm. AIRWAYS: Trachea and mainstem bronchi are patent. PLEURA: No effusion. No pneumothorax. LYMPHATIC: No hilar, mediastinal, or axillary adenopathy. BONES: No suspicious osseous lesion. Sternotomy wires. ABD/PELVIS LIVER: Unremarkable. BILIARY: No extra or intrahepatic duct dilatation. GALLBLADDER: S (more content not included)... Normal [facility] .Auto Diffon 07-28-2024 Basophil, Absolute 0.0 10 3/mcL Normal 0.0-0.3 [facility] Comment on above: Performed By: #### G FR, LIPID, A1C, CBC, ADIFF, ANEU, BMP, MG #### [address] [address] Basophils/100 WBC (Bld) 0.2 % Normal 0.0-2.5 [facility] Comment on above: Performed By: #### G FR, LIPID, A1C, CBC, ADIFF, ANEU, BMP, MG #### [address] [address] Eosinophil, Absolute 0.0 10 3/mcL Normal 0.0-0.7 [facility] Comment on above: Performed By: #### G FR, LIPID, A1C, CBC, ADIFF, ANEU, BMP, MG #### [address] [address] Eosinophils/100 WBC (Bld) 0.0 % Normal 0.0-6.0 [facility] Comment on above: Performed By: #### G FR, LIPID, A1C, CBC, ADIFF, ANEU, BMP, MG #### [address] [address] Lymphocyte, Absolute 2.1 10 3/mcL Normal 0.9-4.3 [facility] Comment on above: Performed By: #### G FR, LIPID, A1C, CBC, ADIFF, ANEU, BMP, MG #### [place] [address] [place] [address] Lymphocytes/100 WBC (Bld) 14.3 % Low 20.0-40.0 [facility] Comment on above: Performed By: #### G FR, LIPID, A1C, CBC, ADIFF, ANEU, BMP, MG #### [place] [id number] [place] [address] Monocyte, Absolute 1.4 10 3/mcL Normal 0.1-1.4 [facility] Comment on above: Performed By: #### G FR, LIPID, A1C, CBC, ADIFF, ANEU, BMP, MG #### [address] [address] Monocytes/100 WBC (Bld) 9.6 % Normal 2.0-13.0 [facility] Comment on above: Performed By: #### G FR, LIPID, A1C, CBC, ADIFF, ANEU, BMP, MG #### [address] [address] Neutrophils/100 WBC (Bld) 75.9 % High 50.0-75.0 [facility] Comment on above: Performed By: #### G FR, LIPID, A1C, CBC, ADIFF, ANEU, BMP, MG #### [address] [address] .GFRon 07-28-2024 GFR >60 Normal [facility] Comment on above: Result Comment: GFR Population mean for , Non- Americans Ages 20-29 = 116 mL/min/1.73 sq.m. Ages 30-39 = 107 mL/min/1.73 sq.m. Ages 40-49 = 99 mL/min/1.73 sq.m. Ages 50-59 = 93 mL/min/1.73 sq.m. Ages 60-69 = 85 mL/min/1.73 sq.m. Ages 70+ = 75 mL/min/1.73 sq.m. Chronic Kidney Disease: Less than 60 mL/min/1.73 square meters End Stage Renal Disease: Less than 15 mL/min/1.73 square meters Performed By: #### C BC, ADIFF, ANEU, BMP, GFR #### [address] [address] GFR Non- 54 ml/min/1.73sqm Normal [facility] Comment on above: Result Comment: GFR Population mean for , Non- Americans Ages 20-29 = 116 mL/min/1.73 sq.m. Ages 30-39 = 107 mL/min/1.73 sq.m. Ages 40-49 = 99 mL/min/1.73 sq.m. Ages 50-59 = 93 mL/min/1.73 sq.m. Ages 60-69 = 85 mL/min/1.73 sq.m. Ages 70+ = 75 mL/min/1.73 sq.m. Chronic Kidney Disease: Less than 60 mL/min/1.73 square meters End Stage Renal Disease: Less than 15 mL/min/1.73 square meters Performed By: #### C BC, ADIFF, ANEU, BMP, GFR #### [address] [address] .NEUABSon 07-28-2024 Neutrophil, Absolute 11.0 10 3/mcL High 2.3-8.1 [facility] Comment on above: Performed By: #### G FR, LIPID, A1C, CBC, ADIFF, ANEU, BMP, MG #### [place] [id number] A1Con 07-28-2024 Glucose [Mass/Vol] 140 mg/dL Normal [facility] Comment on above: Result Comment: Beronica mated Average Glucose calculated by equation ((28.7xA1C)-46.7) Estimated average glucose (eAG) is a calculated value from Hemoglobin A1C and is kiosk sales representative of the average blood glucose level in the last 2-3 month period. Normal range: less than 114 mg/dL Performed By: #### C BC, ADIFF, ANEU, BMP, GFR #### [address] [address] HbA1c (Bld) [Mass fraction] 6.5 % High 4.0-6.0 [facility] Comment on above: Performed By: #### C BC, ADIFF, ANEU, BMP, GFR #### [address] [address] BMPon 07-28-2024 BUN/Creatinine Ratio 24.2 ratio High 10.0-22.0 [facility] Comment on above: Performed By: #### G FR, LIPID, A1C, CBC, ADIFF, ANEU, BMP, MG #### [address] [address] Calcium [Mass/Vol] 9.3 mg/dL Normal 8.7-10.4 [facility] Comment on above: Performed By: #### G FR, LIPID, A1C, CBC, ADIFF, ANEU, BMP, MG #### [address] [address] Chloride [Moles/Vol] 99 mmol/L Normal 98-110 [facility] Comment on above: Performed By: #### G FR, LIPID, A1C, CBC, ADIFF, ANEU, BMP, MG #### [address] [address] CO2 [Moles/Vol] 34 mmol/L High 22-32 [facility] Comment on above: Performed By: #### G FR, LIPID, A1C, CBC, ADIFF, ANEU, BMP, MG #### [address] [address] Creatinine [Mass/Vol] 0.99 mg/dL Normal 0.50-1.20 [facility] Comment on above: Result Comment: Test ing performed on Hyperpia analyzer using enzymatic creatinine methodology. Performed By: #### G FR, LIPID, A1C, CBC, ADIFF, ANEU, BMP, MG #### [address] [address] Electrolyte Balance 6.0 mEq/L Normal 4.0-15.0 [facility] Comment on above: Performed By: #### G FR, LIPID, A1C, CBC, ADIFF, ANEU, BMP, MG #### [address] [address] Glucose [Mass/Vol] 240 mg/dL High 82-115 [facility] Comment on above: Performed By: #### G FR, LIPID, A1C, CBC, ADIFF, ANEU, BMP, MG #### [address] [address] Potassium [Moles/Vol] 3.7 mmol/L Normal 3.5-5.0 [facility] Comment on above: Performed By: #### G FR, LIPID, A1C, CBC, ADIFF, ANEU, BMP, MG #### [place] [address] Sodium [Moles/Vol] 139 mmol/L Normal 136-145 [facility] Comment on above: Performed By: #### G FR, LIPID, A1C, CBC, ADIFF, ANEU, BMP, MG #### [place] [address] Urea nitrogen [Mass/Vol] 24.0 mg/dL High 8.0-22.0 [facility] Comment on above: Performed By: #### G FR, LIPID, A1C, CBC, ADIFF, ANEU, BMP, MG #### [place] [address] CBCon 07-28-2024 Erythrocyte distribution width (RBC) [Ratio] 14.4 % Normal 11.5-15.5 [facility] Comment on above: Performed By: #### G FR, LIPID, A1C, CBC, ADIFF, ANEU, BMP, MG #### [place] [address] Hematocrit (Bld) [Volume fraction] 41.6 % Normal 34.0-46.0 [facility] Comment on above: Performed By: #### G FR, LIPID, A1C, CBC, ADIFF, ANEU, BMP, MG #### [place] [address] Hgb 13.8 G/dL Normal 12.0-16.0 [facility] Comment on above: Performed By: #### G FR, LIPID, A1C, CBC, ADIFF, ANEU, BMP, MG #### [place] [address] MCH (RBC) [Entitic mass] 28.6 pg Normal 27.0-33.0 [facility] Comment on above: Performed By: #### G FR, LIPID, A1C, CBC, ADIFF, ANEU, BMP, MG #### [address] [address] MCHC 33.1 G/dL Normal 32.0-36.0 [facility] Comment on above: Performed By: #### G FR, LIPID, A1C, CBC, ADIFF, ANEU, BMP, MG #### [address] [address] MCV (RBC) [Entitic vol] 86.3 fL Normal 80.0-99.0 [facility] Comment on above: Performed By: #### G FR, LIPID, A1C, CBC, ADIFF, ANEU, BMP, MG #### [place] [address] Platelet 188 10 3/mcL Normal 150-450 [facility] Comment on above: Performed By: #### G FR, LIPID, A1C, CBC, ADIFF, ANEU, BMP, MG #### [place] [address] Platelet mean volume (Bld) [Entitic vol] 9.3 fL Normal 6.6-10.5 [facility] Comment on above: Performed By: #### G FR, LIPID, A1C, CBC, ADIFF, ANEU, BMP, MG #### [place] [id number] RBC 4.82 10 6/mcL Normal 4.10-5.30 [facility] Comment on above: Performed By: #### G FR, LIPID, A1C, CBC, ADIFF, ANEU, BMP, MG #### [place] [id number] WBC 14.5 10 3/mcL High 4.5-10.8 [facility] Comment on above: Performed By: #### G FR, LIPID, A1C, CBC, ADIFF, ANEU, BMP, MG #### [place] [address] LABORATORYOrdered By: Robel Rob on 07-28-2024 Blood Glucose Testing Reason Routine (07/28/24 12:24 PM) [facility] Work Phone: Glucose [Mass/Vol] 224 mg/dL High 82 - 115 mg/dL [facility] Work Phone: Blood Glucose Testing Reason Routine (07/28/24 8:00 AM) [facility] Work Phone: Glucose [Mass/Vol] 202 mg/dL High 82 - 115 mg/dL [facility] Work Phone: LABORATORYOrdered By: Alysia Perez on 07-28-2024 Blood Glucose Testing Reason Routine (07/28/24 11:25 AM) [facility] Work Phone: Glucose [Mass/Vol] 271 mg/dL High 82 - 115 mg/dL [facility] Work Phone: LABORATORYOrdered By: SYSTEM SYSTEM on 07-28-2024 Basophils (Bld) [#/Vol] 0.0 103/mcL Normal 0.0 - 0.3 10^3/mcL Workflow SS Basophils/100 WBC (Bld) 0.2 % Normal 0.0 - 2.5 % Workflow SS Calcium [Mass/Vol] 9.3 mg/dL Normal 8.7 - 10. 4 mg/dL ADM SS Chloride [Moles/Vol] 99 mmol/L Normal 98 - 11 0 mEq/L ADM SS CO2 [Moles/Vol] 34 mmol/L High 22 - 32 mEq/L ADM SS Creatinine [Mass/Vol] 0.99 mg/dL Normal 0.50 - 1.20 mg/dL ADM SS Comment on above: Interpretive Data: T esting performed on Hyperpia analyzer using enzymatic creatinine methodology. Electrolyte Balance 6.0 mEq/L Normal 4.0 - 15 .0 mEq/L ADM SS Eosinophils (Bld) [#/Vol] 0.0 103/mcL Normal 0.0 - 0.7 10^3/mcL Workflow SS Eosinophils/100 WBC (Bld) 0.0 % Normal 0.0 - 6.0 % Workflow SS Erythrocyte distribution width (RBC) [Ratio] 14.4 % Normal 11.5 - 15.5 % Workflow SS GFR/1.73 sq M.predicted among blacks MDRD (S/P/Bld) [Vol rate/Area] ml/min/1.73sqm Invalid Interpretation Code ADM SS Comment on above: Interpretive Data: GFR Population mean for , Non- Americans Ages 20-29 = 116 mL/min/1.73 sq.m. Ages 30-39 = 107 mL/min/1.73 sq.m. Ages 40-49 = 99 mL/min/1.73 sq.m. Ages 50-59 = 93 mL/min/1.73 sq.m. Ages 60-69 = 85 mL/min/1.73 sq.m. Ages 70+ = 75 mL/min/1.73 sq.m. Chronic Kidney Disease: Less than 60 mL/min/1.73 square meters End Stage Renal Disease: Less than 15 mL/min/1.73 square meters GFR/1.73 sq M.predicted among non-blacks MDRD (S/P/Bld) [Vol rate/Area] 54 ml/min/1.73sqm Invalid Interpretation Code ADM SS Comment on above: Interpretive Data: GFR Population mean for , Non- Americans Ages 20-29 = 116 mL/min/1.73 sq.m. Ages 30-39 = 107 mL/min/1.73 sq.m. Ages 40-49 = 99 mL/min/1.73 sq.m. Ages 50-59 = 93 mL/min/1.73 sq.m. Ages 60-69 = 85 mL/min/1.73 sq.m. Ages 70+ = 75 mL/min/1.73 sq.m. Chronic Kidney Disease: Less than 60 mL/min/1.73 square meters End Stage Renal Disease: Less than 15 mL/min/1.73 square meters Glucose [Mass/Vol] 140 mg/dL Invalid Interpretation Code AH Auto Chem SS Comment on above: Interpretive Data: E stimated average glucose (eAG) is a calculated value from Hemoglobin A1C and is kiosk sales representative of the average blood glucose level in the last 2-3 month period. Normal range: less than 114 mg/dL Glucose [Mass/Vol] 240 mg/dL High 82 - 115 mg/dL ADM SS HbA1c (Bld) [Mass fraction] 6.5 % High 4.0 - 6.0 % Auto Chem SS Hematocrit (Bld) [Volume fraction] 41.6 % Normal 34.0 - 46.0 % Workflow SS Hemoglobin (Bld) [Mass/Vol] 13.8 G/dL Normal 12.0 - 16.0 G/dL AH Workflow SS Lymphocytes (Bld) [#/Vol] 2.1 103/mcL Normal 0.9 - 4.3 10^3/mcL AH Workflow SS Lymphocytes/100 WBC (Bld) 14.3 % Low 20.0 - 40.0 % AH Workflow SS Magnesium [Mass/Vol] 2.0 mg/dL Normal 1.6 - 2 .4 mg/dL AH ADM SS MCH (RBC) [Entitic mass] 28.6 pg Normal 27.0 - 33.0 pg AH Workflow SS MCHC 33.1 G/dL Normal 32.0 - 36.0 G/dL AH Workflow SS MCV (RBC) [Entitic vol] 86.3 fL Normal 80.0 - 99.0 fL AH Workflow SS Monocytes (Bld) [#/Vol] 1.4 103/mcL Normal 0.1 - 1.4 10^3/mcL AH Workflow SS Monocytes/100 WBC (Bld) 9.6 % Normal 2.0 - 13.0 % AH Workflow SS Neutrophils (Bld) [#/Vol] 11.0 103/mcL High 2.3 - 8.1 10^3/mcL AH Workflow SS Neutrophils/100 WBC (Bld) 75.9 % High 50.0 - 75.0 % AH Workflow SS Platelet mean volume (Bld) [Entitic vol] 9.3 fL Normal 6.6 - 10.5 fL AH Workflow SS Platelets (Bld) [#/Vol] 188 103/mcL Normal 150 - 450 10^3/mcL AH Workflow SS Potassium [Moles/Vol] 3.7 mmol/L Normal 3.5 - 5.0 mEq/L AH ADM SS RBC (Bld) [#/Vol] 4.82 106/mcL Normal 4.10 - 5.30 10^6/mcL AH Workflow SS Sodium [Moles/Vol] 139 mmol/L Normal 136 - 145 mEq/L AH ADM SS Urea nitrogen [Mass/Vol] 24.0 mg/dL High 8.0 - 22.0 mg/dL AH ADM SS Urea nitrogen/Creatinine [Mass ratio] 24.2 ratio High 10.0 - 22.0 ratio AH ADM SS WBC (Bld) [#/Vol] 14.5 103/mcL High 4.5 - 10.8 10^3/mcL AH Workflow SS LABORATORYOrdered By: Lucita Juan on 07-28-2024 Cholesterol [Mass/Vol] 128 mg/dL Normal 50 - 199 mg/dL AH ADM SS Comment on above: Interpretive Data: C holesterol Reference Interval: Less than 200 Desirable 200-239 Borderline high risk 240 and above High risk Cholesterol in HDL [Mass/Vol] 35 mg/dL Low 40 - 59 mg/dL AH ADM SS Cholesterol in LDL [Mass/Vol] 67 mg/dL Normal 0 - 129 mg/dL AH ADM SS Triglyceride [Mass/Vol] 129 mg/dL Normal 3 - 149 mg/dL ADM SS LIPIDon 07-28-2024 Cholesterol [Mass/Vol] 128 mg/dL Normal 50-199 [facility] Comment on above: Result Comment: Chol esterol Reference Interval: Less than 200 Desirable 200-239 Borderline high risk 240 and above High risk Performed By: #### C BC, ADIFF, ANEU, BMP, GFR #### [address] [address] Cholesterol in HDL [Mass/Vol] 35 mg/dL Low 40-59 [facility] Comment on above: Performed By: #### C BC, ADIFF, ANEU, BMP, GFR #### [address] [address] Cholesterol in LDL [Mass/Vol] 67 mg/dL Normal 0-129 [facility] Comment on above: Performed By: #### C BC, ADIFF, ANEU, BMP, GFR #### [address] [address] Triglyceride [Mass/Vol] 129 mg/dL Normal 3-149 [facility] Comment on above: Performed By: #### C BC, ADIFF, ANEU, BMP, GFR #### [address] [address] MGon 07-28-2024 Magnesium [Mass/Vol] 2.0 mg/dL Normal 1.6-2.4 [facility] Comment on above: Performed By: #### G FR, LIPID, A1C, CBC, ADIFF, ANEU, BMP, MG #### [address] [address] XR CHEST 1 VIEWon 07-28-2024 XR CHEST 1 VIEW ORIGINAL HISTORY: Chest pain COMPARISON: No FINDINGS: The film is mildly rotated. There are sternotomy wires. The lungs are clear. The pulmonary vasculature is unremarkable in appearance. IMPRESSION: Clear lungs. Interpreted by: Adelaide Benz MD Preliminary Report By: Adelaide Benz MD Electronically signed By Adelaide Benz MD Dictated Date: 07/28/2024 10:42:03 AM Prelim Date: 07/28/2024 10:42:27 AM Sign Date: 07/28/2024 10:42:27 AM Ordering Provider: ASHLEY Miranda [facility] .Auto Diffon 07-27-2024 Basophil, Absolute 0.0 10 3/mcL Normal 0.0-0.3 [facility] Comment on above: Performed By: #### C BC, ADIFF, ANEU, BMP, GFR #### [address] [address] Basophils/100 WBC (Bld) 0.3 % Normal 0.0-2.5 [facility] Comment on above: Performed By: #### C BC, ADIFF, ANEU, BMP, GFR #### [address] [address] Eosinophil, Absolute 0.0 10 3/mcL Normal 0.0-0.7 [facility] Comment on above: Performed By: #### C BC, ADIFF, ANEU, BMP, GFR #### [address] [address] Eosinophils/100 WBC (Bld) 0.0 % Normal 0.0-6.0 [facility] Comment on above: Performed By: #### C BC, ADIFF, ANEU, BMP, GFR #### [address] [address] Lymphocyte, Absolute 1.2 10 3/mcL Normal 0.9-4.3 [facility] Comment on above: Performed By: #### C BC, ADIFF, ANEU, BMP, GFR #### [address] [address] Lymphocytes/100 WBC (Bld) 9.3 % Low 20.0-40.0 [facility] Comment on above: Performed By: #### C BC, ADIFF, ANEU, BMP, GFR #### [address] [address] Monocyte, Absolute 0.3 10 3/mcL Normal 0.1-1.4 [facility] Comment on above: Performed By: #### C BC, ADIFF, ANEU, BMP, GFR #### [address] [address] Monocytes/100 WBC (Bld) 2.4 % Normal 2.0-13.0 [facility] Comment on above: Performed By: #### C BC, ADIFF, ANEU, BMP, GFR #### [address] [address] Neutrophils/100 WBC (Bld) 88.0 % High 50.0-75.0 [facility] Comment on above: Performed By: #### C BC, ADIFF, ANEU, BMP, GFR #### [address] [address] Basophil, Absolute 0.0 10 3/mcL Normal 0.0-0.3 [facility] Comment on above: Performed By: #### C BC, ADIFF, ANEU, BMP, GFR #### [address] [address] Basophils/100 WBC (Bld) 0.2 % Normal 0.0-2.5 [facility] Comment on above: Performed By: #### C BC, ADIFF, ANEU, BMP, GFR #### [address] [address] Eosinophil, Absolute 0.0 10 3/mcL Normal 0.0-0.7 [facility] Comment on above: Performed By: #### C BC, ADIFF, ANEU, BMP, GFR #### [address] [address] Eosinophils/100 WBC (Bld) 0.0 % Normal 0.0-6.0 [facility] Comment on above: Performed By: #### C BC, ADIFF, ANEU, BMP, GFR #### [address] [address] Lymphocyte, Absolute 1.1 10 3/mcL Normal 0.9-4.3 [facility] Comment on above: Performed By: #### C BC, ADIFF, ANEU, BMP, GFR #### [address] [address] Lymphocytes/100 WBC (Bld) 9.1 % Low 20.0-40.0 [facility] Comment on above: Performed By: #### C BC, ADIFF, ANEU, BMP, GFR #### [address] [address] Monocyte, Absolute 0.3 10 3/mcL Normal 0.1-1.4 [facility] Comment on above: Performed By: #### C BC, ADIFF, ANEU, BMP, GFR #### [address] [address] Monocytes/100 WBC (Bld) 2.4 % Normal 2.0-13.0 [facility] Comment on above: Performed By: #### C BC, ADIFF, ANEU, BMP, GFR #### [address] [address] Neutrophils/100 WBC (Bld) 88.3 % High 50.0-75.0 [facility] Comment on above: Performed By: #### C BC, ADIFF, ANEU, BMP, GFR #### [address] [address] .GFRon 07-27-2024 GFR >60 Normal [facility] Comment on above: Result Comment: GFR Population mean for , Non- Americans Ages 20-29 = 116 mL/min/1.73 sq.m. Ages 30-39 = 107 mL/min/1.73 sq.m. Ages 40-49 = 99 mL/min/1.73 sq.m. Ages 50-59 = 93 mL/min/1.73 sq.m. Ages 60-69 = 85 mL/min/1.73 sq.m. Ages 70+ = 75 mL/min/1.73 sq.m. Chronic Kidney Disease: Less than 60 mL/min/1.73 square meters End Stage Renal Disease: Less than 15 mL/min/1.73 square meters Performed By: #### C BC, ADIFF, ANEU, BMP, GFR #### [address] [address] GFR Non- >[address] [facility] Comment on above: Result Comment: GFR Population mean for , Non- Americans Ages 20-29 = 116 mL/min/1.73 sq.m. Ages 30-39 = 107 mL/min/1.73 sq.m. Ages 40-49 = 99 mL/min/1.73 sq.m. Ages 50-59 = 93 mL/min/1.73 sq.m. Ages 60-69 = 85 mL/min/1.73 sq.m. Ages 70+ = 75 mL/min/1.73 sq.m. Chronic Kidney Disease: Less than 60 mL/min/1.73 square meters End Stage Renal Disease: Less than 15 mL/min/1.73 square meters Performed By: #### C BC, ADIFF, ANEU, BMP, GFR #### [address] [address] GFR >60 [facility] Comment on above: Result Comment: GFR Population mean for , Non- Americans Ages 20-29 = 116 mL/min/1.73 sq.m. Ages 30-39 = 107 mL/min/1.73 sq.m. Ages 40-49 = 99 mL/min/1.73 sq.m. Ages 50-59 = 93 mL/min/1.73 sq.m. Ages 60-69 = 85 mL/min/1.73 sq.m. Ages 70+ = 75 mL/min/1.73 sq.m. Chronic Kidney Disease: Less than 60 mL/min/1.73 square meters End Stage Renal Disease: Less than 15 mL/min/1.73 square meters Performed By: #### C BC, ADIFF, ANEU, BMP, GFR #### [address] [address] GFR Non- >[address] [facility] MAIN Comment on above: Result Comment: GFR Population mean for , Non- Americans Ages 20-29 = 116 mL/min/1.73 sq.m. Ages 30-39 = 107 mL/min/1.73 sq.m. Ages 40-49 = 99 mL/min/1.73 sq.m. Ages 50-59 = 93 mL/min/1.73 sq.m. Ages 60-69 = 85 mL/min/1.73 sq.m. Ages 70+ = 75 mL/min/1.73 sq.m. Chronic Kidney Disease: Less than 60 mL/min/1.73 square meters End Stage Renal Disease: Less than 15 mL/min/1.73 square meters Performed By: #### C BC, ADIFF, ANEU, BMP, GFR #### [address] [address] .NEUABSon 07-27-2024 Neutrophil, Absolute 11.8 10 3/mcL High 2.3-8.1 [facility] Comment on above: Performed By: #### C BC, ADIFF, ANEU, BMP, GFR #### [place] [address] Neutrophil, Absolute 10.6 10 3/mcL High 2.3-8.1 [facility] Comment on above: Performed By: #### C BC, ADIFF, ANEU, BMP, GFR #### [address] [address] BMPon 07-27-2024 BUN/Creatinine Ratio 25.0 ratio High 10.0-22.0 [facility] Comment on above: Performed By: #### C BC, ADIFF, ANEU, BMP, GFR #### [address] [address] Calcium [Mass/Vol] 8.9 mg/dL Normal 8.7-10.4 [facility] Comment on above: Performed By: #### C BC, ADIFF, ANEU, BMP, GFR #### [address] [address] Chloride [Moles/Vol] 105 mmol/L Normal 98-110 [facility] Comment on above: Performed By: #### C BC, ADIFF, ANEU, BMP, GFR #### [address] [address] CO2 [Moles/Vol] 29 mmol/L Normal 22-32 [facility] Comment on above: Performed By: #### C BC, ADIFF, ANEU, BMP, GFR #### [address] [address] Creatinine [Mass/Vol] 0.76 mg/dL Normal 0.50-1.20 [facility] Comment on above: Result Comment: Test ing performed on Hyperpia analyzer using enzymatic creatinine methodology. Performed By: #### C BC, ADIFF, ANEU, BMP, GFR #### [place] [id number] Electrolyte Balance 8.0 mEq/L Normal 4.0-15.0 [facility] Comment on above: Performed By: #### C BC, ADIFF, ANEU, BMP, GFR #### [place] [id number] Glucose [Mass/Vol] 245 mg/dL High 82-115 [facility] Comment on above: Performed By: #### C BC, ADIFF, ANEU, BMP, GFR #### [place] [id number] Potassium [Moles/Vol] 3.8 mmol/L Normal 3.5-5.0 [facility] Comment on above: Performed By: #### C BC, ADIFF, ANEU, BMP, GFR #### [place] [id number] Sodium [Moles/Vol] 142 mmol/L Normal 136-145 [facility] Comment on above: Performed By: #### C BC, ADIFF, ANEU, BMP, GFR #### [place] [id number] Urea nitrogen [Mass/Vol] 19.0 mg/dL Normal 8.0-22.0 [facility] Comment on above: Performed By: #### C BC, ADIFF, ANEU, BMP, GFR #### [place] [id number] CAIONon 07-27-2024 Calcium Ionized 1.11 mmol/L Low 1.12-1.32 [facility] Comment on above: Result Comment: No n ormals available: specimen drawn from IV arm. Performed By: #### C BC, ADIFF, ANEU, BMP, GFR #### [place] [address] CBCon 07-27-2024 Erythrocyte distribution width (RBC) [Ratio] 14.4 % Normal 11.5-15.5 [facility] Comment on above: Performed By: #### C BC, ADIFF, ANEU, BMP, GFR #### [place] [address] Hematocrit (Bld) [Volume fraction] 44.1 % Normal 34.0-46.0 [facility] Comment on above: Performed By: #### C BC, ADIFF, ANEU, BMP, GFR #### [place] [address] Hgb 14.7 G/dL Normal 12.0-16.0 [facility] Comment on above: Performed By: #### C BC, ADIFF, ANEU, BMP, GFR #### [place] [address] MCH (RBC) [Entitic mass] 29.0 pg Normal 27.0-33.0 [facility] Comment on above: Performed By: #### C BC, ADIFF, ANEU, BMP, GFR #### [place] [address] MCHC 33.3 G/dL Normal 32.0-36.0 [facility] Comment on above: Performed By: #### C BC, ADIFF, ANEU, BMP, GFR #### [place] [address] MCV (RBC) [Entitic vol] 87.1 fL Normal 80.0-99.0 [facility] Comment on above: Performed By: #### C BC, ADIFF, ANEU, BMP, GFR #### [place] [address] Platelet 198 10 3/mcL Normal 150-450 [facility] Comment on above: Performed By: #### C BC, ADIFF, ANEU, BMP, GFR #### [place] [address] Platelet mean volume (Bld) [Entitic vol] 9.8 fL Normal 6.6-10.5 [facility] Comment on above: Performed By: #### C BC, ADIFF, ANEU, BMP, GFR #### [place] [address] RBC 5.07 10 6/mcL Normal 4.10-5.30 [facility] Comment on above: Performed By: #### C BC, ADIFF, ANEU, BMP, GFR #### [place] [address] WBC 13.4 10 3/mcL High 4.5-10.8 [facility] Comment on above: Performed By: #### C BC, ADIFF, ANEU, BMP, GFR #### [place] [address] Erythrocyte distribution width (RBC) [Ratio] 14.3 % Normal 11.5-15.5 [facility] Comment on above: Performed By: #### C BC, ADIFF, ANEU, BMP, GFR #### [place] [address] Hematocrit (Bld) [Volume fraction] 44.2 % Normal 34.0-46.0 [facility] Comment on above: Performed By: #### C BC, ADIFF, ANEU, BMP, GFR #### [place] [address] Hgb 14.9 G/dL Normal 12.0-16.0 [facility] Comment on above: Performed By: #### C BC, ADIFF, ANEU, BMP, GFR #### [place] [address] MCH (RBC) [Entitic mass] 29.0 pg Normal 27.0-33.0 [facility] Comment on above: Performed By: #### C BC, ADIFF, ANEU, BMP, GFR #### [place] [address] MCHC 33.7 G/dL Normal 32.0-36.0 [facility] Comment on above: Performed By: #### C BC, ADIFF, ANEU, BMP, GFR #### [place] [address] MCV (RBC) [Entitic vol] 86.0 fL Normal 80.0-99.0 [facility] Comment on above: Performed By: #### C BC, ADIFF, ANEU, BMP, GFR #### [place] [id number] Platelet 177 10 3/mcL Normal 150-450 [facility] Comment on above: Performed By: #### C BC, ADIFF, ANEU, BMP, GFR #### [place] [address] Platelet mean volume (Bld) [Entitic vol] 9.9 fL Normal 6.6-10.5 [facility] Comment on above: Performed By: #### C BC, ADIFF, ANEU, BMP, GFR #### [place] [address] RBC 5.14 10 6/mcL Normal 4.10-5.30 [facility] Comment on above: Performed By: #### C BC, ADIFF, ANEU, BMP, GFR #### [place] [id number] WBC 12.0 10 3/mcL High 4.5-10.8 [facility] Comment on above: Performed By: #### C BC, ADIFF, ANEU, BMP, GFR #### [place] [id number] CMPon 07-27-2024 Albumin Level 3.4 G/dL Normal 3.2-4.8 [facility] Comment on above: Performed By: #### C BC, ADIFF, ANEU, BMP, GFR #### [place] [address] Albumin/Globulin [Mass ratio] 1.0 {ratio} Normal 0.9-1.6 [facility] Comment on above: Performed By: #### C BC, ADIFF, ANEU, BMP, GFR #### [place] [address] ALP [Catalytic activity/Vol] 65 U/L Normal 38-126 [facility] Comment on above: Performed By: #### C BC, ADIFF, ANEU, BMP, GFR #### [facility] [address] [place], [place] [address] ALT [Catalytic activity/Vol] 24 U/L Normal 10-49 [facility] Comment on above: Performed By: #### C BC, ADIFF, ANEU, BMP, GFR #### [address] [address] AST [Catalytic activity/Vol] 25 U/L Normal 8-34 [facility] Comment on above: Performed By: #### C BC, ADIFF, ANEU, BMP, GFR #### [address] [address] Bili Total 0.90 mg/dL Normal 0.20-1.20 [facility] Comment on above: Result Comment: Use of this assay is not recommended for patients undergoing treatment with eltrombopag due to the potential for falsely elevated results. Performed By: #### C BC, ADIFF, ANEU, BMP, GFR #### [place] [id number] BUN/Creatinine Ratio 25.0 ratio High 10.0-22.0 [facility] Comment on above: Performed By: #### C BC, ADIFF, ANEU, BMP, GFR #### [address] [address] Calcium [Mass/Vol] 9.1 mg/dL Normal 8.7-10.4 [facility] Comment on above: Performed By: #### C BC, ADIFF, ANEU, BMP, GFR #### [address] [address] Chloride [Moles/Vol] 103 mmol/L Normal 98-110 [facility] Comment on above: Performed By: #### C BC, ADIFF, ANEU, BMP, GFR #### [address] [address] CO2 [Moles/Vol] 30 mmol/L Normal 22-32 [facility] Comment on above: Performed By: #### C BC, ADIFF, ANEU, BMP, GFR #### [address] [address] Creatinine [Mass/Vol] 0.76 mg/dL Normal 0.50-1.20 [facility] Comment on above: Result Comment: Test ing performed on [employer] CH analyzer using enzymatic creatinine methodology. Performed By: #### C BC, ADIFF, ANEU, BMP, GFR #### [address] [address] Electrolyte Balance 7.0 mEq/L Normal 4.0-15.0 [facility] Comment on above: Performed By: #### C BC, ADIFF, ANEU, BMP, GFR #### [address] [address] Globulin 3.5 G/dL Normal 1.5-3.8 [facility] Comment on above: Performed By: #### C BC, ADIFF, ANEU, BMP, GFR #### [address] [address] Glucose [Mass/Vol] 303 mg/dL High 82-115 [facility] Comment on above: Performed By: #### C BC, ADIFF, ANEU, BMP, GFR #### [address] [address] Potassium [Moles/Vol] 3.8 mmol/L Normal 3.5-5.0 [facility] Comment on above: Performed By: #### C BC, ADIFF, ANEU, BMP, GFR #### [address] [address] Sodium [Moles/Vol] 140 mmol/L Normal 136-145 [facility] Comment on above: Performed By: #### C BC, ADIFF, ANEU, BMP, GFR #### [address] [address] Total Protein 6.9 G/dL Normal 5.7-8.2 [facility] Comment on above: Result Comment: No te - New Reference Range in effect 20 Performed By: #### C BC, ADIFF, ANEU, BMP, GFR #### [address] [address] Urea nitrogen [Mass/Vol] 19.0 mg/dL Normal 8.0-22.0 [facility] Comment on above: Performed By: #### C BC, ADIFF, ANEU, BMP, GFR #### [facility] [address] [place] [address] LABORATORYOrdered By: SYSTEM SYSTEM on 07-27-2024 Albumin BCP dye [Mass/Vol] 3.4 G/dL Normal 3.2 - 4.8 G/dL ADM SS Albumin/Globulin [Mass ratio] 1.0 {ratio} Normal 0.9 - 1.6 ratio AH ADM SS ALP [Catalytic activity/Vol] 65 U/L Normal 38 - 126 U/L AH ADM SS ALT No additional P-5'-P [Catalytic activity/Vol] 24 U/L Normal 10 - 49 U/L AH ADM SS AST [Catalytic activity/Vol] 25 U/L Normal 8 - 34 U/L AH ADM SS Basophils (Bld) [#/Vol] 0.0 103/mcL Normal 0.0 - 0.3 10^3/mcL Workflow SS Basophils/100 WBC (Bld) 0.3 % Normal 0.0 - 2.5 % AH Workflow SS Bilirubin [Mass/Vol] 0.90 mg/dL Normal 0.20 - 1.20 mg/dL AH ADM SS Comment on above: Interpretive Data: U se of this assay is not recommended for patients undergoing treatment with eltrombopag due to the potential for falsely elevated results. Calcium [Mass/Vol] 9.1 mg/dL Normal 8.7 - 10. 4 mg/dL AH ADM SS Chloride [Moles/Vol] 103 mmol/L Normal 98 - 11 0 mEq/L AH ADM SS CO2 [Moles/Vol] 30 mmol/L Normal 22 - 32 mEq/L AH ADM SS Creatinine [Mass/Vol] 0.76 mg/dL Normal 0.50 - 1.20 mg/dL AH ADM SS Comment on above: Interpretive Data: T esting performed on Hyperpia analyzer using enzymatic creatinine methodology. Electrolyte Balance 7.0 mEq/L Normal 4.0 - 15 .0 mEq/L AH ADM SS Eosinophils (Bld) [#/Vol] 0.0 103/mcL Normal 0.0 - 0.7 10^3/mcL AH Workflow SS Eosinophils/100 WBC (Bld) 0.0 % Normal 0.0 - 6.0 % AH Workflow SS Erythrocyte distribution width (RBC) [Ratio] 14.4 % Normal 11.5 - 15.5 % Workflow SS GFR/1.73 sq M.predicted among blacks MDRD (S/P/Bld) [Vol rate/Area] ml/min/1.73sqm Invalid Interpretation Code [facility] Comment on above: Interpretive Data: GFR Population mean for , Non- Americans Ages 20-29 = 116 mL/min/1.73 sq.m. Ages 30-39 = 107 mL/min/1.73 sq.m. Ages 40-49 = 99 mL/min/1.73 sq.m. Ages 50-59 = 93 mL/min/1.73 sq.m. Ages 60-69 = 85 mL/min/1.73 sq.m. Ages 70+ = 75 mL/min/1.73 sq.m. Chronic Kidney Disease: Less than 60 mL/min/1.73 square meters End Stage Renal Disease: Less than 15 mL/min/1.73 square meters GFR/1.73 sq M.predicted among non-blacks MDRD (S/P/Bld) [Vol rate/Area] ml/min/1.73sqm Invalid Interpretation Code [facility] Comment on above: Interpretive Data: GFR Population mean for , Non- Americans Ages 20-29 = 116 mL/min/1.73 sq.m. Ages 30-39 = 107 mL/min/1.73 sq.m. Ages 40-49 = 99 mL/min/1.73 sq.m. Ages 50-59 = 93 mL/min/1.73 sq.m. Ages 60-69 = 85 mL/min/1.73 sq.m. Ages 70+ = 75 mL/min/1.73 sq.m. Chronic Kidney Disease: Less than 60 mL/min/1.73 square meters End Stage Renal Disease: Less than 15 mL/min/1.73 square meters Globulin 3.5 G/dL Normal 1.5 - 3.8 G/dL [facility] SS Glucose [Mass/Vol] 303 mg/dL High 82 - 115 mg/dL [facility] SS Hematocrit (Bld) [Volume fraction] 44.1 % Normal 34.0 - 46.0 % Workflow SS Hemoglobin (Bld) [Mass/Vol] 14.7 G/dL Normal 12.0 - 16.0 G/dL Workflow Lymphocytes (Bld) [#/Vol] 1.2 103/mcL Normal 0.9 - 4.3 10^3/mcL AH Workflow SS Lymphocytes/100 WBC (Bld) 9.3 % Low 20.0 - 40.0 % AH Workflow SS Magnesium [Mass/Vol] 1.8 mg/dL Normal 1.6 - 2 .4 mg/dL AH ADM SS MCH (RBC) [Entitic mass] 29.0 pg Normal 27.0 - 33.0 pg AH Workflow SS MCHC 33.3 G/dL Normal 32.0 - 36.0 G/dL AH Workflow SS MCV (RBC) [Entitic vol] 87.1 fL Normal 80.0 - 99.0 fL AH Workflow SS Monocytes (Bld) [#/Vol] 0.3 103/mcL Normal 0.1 - 1.4 10^3/mcL AH Workflow SS Monocytes/100 WBC (Bld) 2.4 % Normal 2.0 - 13.0 % AH Workflow SS Neutrophils (Bld) [#/Vol] 11.8 103/mcL High 2.3 - 8.1 10^3/mcL AH Workflow SS Neutrophils/100 WBC (Bld) 88.0 % High 50.0 - 75.0 % AH Workflow SS Platelet mean volume (Bld) [Entitic vol] 9.8 fL Normal 6.6 - 10.5 fL AH Workflow SS Platelets (Bld) [#/Vol] 198 103/mcL Normal 150 - 450 10^3/mcL AH Workflow SS Potassium [Moles/Vol] 3.8 mmol/L Normal 3.5 - 5.0 mEq/L ADM SS Protein [Mass/Vol] 6.9 G/dL Normal 5.7 - 8.2 G/dL ADM SS Comment on above: Interpretive Data: * *Note - New Reference Range in effect 20 RBC (Bld) [#/Vol] 5.07 106/mcL Normal 4.10 - 5.30 10^6/mcL AH Workflow SS Sodium [Moles/Vol] 140 mmol/L Normal 136 - 145 mEq/L ADM SS TSH Qn 0.967 mIU/mL Normal 0.550 - 4.780 mIU/mL ADM SS Comment on above: Interpretive Data: * *Note - New Reference Range in effect 20 Urea nitrogen [Mass/Vol] 19.0 mg/dL Normal 8.0 - 22.0 mg/dL ADM SS Urea nitrogen/Creatinine [Mass ratio] 25.0 ratio High 10.0 - 22.0 ratio ADM SS WBC (Bld) [#/Vol] 13.4 103/mcL High 4.5 - 10.8 10^3/mcL Workflow SS Basophils (Bld) [#/Vol] 0.0 103/mcL Normal 0.0 - 0.3 10^3/mcL Workflow SS Basophils/100 WBC (Bld) 0.2 % Normal 0.0 - 2.5 % Workflow SS Calcium [Mass/Vol] 8.9 mg/dL Normal 8.7 - 10. 4 mg/dL ADM SS Chloride [Moles/Vol] 105 mmol/L Normal 98 - 11 0 mEq/L ADM SS CO2 [Moles/Vol] 29 mmol/L Normal 22 - 32 mEq/L ADM SS Creatinine [Mass/Vol] 0.76 mg/dL Normal 0.50 - 1.20 mg/dL ADM SS Comment on above: Interpretive Data: T esting performed on Hyperpia analyzer using enzymatic creatinine methodology. Electrolyte Balance 8.0 mEq/L Normal 4.0 - 15 .0 mEq/L ADM SS Eosinophils (Bld) [#/Vol] 0.0 103/mcL Normal 0.0 - 0.7 10^3/mcL Workflow SS Eosinophils/100 WBC (Bld) 0.0 % Normal 0.0 - 6.0 % Workflow SS Erythrocyte distribution width (RBC) [Ratio] 14.3 % Normal 11.5 - 15.5 % Workflow SS GFR/1.73 sq M.predicted among blacks MDRD (S/P/Bld) [Vol rate/Area] ml/min/1.73sqm Invalid Interpretation Code Chemistry S Comment on above: Interpretive Data: GFR Population mean for , Non- Americans Ages 20-29 = 116 mL/min/1.73 sq.m. Ages 30-39 = 107 mL/min/1.73 sq.m. Ages 40-49 = 99 mL/min/1.73 sq.m. Ages 50-59 = 93 mL/min/1.73 sq.m. Ages 60-69 = 85 mL/min/1.73 sq.m. Ages 70+ = 75 mL/min/1.73 sq.m. Chronic Kidney Disease: Less than 60 mL/min/1.73 square meters End Stage Renal Disease: Less than 15 mL/min/1.73 square meters GFR/1.73 sq M.predicted among non-blacks MDRD (S/P/Bld) [Vol rate/Area] ml/min/1.73sqm Invalid Interpretation Code Chemistry S Comment on above: Interpretive Data: GFR Population mean for , Non- Americans Ages 20-29 = 116 mL/min/1.73 sq.m. Ages 30-39 = 107 mL/min/1.73 sq.m. Ages 40-49 = 99 mL/min/1.73 sq.m. Ages 50-59 = 93 mL/min/1.73 sq.m. Ages 60-69 = 85 mL/min/1.73 sq.m. Ages 70+ = 75 mL/min/1.73 sq.m. Chronic Kidney Disease: Less than 60 mL/min/1.73 square meters End Stage Renal Disease: Less than 15 mL/min/1.73 square meters Glucose [Mass/Vol] 245 mg/dL High 82 - 115 mg/dL ADM SS Hematocrit (Bld) [Volume fraction] 44.2 % Normal 34.0 - 46.0 % AH Workflow SS Hemoglobin (Bld) [Mass/Vol] 14.9 G/dL Normal 12.0 - 16.0 G/dL AH Workflow SS Lymphocytes (Bld) [#/Vol] 1.1 103/mcL Normal 0.9 - 4.3 10^3/mcL AH Workflow SS Lymphocytes/100 WBC (Bld) 9.1 % Low 20.0 - 40.0 % AH Workflow SS MCH (RBC) [Entitic mass] 29.0 pg Normal 27.0 - 33.0 pg AH Workflow SS MCHC 33.7 G/dL Normal 32.0 - 36.0 G/dL AH Workflow SS MCV (RBC) [Entitic vol] 86.0 fL Normal 80.0 - 99.0 fL AH Workflow SS Monocytes (Bld) [#/Vol] 0.3 103/mcL Normal 0.1 - 1.4 10^3/mcL AH Workflow SS Monocytes/100 WBC (Bld) 2.4 % Normal 2.0 - 13.0 % AH Workflow SS Neutrophils (Bld) [#/Vol] 10.6 103/mcL High 2.3 - 8.1 10^3/mcL Workflow SS Neutrophils/100 WBC (Bld) 88.3 % High 50.0 - 75.0 % AH Workflow SS Platelet mean volume (Bld) [Entitic vol] 9.9 fL Normal 6.6 - 10.5 fL Workflow SS Platelets (Bld) [#/Vol] 177 103/mcL Normal 150 - 450 10^3/mcL AH Workflow SS Potassium [Moles/Vol] 3.8 mmol/L Normal 3.5 - 5.0 mEq/L AH ADM SS RBC (Bld) [#/Vol] 5.14 106/mcL Normal 4.10 - 5.30 10^6/mcL AH Workflow SS Sodium [Moles/Vol] 142 mmol/L Normal 136 - 145 mEq/L ADM SS Urea nitrogen [Mass/Vol] 19.0 mg/dL Normal 8.0 - 22.0 mg/dL ADM SS Urea nitrogen/Creatinine [Mass ratio] 25.0 ratio High 10.0 - 22.0 ratio ADM SS WBC (Bld) [#/Vol] 12.0 103/mcL High 4.5 - 10.8 10^3/mcL Workflow SS LABORATORYOrdered By: Carmen Carr on 07-27-2024 Calcium Ionized 1.11 mmol/L Low 1.12 - 1.32 mmol/L Main Rapid Comm SS Comment on above: Result Comment: No n ormals available: specimen drawn from IV arm. MGon 07-27-2024 Magnesium [Mass/Vol] 1.8 mg/dL Normal 1.6-2.4 [facility] Comment on above: Performed By: #### C BC, ADIFF, ANEU, BMP, GFR #### [address] [address] TSHon 07-27-2024 TSH 0.967 mIU/mL Normal 0.550-4.78 0 [facility] Comment on above: Result Comment: No te - New Reference Range in effect 20 Performed By: #### C BC, ADIFF, ANEU, BMP, GFR #### [address] [address] LABORATORYOrdered By: Torie Nelson on 07-21-2024 Blood Glucose Testing Reason Routine (07/21/24 6:26 AM) [facility] Work Phone: Glucose [Mass/Vol] 154 mg/dL High 82 - 115 mg/dL [facility] Work Phone: .Auto Diffon 07-20-2024 Basophil, Absolute 0.1 10 3/mcL Normal 0.0-0.3 [facility] Comment on above: Performed By: #### C BC, ADIFF, ANEU, BMP, GFR #### [address] [address] Basophils/100 WBC (Bld) 0.7 % Normal 0.0-2.5 [facility] Comment on above: Performed By: #### C BC, ADIFF, ANEU, BMP, GFR #### [address] [address] Eosinophil, Absolute 0.2 10 3/mcL Normal 0.0-0.7 [facility] Comment on above: Performed By: #### C BC, ADIFF, ANEU, BMP, GFR #### [address] [address] Eosinophils/100 WBC (Bld) 2.1 % Normal 0.0-6.0 [facility] Comment on above: Performed By: #### C BC, ADIFF, ANEU, BMP, GFR #### [address] [address] Lymphocyte, Absolute 2.6 10 3/mcL Normal 0.9-4.3 [facility] Comment on above: Performed By: #### C BC, ADIFF, ANEU, BMP, GFR #### [address] [address] Lymphocytes/100 WBC (Bld) 25.6 % Normal 20.0-40.0 [facility] Comment on above: Performed By: #### C BC, ADIFF, ANEU, BMP, GFR #### [address] [address] Monocyte, Absolute 0.9 10 3/mcL Normal 0.1-1.4 [facility] Comment on above: Performed By: #### C BC, ADIFF, ANEU, BMP, GFR #### [address] [address] Monocytes/100 WBC (Bld) 8.9 % Normal 2.0-13.0 [facility] Comment on above: Performed By: #### C BC, ADIFF, ANEU, BMP, GFR #### [address] [address] Neutrophils/100 WBC (Bld) 62.7 % Normal 50.0-75.0 [facility] Comment on above: Performed By: #### C BC, ADIFF, ANEU, BMP, GFR #### [address] [address] .GFRon 07-20-2024 GFR >60 Normal [facility] Comment on above: Result Comment: GFR Population mean for , Non- Americans Ages 20-29 = 116 mL/min/1.73 sq.m. Ages 30-39 = 107 mL/min/1.73 sq.m. Ages 40-49 = 99 mL/min/1.73 sq.m. Ages 50-59 = 93 mL/min/1.73 sq.m. Ages 60-69 = 85 mL/min/1.73 sq.m. Ages 70+ = 75 mL/min/1.73 sq.m. Chronic Kidney Disease: Less than 60 mL/min/1.73 square meters End Stage Renal Disease: Less than 15 mL/min/1.73 square meters Performed By: #### C BC, ADIFF, ANEU, BMP, GFR #### [address] [address] GFR Non- 60 ml/min/1.73sqm Normal [facility] Comment on above: Result Comment: GFR Population mean for , Non- Americans Ages 20-29 = 116 mL/min/1.73 sq.m. Ages 30-39 = 107 mL/min/1.73 sq.m. Ages 40-49 = 99 mL/min/1.73 sq.m. Ages 50-59 = 93 mL/min/1.73 sq.m. Ages 60-69 = 85 mL/min/1.73 sq.m. Ages 70+ = 75 mL/min/1.73 sq.m. Chronic Kidney Disease: Less than 60 mL/min/1.73 square meters End Stage Renal Disease: Less than 15 mL/min/1.73 square meters Performed By: #### C BC, ADIFF, ANEU, BMP, GFR #### [address] [address] .NEUABSon 07-20-2024 Neutrophil, Absolute 6.3 10 3/mcL Normal 2.3-8.1 [facility] Comment on above: Performed By: #### C BC, ADIFF, ANEU, BMP, GFR #### [place] [id number] [facility] BUN/Creatinine Ratio 20.9 ratio Normal 10.0-22.0 [facility] Comment on above: Performed By: #### C BC, ADIFF, ANEU, BMP, GFR #### [place] [address] Calcium [Mass/Vol] 9.4 mg/dL Normal 8.7-10.4 [facility] Comment on above: Performed By: #### C BC, ADIFF, ANEU, BMP, GFR #### [place] [address] Chloride [Moles/Vol] 105 mmol/L Normal 98-110 [facility] Comment on above: Performed By: #### C BC, ADIFF, ANEU, BMP, GFR #### [place] [address] CO2 [Moles/Vol] 30 mmol/L Normal 22-32 [facility] Comment on above: Performed By: #### C BC, ADIFF, ANEU, BMP, GFR #### [place] [id number] Creatinine [Mass/Vol] 0.91 mg/dL Normal 0.50-1.20 [facility] Comment on above: Result Comment: Test ing performed on Hyperpia analyzer using enzymatic creatinine methodology. Performed By: #### C BC, ADIFF, ANEU, BMP, GFR #### [address] [address] Electrolyte Balance 9.0 mEq/L Normal 4.0-15.0 [facility] Comment on above: Performed By: #### C BC, ADIFF, ANEU, BMP, GFR #### [place] [address] Glucose [Mass/Vol] 115 mg/dL Normal 82-115 [facility] Comment on above: Performed By: #### C BC, ADIFF, ANEU, BMP, GFR #### [place] [address] Potassium [Moles/Vol] 3.4 mmol/L Low 3.5-5.0 [facility] Comment on above: Performed By: #### C BC, ADIFF, ANEU, BMP, GFR #### [place] [address] Sodium [Moles/Vol] 144 mmol/L Normal 136-145 [facility] Comment on above: Performed By: #### C BC, ADIFF, ANEU, BMP, GFR #### [place] [address] Urea nitrogen [Mass/Vol] 19.0 mg/dL Normal 8.0-22.0 [facility] Comment on above: Performed By: #### C BC, ADIFF, ANEU, BMP, GFR #### [place] [address] CBCon 07-20-2024 Erythrocyte distribution width (RBC) [Ratio] 14.5 % Normal 11.5-15.5 [facility] Comment on above: Performed By: #### C BC, ADIFF, ANEU, BMP, GFR #### [place] [address] Hematocrit (Bld) [Volume fraction] 42.8 % Normal 34.0-46.0 [facility] Comment on above: Performed By: #### C BC, ADIFF, ANEU, BMP, GFR #### [place] [address] Hgb 14.5 G/dL Normal 12.0-16.0 [facility] Comment on above: Performed By: #### C BC, ADIFF, ANEU, BMP, GFR #### [address] [address] MCH (RBC) [Entitic mass] 29.4 pg Normal 27.0-33.0 [facility] Comment on above: Performed By: #### C BC, ADIFF, ANEU, BMP, GFR #### [place] [id number] MCHC 33.9 G/dL Normal 32.0-36.0 [facility] Comment on above: Performed By: #### C BC, ADIFF, ANEU, BMP, GFR #### [place] [address] MCV (RBC) [Entitic vol] 86.8 fL Normal 80.0-99.0 [facility] Comment on above: Performed By: #### C BC, ADIFF, ANEU, BMP, GFR #### [place] [address] Platelet 165 10 3/mcL Normal 150-450 [facility] Comment on above: Performed By: #### C BC, ADIFF, ANEU, BMP, GFR #### [place] [address] Platelet mean volume (Bld) [Entitic vol] 9.4 fL Normal 6.6-10.5 [facility] Comment on above: Performed By: #### C BC, ADIFF, ANEU, BMP, GFR #### [place] [address] RBC 4.92 10 6/mcL Normal 4.10-5.30 [facility] Comment on above: Performed By: #### C BC, ADIFF, ANEU, BMP, GFR #### [place] [id number] WBC 10.1 10 3/mcL Normal 4.5-10.8 [facility] Comment on above: Performed By: #### C BC, ADIFF, ANEU, BMP, GFR #### [place] [address] LABORATORYOrdered By: Cintia Pike on 07-20-2024 Blood Glucose Testing Reason Routine (07/20/24 9:35 PM) [facility] Work Phone: Glucose [Mass/Vol] 173 mg/dL High 82 - 115 mg/dL [facility] Work Phone: LABORATORYOrdered By: Karishma Shoemaker on 07-20-2024 Glucose [Mass/Vol] 171 mg/dL High 82 - 115 mg/dL [facility] Work Phone: LABORATORYOrdered By: SYSTEM SYSTEM on 07-20-2024 Basophils (Bld) [#/Vol] 0.1 103/mcL Normal 0.0 - 0.3 10^3/mcL Workflow SS Basophils/100 WBC (Bld) 0.7 % Normal 0.0 - 2.5 % Workflow SS Calcium [Mass/Vol] 9.4 mg/dL Normal 8.7 - 10. 4 mg/dL ADM SS Chloride [Moles/Vol] 105 mmol/L Normal 98 - 11 0 mEq/L ADM SS CO2 [Moles/Vol] 30 mmol/L Normal 22 - 32 mEq/L ADM SS Creatinine [Mass/Vol] 0.91 mg/dL Normal 0.50 - 1.20 mg/dL ADM SS Comment on above: Interpretive Data: T esting performed on Hyperpia analyzer using enzymatic creatinine methodology. Electrolyte Balance 9.0 mEq/L Normal 4.0 - 15 .0 mEq/L ADM SS Eosinophils (Bld) [#/Vol] 0.2 103/mcL Normal 0.0 - 0.7 10^3/mcL Workflow SS Eosinophils/100 WBC (Bld) 2.1 % Normal 0.0 - 6.0 % Workflow SS Erythrocyte distribution width (RBC) [Ratio] 14.5 % Normal 11.5 - 15.5 % Workflow SS GFR/1.73 sq M.predicted among blacks MDRD (S/P/Bld) [Vol rate/Area] ml/min/1.73sqm Invalid Interpretation Code Chemistry S Comment on above: Interpretive Data: GFR Population mean for , Non- Americans Ages 20-29 = 116 mL/min/1.73 sq.m. Ages 30-39 = 107 mL/min/1.73 sq.m. Ages 40-49 = 99 mL/min/1.73 sq.m. Ages 50-59 = 93 mL/min/1.73 sq.m. Ages 60-69 = 85 mL/min/1.73 sq.m. Ages 70+ = 75 mL/min/1.73 sq.m. Chronic Kidney Disease: Less than 60 mL/min/1.73 square meters End Stage Renal Disease: Less than 15 mL/min/1.73 square meters GFR/1.73 sq M.predicted among non-blacks MDRD (S/P/Bld) [Vol rate/Area] 60 ml/min/1.73sqm Invalid Interpretation Code Chemistry S Comment on above: Interpretive Data: GFR Population mean for , Non- Americans Ages 20-29 = 116 mL/min/1.73 sq.m. Ages 30-39 = 107 mL/min/1.73 sq.m. Ages 40-49 = 99 mL/min/1.73 sq.m. Ages 50-59 = 93 mL/min/1.73 sq.m. Ages 60-69 = 85 mL/min/1.73 sq.m. Ages 70+ = 75 mL/min/1.73 sq.m. Chronic Kidney Disease: Less than 60 mL/min/1.73 square meters End Stage Renal Disease: Less than 15 mL/min/1.73 square meters Glucose [Mass/Vol] 115 mg/dL Normal 82 - 115 mg/dL ADM SS Hematocrit (Bld) [Volume fraction] 42.8 % Normal 34.0 - 46.0 % Workflow SS Hemoglobin (Bld) [Mass/Vol] 14.5 G/dL Normal 12.0 - 16.0 G/dL AH Workflow SS Lymphocytes (Bld) [#/Vol] 2.6 103/mcL Normal 0.9 - 4.3 10^3/mcL Workflow SS Lymphocytes/100 WBC (Bld) 25.6 % Normal 20.0 - 40.0 % Workflow SS MCH (RBC) [Entitic mass] 29.4 pg Normal 27.0 - 33.0 pg AH Workflow SS MCHC 33.9 G/dL Normal 32.0 - 36.0 G/dL Workflow SS MCV (RBC) [Entitic vol] 86.8 fL Normal 80.0 - 99.0 fL Workflow SS Monocytes (Bld) [#/Vol] 0.9 103/mcL Normal 0.1 - 1.4 10^3/mcL Workflow SS Monocytes/100 WBC (Bld) 8.9 % Normal 2.0 - 13.0 % Workflow SS Neutrophils (Bld) [#/Vol] 6.3 103/mcL Normal 2.3 - 8.1 10^3/mcL Workflow SS Neutrophils/100 WBC (Bld) 62.7 % Normal 50.0 - 75.0 % Workflow SS Platelet mean volume (Bld) [Entitic vol] 9.4 fL Normal 6.6 - 10.5 fL Workflow SS Platelets (Bld) [#/Vol] 165 103/mcL Normal 150 - 450 10^3/mcL Workflow SS Potassium [Moles/Vol] 3.4 mmol/L Low 3.5 - 5.0 mEq/L ADM SS PT Coag (PPP) [Time] 12.9 s Normal 9.0 - 1 4.4 seconds [facility] Comment on above: Interpretive Data: E ffective 05/03/08, Protime results may be affected by some antibiotics (i.e. Ciprofloxacin, Azithromycin, Bactrim) which may potentiate the action of oral anticoagulants, with further increases in Protime/INR. PT International Ratio 1.1 ratio Invalid Interpretation Code [facility] Comment on above: Interpretive Data: Dhara lugo [employer] (CHEST, 1992, 102:[id number]) recommended therapeutic range for oral anticoagulant therapy is: LOW RISK: Prophylaxis of venous thrombosis INR: 2.0-3.0 Treatment of pulmonary embolism 2.0-3.0 Prevention of systemic embolism 2.0-3.0 HIGH RISK: Mechanical prosthetic valves 2.5-3.5 RBC (Bld) [#/Vol] 4.92 106/mcL Normal 4.10 - 5.30 10^6/mcL Workflow SS Sodium [Moles/Vol] 144 mmol/L Normal 136 - 145 mEq/L ADM SS Urea nitrogen [Mass/Vol] 19.0 mg/dL Normal 8.0 - 22.0 mg/dL AH ADM SS Urea nitrogen/Creatinine [Mass ratio] 20.9 ratio Normal 10.0 - 22.0 ratio AH ADM SS WBC (Bld) [#/Vol] 10.1 103/mcL Normal 4.5 - 10.8 10^3/mcL AH Workflow SS PROon 07-20-2024 INR Coag (PPP) [Relative time] 1.1 {INR} Normal [facility] Comment on above: Result Comment: [employer] (CHEST, 1992, 102:312S-25S) recommended therapeutic range for oral anticoagulant therapy is: LOW RISK: Prophylaxis of venous thrombosis INR: 2.0-3.0 Treatment of pulmonary embolism 2.0-3.0 Prevention of systemic embolism 2.0-3.0 HIGH RISK: Mechanical prosthetic valves 2.5-3.5 Performed By: #### C BC, ADIFF, ANEU, BMP, GFR #### [address] [address] PT Coag (PPP) [Time] 12.9 s Normal 9.0-14.4 [facility] Comment on above: Result Comment: Effe ctive 05/03/08, Protime results may be affected by some antibiotics (i.e. Ciprofloxacin, Azithromycin, Bactrim) which may potentiate the action of oral anticoagulants, with further increases in Protime/INR. Performed By: #### C BC, ADIFF, ANEU, BMP, GFR #### [address] [address] Laboratory - Hematology and Cell countson 10-10-2023 HbA1c (Bld) [Mass fraction] 7.0 % 4.2-6.3 [facility] Absolute lymphocyte countOrd ered By: Catrachito Gilmore on 09-12-2023 Lymphocytes Auto (Unsp spec) [#/Vol] 2.51 10*3/uL 0.83-4.51 [facility] Basophil percentageOrdered B y: Catrachito Gilmore on 09-12-2023 Basophil percentage 0-5 SEEN /hpf 0-5 [facility] Basophils/100 WBC (Bld) 0.9 % 0-1 [facility] Bilirubin [Mass/Vol] 0.60 mg/dL 0.20-1.00 [facility] Comment on above: For patients on eltr ombopag therapy, use of Dimension Silas TBIL is not recommended. Chloride [Moles/Vol] 104 mmol/L 98-107 [facility] Eosinophils/100 WBC (Bld) 2.6 % 0-5 [facility] Glucose [Mass/Vol] 232 mg/dL 74-106 [facility] Comment on above: Glucose result great er than or equal to 200 mg/dLsuggests DIABETES MELLITUS per A.D.A. criteria. Neutrophils (Bld) [#/Vol] 5.6 10*3/uL 2.0-7.7 [facility] Neutrophils/100 WBC (Bld) 59.4 % 47-70 [facility] Potassium [Moles/Vol] 4.3 mmol/L 3.5-5.1 [facility] Comment on above: Moderate Hemolysis, Result may be falsely increased. Protein [Mass/Vol] 7.2 g/dL 6.4-8.2 [facility] Sodium [Moles/Vol] 138 mmol/L 136-145 [facility] WBC (Bld) [#/Vol] 9.4 10*3/uL 4.4-11.0 [facility] Bilirubin Test strip Ql (U)O rdered By: Catrachito Gilmore on 09-12-2023 Bilirubin Ql (U) Negative Negative [facility] Blood erythrocytes count (nu mber/volume)Ordered By: Catrachito Gilmore on 09-12-2023 RBC (Bld) [#/Vol] 5.16 10*6/uL 4.2-5.4 [facility] Blood hemoglobin measurement (mass/volume)Ordered By: Catrachito Gilmore on 09-12-2023 Hemoglobin (Bld) [Mass/Vol] 14.9 g/dL 12.0-15.0 [facility] Blood lymphocytes/100 leukoc ytesOrdered By: Catrachito Gilmore on 09-12-2023 Lymphocytes/100 WBC (Bld) 26.8 % 19-41 [facility] Blood monocytes/100 leukocyt esOrdered By: Catrachito Gilmore on 09-12-2023 Monocytes/100 WBC (Bld) 9.7 % 0-10 [facility] Blood platelet mean volumeOr dered By: Catrachito Gilmore on 09-12-2023 Platelet mean volume (Bld) [Entitic vol] 10.8 fL 6.2-12.0 [facility] Determination of erythrocyte mean corpuscular volume (MCV)Ordered By: Catrachito Gilmore on 09-12-2023 MCV (RBC) [Entitic vol] 92.4 fL 81-99 [facility] Hematocrit Auto (Bld) [Volum e fraction]Ordered By: Catrachito Gilmore on 09-12-2023 Hematocrit (Bld) [Volume fraction] 47.7 % 37-47 [facility] Ketones Test strip Ql (U)Ord ered By: Catrachito Gilmore on 09-12-2023 Ketones Ql (U) Negative Negative [facility] Laboratory - Chemistry and C hemistry - challengeOrdered By: Catrachito Gilmore on 09-12-2023 ALP [Catalytic activity/Vol] 47 U/L 45-117 [facility] ALT [Catalytic activity/Vol] 32 U/L 13-56 [facility] CO2 [Moles/Vol] 30.0 mmol/L 21.0-32.0 [facility] Globulin (S) [Mass/Vol] 4.0 g/dL 2.2-4.2 [facility] Urea nitrogen/Creatinine [Mass ratio] 20.0 mg/mg 10-20 [facility] Laboratory - Hematology and Cell countsOrdered By: Catrachito Gilmore on 09-12-2023 Erythrocyte distribution width (RBC) [Entitic vol] 46.9 fL 35.1-43.9 [facility] Erythrocyte distribution width (RBC) [Ratio] 13.7 % 11.6-14.6 [facility] Immature granulocytes/100 WBC (Bld) 0.600 % 0.0-0.9 [facility] Comment on above: IG% - Immature Granu locytes (promyelocytes, myelocytes and metamyelocytes) > 1% indicates that a LEFT SHIFT is Present. MCH (RBC) [Entitic mass] 28.9 pg 27.0-32.0 [facility] Nucleated RBC/100 WBC (Bld) [Ratio] 0 % 0-5 [facility] MCHC Auto (RBC) [Mass/Vol]Or dered By: Catrachito Gilmore on 09-12-2023 MCHC (RBC) [Mass/Vol] 31.2 g/dL 32-36 [facility] Mucus LM Ql (Urine sed)Order ed By: Catrachito Gilmore on 09-12-2023 Mucus Ql (Urine sed) 0 SEEN /hpf [facility] Nitrite Test strip Ql (U)Ord ered By: Catrachito Gilmore on 09-12-2023 Nitrite Ql (U) Negative Negative [facility] No Panel InformationOrdered By: Catrachito Gilmore on 09-12-2023 Estimated Creatinine Clearance Calc 41.65 ml/min [facility] Estimated GFR (MDRD) Amer 62 mL/min >60 [facility] Comment on above: GFR Calc Estimated GFR (MDRD) Non-Af Amer 51 mL/min >60 [facility] Comment on above: Non- GFR Calc Troponin I High Sensitivity 13 pg/mL 3.0-54.0 [facility] Comment on above: Please Note: New Inna t Units and Gender Specific Reference Ranges. For more information see Policy Stat Procedure Silas High Sensitivity Troponin (TNIH) and attachments. Platelets bldOrdered By: Nicolas Gilmore on 09-12-2023 Platelets (Bld) [#/Vol] 182 10*3/uL 150-450 [facility] Protein Test strip Ql (U)Ord ered By: Catrachito Gilmore on 09-12-2023 Protein Ql (U) Negative Negative [facility] Serum or plasma albumin jaleesa urement (mass/volume)Ordered By: Catrachito Gilmore on 09-12-2023 Albumin [Mass/Vol] 3.2 g/dL 3.2-5.0 [facility] Serum or plasma albumin/glob ulin mass ratioOrdered By: Catrachito Gilmore on 09-12-2023 Albumin/Globulin [Mass ratio] 0.8 {ratio} 0.9-2.4 [facility] Serum or plasma calcium jaleesa urement (mass/volume)Ordered By: Catrachito Gilmore on 09-12-2023 Calcium [Mass/Vol] 8.4 mg/dL 8.5-10.1 [facility] Serum or plasma creatinine m easurement (mass/volume)Ordered By: Catrachito Gilmore on 09-12-2023 Creatinine [Mass/Vol] 1.10 mg/dL 0.55-1.02 [facility] Comment on above: The validity of the calculated GFR & GFRAA in patients over 70 years has not been determined. Clinical correlation is essential. Serum or plasma urea nitroge n measurement (mass/volume)Ordered By: Catrachito Gilmore on 09-12-2023 Urea nitrogen [Mass/Vol] 22 mg/dL 7-18 [facility] Squamous epithelial cells de tection in urine sediment by light microscopyOrdered By: Catrachito Gilmore on 09-12-2023 Epithelial cells.squamous LM Ql (Urine sed) 5-10 SEEN /hpf 5-10 [facility] Thin prep Papanicolaou smear with manual screeningOrdered By: Catrachito Gilmore on 09-12-2023 Thin prep Papanicolaou smear with manual screening 35 U/L 15-37 [facility] Comment on above: Moderate Hemolysis, Result may be falsely increased. Thin prep Papanicolaou smear with manual screening 4 5-15 [facility] Urine blood detectionOrdered By: Catrachito Gilmore on 09-12-2023 RBC Ql (U) Negative Negative [facility] RBC Ql (U) 0 SEEN /hpf 0-5 [facility] Urine clarityOrdered By: Nicolas Gilmore on 09-12-2023 Clarity (U) Clear Clear [facility] Urine color determinationOrd ered By: Catrachito Gilmore on 09-12-2023 Color (U) Yellow Yellow [facility] Urine glucose detectionOrder ed By: Catrachito Gilmore on 09-12-2023 Glucose Ql (U) 100 mg/dl Normal [facility] Urine leukocyte esterase det ection by dipstickOrdered By: Catrachito Gilmore on 09-12-2023 Leukocyte esterase Test strip Ql (U) 25 /ul Negative [facility] Urine pHOrdered By: Catrachito fleming on 09-12-2023 pH (U) 7.0 [pH] 5.0 - 8.0 [facility] Urine sediment bacteria coun t by microscopy (number/high power field)Ordered By: Catrachito Gilmore on 09-12-2023 Bacteria LM.HPF (Urine sed) [#/Area] 1 /[HPF] None Seen [facility] Urine specific gravity measu rementOrdered By: Catrachito Gilmore on 09-12-2023 Specific gravity (U) [Rel density] 1.010 1.002-1.03 0 [facility] Urobilinogen Auto test strip Ql (U)Ordered By: Catrachito Gilmore on 09-12-2023 Urobilinogen Ql (U) Normal mg/dl Normal [facility] Laboratory - Hematology and Cell countson 07-01-2023 HbA1c (Bld) [Mass fraction] 7.9 % 4.2-6.3 [facility] Laboratory - Hematology and Cell countson 01-03-2023 HbA1c (Bld) [Mass fraction] 7.0 % [facility] Absolute lymphocyte countOrd ered By: Joan Webb on 12-16-2022 Lymphocytes Auto (Unsp spec) [#/Vol] 2.83 10*3/uL 0.83-4.51 [facility] Basophil percentageOrdered B y: Joan Webb on 12-16-2022 Basophils/100 WBC (Bld) 1.0 % 0-1 [facility] Bilirubin [Mass/Vol] 0.50 mg/dL 0.20-1.00 [facility] Comment on above: For patients on eltr ombopag therapy, use of Dimension Silas TBIL is not recommended. Chloride [Moles/Vol] 104 mmol/L 98-107 [facility] Eosinophils/100 WBC (Bld) 2.6 % 0-5 [facility] Glucose [Mass/Vol] 93 mg/dL 74-106 [facility] Neutrophils (Bld) [#/Vol] 6.9 10*3/uL 2.0-7.7 [facility] Neutrophils/100 WBC (Bld) 61.6 % 47-70 [facility] Potassium [Moles/Vol] 3.7 mmol/L 3.5-5.1 [facility] Protein [Mass/Vol] 7.6 g/dL 6.4-8.2 [facility] Sodium [Moles/Vol] 139 mmol/L 136-145 [facility] WBC (Bld) [#/Vol] 11.1 10*3/uL 4.4-11.0 [facility] Blood erythrocytes count (nu mber/volume)Ordered By: Joan Webb on 12-16-2022 RBC (Bld) [#/Vol] 5.15 10*6/uL 4.2-5.4 [facility] Blood hemoglobin measurement (mass/volume)Ordered By: Joan Webb on 12-16-2022 Hemoglobin (Bld) [Mass/Vol] 15.0 g/dL 12.0-15.0 [facility] Blood lymphocytes/100 leukoc ytesOrdered By: Joan Webb on 12-16-2022 Lymphocytes/100 WBC (Bld) 25.4 % 19-41 [facility] Blood monocytes/100 leukocyt esOrdered By: Joan Webb on 12-16-2022 Monocytes/100 WBC (Bld) 8.9 % 0-10 [facility] Blood platelet mean volumeOr dered By: Joan Webb on 12-16-2022 Platelet mean volume (Bld) [Entitic vol] 12.0 fL 6.2-12.0 [facility] Determination of erythrocyte mean corpuscular volume (MCV)Ordered By: Joan Webb on 12-16-2022 MCV (RBC) [Entitic vol] 89.1 fL 81-99 [facility] Erythrocyte sedimentation ra teOrdered By: Joan Webb on 12-16-2022 ESR (Bld) [Velocity] 6 mm/h 0-30 [facility] Hematocrit Auto (Bld) [Volum e fraction]Ordered By: Joan Webb on 12-16-2022 Hematocrit (Bld) [Volume fraction] 45.9 % 37-47 [facility] Laboratory - Chemistry and C hemistry - challengeOrdered By: Joan Webb on 12-16-2022 ALP [Catalytic activity/Vol] 49 U/L 45-117 [facility] ALT [Catalytic activity/Vol] 38 U/L 13-56 [facility] CO2 [Moles/Vol] 32.0 mmol/L 21.0-32.0 [facility] Globulin (S) [Mass/Vol] 4.1 g/dL 2.2-4.2 [facility] Urea nitrogen/Creatinine [Mass ratio] 31.8 mg/mg 10-20 [facility] Laboratory - Hematology and Cell countsOrdered By: Joan Webb on 12-16-2022 Erythrocyte distribution width (RBC) [Entitic vol] 45.5 fL 35.1-43.9 [facility] Erythrocyte distribution width (RBC) [Ratio] 14.2 % 11.6-14.6 [facility] Immature granulocytes/100 WBC (Bld) 0.500 % 0.0-0.9 [facility] Comment on above: IG% - Immature Granu locytes (promyelocytes, myelocytes and metamyelocytes) > 1% indicates that a LEFT SHIFT is Present. MCH (RBC) [Entitic mass] 29.1 pg 27.0-32.0 [facility] Nucleated RBC/100 WBC (Bld) [Ratio] 0 % 0-5 [facility] MCHC Auto (RBC) [Mass/Vol]Or dered By: Joan Webb on 12-16-2022 MCHC (RBC) [Mass/Vol] 32.7 g/dL 32-36 [facility] No Panel InformationOrdered By: Joan Webb on 12-16-2022 Stool Calprotectin 64 ug/g 0-120 [facility] Comment on above: Concentration Interp retation Follow-Up<16 - 50 ug/g Normal None>50 -120 ug/g Borderline Re-evaluate in 4-6 weeks >120 ug/g Abnormal Repeat as clinically indicatedPerformed at: [facility] [id number] Director: Jovanna Carrasquillo MD, Phone: [phone] Stool Pancreatic Elastase 74 >200 [facility] Comment on above: Result Units: ug [address]./gResults verified by repeat testing Severe Pancreatic Insufficiency: <100 Moderate Pancreatic Insufficiency: 100 - 200 Normal: >200Performed at: [facility] [facility] [employer] [facility] [id number] Director: Jovanna Carrasquillo MD, Phone: [phone] Estimated GFR (MDRD) Amer 50 mL/min >60 [facility] Comment on above: GFR Calc Estimated GFR (MDRD) Non-Af Amer 42 mL/min >60 [facility] Comment on above: Non- GFR Calc Platelets bldOrdered By: Lucia Webb on 12-16-2022 Platelets (Bld) [#/Vol] 198 10*3/uL 150-450 [facility] Serum or plasma C reactive p rotein measurement (mass/volume)Ordered By: Joan Webb on 12-16-2022 CRP [Mass/Vol] mg/L 0.0-3.0 [facility] Comment on above: C-Reactive Protein ( CRP) provides useful information for thediagnosis, therapy and monitoring of inflammatory processesand associated diseases. For the evaluation of Relative Riskfor Cardiovascular Disease, a High Sensitivity CRP (HSCRP)should be ordered. Serum or plasma albumin jaleesa urement (mass/volume)Ordered By: Joan Webb on 12-16-2022 Albumin [Mass/Vol] 3.5 g/dL 3.2-5.0 [facility] Serum or plasma albumin/glob ulin mass ratioOrdered By: Joan Webb on 12-16-2022 Albumin/Globulin [Mass ratio] 0.9 {ratio} 0.9-2.4 [facility] Serum or plasma calcium jaleesa urement (mass/volume)Ordered By: Joan Webb on 12-16-2022 Calcium [Mass/Vol] 9.5 mg/dL 8.5-10.1 [facility] Serum or plasma creatinine m easurement (mass/volume)Ordered By: Joan Webb on 12-16-2022 Creatinine [Mass/Vol] 1.32 mg/dL 0.55-1.02 [facility] Comment on above: The validity of the calculated GFR & GFRAA in patients over 70 years has not been determined. Clinical correlation is essential. Serum or plasma urea nitroge n measurement (mass/volume)Ordered By: Joan Webb on 12-16-2022 Urea nitrogen [Mass/Vol] 42 mg/dL 7-18 [facility] Stool lactoferrin detection by immunoassayOrdered By: Joan Webb on 12-16-2022 Lactoferrin IA Ql (Stl) [facility] Thin prep Papanicolaou smear with manual screeningOrdered By: Joan Webb on 12-16-2022 Thin prep Papanicolaou smear with manual screening 25 U/L 15-37 [facility] Thin prep Papanicolaou smear with manual screening 3 5-15 [facility] Glucose Glucometer (BldC) [M ass/Vol]on 07-24-2022 Glucose [Mass/Vol] 194 mg/dL 74-106 [facility] Work Phone: Comment on above: MANAGEMENT OF ANASTASIA T CARE PER NURSING PROTOCOL Laboratory - Hematology and Cell countson 07-10-2022 HbA1c (Bld) [Mass fraction] 7.1 % [facility] Work Phone: Qualitative QuantiFERON-TB g old in tube teston 05-13-2022 M. tuberculosis tuberculin stim IFN-g Ql (Bld) 0.03 IU/mL . [facility] Work Phone: Thin prep Papanicolaou smear with manual screeningon 05-13-2022 Thin prep Papanicolaou smear with manual screening Comment . [facility] Work Phone: Comment on above: QuantiFERON-TB Gold Plus is a qualitative indirect test forM tuberculosis infection (including disease) and isintended for use in conjunction with risk assessment,radiography, and other medical and diagnostic evaluations.The QuantiFERON-TB Gold Plus result is determined bysubtracting the Nil value from either TB antigen (Ag)value. The Mitogen tube serves as a control for the test. Thin prep Papanicolaou smear with manual screening 0.04 IU/mL . [facility] Work Phone: Thin prep Papanicolaou smear with manual screening > 10.00 IU/mL . [facility] Work Phone: Thin prep Papanicolaou smear with manual screening Negative Negative [facility] Work Phone: Comment on above: No response to M tub erculosis antigens detected.Infection with M tuberculosis is unlikely, but high riskindividuals should be considered for additional testing(ATS/IDSA/CDC Clinical Practice Guidelines, 2017). Thereference range is an Antigen minus Nil result of <0.35IU/mL.The specimen received for QuantiFERON testing was incubatedby the ordering institution. Specific procedures outlinedin our Directory of Services and in the package insert forthe QuantiFERON Gold (In Tube) test must be followed toenable for proper stimulation of cells for the productionof interferon gamma. Chemiluminescence immunoassaymethodologyPerformed at: [facility] [place], [place] [id number] Director: Billy Castro PhD, Phone: [phone] No Panel Informationon 04-26 Stool Calprotectin 130 ug/g 0-120 [facility] Work Phone: Comment on above: Concentration Interp retation Follow-Up<16 - 50 ug/g Normal None>50 -120 ug/g Borderline Re-evaluate in 4-6 weeks >120 ug/g Abnormal Repeat as clinically indicatedPerformed at: [facility] [address] [id number] Director: Billy Castro PhD, Phone: [phone] at: [facility] [id number] Director: Jovanna Carrasquillo MD, Phone: [phone] Stool Neutral Fats Normal . [facility] Work Phone: Comment on above: Normal (<60 Droplets /HPF) Stool Pancreatic Elastase 131 >200 [facility] Work Phone: Comment on above: Result Units: ug [address]./g Severe Pancreatic Insufficiency: <100 Moderate Pancreatic Insufficiency: 100 - 200 Normal: >200Performed at: [employer] [address] [id number] Director: Jovanna Carrasquillo MD, Phone: [phone] Qualitative fecal fat or lip idson 04-26-2022 Fat Ql (Stl) Increased . [facility] Work Phone: Comment on above: Normal (<100 Droplet s/HPF) Absolute lymphocyte counton 04-25-2022 Lymphocytes Auto (Unsp spec) [#/Vol] 1.94 10*3/uL 0.83-4.51 [facility] Work Phone: Atypical perinuclear antineu trophil cytoplasmic antibodies measurementon 04-25-2022 Neutrophil cytoplasmic Ab.perinuclear.atypica l IF (S) [Titer] <1:20 titer Neg:<1:20 [facility] Work Phone: Comment on above: The atypical pANCA p attern has been observed in asignificant percentage of patients with ulcerative colitis,primary sclerosing cholangitis and autoimmune hepatitis.Performed at: - [facility] [id number] [place], [place] [id number] Director: Billy Castro PhD, Phone: [phone] at: [facility] [id number] Director: Jovanna Carrasquillo MD, Phone: [phone] Basophil percentageon 2021 Amylase [Catalytic activity/Vol] 59 U/L 25-115 [facility] Work Phone: Basophil percentage < 0.2 AI 0.0-0.9 [facility] Work Phone: Basophils/100 WBC (Bld) 0.7 % 0-1 [facility] Work Phone: Bilirubin [Mass/Vol] 0.50 mg/dL 0.20-1.00 [facility] Work Phone: Comment on above: For patients on eltr ombopag therapy, use of Dimension Silas TBIL is not recommended. Chloride [Moles/Vol] 102 mmol/L 98-107 [facility] Work Phone: Eosinophils/100 WBC (Bld) 2.4 % 0-5 [facility] Work Phone: Glucose [Mass/Vol] 191 mg/dL 74-106 [facility] Work Phone: Comment on above: Fasting Glucose resu lt greater than or equal to 126 mg/dL suggests DIABETES MELLITUS per A.D.A. criteria. Neutrophils (Bld) [#/Vol] 8.0 10*3/uL 2.0-7.7 [facility] Work Phone: Neutrophils/100 WBC (Bld) 70.1 % 47-70 [facility] Work Phone: Potassium [Moles/Vol] 4.2 mmol/L 3.5-5.1 [facility] Work Phone: Protein [Mass/Vol] 7.3 g/dL 6.4-8.2 [facility] Work Phone: Sodium [Moles/Vol] 139 mmol/L 136-145 [facility] Work Phone: WBC (Bld) [#/Vol] 11.4 10*3/uL 4.4-11.0 [facility] Work Phone: Blood erythrocytes count (nu mber/volume)on 04-25-2022 RBC (Bld) [#/Vol] 5.18 10*6/uL 4.2-5.4 [facility] Work Phone: Blood hemoglobin measurement (mass/volume)on 04-25-2022 Hemoglobin (Bld) [Mass/Vol] 14.9 g/dL 12.0-15.0 [facility] Work Phone: Blood lymphocytes/100 leukoc yteson 04-25-2022 Lymphocytes/100 WBC (Bld) 17.1 % 19-41 [facility] Work Phone: [phone] Blood monocytes/100 leukocyt eson 04-25-2022 Monocytes/100 WBC (Bld) 8.5 % 0-10 [facility] Work Phone: Blood platelet mean volumeon 04-25-2022 Platelet mean volume (Bld) [Entitic vol] 11.5 fL 6.2-12.0 [facility] Work Phone: Determination of erythrocyte mean corpuscular volume (MCV)on 04-25-2022 MCV (RBC) [Entitic vol] 88.8 fL 81-99 [facility] Work Phone: Erythrocyte sedimentation ra raudel 04-25-2022 ESR (Bld) [Velocity] 22 mm/h 0-30 [facility] Work Phone: Hematocrit Auto (Bld) [Volum e fraction]on 04-25-2022 Hematocrit (Bld) [Volume fraction] 46.0 % 37-47 [facility] Work Phone: Interpretation of serum or p lasma protein pattern by immunofixation (narrative resulton 04-25-2022 Protein Fractions Immunofixation Marshal [Interp] See comment [facility] Work Phone: Comment on above: Not Observed Laboratory - Chemistry and C hemistry - challengeon 04-25-2022 ALP [Catalytic activity/Vol] 69 U/L 45-117 [facility] Work Phone: ALT [Catalytic activity/Vol] 51 U/L 13-56 [facility] Work Phone: CO2 [Moles/Vol] 31.0 mmol/L 21.0-32.0 [facility] Work Phone: Lipase [Catalytic activity/Vol] 52 U/L 73-393 [facility] Work Phone: Urea nitrogen/Creatinine [Mass ratio] 18.9 mg/mg 10-20 [facility] Work Phone: Laboratory - Hematology and Cell countson 04-25-2022 Erythrocyte distribution width (RBC) [Entitic vol] 52.0 fL 35.1-43.9 [facility] Work Phone: Erythrocyte distribution width (RBC) [Ratio] 16.0 % 11.6-14.6 [facility] Work Phone: [phone] Immature granulocytes/100 WBC (Bld) 1.200 % 0.0-0.9 [facility] Work Phone: Comment on above: IG% - Immature Granu locytes (promyelocytes, myelocytes and metamyelocytes) > 1% indicates that a LEFT SHIFT is Present. MCH (RBC) [Entitic mass] 28.8 pg 27.0-32.0 [facility] Work Phone: Nucleated RBC/100 WBC (Bld) [Ratio] 0 % 0-5 [facility] Work Phone: [phone] MCHC Auto (RBC) [Mass/Vol]on 04-25-2022 MCHC (RBC) [Mass/Vol] 32.4 g/dL 32-36 [facility] Work Phone: [phone] Panel Informationon 04-25 Addendum Document Comment . [facility] Work Phone: Comment on above: Protein electrophore sis scan will follow via computer,mail, or nursing executive delivery. Centromere B Antibody <0.2 AI 0.0-0.9 [facility] Work Phone: Endomysial IgA Antibody Negative Negative [facility] Work Phone: Estimated GFR (MDRD) Amer 50 mL/min >60 [facility] Work Phone: Comment on above: GFR Calc Estimated GFR (MDRD) Non-Af Amer 42 mL/min >60 [facility] Work Phone: Comment on above: Non- GFR Calc Immunoglobulin E 4 IU/mL 6-495 [facility] Work Phone: Miscellaneous Test See comment [facility] Work Phone: Comment on above: Scanned image report available in EMR RUMPER Antibody <0.2 AI 0.0-0.9 [facility] Work Phone: Thyroid Stimulating Hormone (TSH) 4.58 uIU/mL 0.358-3.74 [facility] Work Phone: Platelets bldon 04-25-2022 Platelets (Bld) [#/Vol] 249 10*3/uL 150-450 [facility] Work Phone: Serum DNA double strand anti body assay (units/volume)on 04-25-2022 DNA double strand Ab Qn (S) 1 [IU]/mL 0-9 [facility] Work Phone: Comment on above: Negative <5 Equivoca l 5 - 9 Positive >9 Serum Aishwarya-1 antibody assay (u nits/volume)on 04-25-2022 Aishwarya-1 extractable nuclear Ab Qn (S) <0.2 AI 0.0-0.9 [facility] Work Phone: Serum Scl-70 extractable nuc lear antibody assay (units/volume)on 04-25-2022 SCL-70 extractable nuclear Ab Qn (S) <0.2 AI 0.0-0.9 [facility] Work Phone: Serum Bangura extractable nucl ear antibody detectionon 04-25-2022 Bangura extractable nuclear Ab Ql (S) <0.2 AI 0.0-0.9 [facility] Work Phone: Serum depbg-4-wzzfdynv measu rement by electrophoresison 04-25-2022 Alpha 1 globulin Elph [Mass/Vol] 0.3 g/dL 0.0-0.4 [facility] Work Phone: Alpha 1 globulin Elph [Mass/Vol] 0.9 g/dL 0.4-1.0 [facility] Work Phone: Serum classic neutrophil cyt oplasmic antibody assay (units/volume)on 04-25-2022 Neutrophil cytoplasmic Ab.classic Qn (S) <1:20 titer Neg:<1:20 [facility] Work Phone: Serum globulin measurement ( mass/volume)on 04-25-2022 Globulin (S) [Mass/Vol] 3.3 g/dL 2.2-3.9 [facility] Work Phone: Serum or plasma C reactive p rotein measurement (mass/volume)on 04-25-2022 CRP [Mass/Vol] 5.25 mg/L 0.0-3.0 [facility] Work Phone: Comment on above: C-Reactive Protein ( CRP) provides useful information for thediagnosis, therapy and monitoring of inflammatory processesand associated diseases. For the evaluation of Relative Riskfor Cardiovascular Disease, a High Sensitivity CRP (HSCRP)should be ordered. Serum or plasma IgA measurem ent (mass/volume)on 04-25-2022 IgA [Mass/Vol] 279 mg/dL 64-422 [facility] Work Phone: Serum or plasma IgG measurem ent (mass/volume)on 04-25-2022 IgG [Mass/Vol] 972 mg/dL [phone] [facility] Work Phone: [phone] Serum or plasma IgM measurem ent (mass/volume)on 04-25-2022 IgM [Mass/Vol] 109 mg/dL 26-217 [facility] Work Phone: Serum or plasma albumin jaleesa urement (mass/volume)on 04-25-2022 Albumin [Mass/Vol] 3.3 g/dL 2.9-4.4 [facility] Work Phone: Serum or plasma albumin/glob ulin mass ratioon 04-25-2022 Albumin/Globulin [Mass ratio] 0.8 {ratio} 0.9-2.4 [facility] Work Phone: Serum or plasma beta globuli n measurement by electrophoresis (mass/volume)on 04-25-2022 Beta globulin Elph [Mass/Vol] 1.0 g/dL 0.7-1.3 [facility] Work Phone: Serum or plasma calcium jaleesa urement (mass/volume)on 04-25-2022 Calcium [Mass/Vol] 9.3 mg/dL 8.5-10.1 [facility] Work Phone: Serum or plasma creatinine m easurement (mass/volume)on 04-25-2022 Creatinine [Mass/Vol] 1.32 mg/dL 0.55-1.02 [facility] Work Phone: Comment on above: The validity of the calculated GFR & GFRAA in patients over 70 years has not been determined. Clinical correlation is essential. Serum or plasma gamma globul in measurement by electrophoresis (mass/volume)on 04-25-2022 Gamma globulin Elph [Mass/Vol] 1.0 g/dL 0.4-1.8 [facility] Work Phone: Serum or plasma immunoelectr ophoresis interpretation (nominal result)on 04-25-2022 Interpretation IEP [Interp] Comment . [facility] Work Phone: Comment on above: No monoclonality det ected. Serum or plasma urea nitroge n measurement (mass/volume)on 04-25-2022 Urea nitrogen [Mass/Vol] 25 mg/dL 7-18 [facility] Work Phone: Serum perinuclear neutrophil cytoplasmic antibody titer by immunofluorescenceon 04-25-2022 Neutrophil cytoplasmic Ab.perinuclear IF (S) [Titer] <1:20 titer Neg:<1:20 [facility] Work Phone: Comment on above: The presence of posi tive fluorescence exhibiting P-ANCA orC-ANCA patterns alone is not specific for the diagnosis ofWegener's Granulomatosis (WG) or microscopic polyangiitis.Decisions about treatment should not be based solely onANCA IFA results. The [employer] ANCA [employer] Consensusrecommends follow up testing of positive sera with both OH-3 and MPO-ANCA enzyme immunoassays. As many as 5% serumsamples are positive only by EIA. Ref. AM J Clin Vyieyy1013;111:507-513. Serum tissue transglutaminas e IgA antibody assay (units/volume)on 04-25-2022 tTG IgA Qn (S) <2 U/mL 0-3 [facility] Work Phone: Comment on above: Negative 0 - 3 Weak Positive 4 - 10 Positive >10 Tissue Transglutaminase (tTG) has been identified as the endomysial antigen. Studies have demonstr- ated that endomysial IgA antibodies have over 99% specificity for gluten sensitive enteropathy. Thin prep Papanicolaou smear with manual screeningon 04-25-2022 Thin prep Papanicolaou smear with manual screening 30 U/L 15-37 [facility] Work Phone: Thin prep Papanicolaou smear with manual screening 6 5-15 [facility] Work Phone: [phone] Thin prep Papanicolaou smear with manual screening 185 U/L 84-246 [facility] Work Phone: [phone] Thin prep Papanicolaou smear with manual screening 1.1 0.7-1.7 [facility] Work Phone: Total protein bloodon 2021 Protein [Mass/Vol] 6.6 g/dL 6.0-8.5 [facility] Work Phone: Laboratory - Hematology and Cell countson 01-07-2022 HbA1c (Bld) [Mass fraction] 6.9 % [facility] Work Phone: CULTURE, URINE, ROUTINEon CULTURE, URINE, ROUTINE SEE NOTE Normal [facility] Comment on above: Result Comment: CULTURE, URINE, ROUTINE Micro Number: [id number] Test Status: Final Specimen Source: Urine, clean catch Specimen Quality: Adequate Result: Growth of mixed jerome was isolated, suggesting probable contamination. No further testing will be performed. If clinically indicated, recollection using a method to minimize contamination, with prompt transfer to Urine Culture Transport Tube, is recommended. Performed By: #### 3 [id number] #### [facility] [address] [place] [address] [employer]: Wilfred Avendaño MD Hemoglobin A1con 08-03-2020 HbA1c (Bld) [Mass fraction] 6.9 % High 4.3-5.6 [facility] Comment on above: Performed By: #### H BA1C #### [facility] Chemistry [address] [place] [address] HbA1c (Bld) [Mass fraction] 151 mg/dL Normal [facility] Comment on above: Performed By: #### H BA1C #### [facility] Chemistry [address] [place] [address] Coronavirus 2019on 0 COVID 19 Result [employer] Normal Negative for COVID19 (SARS CoV2) by PCR. [facility] Comment on above: Result Comment: Nega tive for This test was developed and its performance characteristics determined by [facility]'s [facility] [place]. This test has been authorized by FDA under an Emergency Use Authorization (EUA). This test has been validated in accordance with the FDA's Guidance Document Policy for Diagnostics Testing in Laboratories Certified to Perform High Complexity Testing under CLIA prior to Emergency use Authorization for Coronavirus Disease 2019 during the Public Health Emergency issued on December 18, 2019. COVID19 (SARS This test was developed and its performance characteristics determined by [facility]'s [facility] [place]. This test has been authorized by FDA under an Emergency Use Authorization (EUA). This test has been validated in accordance with the FDA's Guidance Document Policy for Diagnostics Testing in Laboratories Certified to Perform High Complexity Testing under CLIA prior to Emergency use Authorization for Coronavirus Disease 2019 during the Public Health Emergency issued on December 18, 2019. CoV2) by PCR. This test was developed and its performance characteristics determined by [facility]'s [facility] [place]. This test has been authorized by FDA under an Emergency Use Authorization (EUA). This test has been validated in accordance with the FDA's Guidance Document Policy for Diagnostics Testing in Laboratories Certified to Perform High Complexity Testing under CLIA prior to Emergency use Authorization for Coronavirus Disease 2019 during the Public Health Emergency issued on December 18, 2019. COVID 19 Source [employer] Normal [facility] Comment on above: Result Comment: Naso pharyngeal Corrected on 05/31 AT 0037: Previously reported as NASAL SWAB Swab Corrected on 05/31 AT 0037: Previously reported as NASAL SWAB Hemoglobin A1con 09-02-2019 HbA1c (Bld) [Mass fraction] 6.8 % High 4.3-5.6 [facility] Comment on above: Performed By: #### H BA1C #### [facility] Routine Lab [address] [place], [place] [id number] HbA1c (Bld) [Mass fraction] 148 mg/dL Normal [facility] Comment on above: Performed By: #### H BA1C #### [facility] Routine Lab [address] [place], [place] [address] No Panel Information Enteric Bacteriology [facility] Work Phone: Vital Signs Date Time Vital Sign Value Performing Clinician Facility 07-09-2025 08:58-0400 Body temperature 97.6 [degF] [employer] Work Phone: [facility] 07-09-2025 08:58-0400 Diastolic blood pressure 60 mm[Hg] [employer] Work Phone: [facility] 07-09-2025 08:58-0400 Heart rate 74 /min [employer] Work Phone: [facility] 07-09-2025 08:58-0400 Respiratory rate 16 /min [employer] PA[facility]C Work Phone: [facility] 07-09-2025 08:58-0400 SaO2% (BldA) [Mass fraction] 94 % [employer] PA-C Work Phone: [facility] 07-09-2025 08:58-0400 Systolic blood pressure 126 mm[Hg] [employer] PA-C Work Phone: [facility] 07-06-2025 10:17-0400 Body height 170.18 cm [employer] PA-C Work Phone: [facility] 07-06-2025 10:17-0400 Body mass index (BMI) [Ratio] 31.3 kg/m2 [employer] PA-C Work Phone: [facility] 07-06-2025 10:17-0400 Body weight 90.71 kg [employer] PA-C Work Phone: [facility] 07-06-2025 10:17-0400 Diastolic blood pressure 82 mm[Hg] [employer] PA-C Work Phone: [facility] 07-06-2025 10:17-0400 Heart rate 63 /min [employer] PA-C Work Phone: [facility] 07-06-2025 10:17-0400 SaO2% (BldA) [Mass fraction] 93 % [employer] PA-C Work Phone: [facility] 07-06-2025 10:17-0400 Systolic blood pressure 128 mm[Hg] [employer] PA-C Work Phone: [facility] 02-25-2025 12:58-0400 Body temperature 96.8 [degF] [employer] PA-C Work Phone: [facility] 02-25-2025 12:58-0400 Diastolic blood pressure 66 mm[Hg] [employer] PA-C Work Phone: [facility] 02-25-2025 12:58-0400 Heart rate 61 /min [employer] PA-C Work Phone: [facility] 02-25-2025 12:58-0400 Respiratory rate 16 /min [employer] PA-C Work Phone: [facility] 02-25-2025 12:58-0400 SaO2% (BldA) [Mass fraction] 94 % [employer] PA-C Work Phone: [facility] 02-25-2025 12:58-0400 Systolic blood pressure 188 mm[Hg] [employer] PA-C Work Phone: [facility] 02-25-2025 09:57-0400 Body height 170.18 cm [employer] PA-C Work Phone: [facility] 02-25-2025 09:57-0400 Body mass index (BMI) [Ratio] 32.4 kg/m2 [employer] PA-C Work Phone: [facility] 02-25-2025 09:57-0400 Body weight 93.98 kg [employer] PA-C Work Phone: [facility] 01-24-2025 10:32-0400 Body mass index (BMI) [Ratio] 32.3 kg/m2 [employer] PA-C Work Phone: [facility] 01-24-2025 10:32-0400 Body weight 93.55 kg [employer] PA-C Work Phone: [facility] 01-24-2025 10:32-0400 Diastolic blood pressure 80 mm[Hg] [employer] PA-C Work Phone: [facility] 01-24-2025 10:32-0400 Heart rate 70 /min [employer] PA-C Work Phone: [facility] 01-24-2025 10:32-0400 SaO2% (BldA) [Mass fraction] 92 % [employer] PA-C Work Phone: [facility] 01-24-2025 10:32-0400 Systolic blood pressure 136 mm[Hg] [employer] PA-C Work Phone: [facility] 12-31-2024 12:54-0400 Diastolic blood pressure 67 mm[Hg] [employer] PA-C Work Phone: [facility] 12-31-2024 12:54-0400 Heart rate 60 /min [employer] PA-C Work Phone: [facility] 12-31-2024 12:54-0400 Respiratory rate 16 /min [employer] PA-C Work Phone: [facility] 12-31-2024 12:54-0400 Systolic blood pressure 197 mm[Hg] [employer] PA-C Work Phone: [facility] 12-31-2024 10:01-0400 Body height 170.18 cm [employer] PA-C Work Phone: [facility] 12-31-2024 10:01-0400 Body mass index (BMI) [Ratio] 32.5 kg/m2 [employer] PA-C Work Phone: [facility] 12-31-2024 10:01-0400 Body temperature 96.2 [degF] [employer] PA-C Work Phone: [facility] 12-31-2024 10:01-0400 Body weight 94.07 kg [employer] PA-C Work Phone: [facility] 12-31-2024 10:01-0400 SaO2% (BldA) [Mass fraction] 95 % [employer] PA-C Work Phone: [facility] 11-05-2024 10:01-0500 Body mass index (BMI) [Ratio] 33.2 kg/m2 [employer] PA-C Work Phone: [facility] 11-05-2024 10:01-0500 Body temperature 96 [degF] [employer] PA-C Work Phone: [facility] 11-05-2024 10:01-0500 Body weight 96.25 kg [employer] PA-C Work Phone: [facility] 11-05-2024 10:01-0500 Diastolic blood pressure 72 mm[Hg] [employer] PA-C Work Phone: [facility] 11-05-2024 10:01-0500 Heart rate 68 /min [employer] PA-C Work Phone: [facility] 11-05-2024 10:01-0500 Respiratory rate 16 /min [employer] PA-C Work Phone: [facility] 11-05-2024 10:01-0500 SaO2% (BldA) [Mass fraction] 94 % [employer] PA-C Work Phone: [facility] 11-05-2024 10:01-0500 Systolic blood pressure 165 mm[Hg] [employer] [place] PA-C Work Phone: [facility] 09-10-2024 13:11-0500 Diastolic blood pressure 86 mm[Hg] [employer] [place] PA-C Work Phone: [facility] 09-10-2024 13:11-0500 Systolic blood pressure 176 mm[Hg] [employer] [place] PA-C Work Phone: [facility] 09-10-2024 09:59-0500 Body temperature 95.6 [degF] [employer] PA-C Work Phone: [facility] 09-10-2024 09:59-0500 Body weight 97.79 kg [employer] PA-C Work Phone: [facility] 09-10-2024 09:59-0500 Heart rate 70 /min [place] [employer] PA-C Work Phone: [facility] 09-10-2024 09:59-0500 Respiratory rate 16 /min [employer] PA-C Work Phone: [facility] 09-10-2024 09:59-0500 SaO2% (BldA) [Mass fraction] 16 % [facility]-C Work Phone: [facility] 09-10-2024 09:49-0500 Body mass index (BMI) [Ratio] 33.7 kg/m2 [facility] PA-C Work Phone: [facility] 08-18-2024 11:19-0400 Body temperature 97.88 [degF] DR RAGINI HACKETT MD [address] [place] [address] 08-18-2024 11:19-0400 Diastolic Blood Pressure Non-Invasive 53 mm[Hg] DR RAGINI HACKETT MD [address] [place] [address] 08-18-2024 11:19-0400 Heart rate 65 /min DR RAGINI HACKETT MD [address] [place] [address] 08-18-2024 11:19-0400 Mean blood pressure 70 mm[Hg] DR RAGINI HACKETT MD [address] [place] [address] 08-18-2024 11:19-0400 Reason For Taking VItal Signs DR RAGINI HACKETT MD [address] [place] [address] 08-18-2024 11:19-0400 Respiratory rate 16 /min DR RAGINI HACKETT MD [address] [place] [address] 08-18-2024 11:19-0400 Systolic Blood Pressure Non-Invasive 116 mm[Hg] DR RAGINI HACKETT MD [address] [place] [address] 08-18-2024 08:37-0400 Heart rate 68 /min DR RAGINI HACKETT MD [address] [place] [address] 08-18-2024 08:25-0400 Heart rate 74 /min DR RAGINI HACKETT MD [address] [place] [address] 08-18-2024 08:25-0400 Reason For Taking VItal Signs DR RAGINI HACKETT MD [address] [place] [address] 08-18-2024 07:17-0400 Body temperature 98.06 [degF] DR RAGINI HACKETT MD [address] [place] [address] 08-18-2024 07:17-0400 Diastolic Blood Pressure Non-Invasive 83 mm[Hg] DR RAGINI HACKETT MD [address] [place] [address] 08-18-2024 07:17-0400 Heart rate 63 /min DR RAGINI HACKETT MD [address] [place] [address] 08-18-2024 07:17-0400 Mean blood pressure 97 mm[Hg] DR RAGINI HACKETT MD [address] [place] [address] 08-18-2024 07:17-0400 Reason For Taking VItal Signs DR RAGINI HACKETT MD [address] [place] [address] 08-18-2024 07:17-0400 Respiratory rate 16 /min DR RAGINI HACKETT MD [address] [place] [address] 08-18-2024 07:17-0400 Systolic Blood Pressure Non-Invasive 127 mm[Hg] DR RAGINI HACKETT MD [address] [place] [address] 08-18-2024 05:42-0400 Respiratory rate 16 /min DR RAGINI HACKETT MD [address] [place] [address] 08-18-2024 03:43-0400 Body temperature 97.7 [degF] DR RAGINI HACKETT MD [address] [place] [address] 08-18-2024 03:43-0400 Diastolic Blood Pressure Non-Invasive 62 mm[Hg] DR RAGINI HACKETT MD [address] [place] [address] 08-18-2024 03:43-0400 Systolic Blood Pressure Non-Invasive 134 mm[Hg] DR RAGINI HACKETT MD [address] [place] [address] 08-17-2024 22:50-0400 Mean blood pressure 73 mm[Hg] DR RAGINI HACKETT MD [address] [place] [address] 08-17-2024 18:31-0400 Heart rate 81 /min DR RAGINI HACKETT MD [address] [place] [address] 08-17-2024 07:11-0400 [address] Pressure Cuff Size DR RAGINI HACKETT MD [address] [place] [address] 08-17-2024 07:11-[address] RAGINI HACKETT MD [address] [place] [address] 08-17-2024 07:11-[address] RAGINI HACKETT MD [address] [place] [address] 08-17-2024 07:11-0400 Body height 170.[address] RAGINI HACKETT MD [address] [place] [address] 08-17-2024 07:11-0400 Body weight 97.[address] RAGINI HACKETT MD [address] [place] [address] 08-17-2024 07:11-0400 Heart rate 85 /min DR RAGINI HACKETT MD [address] [place] [address] 08-12-2024 07:58-[address] RAGINI HACKETT MD [address] [place] [address] 08-12-2024 07:58-[address] RAGINI HACKETT MD [address] [place] [address] 08-12-2024 07:58-0400 Diastolic Blood Pressure Non-Invasive 75 mm[Hg] DR RAIGNI HACKETT MD [address] [place] [address] 08-12-2024 07:58-0400 Systolic Blood Pressure Non-Invasive 132 mm[Hg] DR RAGINI HACKETT MD [address] [place] [address] 08-12-2024 07:31-[address] RAGINI HACKETT MD [address] [place] [address] 08-12-2024 07:31-[address] RAGINI HACKETT MD [address] [place] [address] 08-12-2024 07:31-0400 Body height [address] RAGINI HACKETT MD [address] [place] [address] 08-12-2024 07:31-0400 Body temperature 97.7 [degF] DR RAGINI HACKETT MD [address] [place] [address] 08-12-2024 07:31-0400 Body weight 97.[address] RAGINI HACKETT MD [address] [place] [address] 08-12-2024 07:31-0400 Diastolic Blood Pressure Non-Invasive 67 mm[Hg] DR RAGINI HACKETT MD [address] [place] [address] 08-12-2024 07:31-0400 Heart rate 72 /min DR RAGINI HACKETT MD [address] [place] [address] 08-12-2024 07:31-0400 Systolic Blood Pressure Non-Invasive 162 mm[Hg] DR RAGINI HACKETT MD [address] [place] [address] 07-28-2024 12:33-04[address] Cuff Size DR RAGINI HACKETT MD [address] [place] [address] 07-28-2024 12:33-[address] RAGINI HACKETT MD [address] [place] [address] 07-28-2024 12:33-[address] RAGINI HACKETT MD [address] [place] [address] 07-28-2024 12:33-0400 Body temperature 97.7 [degF] DR RAGINI HACKETT MD [address] [place] [address] 07-28-2024 12:33-0400 Diastolic Blood Pressure Non-Invasive 54 mm[Hg] DR RAGINI HACKETT MD [address] [place] [address] 07-28-2024 12:33-0400 Heart rate 63 /min DR RAGINI HACKETT MD [address] [place] [address] 07-28-2024 12:33-0400 Reason For Taking VItal Signs DR RAGINI HACKETT MD [address] [place] [address] 07-28-2024 12:33-0400 Respiratory rate 16 /min DR RAGINI HACKETT MD [address] [place] [address] 07-28-2024 12:33-0400 Systolic Blood Pressure Non-Invasive 138 mm[Hg] DR RAGINI HACKETT MD [address] [place] [address] 07-28-2024 11:37-0400 Body temperature 97.52 [degF] DR RAGINI HACKETT MD [address] [place] [address] 07-28-2024 11:37-0400 Reason For Taking VItal Signs DR RAGINI HACKETT MD [address] [place] [address] 07-28-2024 11:37-0400 Respiratory rate 17 /min DR RAGINI HACKETT MD [address] [place] [address] 07-28-2024 08:16-04[address] Pressure Cuff Size DR RAGINI HACKETT MD [address] [place] [address] 07-28-2024 08:16-[address] RAGINI HACKETT MD [address] [place] [address] 07-28-2024 08:16-[address] RAGINI HACKETT MD [address] [place] [address] 07-28-2024 08:16-0400 Body temperature 98.06 [degF] DR RAGINI HACKETT MD [address] [place] [address] 07-28-2024 08:16-0400 Diastolic Blood Pressure Non-Invasive 59 mm[Hg] DR RAGINI HACKETT MD [address] [place] [address] 07-28-2024 08:16-0400 Heart rate 68 /min DR RAGINI HACKETT MD [address] [place] [address] 07-28-2024 08:16-0400 Reason For Taking VItal Signs DR RAGINI HACKETT MD [address] [place] [address] 07-28-2024 08:16-0400 Respiratory rate 18 /min DR RAGINI HACKETT MD [address] [place] [address] 07-28-2024 08:16-0400 Systolic Blood Pressure Non-Invasive 139 mm[Hg] DR RAGINI HACKETT MD [address] [place] [address] 07-28-2024 08:00-0400 Heart rate 62 /min DR RAGINI HACKETT MD [address] [place] [address] 07-28-2024 06:27-0400 Diastolic Blood Pressure Non-Invasive 51 mm[Hg] DR RAGINI HACKETT MD [address] [place] [address] 07-28-2024 06:27-0400 Heart rate 63 /min DR RAGINI HACKETT MD [address] [place] [address] 07-28-2024 06:27-0400 Mean blood pressure 73 mm[Hg] DR RAGINI HACKETT MD [address] [place] [address] 07-28-2024 06:27-0400 Systolic Blood Pressure Non-Invasive 129 mm[Hg] DR RAGINI HACKETT MD [address] [place] [address] 07-28-2024 05:49-0400 Mean blood pressure 82 mm[Hg] DR RAGINI HACKETT MD [address] [place] [address] 07-28-2024 04:19-0400 Mean blood pressure 108 mm[Hg] DR RAGINI HACKETT MD [address] [place] [address] 07-27-2024 18:49-0400 Heart rate 72 /min DR RAGINI HACKETT MD [address] [place] [address] 07-27-2024 16:29-0400 Body height 170.[address] RAGINI HACKETT MD [address] [place] [address] 07-27-2024 16:29-0400 Body weight 96.[address] RAGINI HACKETT MD [address] [place] [address] 07-27-2024 16:29-0400 Body weight 33.31 kg/m2 DR RAGINI HACKETT MD [address] [place] [address] 07-27-2024 09:54-0400 Body height 170.[address] RAGINI HACKETT MD [address] [place] [address] 07-27-2024 09:54-0400 Body weight 96.[address] RAGINI HACKETT MD [address] [place] [address] 07-27-2024 09:54-0400 Heart rate 80 /min DR RAGINI HACKETT MD [address] [place] [address] 07-21-2024 11:40-0400 Diastolic Blood Pressure Non-Invasive 79 mm[Hg] DR RAGINI HACKETT MD [address] [place] [address] 07-21-2024 11:40-0400 Heart rate 66 /min DR RAGINI HACKETT MD [address] [place] [address] 07-21-2024 11:40-0400 Respiratory rate 16 /min DR RAGINI HACKETT MD [address] [place] [address] 07-21-2024 11:40-0400 Systolic Blood Pressure Non-Invasive 166 mm[Hg] DR RAGINI HACKETT MD [address] [place] [address] 07-21-2024 11:20-0400 Diastolic Blood Pressure Non-Invasive 81 mm[Hg] DR RAGINI HACKETT MD [address] [place] [address] 07-21-2024 11:20-0400 Heart rate 69 /min DR RAGINI HACKETT MD [address] [place] [address] 07-21-2024 11:20-0400 Respiratory rate 16 /min DR RAGINI HACKETT MD [address] [place] [address] 07-21-2024 11:20-0400 Systolic Blood Pressure Non-Invasive 164 mm[Hg] DR RAGINI HACKETT MD [address] [place] [address] 07-21-2024 11:05-0400 Diastolic Blood Pressure Non-Invasive 83 mm[Hg] DR RAGINI HACKETT MD [address] [place] [address] 07-21-2024 11:05-0400 Heart rate 73 /min DR RAGINI HACKETT MD [address] [place] [address] 07-21-2024 11:05-0400 Respiratory rate 18 /min DR RAGINI HACKETT MD [address] [place] [address] 07-21-2024 11:05-0400 Systolic Blood Pressure Non-Invasive 184 mm[Hg] DR RAGINI HACKETT MD [address] [place] [address] 07-21-2024 10:55-0400 Heart rate 67 /min DR RAGINI HACKETT MD [address] [place] [address] 07-21-2024 10:50-0400 Heart rate 67 /min DR RAGINI HACKETT MD [address] [place] [address] 07-21-2024 06:26-0400 Heart rate 72 /min DR RAGINI HACKETT MD [address] [place] [address] 07-21-2024 04:36-0400 Body temperature 98.96 [degF] DR RAGINI HACKETT MD [address] [place] [address] 07-20-2024 21:31-0400 Body temperature 97.34 [degF] DR RAGINI HACKETT MD [address] [place] [address] 07-20-2024 20:40-0400 Heart rate 77 /min DR RAGINI HACKETT MD [address] [place] [address] 07-20-2024 15:04-0400 Heart rate 70 /min DR RAGINI HACKETT MD [address] [place] [address] 07-20-2024 06:39-0400 Body height 170.[address] RAGINI HACKETT MD [address] [place] [address] 07-20-2024 06:39-0400 Body temperature 97.7 [degF] DR RAGINI HACKETT MD [address] [place] [address] 07-20-2024 06:39-0400 Body weight 97.[address] RAGINI HACKETT MD [address] [place] [address] 01-28-2024 10:54-0400 Body height 170.18 cm PA[employer]C [employer] [facility] Work Phone: [facility] 01-28-2024 10:54-0400 Body mass index (BMI) [Ratio] 34.9 kg/m2 PA[employer]C [employer] Work Phone: [facility] 01-28-2024 10:54-0400 Body temperature 96.8 [degF] PA[employer]C [employer] Work Phone: [facility] 01-28-2024 10:54-0400 Body weight 101.33 kg PA[employer]C [employer] Work Phone: [facility] 01-28-2024 10:54-0400 Diastolic blood pressure 49 mm[Hg] [employer]C [employer] [facility] Work Phone: [facility] 01-28-2024 10:54-0400 Heart rate 68 /min [employer] [facility] Work Phone: [facility] 01-28-2024 10:54-0400 Respiratory rate 16 /min [employer] [facility] Work Phone: [facility] 01-28-2024 10:54-0400 SaO2% (BldA) [Mass fraction] 93 % [employer]C [employer] Work Phone: [facility] 01-28-2024 10:54-0400 Systolic blood pressure 143 mm[Hg] PA[employer]C [employer] Work Phone: [facility] 10-10-2023 12:58-0500 Body mass index (BMI) [Ratio] 36.5 kg/m2 [employer] [facility] Work Phone: [facility] 10-10-2023 12:58-0500 Body temperature 96.9 [degF] PA[employer]C [employer] [facility] Work Phone: [facility] 10-10-2023 12:58-0500 Body weight 105.68 kg PA[employer]C [employer] [facility] Work Phone: [facility] 10-10-2023 12:58-0500 Diastolic blood pressure 70 mm[Hg] PA[employer]C [employer] [facility] Work Phone: [facility] 10-10-2023 12:58-0500 Heart rate 70 /min [employer] [facility] Work Phone: [facility] 10-10-2023 12:58-0500 SaO2% (BldA) [Mass fraction] 90 % PA[employer]C [employer] Work Phone: [facility] 10-10-2023 12:58-0500 Systolic blood pressure 136 mm[Hg] PA[employer]C [employer] [facility] Work Phone: [facility] 09-12-2023 17:20-0500 Diastolic blood pressure 70 mm[Hg] PA[employer] Work Phone: [facility] 09-12-2023 17:20-0500 Heart rate 66 /min [employer] Work Phone: [facility] 09-12-2023 17:20-0500 Respiratory rate 12 /min [employer] Work Phone: [facility] 09-12-2023 17:20-0500 Systolic blood pressure 178 mm[Hg] PA[employer]C [employer] Work Phone: [facility] 09-12-2023 16:33-0500 SaO2% (BldA) [Mass fraction] 95 % [employer] Work Phone: [facility] 09-12-2023 14:15-0500 Body mass index (BMI) [Ratio] 36.3 kg/m2 [employer] Work Phone: [facility] 09-12-2023 14:15-0500 Body weight 105.4 kg PA[employer] Work Phone: [facility] 09-12-2023 14:06-0500 Body height 170.18 cm [employer] Work Phone: [facility] 09-12-2023 14:06-0500 Body temperature 96 [degF] [employer] Work Phone: [facility] 09-12-2023 13:54-0500 Body temperature 96.9 [degF] [employer] Work Phone: [facility] 09-12-2023 13:54-0500 Diastolic blood pressure 79 mm[Hg] [employer] [facility] Work Phone: [facility] 09-12-2023 13:54-0500 Heart rate 68 /min [employer] Work Phone: [facility] 09-12-2023 13:54-0500 Respiratory rate 16 /min [employer] [facility] Work Phone: [facility] 09-12-2023 13:54-0500 SaO2% (BldA) [Mass fraction] 94 % PA[employer]C [employer] Work Phone: [facility] 09-12-2023 13:54-0500 Systolic blood pressure 213 mm[Hg] PA[employer] Work Phone: [facility] 09-12-2023 10:06-0500 Body mass index (BMI) [Ratio] 36 kg/m2 [employer] Work Phone: [facility] 09-12-2023 10:06-0500 Body weight 104.41 kg PA[employer] Work Phone: [facility] 07-18-2023 09:31-0400 Body height 170.18 cm [employer] Work Phone: [facility] 07-18-2023 09:31-0400 Body mass index (BMI) [Ratio] 35.4 kg/m2 [employer] [facility] Work Phone: [facility] 07-18-2023 09:31-0400 Body temperature 96.6 [degF] [employer] Work Phone: [facility] 07-18-2023 09:31-0400 Body weight 102.78 kg [employer] [facility] Work Phone: [facility] 07-18-2023 09:31-0400 Diastolic blood pressure 71 mm[Hg] [employer] Work Phone: [facility] 07-18-2023 09:31-0400 Heart rate 70 /min [employer] Work Phone: [facility] 07-18-2023 09:31-0400 Respiratory rate 16 /min [employer] Work Phone: [facility] 07-18-2023 09:31-0400 SaO2% (BldA) [Mass fraction] 95 % [employer] Work Phone: [facility] 07-18-2023 09:31-0400 Systolic blood pressure 168 mm[Hg] PA[employer] Work Phone: [facility] 07-01-2023 10:09-0400 Body mass index (BMI) [Ratio] 35.2 kg/m2 [employer] Work Phone: [facility] 07-01-2023 10:09-0400 Body temperature 98.2 [degF] [employer] [facility] Work Phone: [facility] 07-01-2023 10:09-0400 Body weight 101.83 kg [employer] Work Phone: [facility] 07-01-2023 10:09-0400 Diastolic blood pressure 76 mm[Hg] PA[employer] Work Phone: [facility] 07-01-2023 10:09-0400 Heart rate 72 /min [employer] [facility] Work Phone: [facility] 07-01-2023 10:09-0400 Respiratory rate 16 /min [employer] Work Phone: [facility] 07-01-2023 10:09-0400 SaO2% (BldA) [Mass fraction] 94 % [employer] Work Phone: [facility] 07-01-2023 10:09-0400 Systolic blood pressure 114 mm[Hg] [employer] Work Phone: [facility] 05-23-2023 13:26-0400 Body temperature 96.8 [degF] [employer] Work Phone: [facility] 05-23-2023 13:26-0400 Diastolic blood pressure 44 mm[Hg] [employer] Work Phone: [facility] 05-23-2023 13:26-0400 Heart rate 63 /min [employer] Work Phone: [facility] 05-23-2023 13:26-0400 Respiratory rate 16 /min [employer] Work Phone: [facility] 05-23-2023 13:26-0400 SaO2% (BldA) [Mass fraction] 95 % [employer] Work Phone: [facility] 05-23-2023 13:26-0400 Systolic blood pressure 120 mm[Hg] [employer] Work Phone: [facility] 05-23-2023 09:50-0400 Body height 170.18 cm [employer] Work Phone: [facility] 05-23-2023 09:50-0400 Body mass index (BMI) [Ratio] 34.5 kg/m2 [employer] Work Phone: [facility] 05-23-2023 09:50-0400 Body weight 100.15 kg [employer] Work Phone: [facility] 04-07-2023 10:47-0400 Body mass index (BMI) [Ratio] 34.1 kg/m2 [employer] Work Phone: [facility] 04-07-2023 10:47-0400 Body weight 98.88 kg [employer] Work Phone: [facility] 04-07-2023 10:47-0400 Diastolic blood pressure 87 mm[Hg] [employer] Work Phone: [facility] 04-07-2023 10:47-0400 Heart rate 82 /min [employer] Work Phone: [facility] 04-07-2023 10:47-0400 SaO2% (BldA) [Mass fraction] 95 % [employer] Work Phone: [facility] 04-07-2023 10:47-0400 Systolic blood pressure 138 mm[Hg] [employer] Work Phone: [facility] 03-28-2023 09:54-0400 Body mass index (BMI) [Ratio] 34.4 kg/m2 [employer] Work Phone: [facility] 03-28-2023 09:54-0400 Body temperature 96.1 [degF] [employer] Work Phone: [facility] 03-28-2023 09:54-0400 Body weight 99.79 kg PA[employer] Work Phone: [facility] 03-28-2023 09:54-0400 Diastolic blood pressure 48 mm[Hg] [employer] Work Phone: [facility] 03-28-2023 09:54-0400 Heart rate 66 /min [employer] Work Phone: [facility] 03-28-2023 09:54-0400 Respiratory rate 14 /min [employer] Work Phone: [facility] 03-28-2023 09:54-0400 SaO2% (BldA) [Mass fraction] 96 % [employer] Work Phone: [facility] 03-28-2023 09:54-0400 Systolic blood pressure 108 mm[Hg] PA[employer]C [employer] Work Phone: [facility] 01-24-2023 09:52-0400 Body height 170.18 cm [employer] Work Phone: [facility] 01-24-2023 09:52-0400 Body mass index (BMI) [Ratio] 35.3 kg/m2 [employer] Work Phone: [facility] 01-24-2023 09:52-0400 Body temperature 96.6 [degF] [employer] Work Phone: [facility] 01-24-2023 09:52-0400 Body weight 102.33 kg PA[employer]C [employer] Work Phone: [facility] 01-24-2023 09:52-0400 Diastolic blood pressure 52 mm[Hg] PA[employer]C [employer] Work Phone: [facility] 01-24-2023 09:52-0400 Heart rate 73 /min [employer] Work Phone: [facility] 01-24-2023 09:52-0400 Respiratory rate 16 /min PA[employer] Work Phone: [facility] 01-24-2023 09:52-0400 SaO2% (BldA) [Mass fraction] 95 % [employer] Work Phone: [facility] 01-24-2023 09:52-0400 Systolic blood pressure 142 mm[Hg] PA[employer] Work Phone: [facility] 01-03-2023 09:58-0400 Body mass index (BMI) [Ratio] 35.2 kg/m2 [employer] Work Phone: [facility] 01-03-2023 09:58-0400 Body temperature 95.9 [degF] [employer] Work Phone: [facility] 01-03-2023 09:58-0400 Body weight 101.83 kg PA[employer]C [employer] [facility] Work Phone: [facility] 01-03-2023 09:58-0400 Diastolic blood pressure 66 mm[Hg] PA[employer]C [employer] Work Phone: [facility] 01-03-2023 09:58-0400 Heart rate 71 /min [employer] Work Phone: [facility] 01-03-2023 09:58-0400 Respiratory rate 18 /min [employer] Work Phone: [facility] 01-03-2023 09:58-0400 SaO2% (BldA) [Mass fraction] 90 % [employer]C [employer] Work Phone: [facility] 01-03-2023 09:58-0400 Systolic blood pressure 104 mm[Hg] PA[employer] Work Phone: [facility] 12-16-2022 10:59-0500 Body height 170.18 cm [employer] Work Phone: [facility] 12-16-2022 10:59-0500 Body mass index (BMI) [Ratio] 35 kg/m2 [employer] Work Phone: [facility] 12-16-2022 10:59-0500 Body weight 101.6 kg [employer] Work Phone: [facility] 12-16-2022 10:59-0500 Diastolic blood pressure 55 mm[Hg] PA[employer] Work Phone: [facility] 12-16-2022 10:59-0500 Heart rate 65 /min [employer] Work Phone: [facility] 12-16-2022 10:59-0500 SaO2% (BldA) [Mass fraction] 91 % [employer]C [employer] Work Phone: [facility] 12-16-2022 10:59-0500 Systolic blood pressure 111 mm[Hg] PA[employer] Work Phone: [facility] 11-29-2022 09:03-0500 Body height 170.18 cm [employer] Work Phone: [facility] 11-29-2022 09:03-0500 Body mass index (BMI) [Ratio] 34.7 kg/m2 [employer] Work Phone: [facility] 11-29-2022 09:03-0500 Body temperature 96.7 [degF] [employer] Work Phone: [facility] 11-29-2022 09:03-0500 Body weight 100.78 kg PA[employer]C [employer] Work Phone: [facility] 11-29-2022 09:03-0500 Diastolic blood pressure 54 mm[Hg] PA[employer] Work Phone: [facility] 11-29-2022 09:03-0500 Heart rate 69 /min [employer] Work Phone: [facility] 11-29-2022 09:03-0500 Respiratory rate 16 /min [employer] Work Phone: [facility] 11-29-2022 09:03-0500 SaO2% (BldA) [Mass fraction] 95 % [employer] Work Phone: [facility] 11-29-2022 09:03-0500 Systolic blood pressure 112 mm[Hg] PA[employer] Work Phone: [facility] 10-03-2022 13:14-0500 Diastolic blood pressure 50 mm[Hg] [employer] Work Phone: [facility] 10-03-2022 13:14-0500 Heart rate 64 /min [employer] Work Phone: [facility] 10-03-2022 13:14-0500 Systolic blood pressure 116 mm[Hg] PA[employer] Work Phone: [facility] 10-03-2022 12:36-0500 Body temperature 96.8 [degF] [employer] Work Phone: [facility] 10-03-2022 12:36-0500 Respiratory rate 16 /min [employer] Work Phone: [facility] 10-03-2022 10:07-0500 Body height 170.18 cm [employer] Work Phone: [facility] Work Phone: 10-03-2022 10:07-0500 Body mass index (BMI) [Ratio] 34.7 kg/m2 [employer] Work Phone: [facility] 10-03-2022 10:07-0500 Body weight 100.42 kg [employer] Work Phone: [facility] 08-15-2022 09:46-0400 Body height 170.18 cm [employer] Work Phone: [facility] Work Phone: 08-15-2022 09:46-0400 Body mass index (BMI) [Ratio] 34.4 kg/m2 PA[employer] Work Phone: [facility] 08-15-2022 09:46-0400 Body weight 99.79 kg [employer]C [employer] Work Phone: [facility] 08-15-2022 09:46-0400 Diastolic blood pressure 61 mm[Hg] [employer] Work Phone: [facility] 08-15-2022 09:46-0400 Heart rate 68 /min [employer] Work Phone: [facility] 08-15-2022 09:46-0400 SaO2% (BldA) [Mass fraction] 93 % [employer] Work Phone: [facility] 08-15-2022 09:46-0400 Systolic blood pressure 94 mm[Hg] PA[employer] Work Phone: [facility] 08-01-2022 09:43-0400 Body height 170.18 cm PA[employer] Work Phone: [facility] Work Phone: 08-01-2022 09:43-0400 Body mass index (BMI) [Ratio] 34.4 kg/m2 [employer] Work Phone: [facility] Work Phone: 08-01-2022 09:43-0400 Body temperature 96.3 [degF] [employer] Work Phone: [facility] Work Phone: 08-01-2022 09:43-0400 Body weight 99.69 kg [employer] Work Phone: [facility] Work Phone: 08-01-2022 09:43-0400 Diastolic blood pressure 54 mm[Hg] PA[employer] Work Phone: [facility] Work Phone: 08-01-2022 09:43-0400 Heart rate 66 /min [employer] Work Phone: [facility] Work Phone: 08-01-2022 09:43-0400 Respiratory rate 16 /min [employer] Work Phone: [facility] Work Phone: 08-01-2022 09:43-0400 SaO2% (BldA) [Mass fraction] 95 % [employer] Work Phone: [facility] Work Phone: 08-01-2022 09:43-0400 Systolic blood pressure 145 mm[Hg] [employer] Work Phone: [facility] Work Phone: 07-24-2022 10:35-0400 Body temperature 99.1 [degF] [employer] Work Phone: [facility] Work Phone: 07-24-2022 10:35-0400 Diastolic blood pressure 85 mm[Hg] [employer] Work Phone: [facility] Work Phone: 07-24-2022 10:35-0400 Heart rate 64 /min [employer] Work Phone: [facility] Work Phone: 07-24-2022 10:35-0400 Respiratory rate 16 /min [employer] Work Phone: [facility] Work Phone: 07-24-2022 10:35-0400 SaO2% (BldA) [Mass fraction] 98 % [employer] Work Phone: [facility] Work Phone: 07-24-2022 10:35-0400 Systolic blood pressure 129 mm[Hg] [employer] Work Phone: [facility] Work Phone: 07-24-2022 08:55-0400 Body height 170.18 cm [employer] Work Phone: [facility] Work Phone: 07-24-2022 08:55-0400 Body mass index (BMI) [Ratio] 33.8 kg/m2 [employer] Work Phone: [facility] Work Phone: 07-24-2022 08:55-0400 Body weight 98 kg PA[employer]C [employer] Work Phone: [facility] Work Phone: 07-10-2022 11:11-0400 Body mass index (BMI) [Ratio] 34.2 kg/m2 [employer] Work Phone: [facility] Work Phone: 07-10-2022 11:11-0400 Body temperature 95.6 [degF] [employer] Work Phone: [facility] Work Phone: 07-10-2022 11:11-0400 Body weight 98.99 kg PA[employer]C [employer] Work Phone: [facility] Work Phone: 07-10-2022 11:11-0400 Diastolic blood pressure 70 mm[Hg] [employer] Work Phone: [facility] Work Phone: 07-10-2022 11:11-0400 Heart rate 63 /min [employer] Work Phone: [facility] Work Phone: 07-10-2022 11:11-0400 Respiratory rate 18 /min [employer] Work Phone: [facility] Work Phone: 07-10-2022 11:11-0400 SaO2% (BldA) [Mass fraction] 90 % [employer] Work Phone: [facility] Work Phone: 07-10-2022 11:11-0400 Systolic blood pressure 119 mm[Hg] PA[employer] Work Phone: [facility] Work Phone: 07-04-2022 09:50-0400 Body height 170.18 cm PA[employer] Work Phone: [facility] Work Phone: 07-04-2022 09:50-0400 Body mass index (BMI) [Ratio] 34.1 kg/m2 [employer] Work Phone: [facility] Work Phone: 07-04-2022 09:50-0400 Body temperature 96.1 [degF] PA[employer]C [employer] Work Phone: [facility] Work Phone: 07-04-2022 09:50-0400 Body weight 98.88 kg PA[employer]C [employer] Work Phone: [facility] Work Phone: 07-04-2022 09:50-0400 Diastolic blood pressure 54 mm[Hg] [employer] Work Phone: [facility] Work Phone: 07-04-2022 09:50-0400 Heart rate 64 /min PA[employer]C [employer] Work Phone: [facility] Work Phone: 07-04-2022 09:50-0400 Respiratory rate 16 /min [employer] Work Phone: [facility] Work Phone: 07-04-2022 09:50-0400 SaO2% (BldA) [Mass fraction] 94 % PA[employer]C [employer] Work Phone: [facility] Work Phone: 07-04-2022 09:50-0400 Systolic blood pressure 138 mm[Hg] PA[employer]C [employer] Work Phone: [facility] Work Phone: 06-20-2022 10:47-0400 Body height 170.18 cm PA[employer]C [employer] Work Phone: [facility] Work Phone: 06-20-2022 10:47-0400 Body mass index (BMI) [Ratio] 34.1 kg/m2 PA[employer] Work Phone: [facility] Work Phone: 06-20-2022 10:47-0400 Body temperature 96.3 [degF] PA[employer] Work Phone: [facility] Work Phone: 06-20-2022 10:47-0400 Body weight 98.88 kg PA[employer]C [employer] Work Phone: [facility] Work Phone: 06-20-2022 10:47-0400 Diastolic blood pressure 50 mm[Hg] PA[employer]C [employer] Work Phone: [facility] Work Phone: 06-20-2022 10:47-0400 Heart rate 71 /min [employer] Work Phone: [facility] Work Phone: 06-20-2022 10:47-0400 Respiratory rate 16 /min [employer] Work Phone: [facility] Work Phone: 06-20-2022 10:47-0400 SaO2% (BldA) [Mass fraction] 94 % PA[employer] Work Phone: [facility] Work Phone: 06-20-2022 10:47-0400 Systolic blood pressure 125 mm[Hg] PA[employer] Work Phone: [facility] Work Phone: 06-06-2022 10:53-0400 Body mass index (BMI) [Ratio] 34.2 kg/m2 PA[employer]C [employer] Work Phone: [facility] Work Phone: 06-06-2022 10:53-0400 Body weight 99.33 kg PA[employer]C [employer] Work Phone: [facility] Work Phone: 06-06-2022 10:53-0400 Diastolic blood pressure 75 mm[Hg] PA[employer]C [employer] Work Phone: [facility] Work Phone: 06-06-2022 10:53-0400 Heart rate 69 /min PA[employer]C [employer] Work Phone: [facility] Work Phone: 06-06-2022 10:53-0400 SaO2% (BldA) [Mass fraction] 94 % PA[employer]C [employer] Work Phone: [facility] Work Phone: 06-06-2022 10:53-0400 Systolic blood pressure 119 mm[Hg] PA[employer]C [employer] Work Phone: [facility] Work Phone: 04-25-2022 09:58-0400 Body height 170.18 cm PA-C Reshma [place] PA Work Phone: [facility] Work Phone: 04-25-2022 09:58-0400 Body mass index (BMI) [Ratio] 33.8 kg/m2 PA-C Reshma [employer] PA Work Phone: [facility] Work Phone: 04-25-2022 09:58-0400 Body weight 97.97 kg PA-C Reshma [place] PA Work Phone: [facility] Work Phone: 04-25-2022 09:58-0400 Diastolic blood pressure 76 mm[Hg] PA-C Reshma [place] PA Work Phone: [facility] Work Phone: 04-25-2022 09:58-0400 Heart rate 80 /min PA-C Reshma [place] PA Work Phone: [facility] Work Phone: 04-25-2022 09:58-0400 SaO2% (BldA) [Mass fraction] 92 % PA-C Reshma [employer] PA Work Phone: [facility] Work Phone: 04-25-2022 09:58-0400 Systolic blood pressure 141 mm[Hg] PA-C Reshma [place] PA Work Phone: [facility] Work Phone: 01-07-2022 11:32-0400 Body mass index (BMI) [Ratio] 34 kg/m2 PA-C Reshma [place] PA Work Phone: [facility] Work Phone: 01-07-2022 11:32-0400 Body temperature 95.9 [degF] PA-C [employer] PA Work Phone: [facility] Work Phone: 01-07-2022 11:32-0400 Body weight 98.48 kg PA-C Reshma [employer] PA Work Phone: [facility] Work Phone: 01-07-2022 11:32-0400 Diastolic blood pressure 70 mm[Hg] PA-C Reshma [employer] PA Work Phone: [facility] Work Phone: 01-07-2022 11:32-0400 Heart rate 68 /min PA-C Reshma [employer] PA Work Phone: [facility] Work Phone: 01-07-2022 11:32-0400 Respiratory rate 18 /min PA-C Reshma [employer] PA Work Phone: [facility] Work Phone: 01-07-2022 11:32-0400 SaO2% (BldA) [Mass fraction] 91 % PA-C Reshma [employer] PA Work Phone: [facility] Work Phone: 01-07-2022 11:32-0400 Systolic blood pressure 128 mm[Hg] PA-C [employer] PA Work Phone: [facility] Work Phone: Encounters Encounter Date Encounter Type Care Provider Facility Start: 08-24-2025 ambulatory [facility] Start: 08-23-2025 End: 08-23-2025 ambulatory [facility] Start: 07-25-2025 End: 07-25-2025 ambulatory [facility] Start: 07-15-2025 End: 07-15-2025 ambulatory ARELY MORATAYA [facility] Start: 07-09-2025 End: 07-09-2025 Patient encounter procedure Jeromy Gaytan PA -Laboratory Specimen Work Phone: Start: 07-09-2025 End: 07-09-2025 ambulatory Reshma [place] PA-C Work Phone: -[facility] Start: 07-09-2025 End: 07-09-2025 ambulatory Jeromy Gaytan Facility:[facility] Start: 07-06-2025 End: 07-06-2025 Patient encounter procedure Arely Morataya NP-C -[facility] Work Phone: Start: 07-06-2025 End: 07-06-2025 ambulatory Reshma [place] PA-C Work Phone: -[facility] Start: 04-19-2025 Non-patient / Non-visit Dr. Millie Little MD -[facility] Work Phone: Start: 04-13-2025 End: 04-13-2025 ambulatory [facility] Start: 04-11-2025 End: 04-11-2025 ambulatory [facility] Start: 04-02-2025 ambulatory [facility] Start: 04-02-2025 End: 04-04-2025 ambulatory [facility] Start: 03-30-2025 End: 03-30-2025 Patient encounter procedure Gayla DOMINGUEZ -[facility] Work Phone: Start: 03-30-2025 End: 03-30-2025 ambulatory [facility] PA-C Work Phone: [facility] Work Phone: Start: 02-25-2025 End: 02-25-2025 Patient encounter procedure Artem Cortes DO -[facility] Out Work Phone: Start: 02-25-2025 End: 02-25-2025 ambulatory Reshma [place] PA-C Work Phone: [facility] Work Phone: Start: 02-11-2025 End: 02-11-2025 ambulatory [facility] Start: 01-24-2025 End: 01-24-[address] Mouna Zamora MD -[facility] Work Phone: Start: 01-24-2025 End: 01-24-2025 ambulatory Mouna Zamora Facility:[facility] Start: 12-31-2024 End: 12-31-2024 Patient encounter procedure Artemleyda Cortes DO -[facility] Work Phone: Start: 12-31-2024 End: 12-31-2024 ambulatory [facility] PA-C Work Phone: [facility] Work Phone: Start: 11-05-2024 End: 11-05-2024 Patient encounter procedure Artem Sebastian DO -Medical Out Work Phone: Start: 11-05-2024 End: 11-05-2024 ambulatory [facility] PA Facility:[facility] Start: 10-07-2024 End: 10-07-2024 Patient encounter procedure Gayla DOMINGUEZ -Laboratory, Specimen Work Phone: Start: 10-07-2024 End: 10-07-2024 ambulatory [facility] PA Facility:[facility] Start: 10-01-2024 End: 10-01-2024 Patient encounter procedure Gayla DOMINGUEZ -[facility] Work Phone: Start: 10-01-2024 End: 10-01-2024 ambulatory [facility] PA Facility:[facility] Start: 10-01-2024 End: 10-01-2024 ambulatory [facility] PA Facility:[facility] Start: 09-14-2024 End: 09-14-2024 ambulatory SEBASTIAN PILLAI APRN-SPEECH TEACHER Facility:A Start: 09-14-2024 End: 09-14-2024 Patient encounter procedure SEBASTIAN PILLAI APRN-SPEECH TEACHER [facility] Start: 09-14-2024 End: 09-14-2024 ambulatory SEBASTIAN PILLAI AUTOMOTIVE WORKER-SPEECH TEACHER Facility:[facility] Start: 09-14-2024 End: 09-14-2024 Patient encounter procedure SEBASTIAN PILLAI AUTOMOTIVE WORKER-SPEECH TEACHER [facility] Start: 09-10-2024 End: 09-10-2024 Patient encounter procedure Artem Cortes DO -Medical Out Work Phone: Start: 09-10-2024 End: 09-10-2024 ambulatory [facility] Facility:[facility] Start: 08-17-2024 End: 08-18-2024 Evaluation and management of inpatient DR RAGINI HACKETT MD [facility] Start: 08-12-2024 End: 08-12-[address] RAGINI HACKETT MD [facility] Start: 08-12-2024 End: 08-12-[address] RAGINI HACKETT MD Facility:A Start: 08-04-2024 End: 08-04-2024 ambulatory SEBASTIAN PILLAI AUTOMOTIVE WORKER-SPEECH TEACHER Facility:A Start: 08-04-2024 End: 08-04-2024 Patient encounter procedure SEBASTIAN PILLAI AUTOMOTIVE WORKER-SPEECH TEACHER [facility] Start: 07-27-2024 End: 07-28-2024 Evaluation and management of inpatient DR RAGINI HACKETT MD [facility] Start: 07-20-2024 End: 07-21-[address] RAGINI HACKETT MD Facility:A Start: 07-20-2024 End: 07-21-[address] RAGINI HACKETT MD [facility] Start: 01-28-2024 End: 01-28-2024 ambulatory PA-C Reshma [place] PA Work Phone: [facility] Work Phone: Start: 01-28-2024 End: 01-28-2024 Patient encounter procedure PA-C Reshma [place] PA Work Phone: [facility] Out Work Phone: Start: 11-20-2023 End: 11-20-2023 Patient encounter procedure VIVIEN JACOBO MD [facility] Start: 11-14-2023 ambulatory VIVIEN CARTER MD Facility:B Start: 11-13-2023 End: 11-14-2023 ambulatory VIVIEN JACOBO MD Facility:A Start: 11-11-2023 End: 11-11-2023 Patient encounter procedure PA-C Reshma Marsh PA Work Phone: [facility] Gastroenter[facility] Work Phone: Start: 10-10-2023 End: 10-10-2023 Patient encounter procedure PA-C Reshma Marsh PA Work Phone: [facility] Endocrinology Work Phone: Start: 09-12-2023 End: 09-12-2023 Emergency department patient visit PA-C Reshma [place] PA Work Phone: [facility]-Emergency Department Work Phone: Start: 09-12-2023 End: 09-12-2023 ambulatory PA-C Reshma [place] PA Work Phone: [facility] Work Phone: Start: 09-12-2023 End: 09-12-2023 Patient encounter procedure PA-C Reshma [place] PA Work Phone: [facility] Out Work Phone: Start: 07-29-2023 End: 07-29-2023 ambulatory PA-C Reshma [place] PA Work Phone: [facility] Work Phone: Start: 07-29-2023 End: 07-29-2023 Patient encounter procedure PA-C Reshma [place] PA Work Phone: [facility]-Radiology, [place] Work Phone: Start: 07-18-2023 End: 07-18-2023 Patient encounter procedure PA-C Reshma [place] PA Work Phone: [facility] Out Work Phone: Start: 07-01-2023 End: 07-01-2023 Patient encounter procedure PA-C Reshma [place] PA Work Phone: [facility] Endocrinology Work Phone: Start: 05-23-2023 End: 05-23-2023 ambulatory PA-C Reshma [place] PA Work Phone: [facility] Work Phone: Start: 05-23-2023 End: 05-23-2023 Patient encounter procedure PA-C Reshma [place] PA Work Phone: [facility]-Medical Out Work Phone: Start: 04-26-2023 End: 04-26-2023 Patient encounter procedure PA-C Reshma [place] PA Work Phone: [facility] Work Phone: Start: 04-07-2023 End: 04-07-2023 Patient encounter procedure PA-C Reshma [place] PA Work Phone: [facility] Gastroenterology Work Phone: Start: 03-28-2023 End: 03-28-2023 Patient encounter procedure PA-C Reshma [place] PA Work Phone: [facility] Out Work Phone: Start: 01-24-2023 End: 01-24-2023 ambulatory PA-C Reshma Marsh PA Work Phone: [facility] Work Phone: Start: 01-24-2023 End: 01-24-2023 Patient encounter procedure PA-C Reshma Marsh PA Work Phone: [facility]-Medical Out Start: 01-03-2023 End: 01-03-2023 Patient encounter procedure PA-C Reshma Marsh PA Work Phone: [facility] Endocrinology Start: 12-16-2022 End: 12-16-2022 ambulatory PA-C Reshma Marsh PA Work Phone: [facility] Work Phone: Start: 12-16-2022 End: 12-16-2022 Patient encounter procedure PA-C Reshma Marsh PA Work Phone: [facility] Gastroenter[facility] Start: 11-29-2022 End: 11-29-2022 ambulatory PA-C Reshma Marsh PA Work Phone: [facility] Work Phone: Start: 11-29-2022 End: 11-29-2022 Patient encounter procedure PA-C Reshma Marsh PA Work Phone: [facility] Out Start: 10-03-2022 End: 10-03-2022 ambulatory PA-C Reshma Marsh PA Work Phone: [facility] Work Phone: Start: 10-03-2022 End: 10-03-2022 Patient encounter procedure PA-C Reshma Marsh PA Work Phone: [facility]-Medical Out Start: 08-16-2022 End: 08-16-2022 ambulatory PA-C Reshma [place] PA Work Phone: [facility] Work Phone: Start: 08-16-2022 End: 08-16-2022 Patient encounter procedure PA-C Reshma Marsh PA Work Phone: [facility] Start: 08-15-2022 End: 08-15-2022 Patient encounter procedure PA-C Reshma Marsh PA Work Phone: [facility] G[facility]enter[facility] Start: 08-01-2022 End: 08-01-2022 ambulatory PA-C Reshma Marsh PA Work Phone: [facility] Work Phone: Start: 08-01-2022 End: 08-01-2022 Patient encounter procedure PA-Bibiana Marsh PA Work Phone: [facility]-Medical Out Start: 07-24-2022 Non-patient / Non-visit PA-Bibiana Marsh PA Work Phone: [facility] Start: 07-24-2022 End: 07-24-2022 Admission to same day surgery center PA-Bibiana Marsh PA Work Phone: [facility]-Endoscopy Start: 07-24-2022 End: 07-24-2022 ambulatory PA-C Reshma Marsh PA Work Phone: [facility] Work Phone: Start: 07-10-2022 End: 07-10-2022 Patient encounter procedure PA-C Reshma Marsh PA Work Phone: [facility] Start: 07-04-2022 End: 07-04-2022 ambulatory PA-C Reshma Marsh PA Work Phone: [facility] Work Phone: Start: 07-04-2022 End: 07-04-2022 Patient encounter procedure PA-C Reshma Marsh PA [facility] Start: 06-20-2022 End: 06-20-2022 ambulatory PA-C Reshma Marsh PA Work Phone: [facility] Work Phone: Start: 06-20-2022 End: 06-20-2022 Patient encounter procedure PA-C Reshma Marsh PA Work Phone: [facility]-Medical Out Start: 06-06-2022 End: 06-06-2022 Patient encounter procedure PA-C Reshma Marsh PA Work Phone: [facility] Start: 05-13-2022 End: 05-13-2022 Patient encounter procedure PA-C Reshma Marsh PA Work Phone: [facility]-Laboratory Start: 05-08-2022 End: 05-08-2022 Patient encounter procedure PA-C Reshma Marsh PA [facility] Start: 04-26-2022 End: 04-26-2022 Patient encounter procedure PA-C Reshma Marsh PA Work Phone: [facility]-Laboratory, Specimen Start: 04-25-2022 End: 04-25-2022 Patient encounter procedure PA-C Reshma Marsh PA Work Phone: [facility]-Laboratory Start: 04-25-2022 End: 04-25-2022 Patient encounter procedure PA-C Reshma Marsh PA Work Phone: [facility] Start: 01-07-2022 End: 01-07-2022 Patient encounter procedure PA-C Reshma [place] PA Work Phone: [facility] Procedures Date Procedure Procedure Detail Performing Clinician Start: 07-09-2025 Urine culture Reshma Marsh PA-C Work Phone: Start: 10-20-2023 Aortic valve structure (body structure) SEBASTIAN PILLAI AUTOMOTIVE WORKER-SPEECH TEACHER Comment on above: replacement Start: 09-12-2023 Plain chest X-ray PA-C Reshma Marsh PA Work Phone: Start: 09-12-2023 CT of head without contrast PA-C Donna Marsh PA Work Phone: Start: 07-29-2023 Diagnostic radiography of abdomen PA-C Miriam Marsh PA Work Phone: Start: 04-26-2023 End: 04-26-2023 MRI of joint of lower extremity PA-C Latisha Marsh PA Work Phone: Start: 08-16-2022 Diagnostic radiography of abdomen PA-C K maddison Marsh PA Work Phone: Start: 07-24-2022 Colonoscopy PA-C Reshma Marsh PA Work Phone: Start: 05-08-2022 Computed tomography of abdomen and pelvis with contrast PA-C Reshma Marsh PA Work Phone: Start: 07-11-2021 Cardiovascular stress testing VIVIEN JACOBO MD Start: 06-16-2021 Electrocardiographic monitor and recorder, device (physical object) VIVIEN JACOBO MD Start: 05-15-2021 Echocardiography VIVIEN JACOBO MD Start: 10-02-1994 Coronary artery bypass graft x 1 SEBASTIAN JACOBO MD Start: 09-30-1994 Catheterization of left heart VIVIEN JACOBO MD Appendectomy DR RAGINI HACKETT MD Cholecystectomy DR RAGINI HACKETT MD Clostridium difficile detection PA-C Reshma Marsh PA Work Phone: Colonoscopy DR RAGINI HACKETT MD Dilation and curettage DR ROSEANNA HACKETT MD Enteric Bacteriology PA-C Andrzej Marsh PA Work Phone: Esophagogastroduodenoscopy Shaggy HACKETT MD Extraction of cataract KRANTHI JACOBO MD Extraction of wisdom tooth Shaggy HACKETT MD Lactoferrin measurement PA-C Reshmacr Marsh PA Work Phone: Lactoferrin measurement PA-C Reshma [place] PA Work Phone: Laparoscopy enteroly sis separate procedure DR RAGINI HACKETT MD Ova OR parasites identification PA-C [employer]hma [employer] PA Work Phone: Partial hysterectomy DR ALLIE HACKETT MD Tonsillectomy DR RAGINI HACKETT MD Plan of Treatment Date Care Activity Detail Author Start: 07-06-2025 Thyroid stimulating hormone measurement [facility] Start: 07-06-2025 Urine microalbumin/creatinine ratio measurement [facility] Start: 03-30-2025 Protein measurement [facility] Start: 12-31-2024 Chemotherapy admn iv infusion tq ea hr CHEMO IV INFUSION ADDL HR [facility] Start: 12-31-2024 Chemotx admn iv nfs tq up 1 hr 1/ sbst/drug CHEMO IV INFUSION 1 HR [facility] Start: 11-05-2024 Chemotherapy admn iv infusion tq ea hr CHEMO IV INFUSION ADDL HR [facility] Start: 11-05-2024 Chemotx admn iv nfs tq up 1 hr 1/ sbst/drug CHEMO IV INFUSION 1 HR [facility] Start: 09-12-2023 [facility] Start: 07-18-2023 Chemotherapy admn iv infusion tq ea hr CHEMO IV INFUSION ADDL HR [facility] Start: 07-18-2023 Chemotx admn iv nfs tq up 1 hr 1/ sbst/drug CHEMO IV INFUSION 1 HR [facility] Start: 03-28-2023 Chemotherapy admn iv infusion tq ea hr CHEMO IV INFUSION ADDL HR [facility] Start: 03-28-2023 Chemotx admn iv nfs tq up 1 hr / sbst/drug CHEMO IV INFUSION 1 HR [facility] Start: 10-03-2022 Chemotherapy admn iv infusion tq ea hr CHEMO IV INFUSION ADDL HR [facility] Start: 07-24-2022 Colonoscopy w/biopsy single/multiple COLONOSCOPY AND BIOPSY [facility] Work Phone: Start: 07-24-2022 Egd dilation gastric/duodenal stricture EGD DILATE STRICTURE [facility] Work Phone: Start: 07-24-2022 Egd transoral biopsy single/multiple EGD BIOPSY SINGLE/MULTIPLE [facility] Work Phone: Start: 07-24-2022 Patient discharge [facility] Work Phone: Start: 07-04-2022 Chemotherapy admn iv infusion tq ea hr CHEMO IV INFUSION ADDL HR [facility] Work Phone: Start: 06-20-2022 Chemotherapy admn iv infusion tq ea hr CHEMO IV INFUSION ADDL HR [facility] Work Phone: Start: 05-13-2022 In-vitro immunologic test [facility] Work Phone: Start: 04-26-2022 Elastase, pancreatic (el-1), fecal; quantitative [facility] Work Phone: Start: 04-26-2022 Fat [Presence] in Stool [facility] Work Phone: Start: 04-26-2022 Ova and parasites identified in Unspecified specimen by Light microscopy [facility] Work Phone: Start: 04-26-2022 Protein measurement [facility] Work Phone: Start: 04-25-2022 Procedure [facility] Work Phone: C reactive protein [Mass/volume] in Serum or Plasma [facility] CBC W Auto Different ial panel - Blood [facility] lic 1999 panel - Serum or Plasma [facility] 1999 panel - Serum or Plasma [facility] CT Abdomen and Pelvi s W contrast IV [facility] Work Phone: Erythrocyte sediment ation rate [facility] Fat [Mass/mass] in Stool [facility] Work Phone: Fat.neutral [Presenc e] in Stool [facility] Work Phone: Lipid 1995 panel - S mian or Plasma [facility] Lipid 1995 panel - S mian or Plasma [facility] Lipid 1995 panel - S mian or Plasma [facility] Ova and parasites identified in Unspecified specimen by Light microscopy [facility] Work Phone: Patient Education ED High Blood Pressure Hypertension [facility] Work Phone: Patient referral [facility] Work Phone: Protein measurement [facility] Work Phone: Thyroid stimulating hormone measurement [facility] Work Phone: Thyroid stimulating hormone measurement [facility] Thyroid stimulating hormone measurement [facility] Thyroperoxidase Ab [Units/volume] in Serum or Plasma [facility] Urine microalbumin/creatinine ratio measurement [facility] Urine microalbumin/creatinine ratio measurement [facility] Vitamin D, 25-hydrox y measurement [facility] Immunizations Immunization Date Immunization Notes Care Provider Fa [facility] 08-18-2024 Seasonal trivalent influenza vaccine, adjuvanted, preservative free DR RAGINI HACKETT MD [facility] Payers Date Payer Category Payer Medicare [id number] 2024 Self-pay [id number] 2021 [facility] [id number] 1 [id number] 1945 Unknown [id number] 2.16.8 [id number] 1945 Unknown [id number] 2.16.8 40.1.266796.3.579.2.627 1946 Unknown [id number] 2.16.8 40.1.607340.3.579.2.627 1946 Unknown [id number] 2.16.8 40.1.360684.3.579.2.627 1946 Unknown [id number] 2.16.8 40.1.322556.3.579.2.627 1946 Unknown [id number] 2.16.8 40.1.767916.3.579.2.627 1946 Unknown [id number] 2.16.8 40.1.180071.3.579.2.627 1946 Unknown [id number] 2.16.8 40.1.343657.3.579.2.627 1946 Unknown [id number] 2.16.8 40.1.533614.3.579.2.627 1946 Unknown [id number] 2.16.8 40.1.292965.3.579.2.651 1946 Unknown [id number] 2.16.8 40.1.855581.3.579.2.651 1946 Unknown [id number] 2.16.8 40.1.628410.3.579.2.651 1946 Unknown [id number] 2.16.8 40.1.714142.3.579.2.651 1946 Unknown [id number] 2.16.8 40.1.432909.3.579.2.651 1946 Unknown [id number] 2.16.8 40.1.138096.3.579.2.651 1946 Unknown [id number] 2.16.8 40.1.609220.3.579.2.651 1946 Unknown [id number] 2.16.8 40.1.550096.3.579.2.651 1946 Unknown [id number] 2.16.8 40.1.645207.3.579.2.651 Unknown [id number] Unknown [id number] 2.16.8 40.1.264645.3.579.2.462 Unknown [id number] 2.16.8 40.1.222865.3.579.2.462 Unknown [id number] 2.16.8 40.1.660696.3.579.2.462 Unknown [id number] 2.16.8 40.1.886934.3.579.2.462 Unknown [id number] 2.16.8 40.1.417990.3.579.2.462 Unknown [id number] 2.16.8 40.1.931589.3.579.2.462 Unknown [id number] 2.16.8 40.1.539236.3.579.2.462 Unknown [id number] 2.16.8 40.1.102214.3.579.2.462 Unknown [id number] 2.16.8 40.1.872342.3.579.2.462 Unknown [id number] 2.16.8 40.1.470255.3.579.2.462 Unknown [id number] 2.16.8 40.1.864914.3.579.2.462 Unknown [id number] 2.16.8 40.1.546457.3.579.2.462 Social History Date Type Detail Facility Start: 04-25-2022 End: 11-11-2023 Tobacco smoking status NHIS Unknown if ever smoked [facility] Start: 1945 Sex Assigned At Female W [facility] Start: 04-18-2020 Tobacco smoking status Ex-smoker (fi nding) [facility] Start: 11-11-2023 End: 08-12-2024 Tobacco smoking status Never smoked tobacco (finding) [facility] Start: 01-01-2025 Sex Female (finding) [facility] Sex Female [facility] Medical Equipment Procedure Code Equipment Code Equipment Origin al Text Equipment Identifier Dates Pen Needle, Diab etic (Bd Ultra-Fine Roseanna Pen Needle) 32 gauge x 5/32 needle Start: 02-21-2021 Pen Needle, Diab etic (Bd Ultra-Fine Roseanna Pen Needle) 32 gauge x 5/32 needle Start: 02-21-2021 Pen Needle, Diab etic (Bd Ultra-Fine Roseanna Pen Needle) 32 gauge x 5/32 needle Start: 02-21-2021 Pen Needle, Diab etic (Bd Ultra-Fine Roseanna Pen Needle) 32 gauge x 5/32 needle Start: 02-21-2021 Pen Needle, Diab etic (Bd Ultra-Fine Roseanna Pen Needle) 32 gauge x 5/32 needle Start: 02-21-2021 Pen Needle, Diab etic (Bd Ultra-Fine Roseanna Pen Needle) 32 gauge x 5/32 needle Start: 02-21-2021 Pen Needle, Diab etic (Bd Ultra-Fine Roseanna Pen Needle) 32 gauge x 5/32 needle Start: 02-21-2021 Pen Needle, Diab etic (Bd Ultra-Fine Roseanna Pen Needle) 32 gauge x 5/32 needle Start: 02-21-2021 Pen Needle, Diab etic (Bd Ultra-Fine Roseanna Pen Needle) 32 gauge x 5/32 needle Start: 02-21-2021 Pen Needle, Diab etic (Bd Ultra-Fine Roseanna Pen Needle) 32 gauge x 5/32 needle Start: 02-21-2021 Pen Needle, Diab etic (Bd Ultra-Fine Roseanna Pen Needle) 32 gauge x 5/32 needle Start: 02-21-2021 Pen Needle, Diab etic (Bd Ultra-Fine Roseanna Pen Needle) 32 gauge x 5/32 needle Start: 02-21-2021 Pen Needle, Diab etic (Bd Ultra-Fine Roseanna Pen Needle) 32 gauge x 5/32 needle Start: 02-21-2021 Pen Needle, Diab etic (Bd Ultra-Fine Roseanna Pen Needle) 32 gauge x 5/32 needle Start: 02-21-2021 BD UF MINI PEN NEEDLE [id number], 0 Refill(s), 97.1 Start: 04-18-2020 See Instructions , pen needles, 5mm 31g 1 needle three times daily and as needed #100 for 30 days and 3 refills., # 1 EA, 0 Refill(s), Pharmacy: [id number], 170.2, cm, 04/18/20 10:46:00 EDT, Height, 95.3, kg, 04/18/20 10:46:00 EDT, Dosing Weight Start: 06-12-2020 Pen Needle, Diab etic (Bd Ultra-Fine Roseanna Pen Needle) 32 gauge x 5/32 needle Start: 10-10-2023 Pen Needle, Diab etic (Bd Ultra-Fine Roseanna Pen Needle) 32 gauge x 5/32 needle Start: 02-21-2021 End: 10-10-2023 BD UF MINI PEN NEEDLE [id number], 0 Refill(s), 97.1 Start: 04-18-2020 See Instructions , pen needles, 5mm 31g 1 needle three times daily and as needed #100 for 30 days and 3 refills., # 1 EA, 0 Refill(s), Pharmacy: [id number], 170.2, cm, 04/18/20 10:46:00 EDT, Height, 95.3, kg, 04/18/20 10:46:00 EDT, Dosing Weight Start: 06-12-2020 Pen Needle, Diab etic (Bd Ultra-Fine Roseanna Pen Needle) 32 gauge x 5/32 needle Start: 10-10-2023 Pen Needle, Diab etic (Bd Ultra-Fine Roseanna Pen Needle) 32 gauge x 5/32 needle Start: 02-21-2021 End: 10-10-2023 Pen Needle, Diab etic (Bd Ultra-Fine Roseanna Pen Needle) 32 gauge x 5/32 needle Start: 10-10-2023 Pen Needle, Diab etic (Bd Ultra-Fine Roseanna Pen Needle) 32 gauge x 5/32 needle Start: 02-21-2021 End: 10-10-2023 Pen Needle, Diab etic (Bd Ultra-Fine Roseanna Pen Needle) 32 gauge x 5/32 needle Start: 10-10-2023 Pen Needle, Diab etic (Bd Ultra-Fine Roseanna Pen Needle) 32 gauge x 5/32 needle Start: 02-21-2021 End: 10-10-2023 Pen Needle, Diab etic (Bd Ultra-Fine Roseanna Pen Needle) 32 gauge x 5/32 needle Start: 10-10-2023 Pen Needle, Diab etic (Bd Ultra-Fine Roseanna Pen Needle) 32 gauge x 5/32 needle Start: 02-21-2021 End: 10-10-2023 Pen Needle, Diab etic (Bd Ultra-Fine Roseanna Pen Needle) 32 gauge x 5/32 needle Start: 10-10-2023 Pen Needle, Diab etic (Bd Ultra-Fine Roseanna Pen Needle) 32 gauge x 5/32 needle Start: 02-21-2021 End: 10-10-2023 Goals Date Patient Goal Desired Activity /State Functional Status Date Assessment Result Facility 08-18-2024 Functional Status 25 [facility] 08-18-2024 Functional Status Room check performed [facility] 08-18-2024 Functional Status 100 [facility] 08-18-2024 Functional Status [facility] 08-18-2024 Functional Status [facility] 08-18-2024 Functional Status [facility] 08-17-2024 Functional Status [facility] 08-17-2024 Functional Status Dinner Percent 100 [facility] 08-17-2024 Functional Status Single level home [facility] 08-17-2024 Functional Status [facility] 08-17-2024 Functional Status Maintained [facility] 08-12-2024 Functional Status Sensory Deficits None [facility] 07-28-2024 Functional Status Single level home [facility] 07-28-2024 Functional Status Up to Chair Up to chair [facility] 07-28-2024 Functional Status [facility] 07-27-2024 Functional Status [facility] 07-27-2024 Functional Status [facility] 07-27-2024 Functional Status [facility] 07-27-2024 Functional Status Sensory Deficits None [facility] 07-27-2024 Functional Status Maintained [facility] 07-21-2024 Functional Status Awake, Resting, Up ad karen, Up to bathroom [facility] 07-21-2024 Functional Status Repositions self [facility] 07-21-2024 Functional Status [facility] 07-21-2024 Functional Status Maintained [facility] 07-21-2024 Functional Status Room check performed [facility] 07-20-2024 Functional Status [facility] 07-20-2024 Functional Status [facility] 07-20-2024 Functional Status Patient Identi fied Identification band, Verbal [facility] 07-20-2024 Functional Status [facility] Mental Status Date Assessment Result Facility 02-25-2025 Cognitive function Awake;Alert;A ppropriate;Follow s Commands [facility] Work Phone: 12-31-2024 Cognitive function Voice/Name [facility] Work Phone: 11-05-2024 Cognitive function Awake;Alert;A ppropriate;Follow s Commands [facility] Work Phone: 09-10-2024 Cognitive function Voice/Name [facility] Work Phone: 08-18-2024 Mental Status Orientation Orie nted x 4, Follows simple commands [facility] 08-18-2024 Mental Status [facility] 08-17-2024 Mental Status [facility] 08-17-2024 Mental Status [facility] 07-28-2024 Mental Status Oriented x 4 [facility] 07-28-2024 Mental Status [facility] 07-28-2024 Mental Status [facility] 07-21-2024 Mental Status Orientation Orie nted x 4, Follows simple commands [facility] 07-21-2024 Mental Status [facility] 01-28-2024 Cognitive function Voice/Name [facility] Work Phone: 09-12-2023 Cognitive function Level Of Cons ciousness Awake;Alert;Appropriate;Follow s Commands [facility] Work Phone: 07-18-2023 Cognitive function Voice/Name [facility] Work Phone: 05-23-2023 Cognitive function Voice/Name [facility] Work Phone: 03-28-2023 Cognitive function Voice/Name [facility] Work Phone: 01-24-2023 Cognitive function Voice/Name [facility] Work Phone: 11-29-2022 Cognitive function Voice/Name [facility] Work Phone: 10-03-2022 Cognitive function Voice/Name [facility] Work Phone: 08-01-2022 Cognitive function Awake;Alert;A ppropriate;Follow s Commands [facility] Work Phone: 07-24-2022 Cognitive function Voice/Name [facility] Work Phone: 07-04-2022 Cognitive function Awake;Alert;A ppropriate;Follow s Commands [facility] Work Phone: 06-20-2022 Cognitive function Voice/Name [facility] Work Phone: Clinical Notes 07-20-2024 to 07-09-2025 Note Date & Type Note Facility 07-09-2025 Progress note [facility] 04-14-2025 Note [facility] PROGRESS NOTE NAME ACCOUNT SEX AGE ADMIT DISCHARGE PT MED. RECORD# NUMBER DATE DATE TYPE SUDHA, [id number] F 79 04/02/25 2 APPLE Pan [id number] ROOM: 308MO DATE OF : 1945 DICTATING PHYSICIAN: Brandy Smalls DATE OF SERVICE: April 03, 2025 SUBJECTIVE: Ms. Esteban has been doing well. Most of her symptoms from presentation have resolved. She was able to keep her right leg up in the air without assistance. DIAGNOSTIC DATA: Of note, the patient did have a CT scan without contrast, and she did have CT angiography of the neck and head which revealed no significant abnormality except for cavernous narrowing of the intracranial arteries. She did have on the CT a left frontal lobe infarct with encephalomalacia, which is unlikely to be the acute event. She does have some atrophy. ASSESSMENT: 1. Possible cerebrovascular accident versus transient ischemic attack. The patient's symptoms did improve. 2. History of paroxysmal atrial fibrillation, anticoagulated. 3. Coronary artery disease, asymptomatic. 4. Diabetes. We will monitor glucose and cover empirically. PLAN: We will continue the current measures. The patient is already on statins and aspirin, which we will continue, and also the Eliquis. For the rest of her medications, we will resume once it is confirmed. Dictated By: Brandy Smalls MD 04/03/25 12:42 JOB #: [id number] Transcribed By: sabrina 04/03/25 15:19 Electronically signed by: E-Sign: BRANDY SMALLS MD 04/14/25 11:33 Page 1 of 1 APPLE ESTEBAN Progress Note [facility] 04-13-2025 Note Borderline elevated. Re-evaluation in 4-6 weeks is recommended if clinically indicated. [facility] Comment on above: Order Comment: Speci men Type: STOOL SPECIMEN Ordering Facility: [facility] Address: [address] [place] [address], [place] [address] Result Comment: Inte rpretation: <50.0 ug/g: Normal 50.0 ug/g - 120.0 ug/g: Borderline elevated. Re-evaluation in 4-6 weeks is recommended if clinically indicated. >120.0 ug/g: Elevated Performed By: #### [id number] #### [facility] CLIA [id number] [address] [place] [address] [place] 03-30-2025 Evaluation note Diagnosis Onset Date Resolution Chronic diarrhea chronic March 10:20am Crohn's disease chronic March 10:20am [facility] Work Phone: [phone]) [phone] Evaluation note* Diagnosis Onset Date Resolution Status Admit Date Chronic diarrhea chronic March 10:20am Crohn's disease chronic March 10:20am Abnormal results of thyroid function studies chronic July 06, 2025 10:12am Benign hypertension chronic mb2024 10:12am Diabetes chronic June 10:12am Mixed hyperlipidemia chronic Jun emb2024 10:12am Obesity chronic June 10:12am 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 June 10:12am UTI (urinary tract infection) acute July 09, 2025 8:49am [facility] Work Phone: 1(589) 120-330404-07-2025 Evaluation note* Diagnosis Onset Date Resolution Status Admit Date Benign hypertension chronic January 24, 2025 10:28am CAD (coronary artery disease) chroni c January 24, 2025 10:28am Diabetes chronic January 24 10:28am Mixed hyperlipidemia chronic 2024 10:28am Obesity chronic January 24 10:28am 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 January 24 10:28am [facility] Work Phone: 1(477) 796-374504-07-2025 Evaluation note* Diagnosis Onset Date Resolution Status Admit Date Benign hypertension chronic January 24, 2025 10:28am CAD (coronary artery disease) chroni c January 24, 2025 10:28am Diabetes chronic January 24 10:28am Mixed hyperlipidemia chronic 2024 10:28am Obesity chronic January 24 10:28am 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 January 24 10:28am Chronic diarrhea chronic March 10:20am Crohn's disease chronic March 10:20am [facility] Work Phone: 1(280) 698-629212-13-2024 Evaluation note* Diagnosis Onset Date Resolution Status Admit Date Crohn's disease chronic October 01, 2024 1:00pm Exocrine pancreatic insufficiency chronic October 01, 2 024 1:00pm [facility] Work Phone: 1([phone]) 678-156111-26-2024 Note* Exam Date Time Procedure Performing Provider Status 09/14/24 1:52 PM Echocardiogram, Adult - CV Auth (Verified) [facility] 10-30-2024 Note Discharge Instructions Thank you for allowing [facility] to assist you with your healthcare needs. The following is importantdischarge information regarding your hospital visit. Your Care Team RESHMA MARSH PA-C Your Diagnosis Aortic valve stenosis S/P TAVR (transcatheter aortic valve replacement) Uncontrolled diabetes mellitus What to do next Instructions From Your Doctor - No heavy lifting, pushing, or pulling more than 10 lb for 10-14 days - May shower starting tomorrow. No tub bathing/swimming pool/hot tub until groin site completely healed - Wash groin sites at least once a day with new washcloth and antibacterial soap for 1 week or until healed - Do not apply any cream, powder, or lotion to area until completely healed - If present, may remove dressings on groin sites while in shower tomorrow. May leave open to air or cover with loose gauze dressing - If you did not receive an envelope prior to discharge, you will be called/mailed information for follow-up testing (echocardiogram and lab work) to be done before your follow-up visit. Lab work should be done around the same time as your echocardiogram and can be done at any lab. - Medication changes: stop aspirin, restart Eliquis this evening - Continue your Plavix and Eliquis - Due to your tissue heart valve you will need to take antibiotics prior to any dental work. A prescription for amoxicillin was sent to your pharmacy. Take 4 capsules (2000 mg) one hour prior to any dental work - Please call Leena (RN valve coordinator) [phone] or Sebastian (nurse practitioner) [phone] with questions/concerns regarding procedure or follow-up. Scheduled Follow-Up Appointments Appointment Type When With Where Contact Information StatusCV OV 08/23/2024 01:00 PM EST [facility] Heart [facility] Confirmed Echo - Echocardiogram Adult 09/14/2024 01:00 PM EST Heart Lab Confirmed CV OV 09/24/2024 10:00 AM SEBASTIAN ALLEN AUTOMOTIVE WORKER-SPEECH TEACHER [facility] Heart & Vascular [facility] Confirmed Follow Up Appointments Follow Up with Post home RN RADU follow up visit scheduled for 08/20 between 12p-4p Follow Up with RESHMA MARSH When:Within 1-2 days Where:[address] [place] [address]- [phone] Business (1) Follow Up with [facility] will contact you for an appointment If you have any questionsplease call:[phone]. Follow Up with Echocardiogram When:09/14/2024 01:00 PM EST Additional Information: This department is located in the first floor lobby of the [facility]. Please have lab work done around the same time, prior to your office visit. Follow Up with SEBASTIAN PILLAI When:09/24/2024 10:00 AM EST Where:[address] [facility] [place] [address]- [phone] Additional Information: 30-day TAVR follow-up, echo and labs prior The Following Activity and Diet Have Been Ordered for You Discharge Activity - Ordered -- Lifting Restricted less than 10 pounds, No pushing, pulling, or lifting more than 10 lb for 10-14 days. Driving restricted for 2 days. May shower starting tomorrow., 08/18/24 12:17:00 EDT Discharge Diet - Ordered -- No changes were made to your diet during your hospital stay. Please resume your pre hospitalization diet on discharge., 08/18/24 12:17:00 EDT The Following Equipment Has Been Ordered for You Discharge Home Equipment Discharge Wound Care - Ordered -- Keep groin site(s) clean and dry until healed. Wash daily with antibacterial soap. Cleanse gently and pat dry. Keep area clean and dry until healed (typically 5-7 days)., 08/18/24 12:17:00 EDT The Following Treatments Have Been Ordered for You Discharge Labs No qualifying data available. Discharge Radiology No qualifying data available. Other Therapies No qualifying data available. Post Acute Orders No qualifying data available. Someone Will Contact You Regarding These Home Health Referrals No home referrals have been ordered for you. No one will call you. Allergies Niaspan ER Anaphylaxis, Unknown contrast media (gadolinium-based) Hypothermia guaiFENesin Unknown metFORMIN Renal insufficiency niacin Anaphylaxis sulfa Unknown Immunizations This Visit Given Vaccine Dateinfluenza virus vaccine, inactivated 08/18/2024 Medications Please ask your primary doctor or pharmacist before taking any other medication not listed, including over the counter drugs, herbal medications, vitamins and or supplements as they may interact withyour home medications. What How Much When Why Instructions Last Dose Unchanged apixaban (apixaban 5 mg oral tablet) 1 tab(s) by mouth Two (2) times a day restart this evening Unchanged atorvastatin (atorvastatin 80 mg oral tablet) 1 tab(s) by mouth Once a day (in the morning) TAKE 1 TABLET BY MOUTH ONCE DAILY Unchanged bacillus coagulans-inulin (Probiotic Formula (Bacillus Coagulans) oral capsule) 1 cap by mouth Once a day (in the morning) Unchanged clopidogrel (Plavix 75 mg oral tablet) 1 tab(s) by mouth Once a day (in the morning) Unchanged herbal/ nutritional product (turmeric 1000 mg oral capsule) 1 cap by mouth Daily at bedtime Unchanged inFLIXimab (Inflectra 100 mg intravenous injection) 3 Milligrams/Kilogram Intravenous Every 8 weeks as an infusion Unchanged insulin glargine (Lantus Solostar Pen 100 units/ mL 3 mL Pen) 42 unit(s) Subcutaneous Daily at bedtime Unchanged insulin lispro (HumaLOG) (HumaLOG Alfonso KwikPen 100 units/ mL injectable PEN) 8 unit(s) Subcutaneous Daily before lunch Unchanged insulin lispro (HumaLOG) (HumaLOG KwikPen 100 units/ mL injectable PEN) 10 unit(s) Subcutaneous Before breakfast Uncontrolled diabetes mellitus Unchanged metoprolol (metoprolol tartrate 37.5 mg oral tablet) 1 tab(s) by mouth Two (2) times a day Unchanged Misc Medication 1 cap by mouth Two (2) times a day Unchanged pancrelipase (Creon 36,000 units oral delayed release capsule) 3 cap by mouth Three (3) times a day with each meal and 1 cap with snack Unchanged pancrelipase (Creon 36,000 units oral delayed release capsule) 2 cap by mouth Once a day swallow whole or sprinkle contents over a teaspoonful of applesauce Unchanged potassium chloride (potassium chloride 99 mg oral tablet) 1 tab(s) by mouth Once a day (in the morning) Take with food Unchanged ramipril (ramipril 2.5 mg oral capsule) 1 cap by mouth Daily at bedtime TAKE 1 CAPSULE BY MOUTH ONCE DAILY Unchanged semaglutide (Ozempic 8 mg/ 3 mL (2 mg dose) subcutaneous solution) 2 Milligram Subcutaneous Every week in the abdomen, thigh, or upper arm Unchanged sertraline (sertraline 100 mg oral tablet) 1 tab(s) by mouth Daily at bedtime What How Much When Comments Stop Taking aspirin (aspirin 81 mg oral delayed release tablet) 1 tab(s) by mouth Once a day (in the morning) Please take this list to your next doctor s visit. Bring all medications you take, including over the counter medications, herbals and other supplements with you to your doctor s visit. Patients and families are reminded to discard old lists and to update any records with all medication providers or retail pharmacies. Education Materials Incision Care, Adult An incision is a cut that a doctor makes in your skin for surgery (for a procedure). Most times, these cuts are closed after surgery. Your cut from surgery may be closed with stitches (sutures), rita, skin glue, or skin tape (adhesive strips). You may need to return to your doctor to have stitches or rita taken out. This may happen many days or many weeks after your surgery. The cut needs to be well cared for so it does not get infected. How to care for your cut Cut care Follow instructions from your doctor about how to take care of your cut. Make sure you: ? Wash your hands with soap and water before you change your bandage (dressing). If you cannot use soap and water, use hand portable track crew chief. ? Change your bandage as told by your doctor. ? Leave stitches, skin glue, or skin tape in place. They may need to stay in place for 2 weeks or longer. If tape strips get loose and curl up, you may trim the loose edges. Do not remove tape strips completely unless your doctor says it is okay. Check your cut area every day for signs of infection. Check for: ? More redness, swelling, or pain. ? More fluid or blood. ? Warmth. ? Pus or a bad smell. Ask your doctor how to clean the cut. This may include: ? Using mild soap and water. ? Using a clean towel to pat the cut dry after you clean it. ? Putting a cream or ointment on the cut. Do this only as told by your doctor. ? Covering the cut with a clean bandage. Ask your doctor when you can leave the cut uncovered. Do not take baths, swim, or use a hot tub until your doctor says it is okay. Ask your doctor if youcan take showers. You may only be allowed to take sponge baths for bathing. Medicines If you were prescribed an antibiotic medicine, cream, or ointment, take the antibiotic or put it onthe cut as told by your doctor. Do not stop taking or putting on the antibiotic even if your condition gets better. Take [place]qkv-cch-[place] and prescription medicines only as told by your doctor. General instructions Limit movement around your cut. This helps healing. ? Avoid straining, lifting, or exercise for the first month, or for as long as told by your doctor. ? Follow instructions from your doctor about going back to your normal activities. ? Ask your doctor what activities are safe. Protect your cut from the sun when you are outside for the first 6 months, or for as long as told by your doctor. Put on sunscreen around the scar or cover up the scar. Keep all follow-up visits as told by your doctor. This is important. Contact a doctor if: Your have more redness, swelling, or pain around the cut. You have more fluid or blood coming from the cut. Your cut feels warm to the touch. You have pus or a bad smell coming from the cut. You have a fever or shaking chills. You feel sick to your stomach (nauseous) or you throw up (vomit). You are dizzy. Your stitches or rita come undone. Get help right away if: You have a red streak coming from your cut. Your cut bleeds through the bandage and the bleeding does not stop with gentle pressure. The edges of your cut open up and separate. You have very bad (severe) pain. You have a rash. You are confused. You pass out (faint). You have trouble breathing and you have a fast heartbeat. This information is not intended to replace advice given to you by your health care provider. Make sure you discuss any questions you have with your health care provider. Document Released: 12/28/2012 Document Revised: 02/23/2018 Document Reviewed: 06/13/2017 Elsevier Patient Education 2020 [employer] TRANSCATHETER AORTIC VALVE REPLACEMENT (TAVR) Discharge Instructions DIET INSTRUCTIONS Resume your previous diet as tolerated Drink plenty of fluids for the next 48 hours to help your kidneys flush the dye out of your system ACTIVITIES May go up and down stairs CAREFULLY AFTER [address] FOR 5 DAYS AFTER PROCEDURE No heavy lifting GREATER THAN 10 POUNDS or pushing or straining FOR 5 DAYS Someone must stay with you at home after the procedure FOR 3 DAYS BATHING/SHOWERING May tub bathe in 1 week May shower tomorrow, but cover groin incisions with plastic for 3 days after procedure WOUND CARE You will go home with a Band-Aid over your catheter insertion site. Keep a Band- Aid on for the next24 hours and then leave open to air. Some degree of bruising and tenderness is normal around the catheter insertion site. It will take awhile for any bruising to completely resolve. Keep your site clean and dry. You need to report the following to your custom seamstress: Any draining or oozing from the site Any swelling at the site Any increased pain or tenderness at the site Any numbness in your leg where the procedure was done Any signs of infection IMPORTANT! CALL 911 FOR ANY BLEEDING OR SWELLING AT THE PROCEDURE SITE If there is any large amount of bleeding, you or someone else need to apply direct pressure to the site (just like the nurse did in the heart lab after your procedure). It is very important that you hold constant pressure. Do not release the pressure to check if the bleeding has stopped. You then need to be transported to the nearest emergency room. WATCH FOR SIGNS OF INFECTION (Usually appears 36-48 hours after surgery) A temperature above 100.5 Redness or swelling Increased pain Foul odor or drainage If you have any questions, please call your doctor at the number listed on your follow up instructions. CONTACT YOUR CARDIOLOGY OFFICE FOR A PRESCRIPTION FOR ANTIBIOTICS PRIOR TO ANY DENTAL PROCEDURE! Follow all instructions given to you by your doctor Additional Information VACCINATE! IT SAVES LIVES! Members of the community who have not yet received the COVID-19 vaccine and would like to receive it can visit one of [facility] vaccine clinics. There are many vaccine clinic locations within the [facility]. For locations and available times, please visit [email or web address] It is important to note that some COVID mobile vaccine clinics are held outdoors and may be canceled in rainy or stormy conditions. To learn more about pediatric vaccinations (ages 5-11), we invite you to visit the [facility] webpage. [email or web address].[email or web address]/pages/[email or web address]-Cfuil-Tqeivpvcmdn-[email or web address]-[email or web address] stions.htmlTo learn more about the COVID-19 vaccine, we invite you to visit the CDC website for a list of frequently asked questions.https://www.cdc.gov/coronavirus/2019-ncov/vaccines/faq.html [facility] Patient Portal Access Instructions: Stay connected with your healthcare team and access your personal medical information anytime with the [facility] Patient Portal. Please follow the directions below to create your [facility] account: 1.Access the email account you provided upon registration to the hospital/physician office.2.Look for an invitation email from [facility].3.Open the email and access the invitation link: AcceptInvitation to [facility].4.Fill in the required ramirez to create your account. To access your account, visit [email or web address]. Click the blue button labeled Access Patient Portal and then log in with the username and password that you created in the steps above. You will be able to view your test results, lab results, a summary of your visits, upcoming appointments and more. There is also a convenient messaging option where you can send secure messages to your [facility] [employer]der. In addition, you will have the ability to download any documents or summaries to your computer and/or send the information securely to a physician. Remember that your healthcare information is confidential, so carefully consider who you will allowto register on the [facility] Patient Portal for access to your information. You can also access the [facility] Patient Portal on the [employer] deo. Simply click on Patient Portal and then log into your account. If you would like to receive a full copy of your medical records, please contact the [facility] Medical Records Department by calling [phone], Friday through Friday between 8 a.m. and 4:30 p.m. HOW TO SAFELY DISPOSE OF PRESCRIPTION MEDICATIONS Please use one of the following methods to safely dispose of your unused medications. 1.Use a drug disposal kit: the drug disposal pouch allows you to safely discard your old and unuseddrugs. Ask your nurse to give you one when you are discharged.2.Visit a local take-back location: Many local pharmacies and police departments have programs that collect old and unwanted prescriptiondrugs. Call your local pharmacy or go to http://bit.GitHub/1R5Gz8o to find one close to you.3.Make use of household items: Use cat litter or old coffee grounds to dispose medications if other options arenot available. Mix your drugs with these household products, seal them in an airtight container andthrow it into the garbage. Call [facility]: [phone] to be sure your drugs can be disposed of in this way. Some medicines may require a different approach.4.Never flush your medications down the toilet. IF YOU HAVE BEEN PRESCRIBED AN OPIOID FOR PAIN If you have been prescribed an opioid (such as hydrocodone, oxycodone or morphine), it is critical to understand the possible side effects and risks of opioid pain medications. Even when taken as directed, opioids can have several side effects including: Tolerance, meaning you might need to take more of a medication for the same pain relief. Nausea, vomiting and/or constipation. Sleepiness, dizziness, dry mouth, confusion, depression or itching. Physical dependence, meaning you have withdrawal symptoms when a medication is stopped, can develop within a few days. KNOW YOUR RESPONSIBILITIES It is important to know exactly how much and how often to take the opioid pain medications you are prescribed. Never take opioids in higher amounts or more often than prescribed. Do not combine opioids with alcohol or other drugs that cause drowsiness, such as benzodiazepines, also known as benzos, including diazepam and alprazolam, muscle relaxants or sleep aids. Never sell or share prescription opioids. This is illegal. Store opioids in a secure place and out of reach of others (including children, family, friends and visitors). The last page of this document has been signed and retained as a CHART COPY. Signatures Patient Education Materials [facility] Care, Adult, Ytoz-[id number] 3- SH TRANSCATHETER AORTIC VALVE REPLACEMENT (TAVR) Discharge Instructions 11/03/2018(CUSTOM) Medication Leaflets My discharge plan and instructions have been reviewed and explained to me and ISUDHA ELOISE S understand my current condition and have read and understand these discharge instructions. I have received a written copy of the plan/instructions. If I have questions, I am aware that I should contactmy doctor. Patient/Review Assistant Signature: Date/Time: Relationship to Patient: Witness Name/Signature: Date[id number] Discharge instructions Patient Education 08/18/2024 03:48:17 Incision Care, Adult, Iawt-jr-Qwhm Incision Care, Adult An incision is a cut that a doctor makes in your skin for surgery (for a procedure). Most times, these cuts are closed after surgery. Your cut from surgery may be closed with stitches (sutures), rita, skin glue, or skin tape (adhesive strips). You may need to return to your doctor to have stitches or rita taken out. This may happen many days or many weeks after your surgery. The cut needs to be well cared for so it does not get infected. How to care for your cut Cut care Follow instructions from your doctor about how to take care of your cut. Make sure you: ?Wash your hands with soap and water before you change your bandage (dressing). If you cannot use soap and water, use hand portable track crew chief. ?Change your bandage as told by your doctor. ?Leave stitches, skin glue, or skin tape in place. They may need to stay in place for 2 weeks or longer. If tape strips get loose and curl up, you may trim the loose edges. Do not remove tape strips completely unless your doctor says it is okay. Check your cut area every day for signs of infection. Check for: ?More redness, swelling, or pain. ?More fluid or blood. ?Warmth. ?Pus or a bad smell. Ask your doctor how to clean the cut. This may include: ?Using mild soap and water. ?Using a clean towel to pat the cut dry after you clean it. ?Putting a cream or ointment on the cut. Do this only as told by your doctor. ?Covering the cut with a clean bandage. Ask your doctor when you can leave the cut uncovered. Do not take baths, swim, or use a hot tub until your doctor says it is okay. Ask your doctor if youcan take showers. You may only be allowed to take sponge baths for bathing. Medicines If you were prescribed an antibiotic medicine, cream, or ointment, take the antibiotic or put it onthe cut as told by your doctor. Do not stop taking or putting on the antibiotic even if your condition gets better. Take rrfy-ttq-ghdfmhg and prescription medicines only as told by your doctor. General instructions Limit movement around your cut. This helps healing. ?Avoid straining, lifting, or exercise for the first month, or for as long as told by your doctor. ?Follow instructions from your doctor about going back to your normal activities. ?Ask your doctor what activities are safe. Protect your cut from the sun when you are outside for the first 6 months, or for as long as told by your doctor. Put on sunscreen around the scar or cover up the scar. Keep all follow-up visits as told by your doctor. This is important. Contact a doctor if: Your have more redness, swelling, or pain around the cut. You have more fluid or blood coming from the cut. Your cut feels warm to the touch. You have pus or a bad smell coming from the cut. You have a fever or shaking chills. You feel sick to your stomach (nauseous) or you throw up (vomit). You are dizzy. Your stitches or rita come undone. Get help right away if: You have a red streak coming from your cut. Your cut bleeds through the bandage and the bleeding does not stop with gentle pressure. The edges of your cut open up and separate. You have very bad (severe) pain. You have a rash. You are confused. You pass out (faint). You have trouble breathing and you have a fast heartbeat. This information is not intended to replace advice given to you by your health care provider. Make sure you discuss any questions you have with your health care provider. Document Released: 12/28/2012 Document Revised: 02/23/2018 Document Reviewed: 06/13/2017 [employer] Patient Education 2020 [employer] 08/18/2024 03:48:12 3- SH TRANSCATHETER AORTIC VALVE REPLACEMENT (TAVR) Discharge Instructions 11/03/2018(CUSTOM) TRANSCATHETER AORTIC VALVE REPLACEMENT (TAVR) Discharge Instructions DIET INSTRUCTIONS Resume your previous diet as tolerated Drink plenty of fluids for the next 48 hours to help your kidneys flush the dye out of your system ACTIVITIES May go up and down stairs CAREFULLY AFTER [address] FOR 5 DAYS AFTER PROCEDURE No heavy lifting GREATER THAN 10 POUNDS or pushing or straining FOR 5 DAYS Someone must stay with you at home after the procedure FOR 3 DAYS BATHING/SHOWERING May tub bathe in 1 week May shower tomorrow, but cover groin incisions with plastic for 3 days after procedure WOUND CARE You will go home with a Band-Aid over your catheter insertion site. Keep a Band- Aid on for the next24 hours and then leave open to air. Some degree of bruising and tenderness is normal around the catheter insertion site. It will take awhile for any bruising to completely resolve. Keep your site clean and dry. You need to report the following to your custom seamstress: Any draining or oozing from the site Any swelling at the site Any increased pain or tenderness at the site Any numbness in your leg where the procedure was done Any signs of infection IMPORTANT! CALL 911 FOR ANY BLEEDING OR SWELLING AT THE PROCEDURE SITE If there is any large amount of bleeding, you or someone else need to apply direct pressure to the site (just like the nurse did in the heart lab after your procedure). It is very important that you hold constant pressure. Do not release the pressure to check if the bleeding has stopped. You then need to be transported to the nearest emergency room. WATCH FOR SIGNS OF INFECTION (Usually appears 36-48 hours after surgery) A temperature above 100.5 Redness or swelling Increased pain Foul odor or drainage If you have any questions, please call your doctor at the number listed on your follow up instructions. CONTACT YOUR CARDIOLOGY OFFICE FOR A PRESCRIPTION FOR ANTIBIOTICS PRIOR TO ANY DENTAL PROCEDURE! Follow all instructions given to you by your doctor Follow Up Care 08/09/2024 11:58:16 With:Echocardiogram Address: When:09/14/2024 13:00:00 Comments:This department is located in the first floor lobby of the [facility]. Please have lab work done around the same time, prior to your office visit. With:SEBASTIAN PILLAI APRN-SPEECH TEACHER Address: [address] [place] [address] [id number] [facility] [place] [address]- [phone] When:09/24/2024 10:00:00 Comments:30-day TAVR follow-up, echo and labs prior With:Post home RN DC follow up visit scheduled for 08/20 between 12p-4p Address:Unknown When: Unknown With:RESHMA MARSH Address: [address] [place] [address]- [phone] Business (1) When:1-2 days With:[facility] will contact you for an appointment If you have any questions please call:[phone]. Address: When: Unknown [facility] 10-29-2024 Note* Exam Date Time Procedure Performing Provider Status 08/17/24 6:51 PM Echocardiogram, Adult - CV Modified [facility] 10-29-2024 Note* Exam Date Time Procedure Performing Provider Status 08/17/24 12:12 PM Echocardiogram, Adult - CV Auth (Verified) [facility] 10-29-2024 NoteSINUS RHYTHM Inferior infarct, age indeterminate Repol abnrm suggests ischemia, diffuse lds PROLONGED QT INTERVAL Electronic Signature: RAHUL DIEGO MD 08/18/2024 20:42:39[facility] 10-29-2024 Anesthesiology Consult note Patient: APPLE ESTEBAN Age: 79 years Sex: Female : 1945 Associated Diagnoses: None Author: STAN GUY DO Preoperative Information Greater than 6 hours Anesthesia history Patient's history: negative. Family's history: negative. Review of Systems Ear/Nose/Mouth/Throat: Negative except as documented in history of present illness. Respiratory: Negative except as documented in history of present illness. Cardiovascular: Negative except as documented in history of present illness, Severe for TF TAVR,previous CABG. Gastrointestinal: Negative except as documented in history of present illness. Genitourinary: Negative except as documented in history of present illness. Endocrine: Negative except as documented in history of present illness. Musculoskeletal: Negative except as documented in history of present illness. Integumentary: Negative except as documented in history of present illness. Neurologic: Negative except as documented in history of present illness. Health Status Allergies: Allergic Reactions (Selected) Severity Not Documented Contrast media (gadolinium-based)- Hypothermia. GuaiFENesin- Unknown. MetFORMIN- Renal insufficiency. Niacin- Anaphylaxis. Niaspan ER- Unknown and anaphylaxis. Sulfa- Unknown., Allergies (7) ActiveSeverityReaction niacinAnaphylaxis guaiFENesinUnknown Niaspan ERUnknown metFORMINRenal insufficiency contrast media (gadolinium-based)Hypothermia sulfaUnknown Niaspan ERAnaphylaxis Current medications: (Selected) Inpatient Medications Ordered Kefzol: 2 gram(s), 20 mL, 240 mL/hr, IV Push (INT), PREOP pharm Sodium Chloride 0.9% intravenous solution 1,000 mL: 20 mL/hr, Intravenous Prescriptions Prescribed HumaLOG KwikPen 100 units/mL injectable PEN: 10 unit(s), Subcutaneous, acBreakfast, 12 mL, 3 Refill(s) Plavix 75 mg oral tablet: 75 mg, 1 tab(s), Oral, qAM, 90 tab(s), 0 Refill(s) apixaban 5 mg oral tablet: 5 mg, 1 tab(s), Oral, BID, 60 tab(s), 3 Refill(s) atorvastatin 80 mg oral tablet: 80 mg, 1 tab(s), Oral, qAM, TAKE 1 TABLET BY MOUTH ONCE DAILY, 30 tab(s), 6 Refill(s) metoprolol tartrate 37.5 mg oral tablet: 37.5 mg, 1 tab(s), Oral, BID, 60 tab(s), 6 Refill(s) Documented Medications Documented Creon 36,000 units oral delayed release capsule: 2 cap(s), Oral, qDay, swallow whole or sprinkle contents over a teaspoonful of applesauce, 450 cap(s), 0 Refill(s) Creon 36,000 units oral delayed release capsule: 3 cap(s), Oral, TID, with each meal and 1 cap withsnack, 0 Refill(s) HumaLOG Alfonso KwikPen 100 units/mL injectable PEN: 8 unit(s), Subcutaneous, acLunch, 5 EA, 0 Refill(s) Inflectra 100 mg intravenous injection: 3 mg/kg, Intravenous, q8wk, as an infusion, 3 EA, 0 Refill(s) Lantus Solostar Pen 100 units/mL 3 mL Pen: 42 unit(s), Subcutaneous, qHS Misc Medication: 1 cap(s), Oral, BID, 0 Refill(s) Ozempic 8 mg/3 mL (2 mg dose) subcutaneous solution: 2 mg, Subcutaneous, qWeek, in the abdomen, thigh, or upper arm, 3 mL, 0 Refill(s) Probiotic Formula (Bacillus Coagulans) oral capsule: 1 cap(s), Oral, qAM, 30 cap(s), 0 Refill(s) aspirin 81 mg oral delayed release tablet: 81 mg, 1 tab(s), Oral, qAM, 30 tab(s), 0 Refill(s) potassium chloride 99 mg oral tablet: 99 mg, 1 tab(s), Oral, qAM, Take with food, 100 tab(s), 0 Refill(s) ramipril 2.5 mg oral capsule: 2.5 mg, 1 cap(s), Oral, qHS, TAKE 1 CAPSULE BY MOUTH ONCE DAILY sertraline 100 mg oral tablet: 100 mg, 1 tab(s), Oral, qHS, 90 tab(s), 0 Refill(s) turmeric 1000 mg oral capsule: 1,000 mg, 1 cap(s), Oral, qHS, 0 Refill(s), Medications (2) Active Scheduled: (1) ceFAZolin syringe 2 gram(s) 20 mL, IV Push (INT), PREOP pharm Continuous: (1) NS (0.9% nacl) 1,000 mL 1,000 mL, Intravenous, 20 mL/hr PRN: (0) Problem list: Medical Aortic valve stenosis / SNOMED CT 124127594 / Confirmed Afib / SNOMED CT 73612358 / Confirmed CKD stage 3 / SNOMED CT 7743568556 / Confirmed CORONARY ARTERY DISEASE INVOLVING [place] CORONARY ARTERY / SNOMED CT 9530012122 / Confirmed Crohn's disease / SNOMED CT 54180835 / Confirmed DIABETES MELLITUS (Renamed from DIABETES) / SNOMED CT 875198627 / Confirmed HYPERTENSION, UNSPECIFIED (Renamed from ESSENTIAL (PRIMARY) HYPERTENSION) / SNOMED CT 51047584 / Confirmed Hyperlipidemia / SNOMED CT 59748127 / Confirmed Hypertension / SNOMED CT 82599797 / Confirmed INTERMITTENT PALPITATIONS / SNOMED CT 879286367 / Confirmed Lightheadedness / SNOMED CT 5364173746 / Confirmed PULMONARY NODULE, RIGHT / SNOMED CT 380698668 / Confirmed OBESITY / SNOMED CT 6427410362 / Confirmed INCREASED BMI (Renamed from EXCESS WEIGHT) / SNOMED CT 408220285 / Confirmed PREOPERATIVE CLEARANCE / SNOMED CT 907461196 / Confirmed Elevated TSH / SNOMED CT 405239882 / Confirmed Syncope / SNOMED CT 757248518 / Confirmed Type 2 diabetes mellitus uncontrolled / SNOMED CT 0494286916 / Confirmed Vitamin D deficiency / SNOMED CT 42763367 / Confirmed, Active Problems (27) Afib Anxiety Aortic valve stenosis Arthritis CKD stage 3 CORONARY ARTERY DISEASE INVOL[place]ING [place] CORONARY ARTERY Crohn's disease Depression DIABETES MELLITUS (Renamed from DIABETES) Elevated TSH Glasses Headache Heart attack Hyperlipidemia Hypertension HYPERTENSION, UNSPECIFIED (Renamed from ESSENTIAL (PRIMARY) HYPERTENSION) INCREASED BMI (Renamed from EXCESS WEIGHT) INTERMITTENT PALPITATIONS Lightheadedness OBESITY On anticoagulant therapy PREOPERATIVE CLEARANCE PULMONARY NODULE, RIGHT Stroke Syncope Type 2 diabetes mellitus uncontrolled Vitamin D deficiency Histories Past Medical History: No active or resolved past medical history items have been selected or recorded. Family History: Diabetes mellitus Daughter Hypertension Mother Father CVA - Cerebrovascular accident Mother Father Parkinson disease Grandparent Diabetes Mother Father Procedure history: Cardiovascular stress testing ([id number]) on 07/11/2021 at 75 Years. Holter monitor ([id number]) on 06/16/2021 at 75 Years. Echocardiogram ([id number]) on 05/15/2021 at 75 Years. CABG x 1 - Coronary artery bypass graft x 1 ([id number]) on 10/02/1994 at 49 Years. Cardiac catheterization, left heart ([id number]) on 09/30/1994 at 49 Years. CE - Cataract extraction (4500815797). Colonoscopy (401504084). Partial hysterectomy (7537160099). Cholecystectomy (35533377). Laparoscopy, surgical, enterolysis (freeing of intestinal adhesion) (separate procedure) (20678). EGD - esophagogastroduodenoscopy (5092120053). Appendectomy (972803305). Dilation and curettage (60457021). Extraction of wisdom tooth (179015345). Tonsillectomy (292327811). Social History: Social & Psychosocial Habits Alcohol 08/12/2024 Use: Never Substance Abuse 07/20/2024 Use: Never Tobacco 08/12/2024 Tobacco Use: Never (less than 100 in l Home/Environment 08/12/2024 Living situation: Home/Independent Domestic Concerns None Current Home Treatments Blood Glucose monitoring, Blood Pressure monitoring Special Services and Community Resources None Spouse Name Trenton Marital Status of Patient if Patient Independent Adult: Nutrition/Health 08/12/2024 Type of diet: Regular Caffeine intake amount: 1-2 cups per day Appetite Good Eating Difficulties None Physical Examination Vital Signs (last 24 hrs) Last Charted Temp Oral36.9 DegC (AUG 17 07:11) SBPH 177 mmHg (AUG 17 07:11) DBP84 mmHg (AUG 17 07:11) General: Alert and oriented. Airway: Normal temporomandibular joint mobility, Normal mouth, Normal throat, Normal neck range of motion, Trachea midline. Mallampati classification: II (soft palate, fauces, uvula visible). Head: Normocephalic. Dentition Evaluation: Intact, Own teeth, Denies loose/chipped teeth. Neck: Supple. Respiratory: Lungs are clear to auscultation. Cardiovascular: Normal rate. Heart Sounds: Normal. Gastrointestinal: Soft. Musculoskeletal Normal range of motion. Integumentary: Intact, Warm, Dry, [place]. Neurologic: Alert, Oriented. Review / Management Results review: Labs (Last four charted values) Plt 171(AUG 17) Na 141(AUG 17) K 4.2(AUG 17) CO2 27(AUG 17) Cl 105(AUG 17) Cr 0.84(AUG 17) BUN H 24.0(AUG 17) Glucose H 299(AUG 17) Ca 9.4(AUG 17) PT 12.9(AUG 17) INR 1.1(AUG 17) PTT 27.3(AUG 17) . Assessment and Plan [place] [employer] Anesthesiologists (ASA) physical status classification: Class IV. Anesthetic Preoperative Plan Premedication: None. Anesthetic technique: General. Induction: intravenously. Maintenance airway: Mask. Special techniques: Warming device, no Extracorporeal. Special Monitoring. Postoperative pain management: Per surgeon. Risks discussed: nausea, vomiting, headache, sore throat, dental injury, hypotension, allergic reaction, serious complications. Informed consent: signed by patient. Beta Jennifer: Beta Jennifer Taken Within 24 Hrs: Yes. Digitally Signed by STAN GUY DO on 08/17/2024 10:09 AM [id number]* Exam Date Time Procedure Performing Provider Status 08/17/24 9:53 AM Transcatheter Aortic Valve Replacement-C Auth (Verified) [facility] 10-29-2024 NoteSINUS RHYTHM PROBABLE LEFT ATRIAL ENLARGEMENT LVH WITH SECONDARY REPOLARIZATION ABNORMALITY BORDERLINE PROLONGED QT INTERVAL Electronic Signature: RAHUL DIEGO MD 08/18/2024 21:13:15[facility] 10-09-2024 Hospital Discharge instructions Patient Education 07/28/2024 14:50:01 Heart-Healthy Eating Plan, Kfzp-vz-Bzxh Heart-Healthy Eating Plan Heart-healthy meal planning includes: Eating less unhealthy fats. Eating more healthy fats. Making other changes in your diet. Talk with your doctor or a diet specialist (dietitian) to create an eating plan that is right for you. What is my plan? Your doctor may recommend an eating plan that includes: Total fat: % or less of total calories a day. Saturated fat: % or less of total calories a day. Cholesterol: less than mg a day. What are tips for following this plan? Cooking Avoid frying your food. Try to bake, boil, grill, or broil it instead. You can also reduce fat by: Removing the skin from poultry. Removing all visible fats from meats. Steaming vegetables in water or broth. Meal planning At meals, divide your plate into four equal parts: ?Fill one-half of your plate with vegetables and green salads. ?Fill one-fourth of your plate with whole grains. ?Fill one-fourth of your plate with lean protein foods. Eat 4 5 servings of vegetables per day. A serving of vegetables is: ?1 cup of raw or cooked vegetables. ?2 cups of raw leafy greens. Eat 4 5 servings of fruit per day. A serving of fruit is: ?1 medium whole fruit. ? cup of dried fruit. ? cup of fresh, frozen, or canned fruit. ? cup of 100% fruit juice. Eat more foods that have soluble fiber. These are apples, broccoli, carrots, beans, peas, and barley. Try to get 20 30 g of fiber per day. Eat 4 5 servings of nuts, legumes, and seeds per week: ?1 serving of dried beans or legumes equals cup after being cooked. ?1 serving of nuts is cup. ?1 serving of seeds equals 1 tablespoon. General information Eat more home-cooked food. Eat less restaurant, buffet, and fast food. Limit or avoid alcohol. Limit foods that are high in starch and sugar. Avoid fried foods. Lose weight if you are overweight. Keep track of how much salt (sodium) you eat. This is important if you have high blood pressure. Ask your doctor to tell you more about this. Try to add vegetarian meals each week. Fats Choose healthy fats. These include olive oil and canola oil, flaxseeds, walnuts, almonds, and seeds. Eat more omega-3 fats. These include salmon, mackerel, sardines, tuna, flaxseed oil, and ground flaxseeds. Try to eat fish at least 2 times each week. Check food labels. Avoid foods with trans fats or high amounts of saturated fat. Limit saturated fats. ?These are often found in animal products, such as meats, butter, and cream. ?These are also found in plant foods, such as palm oil, palm kernel oil, and coconut oil. Avoid foods with partially hydrogenated oils in them. These have trans fats. Examples are stick margarine, some tub margarines, cookies, crackers, and other baked goods. What foods can I eat? Fruits All fresh, canned (in natural juice), or frozen fruits. Vegetables Fresh or frozen vegetables (raw, steamed, roasted, or grilled). Green salads. Grains Most grains. Choose whole wheat and whole grains most of the time. Rice and pasta, including brown rice and pastas made with whole wheat. Meats and other proteins Lean, well-trimmed beef, veal, pork, and traore. Chicken and turkey without skin. All fish and shellfish. Wild duck, rabbit, pheasant, and venison. Egg whites or low-cholesterol egg substitutes. Dried beans, peas, lentils, and tofu. Seeds and most nuts. Dairy Low-fat or nonfat cheeses, including ricotta and mozzarella. Skim or 1% milk that is liquid, powdered, or evaporated. Buttermilk that is made with low-fat milk. Nonfat or low-fat yogurt. Fats and oils Non-hydrogenated (trans-free) margarines. Vegetable oils, including soybean, sesame, sunflower, olive, peanut, safflower, corn, canola, and cottonseed. Salad dressings or mayonnaise made with a vegetable oil. Beverages Mineral water. Coffee and tea. Diet carbonated beverages. Sweets and desserts Sherbet, gelatin, and fruit ice. Small amounts of dark chocolate. Limit all sweets and desserts. Seasonings and condiments All seasonings and condiments. The items listed above may not be a complete list of foods and drinks you can eat. Contact a dietitian for more options. What foods should I avoid? Fruits Canned fruit in heavy syrup. Fruit in cream or butter sauce. Fried fruit. Limit coconut. Vegetables Vegetables cooked in cheese, cream, or butter sauce. Fried vegetables. Grains Breads that are made with saturated or trans fats, oils, or whole milk. Croissants. Sweet rolls. Donuts. High-fat crackers, such as cheese crackers. Meats and other proteins Fatty meats, such as hot dogs, ribs, sausage, turpin, rib-eye roast or steak. High-fat deli meats, such as salami and bologna. Caviar. Domestic duck and goose. Organ meats, such as liver. Dairy Cream, sour cream, cream cheese, and creamed cottage cheese. Whole-milk cheeses. Whole or 2% milk that is liquid, evaporated, or condensed. Whole buttermilk. Cream sauce or high-fat cheese sauce. Yogurt that is made from whole milk. Fats and oils Meat fat, or shortening. [place] butter, hydrogenated oils, palm oil, coconut oil, palm kernel oil. Solid fats and shortenings, including turpin fat, salt pork, lard, and butter. Nondairy cream substitutes. Salad dressings with cheese or sour cream. Beverages Regular sodas and juice drinks with added sugar. Sweets and desserts Frosting. Pudding. Cookies. Cakes. Pies. Milk chocolate or white chocolate. Buttered syrups. Full-fat ice cream or ice cream drinks. The items listed above may not be a complete list of foods and drinks to avoid. Contact a dietitianfor more information. Summary Heart-healthy meal planning includes eating less unhealthy fats, eating more healthy fats, and making other changes in your diet. Eat a balanced diet. This includes fruits and vegetables, low-fat or nonfat dairy, lean protein, nuts and legumes, whole grains, and heart-healthy oils and fats. This information is not intended to replace advice given to you by your health care provider. Make sure you discuss any questions you have with your health care provider. Document Released: 04/06/2013 Document Revised: 12/10/2018 Document Reviewed: 11/13/2018 [employer] Patient Education 2020 [employer]. 07/28/2024 14:49:52 Coronary Angiogram With Stent, Care After Coronary Angiogram With Stent, Care After This sheet gives you information about how to care for yourself after your procedure. Your health care provider may also give you more specific instructions. If you have problems or questions, contact your health care provider. What can I expect after the procedure? After your procedure, it is common to have: Bruising in the area where a small, thin tube (catheter) was inserted. This usually fades within 1 2 weeks. Blood collecting in the tissue (hematoma) that may be painful to the touch. It should usually decrease in size and tenderness within 1 2 weeks. Follow these instructions at home: Insertion area care Do not take baths, swim, or use a hot tub until your health care provider approves. You may shower 24 48 hours after the procedure or as directed by your health care provider. Follow instructions from your health care provider about how to take care of your incision. Make sure you: ?Wash your hands with soap and water before you change your bandage (dressing). If soap and water are not available, use hand portable track crew chief. ?Change your dressing as told by your health care provider. ?Leave stitches (sutures), skin glue, or adhesive strips in place. These skin closures may need to stay in place for 2 weeks or longer. If adhesive strip edges start to loosen and curl up, you may trim the loose edges. Do not remove adhesive strips completely unless your health care provider tells you to do that. Remove the bandage (dressing) and gently wash the catheter insertion site with plain soap and water. Pat the area dry with a clean towel. Do not rub the area, because that may cause bleeding. Do not apply powder or lotion to the incision area. Check your incision area every day for signs of infection. Check for: ?More redness, swelling, or pain. ?More fluid or blood. ?Warmth. ?Pus or a bad smell. Activity Do not drive for 24 hours if you were given a medicine to help you relax (sedative). Do not lift anything that is heavier than 10 lb (4.5 kg) for 5 days after your procedure or as directed by your health care provider. Ask your health care provider when it is okay for you: ?To return to work or school. ?To resume usual physical activities or sports. ?To resume sexual activity. Eating and drinking Eat a heart-healthy diet. This should include plenty of fresh fruits and vegetables. Avoid the following types of food: ?Food that is high in salt. ?Canned or highly processed food. ?Food that is high in saturated fat or sugar. ?Fried food. Limit alcohol intake to no more than 1 drink a day for non- women and 2 drinks a day for men. One drink equals 12 oz of beer, 5 oz of wine, or 1 oz of hard liquor. Lifestyle Do not use any products that contain nicotine or tobacco, such as cigarettes and e-cigarettes. If you need help quitting, ask your health care provider. Take steps to manage and control your weight. Get regular exercise. Manage your blood pressure. Manage other health problems, such as diabetes. General instructions Take zscg-adb-kppfems and prescription medicines only as told by your health care provider. Blood thinners may be prescribed after your procedure to improve blood flow through the stent. If you need an MRI after your heart stent has been placed, be sure to tell the health care providerwho orders the MRI that you have a heart stent. Keep all follow-up visits as directed by your health care provider. This is important. Contact a health care provider if: You have a fever. You have chills. You have increased bleeding from the catheter insertion area. Hold pressure on the area. Get help right away if: You develop chest pain or shortness of breath. You feel faint or you pass out. You have unusual pain at the catheter insertion area. You have redness, warmth, or swelling at the catheter insertion area. You have drainage (other than a small amount of blood on the dressing) from the catheter insertion area. The catheter insertion area is bleeding, and the bleeding does not stop after 30 minutes of holdingsteady pressure on the area. You develop bleeding from any other place, such as from your rectum. There may be bright red blood in your urine or stool, or it may appear as black, tarry stool. This information is not intended to replace advice given to you by your health care provider. Make sure you discuss any questions you have with your health care provider. Document Released: 04/25/2006 Document Revised: 09/18/2018 Document Reviewed: 07/03/2017 [employer] Patient Education 2020 [employer]You. Follow Up Care 07/21/2024 14:35:25 With:OMAIRA HANDLEY MD Address: [address] [place] [address] [address] [facility] [place] [address]- When:08/23/2024 13:00:00 [facility] 10-09-2024 Discharge summary Date of Service 07/28/2024 Discharge Diagnosis Status post cardiac catheterization 07/27/2024 Right wrist eccymosis secondary to heart catheterization on 07/27/2024 Aortic Stenosis to be treated with TAVR Hospital Course Patient is a 78-year-old female with severe aortic stenosis who needed PCI of the right coronary artery prior to proceeding with TAVR to treat the aortic stenosis. Received PCI of her right coronary artery yesterday. Observed overnight. She is still agreeable to the plan to receive TAVR. No new comp laints. Denies any lightheadedness, blurry vision, chest pain, shortness of breath, nausea, syncope. Patient had ecchymosis at the right wrist after cardiac catheterization. Required Dilaudid around 0300 hrs. today to treat pain. On my evaluation of her at approximately 0900 hrs. she said she is feeling much better and said that the ecchymosis looked better. The site was not tender to palpation except for directly under the dressing pad. Sensation was intact distally at the fingertips. Both hands were appropriately warm and pigmented. Stable for discharge. Patient still agreeable with plan for TAVR. Cardiac catheterization 07/27/2024: Procedures performed: Ultrasound guided access. Coronary Lithotripsy. Percutaneous intervention on the 80% stenosis in the mid right coronary. Stent placement. Interventional IVUS Balloon angioplasty. SUMMARY: 1. 1st lesion: Stent placement was performed. A 3 mm (D) x 38 mm (L), Synergy XD stent was used. The stent was advanced across the lesion and deployed with a single inflation and a maximum pressure of 12 natalie. Stent placement was performed. A 3.5 mm (D) x 20 mm (L), Synergy XD stent was used. The stent was advanced across the lesion and deployed with a single inflation and a maximum pressure of 14 natalie. 2. Right coronary: Mid-vessel lesion: The diagnostic study demonstrated a diffuse, 80% stenosis. The distal vessel supplies a large vascular territory. The lesion is a likely culprit for the patient's clinical presentation. The lesion presents an ACC/AHA type C high risk lesion for intervention. Stent placement was performed, with balloon angioplasty and/or intravascular ultrasound, resulting in an excellent angiographic appearance (see 1st lesion). Following intervention, there is a residual 0% stenosis with RONNIE grade 3 flow (brisk flow). IMPRESSIONS: 1. PCI with 2 KUNAL after aggressive calcium modification with IVL. 2. TAVR in near future. RECOMMENDATIONS: Plavix and eliquis. Allergies Niaspan ER Unknown contrast media (gadolinium-based) Hypothermia guaiFENesin Unknown metFORMIN Renal insufficiency niacin Anaphylaxis sulfa Unknown Consults No qualifying data available. Imaging Results and Diagnostics XR Chest 1 View Result Date: July 27, 2024 Verified By: ADELAIDE BENZ MD CLINICAL STATEMENT: IMPRESSION: Clear lungs. Physical Exam Vitals and Measurements T: 36.5 C (Oral) TMIN: 36.4 C (Oral) TMAX: 36.7 C (Oral) HR: 63 (Monitored) RR: 16 BP: 138/54 SpO2:95% HT: 170.2 cm WT: 96.5 kg BMI: 33.31 Weight Dosing Weight: 96.5 kg (07/27/24) Dosing Weight: 96.5 kg (07/27/24) General Assessment: Awake, alert, appropriately responsive, NAD Head: Atraumatic Eyes: no discharge; eyelids symmetric; pupils equal and round Nose: no discharge Mouth: mucous membranes moist Cardiovascular: RRR 67 bpm; systolic murmur grade 2; radial pulse +2 at left wrist; minimal pittingedema in the bilateral lower extremities Respiratory: LCTAB; quiet respirations with no use of accessory muscles Neurologic: Cranial nerves II-XII grossly intact; C6-C8 sensation intact to gross touch at bilateral hands tested at fingertips Skin: Warm, dry, pink; ecchymosis diffusely at the right wrist, only tender to palpation at the dressing over prior cardiac cath access site MSK: no gross deformities Psychiatric: Pleasant; appropriate affect Code Status Code Status - Ordered -- 07/27/24 16:53:00 EDT, Full Code, Constant Order Admission Date 07/27/2024 Discharge Date 07/28/2024 Patient Instructions Discharge to home. Follow medication regimen given at discharge Medications New Prescription methocarbamol (methocarbamol 500 mg oral tablet)2 tab(s) by mouth four (4) times a day as needed asneeded for pain for 7 Days. Refills: 0. Changed Misc Medicationby mouth every day. insulin glargine (Lantus Solostar Pen 100 units/mL 3 mL Pen)42 unit(s) Subcutaneous daily at bedtime. semaglutide (Ozempic 8 mg/3 mL (2 mg dose) subcutaneous solution)2 Milligram Subcutaneous every week. in the abdomen, thigh, or upper arm. Unchanged apixaban (apixaban 5 mg oral tablet)1 tab(s) by mouth two (2) times a day. Refills: 3. atorvastatin (atorvastatin 80 mg oral tablet)1 tab(s) by mouth once a day. TAKE 1 TABLET BY MOUTH ONCE DAILY. Refills: 6. clopidogrel (Plavix 75 mg oral tablet)1 tab(s) by mouth once a day. Refills: 0. inFLIXimab (Inflectra 100 mg intravenous injection)3 Milligrams/Kilogram Intravenous every 8 weeks.as an infusion. insulin lispro (HumaLOG) (HumaLOG KwikPen 100 units/mL injectable PEN)INJECT 10 UNITS SUBCUTANEOUSLY WITH BREAKFAST AND 8u at LUNCH AND 10 UNITS WITH DINNER OR PER SLIDING SCALE. (MAXIMUM OF 40 UNITSPER DAY.). Refills: 3. metoprolol (metoprolol tartrate 37.5 mg oral tablet)1 tab(s) by mouth two (2) times a day. Refills:6. pancrelipase (Creon 36,000 units oral delayed release capsule)2 cap by mouth three (3) times a day.with each meal and 1 cap with snack. potassium chloride (potassium chloride 99 mg oral tablet)1 tab(s) by mouth once a day. Take with food. ramipril (ramipril 2.5 mg oral capsule)TAKE 1 CAPSULE BY MOUTH ONCE DAILY. sertraline (sertraline 100 mg oral tablet)1 tab(s) by mouth once a day. Discontinued aspirin (aspirin 81 mg oral delayed release tablet)1 tab(s) by mouth every day. herbal/nutritional product (turmeric 500 mg oral capsule)1 tab by mouth every day. Follow Up Follow Up with OMAIRA HANDLEY MD When:08/23/2024 01:00 PM EST Where:[address] [facility] [address] [facility] [place] [address]- Follow Up Appointments No qualifying data available. Follow Up Labs/Studies Discharge Labs No Follow-up Labs Discharge Studies No Follow-up Studies Discharge Diet Discharge Diet - Ordered -- Type of Diet: Regular, Diet Restrictions: Cardiac diet, 07/28/24 13:48:00 EDT Discharge Activity Discharge Activity - Ordered -- Lifting Restricted less than 5 pounds, for 1 week, 07/28/24 13:48:00 EDT Condition on Discharge Improved Discharge Disposition Home Information Provided To Patient Digitally Signed by BEAR LEE DO on 07/28/2024 03:26 PM Digitally Signed by HENRI CUTLER MD [phone] Note Discharge Instructions Thank you for allowing [facility] to assist you with your healthcare needs. The following is importantdischarge information regarding your hospital visit. Your Care Team RESHMA MARSH PA-C What to do next Scheduled Follow-Up Appointments Appointment Type When Where Contact Information StatusCT Angiography TAVR Planning 2024 01:00PM EDT Radiology [phone] Confirmed CV OV 08/23/2024 01:00 PM EST [facility] Confirmed Follow Up Appointments Follow Up with OMAIRA HANDLEY MD When:08/23/2024 01:00 PM EST Where:[address] [place] [address]- The Following Activity and Diet Have Been Ordered for You Discharge Activity - Ordered -- Lifting Restricted less than 5 pounds, for 1 week, 07/28/24 13:48:00 EDT Discharge Diet - Ordered -- Type of Diet: Regular, Diet Restrictions: Cardiac diet, 07/28/24 13:48:00 EDT The Following Equipment Has Been Ordered for You No qualifying data available. The Following Treatments Have Been Ordered for You Discharge Labs No qualifying data available. Discharge Radiology No qualifying data available. Other Therapies No qualifying data available. Post Acute Orders No qualifying data available. Someone Will Contact You Regarding These Home Health Referrals No home referrals have been ordered for you. No one will call you. Allergies Niaspan ER Unknown contrast media (gadolinium-based) Hypothermia guaiFENesin Unknown metFORMIN Renal insufficiency niacin Anaphylaxis sulfa Unknown Medications Please ask your primary doctor or pharmacist before taking any other medication not listed, including over the counter drugs, herbal medications, vitamins and or supplements as they may interact withyour home medications. What How Much When Why Instructions Last Dose New methocarbamol (methocarbamol 500 mg oral tablet) 2 tab(s) by mouth Four (4) times a day as needed for as needed for pain Duration: 7 Days Pickup at [facility] Changed Misc Medication by mouth Every day Changed insulin glargine (Lantus Solostar Pen 100 units/ mL 3 mL Pen) 42 unit(s) Subcutaneous Daily at bedtime Changed semaglutide (Ozempic 8 mg/ 3 mL (2 mg dose) subcutaneous solution) 2 Milligram Subcutaneous Every week in the abdomen, thigh, or upper arm Unchanged apixaban (apixaban 5 mg oral tablet) 1 tab(s) by mouth Two (2) times a day Unchanged atorvastatin (atorvastatin 80 mg oral tablet) 1 tab(s) by mouth Once a day TAKE 1 TABLET BY MOUTH ONCE DAILY Unchanged clopidogrel (Plavix 75 mg oral tablet) 1 tab(s) by mouth Once a day Unchanged inFLIXimab (Inflectra 100 mg intravenous injection) 3 Milligrams/Kilogram Intravenous Every 8 weeks as an infusion Unchanged insulin lispro (HumaLOG) (HumaLOG KwikPen 100 units/ mL injectable PEN) See instructions Uncontrolled diabetes mellitus INJECT 10 UNITS SUBCUTANEOUSLY WITH BREAKFAST AND 8u at LUNCH AND 10 UNITS WITH DINNER OR PER SLIDING SCALE. (MAXIMUM OF 40 UNITS PER DAY.) Unchanged metoprolol (metoprolol tartrate 37.5 mg oral tablet) 1 tab(s) by mouth Two (2) times a day Unchanged pancrelipase (Creon 36,000 units oral delayed release capsule) 2 cap by mouth Three (3) times a day with each meal and 1 cap with snack Unchanged potassium chloride (potassium chloride 99 mg oral tablet) 1 tab(s) by mouth Once a day Take with food Unchanged ramipril (ramipril 2.5 mg oral capsule) TAKE 1 CAPSULE BY MOUTH ONCE DAILY Unchanged sertraline (sertraline 100 mg oral tablet) 1 tab(s) by mouth Once a day Pharmacy Information [facility]: [address] [place] [address] [phone] What How Much When Comments Stop Taking aspirin (aspirin 81 mg oral delayed release tablet) 1 tab(s) by mouth Every day Stop Taking herbal/ nutritional product (turmeric 500 mg oral capsule) 1 tab by mouth Every day Please take this list to your next doctor s visit. Bring all medications you take, including over the counter medications, herbals and other supplements with you to your doctor s visit. Patients and families are reminded to discard old lists and to update any records with all medication providers or retail pharmacies. Medication Leaflets atorvastatin (a BEAU pierre sta tin) Atorvaliq, Lipitor What is the most important information I should know about atorvastatin? You should not take atorvastatin if you have liver disease or cirrhosis. Atorvastatin can cause the breakdown of muscle tissue, which can lead to kidney failure. Call your doctor right away if you have unexplained muscle pain, tenderness, or weakness especially if you also have fever, unusual tiredness, or dark urine. What is atorvastatin? Atorvastatin is used together with diet to lower blood levels of 'bad' cholesterol (low-density lipoprotein, or LDL), to increase levels of 'good' cholesterol (high-density lipoprotein, or HDL), and to lower triglycerides (a type of fat in the blood). Atorvastatin is used to lower the risk of stroke, heart attack, or other heart complications in adults with or without type 2 diabetes or heart disease or other risk factors. Atorvastatin is also used alone, or along with diet, or with other cholesterol- lowering medicationsin adults and children aged 10 years and older with an inherited condition that causes high levels of bad cholesterol. Atorvastatin may also be used for purposes not listed in this medication guide. What should I discuss with my healthcare provider before taking atorvastatin? You should not use atorvastatin if you are allergic to it, or if you have liver failure or cirrhosis. Tell your doctor if you have or have ever had: muscle pain or weakness; diabetes; stroke; a thyroid disorder; a habit of drinking more than 2 alcoholic beverages per day; or kidney disease. Atorvastatin can cause the breakdown of muscle tissue, which can lead to kidney failure. This happens more often in women, in older adults, or people who have kidney disease or poorly controlled hypothyroidism (underactive thyroid). Atorvastatin may harm an unborn baby. Tell your doctor if you are . Ask a doctor if it is safe to breastfeed while using this medicine. How should I take atorvastatin? Follow all directions on your prescription label and read all medication guides or instruction sheets. Your doctor may occasionally change your dose. Use the medicine exactly as directed. Do not change your dose or stop taking any of your medications without your doctor's advice. Atorvastatin is usually taken once per day. Follow your doctor's instructions. You may take atorvastatin tablet with or without food. Take atorvastatin liquid medicine on an empty stomach, at least 1 hour before a meal or 2 hours after a meal. It may take up to 2 weeks before your cholesterol levels improve, and you may need frequent blood tests. Even if you have no symptoms, tests can help your doctor determine if this medicine is effective. Shake the oral suspension (liquid). Measure a dose with the supplied measuring device (not a kitchen spoon). Your treatment may also include diet, exercise, weight control, and blood tests. Store at room temperature away from moisture, heat, and light. Throw away in the trash any unused liquid 60 days after opening the bottle. What happens if I miss a dose? Take the medicine as soon as you can, but skip the missed dose if you are more than 12 hours late for the dose. Do not take two doses at one time. What happens if I overdose? Seek emergency medical attention or call the Poison Help line at . What should I avoid while taking atorvastatin? Avoid eating foods high in fat or cholesterol, or atorvastatin will not be as effective. Drinking alcohol may increase your risk of liver damage. Grapefruit may interact with atorvastatin and cause side effects. Avoid consuming grapefruit products and drinking more than 1.2 liters of grapefruit juice each day. What are the possible side effects of atorvastatin? Get emergency medical help if you have signs of an allergic reaction (hives, difficult breathing, swelling in your face or throat) or a severe skin reaction (fever, sore throat, burning eyes, skin pain, red or purple skin rash with blistering and peeling). Atorvastatin can cause the breakdown of muscle tissue, which can lead to kidney failure. Call your doctor right away if you have unexplained muscle pain, tenderness, or weakness especially if you also have fever, unusual tiredness, or dark urine. Muscle problems may be more likely in older adults and those who have kidney problems, thyroid problems, or take certain other medicines. Also call your doctor at once if you have: muscle weakness in your hips, shoulders, neck, and back; trouble lifting your arms, trouble climbing or standing; liver problems--loss of appetite, stomach pain (upper right side), tiredness, itching, dark urine, marvin-colored stools, jaundice (yellowing of the skin or eyes); kidney problems--swelling, urinating less, feeling tired or short of breath; or high blood sugar--increased thirst, increased urination, dry mouth, fruity breath odor. Common side effects may include: pain in your bones, spine, joints, or muscles; pain and burning when you urinate, painful urination; muscle spasms; upset stomach; trouble sleeping; stuffy nose, runny nose, sore throat; diarrhea, nausea; or pain in your arms or legs. This is not a complete list of side effects and others may occur. Call your doctor for medical advice about side effects. You may report side effects to FDA at 3-621-OBB-5794. What other drugs will affect atorvastatin? Sometimes it is not safe to use certain medicines at the same time. Some drugs can affect your blood levels of other drugs you use, which can increase risk of serious muscle problems or make the medicines less effective. Tell your doctor about all your current medicines. Many drugs can affect atorvastatin, especially: other cholesterol lowering medicine--gemfibrozil, niacin, fenofibrate, fenofibric acid, and others; colchicine; antibiotic or antifungal medicine--rifampin, erythromycin, clarithromycin, itraconazole, ketoconazole, posaconazole, and voriconazole; control pills; medicine to prevent organ transplant rejection; or antiviral medicine to treat hepatitis C or HIV. This list is not complete and many other drugs may affect atorvastatin. This includes prescription and gjwo-pge-[id number] medicines, vitamins, and herbal products. Not all possible drug interactions are listed here. Where can I get more information? Your doctor or pharmacist can provide more information about atorvastatin. Remember, keep this and all other medicines out of the reach of children, never share your medicines with others, and use this medication only for the indication prescribed. Every effort has been made to ensure that the information provided by [employer]') is accurate, up-to-date, and complete, but no guarantee is made to that effect. Drug information contained herein may be time sensitive. [employer] information has been compiled for use by healthcare practitioners and consumers in the [place] and therefore [employer] does not warrant that uses outside of the [place] are appropriate, unless specifically indicated otherwise. [employer] drug information does not endorse drugs, diagnose patients or recommend therapy. [employer] drug information isan informational resource designed to assist licensed healthcare practitioners in caring for their p atients and/or to serve consumers viewing this service as a supplement to, and not a substitute for, the expertise, skill, knowledge and judgment of healthcare practitioners. The absence of a warningfor a given drug or drug combination in no way should be construed to indicate that the drug or drug combination is safe, effective or appropriate for any given patient. [employer] does not assume any responsibility for any aspect of healthcare administered with the aid of information [employer] provides. The information contained herein is not intended to cover all possible uses, directions, precautions, warnings, drug interactions, allergic reactions, or adverse effects. If you have questions about the drugs you are taking, check with your doctor, nurse or pharmacist. Copyright 6620-9890 [employer]. Version: 23.. Revision Date: 04/10/2023. clopidogrel (kloe PID oh grel) Plavix What is the most important information I should know about clopidogrel? You should not use this medicine if you have any active bleeding such as a stomach ulcer or bleeding in the brain. Clopidogrel increases your risk of bleeding, which can be severe or life- threatening. Call your doctor or seek emergency medical attention if you have bleeding that will not stop, if you have blood in your urine, black or bloody stools, or if you cough up blood or vomit that looks like coffee grounds. Do not stop taking clopidogrel without first talking to your doctor, even if you have signs of bleeding. Stopping clopidogrel may increase your risk of a heart attack or stroke. What is clopidogrel? Clopidogrel is used to lower your risk of having a stroke, blood clot, or serious heart problem after you've had a heart attack, severe chest pain (angina), or circulation problems. Clopidogrel may also be used for purposes not listed in this medication guide. What should I discuss with my healthcare provider before taking clopidogrel? You should not use clopidogrel if you are allergic to it, or if you have: any active bleeding; or a stomach ulcer or bleeding in the brain (such as from a head injury). Tell your doctor if you have ever had: an ulcer in your stomach or intestines; or a bleeding disorder or blood clotting disorder. Clopidogrel may not work as well if you have certain genetic factors that affect the breakdown of this medicine in your body. Your doctor may perform a blood test to make sure clopidogrel is right for you. This medicine is not expected to harm an unborn baby. However, taking clopidogrel within 1 week before childbirth can cause bleeding in the mother. Tell your doctor if you are or plan to become . You should not breastfeed while using this medicine. How should I take clopidogrel? Follow all directions on your prescription label and read all medication guides or instruction sheets. Use these medicines exactly as directed. Clopidogrel can be taken with or without food. Clopidogrel is sometimes taken together with aspirin. Take aspirin only if your doctor tells you to. Clopidogrel keeps your blood from coagulating (clotting) and can make it easier for you to bleed, even from a minor injury. Contact your doctor or seek emergency medical attention if you have any bleeding that will not stop. You may need to stop using clopidogrel for a short time before a surgery, medical procedure, or dental work. Any healthcare provider who treats you should know that you are taking clopidogrel. Do not stop taking clopidogrel without first talking to your doctor, even if you have signs of bleeding. Stopping the medicine could increase your risk of a heart attack or stroke. Store at room temperature away from moisture and heat. What happens if I miss a dose? Take the medicine as soon as you can, but skip the missed dose if it is almost time for your next dose. Do not take two doses at one time. What happens if I overdose? Seek emergency medical attention or call the Poison Help line at . Overdose can causeexcessive bleeding. What should I avoid while taking clopidogrel? Avoid alcohol. It can increase your risk of stomach bleeding. Avoid activities that may increase your risk of bleeding or injury. Use extra care to prevent bleeding while shaving or brushing your teeth. If you also take aspirin: Ask a doctor or pharmacist before using medicines for pain, fever, swelling, or cold/flu symptoms. They may contain ingredients similar to aspirin (such as salicylates, ibuprofen, ketoprofen, or naproxen). Taking these products together can increase your risk of bleeding. What are the possible side effects of clopidogrel? Get emergency medical help if you have signs of an allergic reaction: hives; difficult breathing; swelling of your face, lips, tongue, or throat. Clopidogrel increases your risk of bleeding, which can be severe or life- threatening. Call your doctor or seek emergency medical attention if you have bleeding that will not stop, if you have blood in your urine, black or bloody stools, or if you cough up blood or vomit that looks like coffee grounds. Also call your doctor at once if you have: nosebleeds, pale skin, easy bruising, purple spots under your skin or in your mouth; jaundice (yellowing of your skin or eyes); fast heartbeats, shortness of breath; headache, fever, weakness, feeling tired; little or no urination; a seizure; low blood sugar--headache, hunger, sweating, irritability, dizziness, fast heart rate, and feeling anxious or shaky; or signs of a blood clot--sudden numbness or weakness, confusion, problems with vision or speech. Common side effects may include: bleeding. This is not a complete list of side effects and others may occur. Call your doctor for medical advice about side effects. You may report side effects to FDA at 5-149-SMT-8870. What other drugs will affect clopidogrel? Sometimes it is not safe to use certain medications at the same time. Some drugs can affect your blood levels of other drugs you take, which may increase side effects or make the medications less effective. Tell your doctor about all your other medicines, especially: a stomach acid leather softener such as omeprazole, Nexium, or Prilosec; an antidepressant such as citalopram, fluoxetine, sertraline, Cymbalta, Effexor, Lexapro, Pristiq, or Prozac; rifampin; a blood thinner--warfarin, Coumadin, Jantoven; or NSAIDs (nonsteroidal anti-inflammatory drugs)--aspirin, ibuprofen (Advil, Motrin), naproxen (Aleve), celecoxib, diclofenac, indomethacin, meloxicam, and others. This list is not complete. Other drugs may affect clopidogrel, including prescription and pkju-aod-qnplahc medicines, vitamins, and herbal products. Not all possible drug interactions are listed here. Where can I get more information? Your pharmacist can provide more information about clopidogrel. Remember, keep this and all other medicines out of the reach of children, never share your medicines with others, and use this medication only for the indication prescribed. Every effort has been made to ensure that the information provided by [employer]. [employer] is accurate, up-to-date, and complete, but no guarantee is made to that effect. Drug information contained herein may be time sensitive. [employer] information has been compiled for use by healthcare practitioners and consumers in the [place] and therefore [employer] does not warrant that uses outside of the [place] are appropriate, unless specifically indicated otherwise. [employer] drug information does not endorse drugs, diagnose patients or recommend therapy. [employer] drug information isan informational resource designed to assist licensed healthcare practitioners in caring for their p atients and/or to serve consumers viewing this service as a supplement to, and not a substitute for, the expertise, skill, knowledge and judgment of healthcare practitioners. The absence of a warningfor a given drug or drug combination in no way should be construed to indicate that the drug or drug combination is safe, effective or appropriate for any given patient. [employer] does not assume any responsibility for any aspect of healthcare administered with the aid of information [employer] provides. The information contained herein is not intended to cover all possible uses, directions, precautions, warnings, drug interactions, allergic reactions, or adverse effects. If you have questions about the drugs you are taking, check with your doctor, nurse or pharmacist. Copyright 5537-6002 [employer]. Version: 18.01. Revision Date: 01/17/2021. metoprolol (oral/injection) (me TOE pro lol) Kapspargo Sprinkle, Lopressor, Metoprolol Succinate ER, Metoprolol Tartrate, Toprol-XL What is the most important information I should know about metoprolol? You should not use this medicine if you have a serious heart problem (heart block, sick sinus syndrome, slow heart rate), severe circulation problems, severe heart failure, or a history of slow heartbeats that caused fainting. What is metoprolol? Metoprolol is a beta-jennifer that affects the heart and circulation (blood flow through arteries and veins). Metoprolol is used to treat angina (chest pain) and hypertension (high blood pressure). It is also used to lower your risk of or needing to be hospitalized for heart failure. Metoprolol injection is used during the early phase of a heart attack to lower the risk of . Metoprolol may also be used for other purposes not listed in this medication guide. What should I discuss with my healthcare provider before taking metoprolol? You should not use this medicine if you are allergic to metoprolol, or other beta-blockers (atenolol, carvedilol, labetalol, nadolol, nebivolol, propranolol, sotalol, and others), or if you have: a serious heart problem such as heart block, sick sinus syndrome, or slow heart rate; severe circulation problems; severe heart failure (that required you to be in the hospital); or a history of slow heart beats that have caused you to faint. Tell your doctor if you have ever had: asthma, chronic obstructive pulmonary disease (COPD), sleep apnea, or other breathing disorder; diabetes (taking metoprolol may make it harder for you to tell when you have low blood sugar); liver disease; congestive heart failure; problems with circulation (such as Raynaud's syndrome); a thyroid disorder; or pheochromocytoma (tumor of the adrenal gland). Do not give this medicine to a child without medical advice. Tell your doctor if you are or plan to become . It is not known whether metoprololwill harm an unborn baby. However, having high blood pressure during may cause complications such as diabetes or eclampsia (dangerously high blood pressure that can lead to medical problemsin both mother and baby). The benefit of treating hypertension may outweigh any risks to the baby. Ask a doctor before using this medicine if you are breast-feeding. Metoprolol can pass into breast milk and may cause dry skin, dry mouth, diarrhea, constipation, or slow heartbeats in your baby. How should I take metoprolol? Follow all directions on your prescription label and read all medication guides or instruction sheets. Your doctor may occasionally change your dose. Use the medicine exactly as directed. Metoprolol should be taken with a meal or just after a meal. Take the medicine at the same time each day. Swallow the capsule whole and do not crush, chew, break, or open it. A Toprol XL tablet can be divided in half if your doctor has told you to do so. Swallow the half-tablet whole, without chewing or crushing. Measure liquid medicine carefully. Use the dosing syringe provided, or use a medicine dose-measuring device (not a kitchen spoon). You will need frequent medical tests, and your blood pressure will need to be checked often. If you need surgery, tell the surgeon ahead of time that you are using metoprolol. You should not stop using metoprolol suddenly. Stopping suddenly may make your condition worse. If you have high blood pressure, keep using this medicine even if you feel well. High blood pressure often has no symptoms. You may need to use metoprolol for the rest of your life. Store at room temperature away from moisture and heat. Metoprolol injection is given as an infusion into a vein. A healthcare provider will give you this injection in a medical setting where your heart and blood pressure can be monitored. Metoprolol injections are given for only a short time before switching you to the oral form of this medicine. What happens if I miss a dose? Skip the missed dose and use your next dose at the regular time. Do not use two doses at one time. What happens if I overdose? Seek emergency medical attention or call the Poison Help line at . What should I avoid while taking metoprolol? Avoid driving or hazardous activity until you know how this medicine will affect you. Your reactions could be impaired. Drinking alcohol can increase certain side effects of metoprolol. What are the possible side effects of metoprolol? Get emergency medical help if you have signs of an allergic reaction: hives; difficulty breathing; swelling of your face, lips, tongue, or throat. Call your doctor at once if you have: very slow heartbeats; a light-headed feeling, like you might pass out; shortness of breath (even with mild exertion), swelling, rapid weight gain; or cold feeling in your hands and feet. Common side effects may include: dizziness, tired feeling; depression, confusion, memory problems; nightmares, trouble sleeping; diarrhea; or mild itching or rash. This is not a complete list of side effects and others may occur. Call your doctor for medical advice about side effects. You may report side effects to FDA at 6-496-BIO-4735. What other drugs will affect metoprolol? Tell your doctor about all your current medicines. Many drugs can affect metoprolol, especially: any other heart or blood pressure medications; epinephrine (Epi-Pen); an antidepressant; an ergot medicine--dihydroergotamine, ergonovine, ergotamine, methylergonovine; or an MAO inhibitor--isocarboxazid, linezolid, phenelzine, rasagiline, selegiline, tranylcypromine. This list is not complete and many other drugs may affect metoprolol. This includes prescription and qxak-pmy-nowynyc medicines, vitamins, and herbal products. Not all possible drug interactions are listed here. Where can I get more information? Your pharmacist can provide more information about metoprolol. Remember, keep this and all other medicines out of the reach of children, never share your medicines with others, and use this medication only for the indication prescribed. Every effort has been made to ensure that the information provided by [employer]. ('[employer]') is accurate, up-to-date, and complete, but no guarantee is made to that effect. Drug information contained herein may be time sensitive. [employer] information has been compiled for use by healthcare practitioners and consumers in the [place] and therefore [employer] does not warrant that uses outside of the [place] are appropriate, unless specifically indicated otherwise. [employer] drug information does not endorse drugs, diagnose patients or recommend therapy. [employer] drug information isan informational resource designed to assist licensed healthcare practitioners in caring for their p atients and/or to serve consumers viewing this service as a supplement to, and not a substitute for, the expertise, skill, knowledge and judgment of healthcare practitioners. The absence of a warningfor a given drug or drug combination in no way should be construed to indicate that the drug or drug combination is safe, effective or appropriate for any given patient. [employer] does not assume any responsibility for any aspect of healthcare administered with the aid of information [employer] provides. The information contained herein is not intended to cover all possible uses, directions, precautions, warnings, drug interactions, allergic reactions, or adverse effects. If you have questions about the drugs you are taking, check with your doctor, nurse or pharmacist. Copyright [id number] [facility] [employer]. Version: 19.. Revision Date: 05/28/2023. Education Materials Heart-Healthy Eating Plan Heart-healthy meal planning includes: Eating less unhealthy fats. Eating more healthy fats. Making other changes in your diet. Talk with your doctor or a diet specialist (dietitian) to create an eating plan that is right for you. What is my plan? Your doctor may recommend an eating plan that includes: Total fat: % or less of total calories a day. Saturated fat: % or less of total calories a day. Cholesterol: less than mg a day. What are tips for following this plan? Cooking Avoid frying your food. Try to bake, boil, grill, or broil it instead. You can also reduce fat by: Removing the skin from poultry. Removing all visible fats from meats. Steaming vegetables in water or broth. Meal planning At meals, divide your plate into four equal parts: ? Fill one-half of your plate with vegetables and green salads. ? Fill one-fourth of your plate with whole grains. ? Fill one-fourth of your plate with lean protein foods. Eat 4 5 servings of vegetables per day. A serving of vegetables is: ? 1 cup of raw or cooked vegetables. ? 2 cups of raw leafy greens. Eat 4 5 servings of fruit per day. A serving of fruit is: ? 1 medium whole fruit. ? cup of dried fruit. ? cup of fresh, frozen, or canned fruit. ? cup of 100% fruit juice. Eat more foods that have soluble fiber. These are apples, broccoli, carrots, beans, peas, and barley. Try to get 20 30 g of fiber per day. Eat 4 5 servings of nuts, legumes, and seeds per week: ? 1 serving of dried beans or legumes equals cup after being cooked. ? 1 serving of nuts is cup. ? 1 serving of seeds equals 1 tablespoon. General information Eat more home-cooked food. Eat less restaurant, buffet, and fast food. Limit or avoid alcohol. Limit foods that are high in starch and sugar. Avoid fried foods. Lose weight if you are overweight. Keep track of how much salt (sodium) you eat. This is important if you have high blood pressure. Ask your doctor to tell you more about this. Try to add vegetarian meals each week. Fats Choose healthy fats. These include olive oil and canola oil, flaxseeds, walnuts, almonds, and seeds. Eat more omega-3 fats. These include salmon, mackerel, sardines, tuna, flaxseed oil, and ground flaxseeds. Try to eat fish at least 2 times each week. Check food labels. Avoid foods with trans fats or high amounts of saturated fat. Limit saturated fats. ? These are often found in animal products, such as meats, butter, and cream. ? These are also found in plant foods, such as palm oil, palm kernel oil, and coconut oil. Avoid foods with partially hydrogenated oils in them. These have trans fats. Examples are stick margarine, some tub margarines, cookies, crackers, and other baked goods. What foods can I eat? Fruits All fresh, canned (in natural juice), or frozen fruits. Vegetables Fresh or frozen vegetables (raw, steamed, roasted, or grilled). Green salads. Grains Most grains. Choose whole wheat and whole grains most of the time. Rice and pasta, including brown rice and pastas made with whole wheat. Meats and other proteins Lean, well-trimmed beef, veal, pork, and traore. Chicken and turkey without skin. All fish and shellfish. Wild duck, rabbit, pheasant, and venison. Egg whites or low-cholesterol egg substitutes. Dried beans, peas, lentils, and tofu. Seeds and most nuts. Dairy Low-fat or nonfat cheeses, including ricotta and mozzarella. Skim or 1% milk that is liquid, powdered, or evaporated. Buttermilk that is made with low-fat milk. Nonfat or low-fat yogurt. Fats and oils Non-hydrogenated (trans-free) margarines. Vegetable oils, including soybean, sesame, sunflower, olive, peanut, safflower, corn, canola, and cottonseed. Salad dressings or mayonnaise made with a vegetable oil. Beverages Mineral water. Coffee and tea. Diet carbonated beverages. Sweets and desserts Sherbet, gelatin, and fruit ice. Small amounts of dark chocolate. Limit all sweets and desserts. Seasonings and condiments All seasonings and condiments. The items listed above may not be a complete list of foods and drinks you can eat. Contact a dietitian for more options. What foods should I avoid? Fruits Canned fruit in heavy syrup. Fruit in cream or butter sauce. Fried fruit. Limit coconut. Vegetables Vegetables cooked in cheese, cream, or butter sauce. Fried vegetables. Grains Breads that are made with saturated or trans fats, oils, or whole milk. Croissants. Sweet rolls. Donuts. High-fat crackers, such as cheese crackers. Meats and other proteins Fatty meats, such as hot dogs, ribs, sausage, turpin, rib-eye roast or steak. High-fat deli meats, such as salami and bologna. Caviar. Domestic duck and goose. Organ meats, such as liver. Dairy Cream, sour cream, cream cheese, and creamed cottage cheese. Whole-milk cheeses. Whole or 2% milk that is liquid, evaporated, or condensed. Whole buttermilk. Cream sauce or high-fat cheese sauce. Yogurt that is made from whole milk. Fats and oils Meat fat, or shortening. [place] butter, hydrogenated oils, palm oil, coconut oil, palm kernel oil. Solid fats and shortenings, including turpin fat, salt pork, lard, and butter. Nondairy cream substitutes. Salad dressings with cheese or sour cream. Beverages Regular sodas and juice drinks with added sugar. Sweets and desserts Frosting. Pudding. Cookies. Cakes. Pies. Milk chocolate or white chocolate. Buttered syrups. Full-fat ice cream or ice cream drinks. The items listed above may not be a complete list of foods and drinks to avoid. Contact a dietitianfor more information. Summary Heart-healthy meal planning includes eating less unhealthy fats, eating more healthy fats, and making other changes in your diet. Eat a balanced diet. This includes fruits and vegetables, low-fat or nonfat dairy, lean protein, nuts and legumes, whole grains, and heart-healthy oils and fats. This information is not intended to replace advice given to you by your health care provider. Make sure you discuss any questions you have with your health care provider. Document Released: 04/06/2013 Document Revised: 12/10/2018 Document Reviewed: 11/13/2018 [email or web address] Patient Education 2020 [employer]. Coronary Angiogram With Stent, Care After This sheet gives you information about how to care for yourself after your procedure. Your health care provider may also give you more specific instructions. If you have problems or questions, contact your health care provider. What can I expect after the procedure? After your procedure, it is common to have: Bruising in the area where a small, thin tube (catheter) was inserted. This usually fades within 1 2 weeks. Blood collecting in the tissue (hematoma) that may be painful to the touch. It should usually decrease in size and tenderness within 1 2 weeks. Follow these instructions at home: Insertion area care Do not take baths, swim, or use a hot tub until your health care provider approves. You may shower 24 48 hours after the procedure or as directed by your health care provider. Follow instructions from your health care provider about how to take care of your incision. Make sure you: ? Wash your hands with soap and water before you change your bandage (dressing). If soap and water are not available, use hand portable track crew chief. ? Change your dressing as told by your health care provider. ? Leave stitches (sutures), skin glue, or adhesive strips in place. These skin closures may need to stay in place for 2 weeks or longer. If adhesive strip edges start to loosen and curl up, you may trim the loose edges. Do not remove adhesive strips completely unless your health care provider tells you to do that. Remove the bandage (dressing) and gently wash the catheter insertion site with plain soap and water. Pat the area dry with a clean towel. Do not rub the area, because that may cause bleeding. Do not apply powder or lotion to the incision area. Check your incision area every day for signs of infection. Check for: ? More redness, swelling, or pain. ? More fluid or blood. ? Warmth. ? Pus or a bad smell. Activity Do not drive for 24 hours if you were given a medicine to help you relax (sedative). Do not lift anything that is heavier than 10 lb (4.5 kg) for 5 days after your procedure or as directed by your health care provider. Ask your health care provider when it is okay for you: ? To return to work or school. ? To resume usual physical activities or sports. ? To resume sexual activity. Eating and drinking Eat a heart-healthy diet. This should include plenty of fresh fruits and vegetables. Avoid the following types of food: ? Food that is high in salt. ? Canned or highly processed food. ? Food that is high in saturated fat or sugar. ? Fried food. Limit alcohol intake to no more than 1 drink a day for non- women and 2 drinks a day for men. One drink equals 12 oz of beer, 5 oz of wine, or 1 oz of hard liquor. Lifestyle Do not use any products that contain nicotine or tobacco, such as cigarettes and e-cigarettes. If you need help quitting, ask your health care provider. Take steps to manage and control your weight. Get regular exercise. Manage your blood pressure. Manage other health problems, such as diabetes. General instructions Take kehr-xmg-amwfrri and prescription medicines only as told by your health care provider. Blood thinners may be prescribed after your procedure to improve blood flow through the stent. If you need an MRI after your heart stent has been placed, be sure to tell the health care providerwho orders the MRI that you have a heart stent. Keep all follow-up visits as directed by your health care provider. This is important. Contact a health care provider if: You have a fever. You have chills. You have increased bleeding from the catheter insertion area. Hold pressure on the area. Get help right away if: You develop chest pain or shortness of breath. You feel faint or you pass out. You have unusual pain at the catheter insertion area. You have redness, warmth, or swelling at the catheter insertion area. You have drainage (other than a small amount of blood on the dressing) from the catheter insertion area. The catheter insertion area is bleeding, and the bleeding does not stop after 30 minutes of holdingsteady pressure on the area. You develop bleeding from any other place, such as from your rectum. There may be bright red blood in your urine or stool, or it may appear as black, tarry stool. This information is not intended to replace advice given to you by your health care provider. Make sure you discuss any questions you have with your health care provider. Document Released: 04/25/2006 Document Revised: 09/18/2018 Document Reviewed: 07/03/2017 [employer] Patient Education 2020 [employer]. Additional Information VACCINATE! IT SAVES LIVES! Members of the community who have not yet received the COVID-19 vaccine and would like to receive it can visit one of [facility] vaccine clinics. There are many vaccine clinic locations within the [facility]. For locations and available times, please visit [email or web address] It is important to note that some COVID mobile vaccine clinics are held outdoors and may be canceled in rainy or stormy conditions. To learn more about pediatric vaccinations (ages 5-11), we invite you to visit the [facility] webpage. [email or web address]/[email or web address] [email or web address] learn more about the COVID-19 vaccine, we invite you to visit the CDC website for a list of frequently asked questions.https://www.cdc.gov/coronaviru (more content not included)... [id number] Progress note Date of Service 07/28/2024 patient is a 78-year-old female who Subjective Received PCI of her right coronary artery yesterday. Observed overnight. She is still agreeable to the plan to receive TAVR. No new complaints. Denies any lightheadedness, blurry vision, chest pain, shortness of breath, nausea, syncope. Objective Vitals and Measurements T: 36.7 C (Oral) TMIN: 36.6 C (Oral) TMAX: 36.7 C (Oral) HR: 68 (Monitored) RR: 18 BP: 139/59 SpO2:95% HT: 170.2 cm WT: 96.5 kg BMI: 33.31 Intake and Output 7AM Yesterday to 7AM Today Intake and Output (Last 24 hours) Intake Oral Intake 360.00 Output Urine Voided 575.00 Total Summary Total Intake 360.00 Total Output 575.00 Fluid Balance -215.00 Physical Exam General Assessment: Awake, alert, appropriately responsive, NAD Head: Atraumatic Eyes: no discharge; eyelids symmetric; pupils equal and round Nose: no discharge Mouth: mucous membranes moist Cardiovascular: RRR 67 bpm; systolic murmur grade 2; radial pulse +2 at left wrist; minimal pittingedema in the bilateral lower extremities Respiratory: LCTAB; quiet respirations with no use of accessory muscles Neurologic: Cranial nerves II-XII grossly intact Skin: Warm, dry, pink; ecchymosis diffusely at the right wrist, only tender to palpation at the dressing over prior cardiac cath access site MSK: no gross deformities Psychiatric: Pleasant; appropriate affect Weight Dosing Weight: 96.5 kg (07/27/24) Dosing Weight: 96.5 kg (07/27/24) Medications Medications (24) Active Scheduled: (10) apixaban 5 mg tablet 5 mg 1 tab(s), Oral, BID aspirin 81 mg EC 81 mg 1 tab(s), Oral, Daily atorvastatin 80 mg tablet 80 mg 1 tab(s), Oral, qDay clopidogrel 75 mg Tablet 75 mg 1 tab(s), Oral, qDay inFLIXimab DYYB 300 mg 30 mL, IV Piggyback, q8wk insulin glargine 10 unit(s) 0.1 mL, Subcutaneous (INT), qHS insulin lispro 100 units/mL Soln (3 mL) Give 0-10 units/dose, Subcutaneous, TIDAC metoprolol tartrate 12.5 mg ( HALF-TAB ) 37.5 mg 3 EA, Oral, BID pancrelipase (12K lipase, 38K protease, 60K amylase) ER capsule 3 cap(s), Oral, TIDM sertraline 100 mg tablet 100 mg 1 tab(s), Oral, qDay Continuous: (1) nitroglycerin 50 mg/250 mL D5W 50 mg [5 mcg/min] + Dextrose 5% Premix Diluent 250 mL 250 mL, Intravenous, 1.5 mL/hr PRN: (13) acetaminophen 325 mg Tablet 650 mg 2 tab(s), Oral, q4h albuterol - ipratropium 2.5 mg-0.5 mg/3 mL Inhal Alexa UD 3 mL, Inhalation, q4hRT dextrose 50% Solution Disp syringe 50 mL 12.5 gram(s) 25 mL, IV Push, AsDirected magnesium sulfate 4 gram(s)/100mL PMX 4 g 100 mL, IV Piggyback, AsDirected magnesium sulfate 50% (500mg/mL) 6 g 12 mL, IV Piggyback, AsDirected magnesium sulfate PMX 2 g 50 mL, IV Piggyback, AsDirected melatonin 3 mg tablet 6 mg 2 tab(s), Oral, qHS ondansetron 2 mg/ 1 mL 2 mL INJ 4 mg 2 mL, IV Push, q4h pancrelipase (12K lipase, 38K protease, 60K amylase) ER capsule 1 cap(s), Oral, AsDirected potassium chloride (PMX) 20 mEq/100 mL 20 mEq 100 mL, IV Piggyback, AsDirected potassium chloride 20 mEq ER tablet 20 mEq 1 tab(s), Oral, AsDirected potassium chloride 20 mEq ER tablet 40 mEq 2 tab(s), Oral, AsDirected potassium chloride 20 mEq ER tablet 40 mEq 2 tab(s), Oral, AsDirected Lab Results 07/28 03:03 WBC: 14.5 H Hgb: 13.8 Hct: 41.6 Platelet: 188 Neutrophil %: 75.9 H Glucose Level: 240 H Sodium Level: 139 Potassium Level: 3.7 BUN: 24.0 H Creatinine Lvl (s): 0.99 07/27 17:25 WBC: 13.4 H Hgb: 14.7 Hct: 44.1 Platelet: 198 Neutrophil %: 88.0 H Glucose Level: 303 H Sodium Level: 140 Potassium Level: 3.8 BUN: 19.0 Creatinine Lvl (s): 0.76 07/27 10:08 WBC: 12.0 H Hgb: 14.9 Hct: 44.2 Platelet: 177 Neutrophil %: 88.3 H Glucose Level: 245 H Sodium Level: 142 Potassium Level: 3.8 BUN: 19.0 Creatinine Lvl (s): 0.76 EKG No qualifying data available. Assessment/Plan Last recorded blood pressure of 139/59 at 0816 hrs. today. Patient appears stable. Patient is still agreeable to plan for TAVR. Plan: Discharge today Digitally Signed by BEAR LEE DO on 07/28/2024 03:16 PM Digitally Signed by HENRI CUTLER MD [facility] [id number] Note ORIGINAL HISTORY: Chest pain COMPARISON: No FINDINGS: The film is mildly rotated. There are sternotomy wires. The lungs are clear. The pulmonary vasculature is unremarkable in appearance. IMPRESSION: Clear lungs. Interpreted by: Adelaide Benz MD Preliminary Report By: Adelaide Benz MD Electronically signed By Adelaide Benz MD Dictated Date: 07/28/2024 10:42:03 AM Prelim Date: 07/28/2024 10:42:27 AM Sign Date: 07/28/2024 10:42:27 AM Ordering Provider: [facility]10-08-2024 Note* Exam Date Time Procedure Performing Provider Status 07/27/24 2:15 PM Percut Transluminal Coronary Angioplasty Auth (Verified) [facility] 10-02-2024 Hospital Discharge instructions Patient Education 07/21/2024 12:23:43 3- Heart Cath/PCI groin (07/2018) (CUSTOM) HEART CATHETERIZATION (groin) Discharge Instructions DIET INSTRUCTIONS Drink plenty of fluids for the next 48 hours to help your kidneys flush the heart cath dye out of your system ACTIVITIES May go up and down stairs CAREFULLY Do not drive car FOR 24 HOURS No heavy lifting GREATER THAN 5 POUNDS or pushing or straining FOR 3 DAYS Someone must stay with you at home after the procedure until the morning. BATHING/SHOWERING May tub bathe in 1 week May shower tomorrow WOUND CARE You will go home with gauze over your heart cath site. Tomorrow apply a Band-Aid on for the next 24hours and then leave open to air. Some degree of bruising and tenderness is normal around the heart cath site. It will take a while for any bruising to completely resolve. Keep your site clean and dry. You need to report the following to your custom seamstress: Any draining or oozing from the site Any swelling at the site Any increased pain or tenderness at the site Any numbness in your leg where the procedure was done Any signs of infection IMPORTANT! CALL 911 FOR ANY BLEEDING OR SWELLING AT THE PROCEDURE SITE If there is any large amount of bleeding, you or someone else need to apply direct pressure to the site (just like the nurse did in the heart lab after your procedure). It is very important that you hold constant pressure. Do not release the pressure to check if the bleeding has stopped. You then need to be transported to the nearest emergency room. WATCH FOR SIGNS OF INFECTION (Usually appears 36-48 hours after surgery) A temperature above 100.5 Redness or swelling Increased pain Foul odor or drainage If you have any questions, please call your doctor at the number listed on your follow up instructions. Follow all instructions given to you by your physician Document Released: 10/06/2006 Document Revised: 09/22/2013 Document Reviewed: 10/07/2014 ExitCare Patient Information 2015 [employer]. This information is not intended to replace advicegiven to you by your health care provider. Make sure you discuss any questions you have with your health care provider. 07/21/2024 12:23:43 3- Heart Cath/PCI radial (07/2018) (CUSTOM) HEART CATHETERIZATION (radial) Discharge Instructions DIET Drink plenty of fluids for the next 48 hours to help your kidneys flush the heart cath dye out of your system ACTIVITY For the next 48 hours: Do not deep bend the wrist Do not lift, push, or pull anything over 5 pounds for 5 days Do not use the hand/arm to support your weight when rising from a chair or bed Do not drive For the next 7 days: Do not submerse your procedure site in water Do not swim, wash dishes, or take tub baths You may write, eat, type, and shower WOUND CARE Tomorrow apply a Band-Aid on your procedure site for the next 3-4 days Change the Band-Aid daily or if it gets wet/soiled AFTER YOU GO HOME, CALL YOUR DOCTOR FOR: Any increase in bruising or tenderness from the procedure site Any redness, pus, or other signs of infection at the site A temperature above 100.5 Severe pain at the site DIAL 911 AND RETURN TO THE HOSPITAL FOR: Any bleeding from the procedure site. The site may be bruised or tender, but it should not be bleeding at any time. If your site begins to bleed, hold firm pressure on it and dial 911 to return to the hospital Any increase in swelling at the procedure site. An increase in swelling could mean the area is bleeding under the skin. Hold firm pressure to the site and dial 911 to return to the hospital Document Released: 10/06/2006 Document Revised: 09/22/2013 Document Reviewed: 10/07/2014 ExitCare Patient Information 2015 [employer]. This information is not intended to replace advicegiven to you by your health care provider. Make sure you discuss any questions you have with your health care provider. 07/21/2024 12:20:59 Moderate Conscious Sedation, Adult, Care After Moderate Conscious Sedation, Adult, Care After These instructions provide you with information about caring for yourself after your procedure. Your health care provider may also give you more specific instructions. Your treatment has been plannedaccording to current medical practices, but problems sometimes occur. Call your health care provider if you have any problems or questions after your procedure. What can I expect after the procedure? After your procedure, it is common: To feel sleepy for several hours. To feel clumsy and have poor balance for several hours. To have poor judgment for several hours. To vomit if you eat too soon. Follow these instructions at home: For at least 24 hours after the procedure: Do not: ?Participate in activities where you could fall or become injured. ?Drive. ?Use heavy machinery. ?Drink alcohol. ?Take sleeping pills or medicines that cause drowsiness. ?Make important decisions or sign legal documents. ?Take care of children on your own. Rest. Eating and drinking Follow the diet recommended by your health care provider. If you vomit: ?Drink water, juice, or soup when you can drink without vomiting. ?Make sure you have little or no nausea before eating solid foods. General instructions Have a responsible adult stay with you until you are awake and alert. Take kfvy-wzz-colrdta and prescription medicines only as told by your health care provider. If you smoke, do not smoke without supervision. Keep all follow-up visits as told by your health care provider. This is important. Contact a health care provider if: You keep feeling nauseous or you keep vomiting. You feel light-headed. You develop a rash. You have a fever. Get help right away if: You have trouble breathing. This information is not intended to replace advice given to you by your health care provider. Make sure you discuss any questions you have with your health care provider. Document Released: 07/27/2014 Document Revised: 09/18/2018 Document Reviewed: 01/25/2017 Pulse[employer] Patient Education 2020 [employer]You. Follow Up Care 07/15/2024 14:06:08 With:[facility] Address: [facility] [address] [place] [phone]- When: Unknown Comments:The Cardiac rehab department will call you to schedule you for Phase 2. If you have any questions please call us at [phone]. Thank you. With:RESHMA MARSH Address: [facility] [address] [phone] Business (1) When: Unknown With:RAGINI LOMAX MD Address: [address] [place] [address] [phone] When:08/23/2024 13:00:00 Comments:THIS APPOINTMENT WILL BE WITH DR. EMMANUELLE Brumfield [facility] 10-02-2024 Summary of episode note Discharge Instructions Thank you for allowing [facility] to assist you with your healthcare needs. The following is importantdischarge information regarding your hospital visit. Your Care Team RESHMA MARSH PA-C Your Diagnosis CKD stage 3 CORONARY ARTERY DISEASE INVOLVING [place] CORONARY ARTERY Crohn's disease Diabetes History of CVA (cerebrovascular accident) Hyperlipidemia Hypertension Obesity (BMI 30.0-34.9) Paroxysmal A-fib Severe aortic stenosis What to do next Scheduled Follow-Up Appointments Appointment Type When Where Contact Information StatusCT Angiography TAVR Planning 2024 01:00PM EDT Radiology [phone] Confirmed CV OV 08/23/2024 01:00 PM EST [facility] Confirmed Follow Up Appointments Follow Up with [facility] Where:[facility] [address] [place] [address]- Additional Information: The Cardiac rehab department will call you to schedule you for Phase 2. If you have any questions please call us at [phone]. Thank you. Follow Up with RESHMA MARSH When:In 0 days Where:[address] [place] [phone] Business (1) Follow Up with RAGINI LOMAX MD When:08/23/2024 01:00 PM EST Where:[address] [facility] [place] [address]- [phone] Additional Information: THIS APPOINTMENT WILL BE WITH DR. HANDLEY Medications Please ask your primary doctor or pharmacist before taking any other medication not listed, including over the counter drugs, herbal medications, vitamins and or supplements as they may interact withyour home medications. What How Much When Why Instructions Last Dose New clopidogrel (Plavix 75 mg oral tablet) 1 tab(s) by mouth Once a day Pickup at [facility] Do not start until after the stent is placed next week Unchanged apixaban (apixaban 5 mg oral tablet) 1 tab(s) by mouth Two (2) times a day Unchanged aspirin (aspirin 81 mg oral delayed release tablet) 1 tab(s) by mouth Every day Unchanged atorvastatin (atorvastatin 80 mg oral tablet) 1 tab(s) by mouth Once a day TAKE 1 TABLET BY MOUTH ONCE DAILY Unchanged cholecalciferol (D3-50 (50,000 units) oral capsule) 1 cap by mouth Every week Unchanged DME (DME MISCellaneous) See instructions pen needles, 5mm 31g 1 needle three times daily and as needed #100 for 30 days and 3 refills. Unchanged herbal/ nutritional product (turmeric 500 mg oral capsule) 1 tab by mouth Every day Unchanged inFLIXimab (Inflectra 100 mg intravenous injection) 3 Milligrams/Kilogram Intravenous Every 8 weeks as an infusion Unchanged insulin glargine (Lantus Solostar Pen 100 units/ mL 3 mL Pen) See instructions Unchanged insulin lispro (HumaLOG) (HumaLOG KwikPen 100 units/ mL injectable PEN) See instructions Uncontrolled diabetes mellitus INJECT 10 UNITS SUBCUTANEOUSLY WITH BREAKFAST AND 8u at LUNCH AND 10 UNITS WITH DINNER OR PER SLIDING SCALE. (MAXIMUM OF 40 UNITS PER DAY.) Unchanged metoprolol (metoprolol tartrate 37.5 mg oral tablet) 1 tab(s) by mouth Two (2) times a day Unchanged Misc Medication by mouth Every day Unchanged Misc Medication (BD UF MINI PEN NEEDLE [id number]) Unchanged nutritional supplement Unchanged pancrelipase (Creon 36,000 units oral delayed release capsule) 2 cap by mouth Three (3) times a day with each meal and 1 cap with snack Unchanged potassium chloride (potassium chloride 99 mg oral tablet) 1 tab(s) by mouth Once a day Take with food Unchanged ramipril (ramipril 2.5 mg oral capsule) TAKE 1 CAPSULE BY MOUTH ONCE DAILY Unchanged semaglutide (Ozempic (0.25 mg or 0.5 mg dose) 2 mg/ 1.5 mL subcutaneous solution) See instructions INJECT 0.5 SUBCUTANEOUSLY ONCE A WEEK Unchanged sertraline (sertraline 100 mg oral tablet) 1 tab(s) by mouth Once a day Pharmacy Information [facility]: [address] [place], [place] [phone] Please take this list to your next doctor s visit. Bring all medications you take, including over the counter medications, herbals and other supplements with you to your doctor s visit. Patients and families are reminded to discard old lists and to update any records with all medication providers or retail pharmacies. Education Materials HEART CATHETERIZATION (groin) Discharge Instructions DIET INSTRUCTIONS Drink plenty of fluids for the next 48 hours to help your kidneys flush the heart cath dye out of your system ACTIVITIES May go up and down stairs CAREFULLY Do not drive car FOR 24 HOURS No heavy lifting GREATER THAN 5 POUNDS or pushing or straining FOR 3 DAYS Someone must stay with you at home after the procedure until the morning. BATHING/SHOWERING May tub bathe in 1 week May shower tomorrow WOUND CARE You will go home with gauze over your heart cath site. Tomorrow apply a Band-Aid on for the next 24hours and then leave open to air. Some degree of bruising and tenderness is normal around the heart cath site. It will take a while for any bruising to completely resolve. Keep your site clean and dry. You need to report the following to your custom seamstress: Any draining or oozing from the site Any swelling at the site Any increased pain or tenderness at the site Any numbness in your leg where the procedure was done Any signs of infection IMPORTANT! CALL 911 FOR ANY BLEEDING OR SWELLING AT THE PROCEDURE SITE If there is any large amount of bleeding, you or someone else need to apply direct pressure to the site (just like the nurse did in the heart lab after your procedure). It is very important that you hold constant pressure. Do not release the pressure to check if the bleeding has stopped. You then need to be transported to the nearest emergency room. WATCH FOR SIGNS OF INFECTION (Usually appears 36-48 hours after surgery) A temperature above 100.5 Redness or swelling Increased pain Foul odor or drainage If you have any questions, please call your doctor at the number listed on your follow up instructions. Follow all instructions given to you by your physician Document Released: 10/06/2006 Document Revised: 09/22/2013 Document Reviewed: 10/07/2014 [facility] Patient Information 2015 [employer]. This information is not intended to replace advicegiven to you by your health care provider. Make sure you discuss any questions you have with your health care provider. HEART CATHETERIZATION (radial) Discharge Instructions DIET Drink plenty of fluids for the next 48 hours to help your kidneys flush the heart cath dye out of your system ACTIVITY For the next 48 hours: Do not deep bend the wrist Do not lift, push, or pull anything over 5 pounds for 5 days Do not use the hand/arm to support your weight when rising from a chair or bed Do not drive For the next 7 days: Do not submerse your procedure site in water Do not swim, wash dishes, or take tub baths You may write, eat, type, and shower WOUND CARE Tomorrow apply a Band-Aid on your procedure site for the next 3-4 days Change the Band-Aid daily or if it gets wet/soiled AFTER YOU GO HOME, CALL YOUR DOCTOR FOR: Any increase in bruising or tenderness from the procedure site Any redness, pus, or other signs of infection at the site A temperature above 100.5 Severe pain at the site DIAL 911 AND RETURN TO THE HOSPITAL FOR: Any bleeding from the procedure site. The site may be bruised or tender, but it should not be bleeding at any time. If your site begins to bleed, hold firm pressure on it and dial 911 to return to the hospital Any increase in swelling at the procedure site. An increase in swelling could mean the area is bleeding under the skin. Hold firm pressure to the site and dial 911 to return to the hospital Document Released: 10/06/2006 Document Revised: 09/22/2013 Document Reviewed: 10/07/2014 [facility] Patient Information 2015 [employer]. This information is not intended to replace advicegiven to you by your health care provider. Make sure you discuss any questions you have with your health care provider. Moderate Conscious Sedation, Adult, Care After These instructions provide you with information about caring for yourself after your procedure. Your health care provider may also give you more specific instructions. Your treatment has been plannedaccording to current medical practices, but problems sometimes occur. Call your health care provider if you have any problems or questions after your procedure. What can I expect after the procedure? After your procedure, it is common: To feel sleepy for several hours. To feel clumsy and have poor balance for several hours. To have poor judgment for several hours. To vomit if you eat too soon. Follow these instructions at home: For at least 24 hours after the procedure: Do not: ? Participate in activities where you could fall or become injured. ? Drive. ? Use heavy machinery. ? Drink alcohol. ? Take sleeping pills or medicines that cause drowsiness. ? Make important decisions or sign legal documents. ? Take care of children on your own. Rest. Eating and drinking Follow the diet recommended by your health care provider. If you vomit: ? Drink water, juice, or soup when you can drink without vomiting. ? Make sure you have little or no nausea before eating solid foods. General instructions Have a responsible adult stay with you until you are awake and alert. Take [id number] and prescription medicines only as told by your health care provider. If you smoke, do not smoke without supervision. Keep all follow-up visits as told by your health care provider. This is important. Contact a health care provider if: You keep feeling nauseous or you keep vomiting. You feel light-headed. You develop a rash. You have a fever. Get help right away if: You have trouble breathing. This information is not intended to replace advice given to you by your health care provider. Make sure you discuss any questions you have with your health care provider. Document Released: 07/27/2014 Document Revised: 09/18/2018 Document Reviewed: 01/25/2017 [employer] Patient Education 2020 [employer] Additional Information VACCINATE! IT SAVES LIVES! Members of the community who have not yet received the COVID-19 vaccine and would like to receive it can visit one of [facility] vaccine clinics. There are many vaccine clinic locations within the [facility]. For locations and available times, please visit [email or web address] It is important to note that some COVID mobile vaccine clinics are held outdoors and may be canceled in rainy or stormy conditions. To learn more about pediatric vaccinations (ages 5-11), we invite you to visit the [employer] [facility] webpage. [email or web address] learn more about the COVID-19 vaccine, we invite you to visit the CDC website for a list of frequently asked questions.https://www.cdc.gov/coronavirus/2019-ncov/vaccines/faq.html [facility] Patient Portal Access Instructions: Stay connected with your healthcare team and access your personal medical information anytime with the [facility] Patient Portal. Please follow the directions below to create your [facility] account: 1.Access the email account you provided upon registration to the hospital/physician office.2.Look for an invitation email from [facility].3.Open the email and access the invitation link: AcceptInvitation to [facility].4.Fill in the required ramirez to create your account. To access your account, visit [employer]. Click the blue button labeled Access Patient Portal and then log in with the username and password that you created in the steps above. You will be able to view your test results, lab results, a summary of your visits, upcoming appointments and more. There is also a convenient messaging option where you can send secure messages to your p rovider. In addition, you will have the ability to download any documents or summaries to your computer and/or send the information securely to a physician. Remember that your healthcare information is confidential, so carefully consider who you will allowto register on the [facility] Portal for access to your information. You can also access the [facility] on the [facility] deo. Simply click on Patient Portal and then log into your account. If you would like to receive a full copy of your medical records, please contact the [facility] Medical Records Department by calling [phone], Friday through Friday between 8 a.m. and 4:30 p.m. HOW TO SAFELY DISPOSE OF PRESCRIPTION MEDICATIONS Please use one of the following methods to safely dispose of your unused medications. 1.Use a drug disposal kit: the drug disposal pouch allows you to safely discard your old and unuseddrugs. Ask your nurse to give you one when you are discharged.2.Visit a local take-back location: Many local pharmacies and police departments have programs that collect old and unwanted prescriptiondrugs. Call your local pharmacy or go to http://j-Grab/4E8Qw6z to find one close to you.3.Make use of household items: Use cat litter or old coffee grounds to dispose medications if other options arenot available. Mix your drugs with these household products, seal them in an airtight container andthrow it into the garbage. Call [facility]: [phone] to be sure your drugs can be disposed of in this way. Some medicines may require a different approach.4.Never flush your medications down the toilet. IF YOU HAVE BEEN PRESCRIBED AN OPIOID FOR PAIN If you have been prescribed an opioid (such as hydrocodone, oxycodone or morphine), it is critical to understand the possible side effects and risks of opioid pain medications. Even when taken as directed, opioids can have several side effects including: Tolerance, meaning you might need to take more of a medication for the same pain relief. Nausea, vomiting and/or constipation. Sleepiness, dizziness, dry mouth, confusion, depression or itching. Physical dependence, meaning you have withdrawal symptoms when a medication is stopped, can develop within a few days. KNOW YOUR RESPONSIBILITIES It is important to know exactly how much and how often to take the opioid pain medications you are prescribed. Never take opioids in higher amounts or more often than prescribed. Do not combine opioids with alcohol or other drugs that cause drowsiness, such as benzodiazepines, also known as benzos, including diazepam and alprazolam, muscle relaxants or sleep aids. Never sell or share prescription opioids. This is illegal. Store opioids in a secure place and out of reach of others (including children, family, friends and visitors). The last page of this document has been signed and retained as a CHART COPY. Signatures Patient Education Materials 3- Heart Cath/PCI groin (07/2018) (CUSTOM) 3- Heart Cath/PCI radial (07/2018) (CUSTOM) Moderate Conscious Sedation, Adult, Care After Medication Leaflets My discharge plan and instructions have been reviewed and explained to me and I,SUDHA APPLE Pan understand my current condition and have read and understand these discharge instructions. I have received a written copy of the plan/instructions. If I have questions, I am aware that I should contactmy doctor. Patient/Review Assistant Signature: Date/Time: Relationship to Patient: Witness Name/Signature: Date/Time: [id number] Cardiothoracic surgery Consult note Date of Service 07/20/2024 This is a shared/split visit with Dr. Ogden Reason for Consultation Aortic stenosis/TAVR Referring Physician Dr. Higgins History of Present Illness This is an obese 78-year-old female with a history of CAD status post JOSUE to the LAD 1993, aortic stenosis, hyperlipidemia, hypertension, diabetes, CVA without residual, CKD, Crohn's disease on Inflectra and paroxysmal atrial fibrillation during acute illness currently on Eliquis. Aortic stenosis has been followed by echocardiogram. Most recent echocardiogram on 06/25/2024 showed severe aortic stenosis with a mean gradient of 27.4 mmHg and aortic valve area 0.8 cm with an EF of 55 to 60%. Heart catheterization completed showing RCA stenosis. She endorses fatigue. No recent syncopal episodes. Denies chest pain, shortness of breath, PND orthopnea. We are being asked to evaluate her for treatment of aortic valve stenosis. STS risk assessment: STS risk assessment: Procedure Type: Isolated AVR Perioperative Outcome Estimate % Operative Mortality 4.68% Morbidity & Mortality 17.8% Stroke 4.42% Renal Failure 2.17% Reoperation 3.36% Prolonged Ventilation 13.4% Deep Sternal Wound Infection 0.235% Long Hospital Stay (>14 days) 13.9% Short Hospital Stay (<6 days)* 16.8% Procedure Type: CABG + AVR Perioperative Outcome Estimate % Operative Mortality 8.63% Morbidity & Mortality 21.6% Stroke 4.56% Renal Failure 3.45% Reoperation 5.28% Prolonged Ventilation 14.6% Deep Sternal Wound Infection 0.664% Long Hospital Stay (>14 days) 18.6% Short Hospital Stay (<6 days)* 14.2% Review of Systems Constitutional: Positive for fatigue. Denies fever, chills, weight loss or weight gain HEENT: Wears glasses, has her own teeth. No recent dental visit. Denies headache or blurred vision Respiratory: Denies shortness of breath, cough or wheeze CV: See HPI Vascular: Positive for varicosities, denies claudication or DVT GI: Positive for diarrhea secondary to Crohn's disease. Denies nausea or vomiting : Denies dysuria, hematuria or frequency Neuro: Denies weakness, seizures, numbness or tingling Endo: Denies cold or heat intolerance Hemo-/oncology: Denies bleeding or anemia Musculoskeletal: Positive for bursitis bilateral hip. No ambulatory devices. Psych: Denies anxiety, depression or suicidal ideation Physical Exam Vitals and Measurements T: 36.5 C (Oral) HR: 66 RR: 16 BP: 158/75 SpO2: 97% HT: 170.2 cm WT: 97.3 kg Weight Dosing Weight: 97.3 kg (07/20/24) Mentation: Alert and orient x 3, appropriate HEENT: Atraumatic, normocephalic, PERRLA, transmitted murmur bilateral neck, hearing intact Heart: Regular S1-S2, positive systolic murmur Lungs: Clear Abdomen: Soft, positive bowel sounds, nontender Extremities: DP, PT and femoral pulses palp bilaterally, multiple ecchymotic areas both legs (patient states from dog sitting) Neuro: Cranial nerves II through XII intact, equal strength bilaterally Skin: No rashes Lab Results 07/20 07:09 WBC: 10.1 Hgb: 14.5 Hct: 42.8 Platelet: 165 Neutrophil %: 62.7 Protime: 12.9 PT International Ratio: 1.1 Glucose Level: 115 Sodium Level: 144 Potassium Level: 3.4 L BUN: 19.0 Creatinine Lvl (s): 0.91 Assessment/Plan 1. Severe aortic stenosis Dr. Ogden's evaluation pending 2. CORONARY ARTERY DISEASE INVOLVING [place] CORONARY ARTERY RCA disease 3. Hyperlipidemia 4. Hypertension 5. Crohn's disease 6. Diabetes 7. History of CVA (cerebrovascular accident) 8. Paroxysmal A-fib 9. CKD stage 3 10. Obesity (BMI 30.0-34.9) Problem List/Past Medical History Ongoing Afib Aortic valve stenosis CKD stage 3 CORONARY ARTERY DISEASE INVOLVING [place] CORONARY ARTERY Crohn's disease DIABETES MELLITUS (Renamed from DIABETES) Elevated TSH Hyperlipidemia Hypertension HYPERTENSION, UNSPECIFIED (Renamed from ESSENTIAL (PRIMARY) HYPERTENSION) INCREASED BMI (Renamed from EXCESS WEIGHT) INTERMITTENT PALPITATIONS Lightheadedness OBESITY PREOPERATIVE CLEARANCE PULMONARY NODULE, RIGHT Syncope Type 2 diabetes mellitus uncontrolled Vitamin D deficiency Procedure/Surgical History Cardiovascular stress testin07/11/21 Holter monitor: 06/16/21 Echocardiogram: 05/15/21 CABG x 1 - Coronary artery bypass graft x 1: 10/02/94 Cardiac catheterization, left heart: 09/30/94 CE - Cataract extraction Appendectomy Hysterectomy Cholecystectomy Cystoscopy Right knee arthroscopy Medications Inpatient NO METFORMIN (Glucophage) X 48hrs-patient has received contrast, 1 EA, Miscellaneous, Unscheduled Home apixaban 5 mg oral tablet, 5 mg= 1 tab(s), Oral, BID, 3 refills aspirin 81 mg oral delayed release tablet, 81 mg= 1 tab(s), Oral, Daily atorvastatin 80 mg oral tablet, 80 mg= 1 tab(s), Oral, qDay, 6 refills BD UF MINI PEN NEEDLE [id number] Creon 36,000 units oral delayed release capsule, 2 cap(s), Oral, TID D3-50 (50,000 units) oral capsule, [id number] International_Unit= 1 cap(s), Oral, qWeek, 3 refills DME MISCellaneous, See Instructions HumaLOG KwikPen 100 units/mL injectable PEN, See Instructions, 3 refills Inflectra 100 mg intravenous injection, 3 mg/kg, Intravenous, q8wk Lantus Solostar Pen 100 units/mL 3 mL Pen, See Instructions metoprolol tartrate 37.5 mg oral tablet, 37.5 mg= 1 tab(s), Oral, BID, 6 refills Misc Medication, Oral, Daily nutritional supplement Ozempic (0.25 mg or 0.5 mg dose) 2 mg/1.5 mL subcutaneous solution, See Instructions potassium chloride 99 mg oral tablet, 99 mg= 1 tab(s), Oral, qDay ramipril 2.5 mg oral capsule sertraline 100 mg oral tablet, 100 mg= 1 tab(s), Oral, qDay turmeric 500 mg oral capsule, 1 tab, Oral, Daily Allergies Niaspan ER Unknown contrast media (gadolinium-based) Hypothermia guaiFENesin Unknown metFORMIN Renal insufficiency niacin Anaphylaxis sulfa Unknown Social History Alcohol Use: none., 03/28/2022 Nutrition/Health Caffeine intake amount: 1-2 cups per day., 06/21/2020 Substance Abuse Use: Never., 04/18/2020 Tobacco Smoked as a teenager Lives with Family History Mother age 69 CVA, history of coronary bypass graft, diabetes, hypertension Father age 79 complications of open heart surgery Brother living age 82 Immunizations COVID-vaccine 2022 Pneumococcal vaccine No COVID or flu vaccine 2023 40 minutes spent reviewing chart, interviewing patient, obtaining assessment, education regarding disease process and treatment options, answering patient questions and dictating detailed consultation Digitally Signed by SARAH RESTREPO on 07/20/2024 10:41 AM [facility] [id number] Cardiothoracic surgery Consult note Date of Service 07/20/2024 This is a shared/split visit with Dr. Ogden Reason for Consultation Aortic stenosis/TAVR Referring Physician Dr. Higgins History of Present Illness This is an obese 78-year-old female with a history of CAD status post JOSUE to the LAD 1993, aortic stenosis, hyperlipidemia, hypertension, diabetes, CVA without residual, CKD, Crohn's disease on Inflectra and paroxysmal atrial fibrillation during acute illness currently on Eliquis. Aortic stenosis has been followed by echocardiogram. Most recent echocardiogram on 06/25/2024 showed severe aortic stenosis with a mean gradient of 27.4 mmHg and aortic valve area 0.8 cm with an EF of 55 to 60%. Heart catheterization completed showing RCA stenosis. She endorses fatigue. No recent syncopal episodes. Denies chest pain, shortness of breath, PND orthopnea. We are being asked to evaluate her for treatment of aortic valve stenosis. STS risk assessment: STS risk assessment: Procedure Type: Isolated AVR Perioperative Outcome Estimate % Operative Mortality 4.68% Morbidity & Mortality 17.8% Stroke 4.42% Renal Failure 2.17% Reoperation 3.36% Prolonged Ventilation 13.4% Deep Sternal Wound Infection 0.235% Long Hospital Stay (>14 days) 13.9% Short Hospital Stay (<6 days)* 16.8% Procedure Type: CABG + AVR Perioperative Outcome Estimate % Operative Mortality 8.63% Morbidity & Mortality 21.6% Stroke 4.56% Renal Failure 3.45% Reoperation 5.28% Prolonged Ventilation 14.6% Deep Sternal Wound Infection 0.664% Long Hospital Stay (>14 days) 18.6% Short Hospital Stay (<6 days)* 14.2% Review of Systems Constitutional: Positive for fatigue. Denies fever, chills, weight loss or weight gain HEENT: Wears glasses, has her own teeth. No recent dental visit. Denies headache or blurred vision Respiratory: Denies shortness of breath, cough or wheeze CV: See HPI Vascular: Positive for varicosities, denies claudication or DVT GI: Positive for diarrhea secondary to Crohn's disease. Denies nausea or vomiting : Denies dysuria, hematuria or frequency Neuro: Denies weakness, seizures, numbness or tingling Endo: Denies cold or heat intolerance Hemo-/oncology: Denies bleeding or anemia Musculoskeletal: Positive for bursitis bilateral hip. No ambulatory devices. Psych: Denies anxiety, depression or suicidal ideation Physical Exam Vitals and Measurements T: 36.5 C (Oral) HR: 66 RR: 16 BP: 158/75 SpO2: 97% HT: 170.2 cm WT: 97.3 kg Weight Dosing Weight: 97.3 kg (07/20/24) Mentation: Alert and orient x 3, appropriate HEENT: Atraumatic, normocephalic, PERRLA, transmitted murmur bilateral neck, hearing intact Heart: Regular S1-S2, positive systolic murmur Lungs: Clear Abdomen: Soft, positive bowel sounds, nontender Extremities: DP, PT and femoral pulses palp bilaterally, multiple ecchymotic areas both legs (patient states from dog sitting) Neuro: Cranial nerves II through XII intact, equal strength bilaterally Skin: No rashes Lab Results 07/20 07:09 WBC: 10.1 Hgb: 14.5 Hct: 42.8 Platelet: 165 Neutrophil %: 62.7 Protime: 12.9 PT International Ratio: 1.1 Glucose Level: 115 Sodium Level: 144 Potassium Level: 3.4 L BUN: 19.0 Creatinine Lvl (s): 0.91 Assessment/Plan 1. Severe aortic stenosis Dr. Ogden's evaluation pending 2. CORONARY ARTERY DISEASE INVOLVING [place] CORONARY ARTERY RCA disease 3. Hyperlipidemia 4. Hypertension 5. Crohn's disease 6. Diabetes 7. History of CVA (cerebrovascular accident) 8. Paroxysmal A-fib 9. CKD stage 3 10. Obesity (BMI 30.0-34.9) Problem List/Past Medical History Ongoing Afib Aortic valve stenosis CKD stage 3 CORONARY ARTERY DISEASE INVOLVING [place] CORONARY ARTERY Crohn's disease DIABETES MELLITUS (Renamed from DIABETES) Elevated TSH Hyperlipidemia Hypertension HYPERTENSION, UNSPECIFIED (Renamed from ESSENTIAL (PRIMARY) HYPERTENSION) INCREASED BMI (Renamed from EXCESS WEIGHT) INTERMITTENT PALPITATIONS Lightheadedness OBESITY PREOPERATIVE CLEARANCE PULMONARY NODULE, RIGHT Syncope Type 2 diabetes mellitus uncontrolled Vitamin D deficiency Procedure/Surgical History Cardiovascular stress testin07/11/21 Holter monitor: 06/16/21 Echocardiogram: 05/15/21 CABG x 1 - Coronary artery bypass graft x 1: 10/02/94 Cardiac catheterization, left heart: 09/30/94 CE - Cataract extraction Appendectomy Hysterectomy Cholecystectomy Cystoscopy Right knee arthroscopy Medications Inpatient NO METFORMIN (Glucophage) X 48hrs-patient has received contrast, 1 EA, Miscellaneous, Unscheduled Home apixaban 5 mg oral tablet, 5 mg= 1 tab(s), Oral, BID, 3 refills aspirin 81 mg oral delayed release tablet, 81 mg= 1 tab(s), Oral, Daily atorvastatin 80 mg oral tablet, 80 mg= 1 tab(s), Oral, qDay, 6 refills BD UF MINI PEN NEEDLE [id number] Creon 36,000 units oral delayed release capsule, 2 cap(s), Oral, TID D3-50 (50,000 units) oral capsule, [id number] International_Unit= 1 cap(s), Oral, qWeek, 3 refills DME MISCellaneous, See Instructions HumaLOG KwikPen 100 units/mL injectable PEN, See Instructions, 3 refills Inflectra 100 mg intravenous injection, 3 mg/kg, Intravenous, q8wk Lantus Solostar Pen 100 units/mL 3 mL Pen, See Instructions metoprolol tartrate 37.5 mg oral tablet, 37.5 mg= 1 tab(s), Oral, BID, 6 refills Misc Medication, Oral, Daily nutritional supplement Ozempic (0.25 mg or 0.5 mg dose) 2 mg/1.5 mL subcutaneous solution, See Instructions potassium chloride 99 mg oral tablet, 99 mg= 1 tab(s), Oral, qDay ramipril 2.5 mg oral capsule sertraline 100 mg oral tablet, 100 mg= 1 tab(s), Oral, qDay turmeric 500 mg oral capsule, 1 tab, Oral, Daily Allergies Niaspan ER Unknown contrast media (gadolinium-based) Hypothermia guaiFENesin Unknown metFORMIN Renal insufficiency niacin Anaphylaxis sulfa Unknown Social History Alcohol Use: none., 03/28/2022 Nutrition/Health Caffeine intake amount: 1-2 cups per day., 06/21/2020 Substance Abuse Use: Never., 04/18/2020 Tobacco Smoked as a teenager Lives with Family History Mother age 69 CVA, history of coronary bypass graft, diabetes, hypertension Father age 79 complications of open heart surgery Brother living age 82 Immunizations COVID-vaccine 2022 Pneumococcal vaccine No COVID or flu vaccine 2023 40 minutes spent reviewing chart, interviewing patient, obtaining assessment, education regarding disease process and treatment options, answering patient questions and dictating detailed consultation Digitally Signed by SARAH RESTREPO on 07/20/2024 10:41 AM [facility] [id number] Note* Exam Date Time Procedure Performing Provider Status 07/20/24 7:40 AM Cardiac Catheterization -CV Auth (Verified) [facility] Evaluation + Plan note Future Appointments Appointment Date:11/27/2023 11:45:00 AM Scheduled Provider:VIVIEN JACOBO MD Location:[facility] Appointment Type:Telephone Appointment Date:02/16/2024 02:00:00 PM Scheduled Provider: Location:[facility] Appointment Type:CV OV Future Scheduled Tests Laboratory* Complete Blood Count 06/26/23 * Complete Metabolic Panel 06/26/23 [facility] evaluation + Plan note Future Appointments Appointment Date:07/27/2024 10:00:00 AM Scheduled Provider: Location:Heart Lab Appointment Type:CV Procedure - Heart Lab/Hybrid OR Appointment Date:2024 01:00:00 PM Scheduled Provider: Location:[facility] Appointment Type:CT Angiography TAVR Planning Appointment Date:08/23/2024 01:00:00 PM Scheduled Provider: Location:[facility] Appointment Type:CV OV Future Scheduled Tests Radiology* CT Angiography TAVR Planning 08/02/24 [facility] evaluation + Plan note Future Appointments Appointment Date:2024 01:00:00 PM Scheduled Provider: Location:[facility] Appointment Type:CT Angiography TAVR Planning Appointment Date:08/23/2024 01:00:00 PM Scheduled Provider: Location:[facility] Appointment Type:CV OV Diagnostic Tests Pending * Urinalysis w/ C&S if Indicated 07/27/24 Future Scheduled Tests Radiology* CT Angiography TAVR Planning 08/02/24 [facility] evaluation + Plan note Future Appointments Appointment Date:08/23/2024 01:00:00 PM Scheduled Provider:CAMI HANDLEY Location:[email or web address] Appointment Type:CV OV [facility] evaluation + Plan note Future Appointments Appointment Date:08/17/2024 09:00:00 AM Scheduled Provider: Location:[facility] Appointment Type:CV Procedure - Heart Lab/Hybrid OR Appointment Date:08/23/2024 01:00:00 PM Scheduled Provider:CAMI HANDLEY Location:[facility] Appointment Type:CV OV Future Scheduled Tests Laboratory* Basic Metabolic Panel 08/09/24 * Complete Blood Count 08/09/24 * N-Terminal proBNP 08/09/24 [facility] Evaluation + Plan note Future Appointments Appointment Date:08/23/2024 01:00:00 PM Scheduled Provider:CAMI HANDLEY Location:[facility] Appointment Type:CV OV Appointment Date:09/14/2024 01:00:00 PM Scheduled Provider: Location:[facility] Appointment Type:Echo - Echocardiogram Adult Appointment Date:09/24/2024 10:00:00 AM Scheduled Provider:SEBASTIAN PILLAI Location:[facility] Appointment Type:CV OV Diagnostic Tests Pending * Blood Gas Panel (poc) 08/17/24 * Sodium (poc) 08/17/24 * Potassium (poc) 08/17/24 * Chloride (poc) 08/17/24 * Ca Ionized (poc) 08/17/24 * Hemoglobin (poc) 08/17/24 * Hematocrit (poc) 08/17/24 * Glucose (poc) 08/17/24 * Blood Gas Panel (poc) 08/17/24 * Sodium (poc) 08/17/24 * Potassium (poc) 08/17/24 * Chloride (poc) 08/17/24 * Ca Ionized (poc) 08/17/24 * Hemoglobin (poc) 08/17/24 * Hematocrit (poc) 08/17/24 * Glucose (poc) 08/17/24 * Blood Gas Panel (poc) 08/17/24 * Sodium (poc) 08/17/24 * Potassium (poc) 08/17/24 * Chloride (poc) 08/17/24 * Ca Ionized (poc) 08/17/24 * Hemoglobin (poc) 08/17/24 * Hematocrit (poc) 08/17/24 * Glucose (poc) 08/17/24 * Blood Gas Panel (poc) 08/17/24 * Sodium (poc) 08/17/24 * Potassium (poc) 08/17/24 * Chloride (poc) 08/17/24 * Ca Ionized (poc) 08/17/24 * Hemoglobin (poc) 08/17/24 * Hematocrit (poc) 08/17/24 * Glucose (poc) 08/17/24 * Blood Gas Panel (poc) 08/17/24 * Sodium (poc) 08/17/24 * Potassium (poc) 08/17/24 * Chloride (poc) 08/17/24 * Ca Ionized (poc) 08/17/24 * Hemoglobin (poc) 08/17/24 * Hematocrit (poc) 08/17/24 * Glucose (poc) 08/17/24 Future Scheduled Tests Laboratory* Basic Metabolic Panel 09/14/24 * Basic Metabolic Panel 08/09/24 * Complete Blood Count 09/14/24 * Complete Blood Count 08/09/24 * N-Terminal proBNP 08/09/24 [facility] evaluation + Plan note Future Appointments Appointment Date:09/24/2024 10:00:00 AM Scheduled Provider:SEBASTIAN PILLAI Location:[facility] Appointment Type:CV OV Appointment Date:11/24/2024 03:30:00 PM Scheduled Provider:CAMI HANDLEY Location:[facility] Appointment Type:CV OV Future Scheduled Tests Laboratory* Basic Metabolic Panel 08/09/24 * Complete Blood Count 08/09/24 * N-Terminal proBNP 08/09/24 [facility] evaluation note* Diagnosis Onset Date Resolution Status CAD (coronary artery disease) acute Benign hypertension chronic Diabetes chronic Mixed hyperlipidemia chronic Obesity chronic 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 Crohn's disease acute Chronic diarrhea [facility] Work Phone: evaluation note* Diagnosis Onset Date Resolution Status Crohn's disease acute Chronic diarrhea [facility] Work Phone: evaluation note* Diagnosis Onset Date Resolution Status Crohn's disease acute Chronic diarrhea chronic Crohn's disease acute Exocrine pancreatic insufficiency [facility] Work Phone: evaluation note* Diagnosis Onset Date Resolution Status Crohn's disease acute Chronic diarrhea chronic Crohn's disease acute Exocrine pancreatic insufficiency acute Elevated TSH acute Diabetes chronic Obesity [facility] Work Phone: evaluation note* Diagnosis Onset Date Resolution Status Crohn's disease acute Chronic diarrhea chronic Crohn's disease acute Exocrine pancreatic insufficiency acute Elevated TSH acute Diabetes chronic Obesity chronic Crohn's disease acute [facility] Work Phone: evaluation note* Diagnosis Onset Date Resolution Status Elevated TSH acute Diabetes chronic Obesity chronic Crohn's disease [facility] Work Phone: evaluation note* Diagnosis Onset Date Resolution Status Crohn's disease acute [facility] Work Phone: Evaluation note* Diagnosis Onset Date Resolution Status Crohn's disease chronic Exocrine pancreatic insufficiency chronic [facility] Work Phone: Evaluation note* Diagnosis Onset Date Resolution Status Crohn's disease chronic Exocrine pancreatic insufficiency chronic Benign hypertension chronic Diabetes chronic Mixed hyperlipidemia chronic Obesity chronic Polyneuropathy due to type 2 diabetes mellitus [facility] Work Phone: Evaluation note* Diagnosis Onset Date Resolution Status Crohn's disease chronic Exocrine pancreatic insufficiency chronic Abnormal results of thyroid function studies acute Benign hypertension chronic Diabetes chronic Obesity chronic Polyneuropathy due to type 2 diabetes mellitus [facility] Work Phone: Evaluation note* Diagnosis Onset Date Resolution Status Abnormal results of thyroid function studies acute Benign hypertension chronic Diabetes chronic Obesity chronic Polyneuropathy due to type 2 diabetes mellitus [facility] [place] Work Phone: Evaluation note* Diagnosis Onset Date Resolution Status Elevated TSH acute Benign hypertension chronic Diabetes chronic Mixed hyperlipidemia chronic Obesity chronic 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 If your blood pressure is substantially elevated like today take a dose of the clonidine. Recheck your blood pressure about 3 hours later. If it is still elevated you may require another emergency department visit Should you develop chest pain shortness of breath or any neurologic symptoms please return to the emergency department Please discuss your head CT with your doctor. There was a area of low attenuation of indeterminate age in the right frontal lobe. You appear asymptomatic from this. You may require further evaluation with an MRI.[facility] Work Phone: Hospital Discharge instructions No data available for this section [facility] Progress note No data available for this section [facility] Progrmkh note Author Jeromy Gaytan [facility] Note Date/Time July 09, 2025 9:12am [facility] [address], [address] [place] [address] OFFICE VISIT Date of Service: 07/09/25 MR#: [id number] Acct: [id number] Name: APPLE ESTEBAN Rep #: [id number] : 1945 Provider: ALBERTO Cespedes Age/Sex: 79/F Location: [facility] [place] Status: Signed Intake Vital Signs 07/06/25 10:17 07/09/25 08:58 Height 5 ft 7 in Weight: 200 lb BMI 31.3 BP 128/82 H 126/60 H Blood Pressure Location Lt brachial Lt brachial Position Sitting Sitting Respiration 16 Pulse 63 74 Pulse Source Monitor NIBP Temp 97.6 F L Temp Source Oral Pulse Oximetry (%) 93 94 Oxygen Delivery Method room air room air Intake Visit Reasons: CONCERN FOR UTI Chief Complaint: urinary urgency and decreased output Program Writer Required: No Is patient in pain?: No Allergies Gadolinium-MRI Contrast Medium (contrast dye) Allergy (Verified 07/09/25 08:59) CHILLS.RIGORS niacin Allergy (Verified 07/09/25 08:59) Anaphylaxis Is last menstrual period known: No Post menopausal: Yes Patient : No Have you fallen in the past year?: No Nurse's Note: urinary urgency and decreased output today. denies abd pain/back pain/fever. concern for UTI [facility] Medical History (Updated 07/09/25 @ 11:11 by ALBERTO Sauceda) Abnormal results of thyroid function studies History of Crohn's disease Hypokalemia Hydronephrosis Ureteral calculi Wears glasses Cancer Depression Anxiety Insulin dependent diabetes mellitus Easy bruising Restless legs Back pain Dietary restriction History of IBS History of diverticulitis Heartburn Non-smoker Leg cramps History of pain when walking History of edema History of heart attack History of stress test Cardiology follow-up encounter History of irregular heartbeat Obesity Benign hypertension Mixed hyperlipidemia CAD (coronary artery disease) Polyneuropathy due to type 2 diabetes mellitus Deficient knowledge of hysterectomy Neuropathy Murmur IBS (irritable bowel syndrome) High triglycerides High cholesterol High blood pressure Heart disease Gastrointestinal problem UTI (urinary tract infection) Arthritis Surgical History History of cystoscopy Hx of left cataract extraction Hx of colonoscopy History of intestinal surgery Hx of foot surgery Hx of heart bypass surgery Hx of hysterectomy Hx laparoscopic cholecystectomy Hx of tonsillectomy H/O knee surgery Family History Mother Diabetes Hypertension Father Diabetes Hypertension Other Bowel disease CVA (cerebral vascular accident) Myocardial infarction Parkinson disease Social History Smoking Status: Never smoker HPI HPI Chief Complaint: urinary urgency and decreased output Details: APPLE ESTEBAN, is a 79 F who presents to the office today for evaluation of UTIsymptoms. Patient states that she has been experiencing urinary urgency and decreased urinary output starting today but denies symptoms of dysuria, fever, chills, abdominal pain, nausea, and vomiting. Patient notes that she has a past medical history for recurrent UTI for which she sees urology. Patient denies anytreatment for this issue at this time. ROS Const Constitutional: No body ache, chills, fatigue or fever(s) Gastro GI: No abdominal pain, change in bowel habits, diarrhea or vomiting Genitourinary-Female: Positive for urinary frequency, urinary urgency and suprapubic fullness; No painful urination or blood in urine Musc Musculoskeletal: Positive for back pain; No joint pain Endo Endocrine: No fatigue Exam Const General: healthy appearing and no acute distress GI Palpation: soft, no guarding and nontender Other: No CVA tenderness bilaterally Results POC Urinalysis Dip (Clinic) Office Urine Color Dk Yellow Last Edit by Lauren Henderson on 07/09/25 09:17 Office Urine Clarity Cloudy Last Edit by Lauren Henderson on 07/09/25 09:17 Office Urine Glucose Negative Last Edit by Lauren Henderson on 07/09/25 09:17 Office Urine Ketones Negative Last Edit by Lauren Henderson on 07/09/25 09:17 Off Ur Spec [place] 1.020 Last Edit by Lauren Henderson on 07/09/25 09:17 Office Urine pH 6.5 Last Edit by Lauren Henderson on 07/09/25 09:17 Office Urine Bilirubin Negative Last Edit by Lauren Henderson on 07/09/25 09: 17 Office Urine Urobilinogen Negative Last Edit by Lauren Henderson on 07/09/25 09:17 Office Urine Blood Negative Last Edit by Lauren Henderson on 07/09/25 09:17 Office Urine Blood Hemolyzed Moderate Last Edit by Lauren Henderson on 09:17 Office Urine Protein 2+ Last Edit by Lauren Henderson on 07/09/25 09:17 Office Urine Nitrate Negative Last Edit by Lauren Henderson on 07/09/25 09:17 Off Ur Leukocytes Positive Last Edit by Lauren Henderson on 07/09/25 09:17 Coding Level of Care Code New Pt Off vis,new,level 3 Patient Type New History Expanded Problem Focused Exam Expanded Problem Focused Medical Decision Making Moderate Complexity Diagnoses Urinary tract infection with hematuria, site unspecified N39.0; R31.9 Urinary tract infection type: site unspecified Hematuria presence: with hematuria Assessment and Plan Assessment and Plan (1) UTI (urinary tract infection): Status: Acute Qualifiers: Urinary tract infection type: site unspecified Hematuria presence: withhematuria Qualified Code(s): N39.0 - Urinary tract infection, site not specified; R31.9 - Hematuria, unspecified Plan: Treat as indicated below based on history and in office urine dip. Patient will call for urine culture results next week. Reviewed conservative measures for symptom control as well as red flag symptoms which would require further evaluation in the ER. Patient voiced understanding and agreement with plan. Orders: Orders POC Urinalysis Dip (Clinic) Today R39.15 - Urgency of urination Culture, Urine Today R82.90 - Unspecified abnormal findings in urine Medications: New cephalexin 500 mg PO BID 10 caps 0RF 5 days Clinical Quality Measures Falls Risk Screening/Assistive Devices Have you fallen in the past year?: No 07/09/25 1113 <Electronically signed by Jeromy DOMINGUEZ> Date _ Jeromy DOMINGUEZ Cosigner Signature: Date (if applicable) CC: ~ [facility] Work Phone: Reason for referral (narrative)No reason for referral information [facility] Work Phone: Summary Purpose Family History No Family History Records Found Relationship Condition Age at Onset Recorded Date/T omar Not Specified Disorder of intestine Unknown Myocardial infarction Unknown Parkinson's disease Unknown Cerebrovascular accident (CVA) Unknown mother Diabetes mellitus Unknown Hypertension Unknown father Diabetes mellitus Unknown Advance Directives No Advanced Directives Records Found Advance Directive Response Recorded Date/ Time Advance Directives Yes June 19, 2015 9:06am Living Will Yes July 13, 2021 11:01am Power of Radio Mechanic Apprentice Yes June 11:01am Advance Directive Response Recorded Date/ Time Name of Medical Power of Radio Mechanic Apprentice SPOUSE July 23, 2022 9:55am Advance Directives Yes June 19, 2015 9:06am Living Will Yes July 23 9:55am Power of Radio Mechanic Apprentice Yes July 23 9:55am Advance Directive Response Recorded Date/ Time Name of Medical Power of Radio Mechanic Apprentice SPOUSE July 23, 2022 8:55am Advance Directives Yes June 19, 2015 8:06am Living Will Yes July 23 8:55am Power of Radio Mechanic Apprentice Yes July 23 8:55am Advance Directive Response Recorded Date/ Time Advance Directives Yes June 19, 2015 8:06am Living Will Yes July 23 8:55am Power of Radio Mechanic Apprentice Yes July 23 8:55am Advance Directive Response Recorded Date/ Time Advance Directives Yes June 19, 2015 9:06am Living Will Yes July 23 9:55am Power of Radio Mechanic Apprentice Yes July 23 9:55am Advance Directive Response Recorded Date/ Time Name of Medical Power of Radio Mechanic Apprentice [employer], September 12, 2023 2:15pm Advance Directives Yes June 19, 2015 8:06am Living Will Yes September 12, 023 2:15pm Power of Radio Mechanic Apprentice Yes September 12, 2023 2:15pm Advance Directive Response Recorded Date/ Time Advance Directives Yes June 19, 2015 9:06am Living Will Yes September 12, 023 3:15pm Power of Radio Mechanic Apprentice Yes September 12, 2023 3:15pm Advance Directive Response Recorded Date/ Time Living Will Yes September 12, 023 3:15pm Power of Radio Mechanic Apprentice Yes September 12, 2023 3:15pm Advance Directives Yes June 19, 2015 9:06am Advance Directive Response Recorded Date/ Time Living Will Yes September 12, 023 3:15pm Do you have a Healthcare Power of Radio Mechanic Apprentice? Yes September 12, 2023 3:15pm Advance Directives Yes June 19, 2015 9:06am Advance Directive Response Recorded Date/ Time Advance Directives Yes June 19, 2015 9:06am Chief Complaint and Reason for Visit Chief Complaint 6 wk FU Irritable bowel syndrome E ORDER INT LABSPEC Reason for Visit CAD (coronary artery disease) Benign hypertension Diabetes Mixed hyperlipidemia Obesity Polyneuropathy due to type 2 diabetes mellitus Crohn's disease Chronic diarrhea Chief Complaint Irritable bowel synd florentin E ORDER INT LABSPEC ENTEROSCOPY (NO ORAL CONTRAST), [facility] Reason for Visit Crohn's disease Chronic diarrhea Chief Complaint Irritable bowel synd florentin E ORDER INT LABSPEC ENTEROSCOPY (NO ORAL CONTRAST), [facility] 6 WK FU INFLIXIMAB Reason for Visit Crohn's disease Chronic diarrhea Crohn's disease Exocrine pancreatic insufficiency Chief Complaint Irritable bowel synd florentin E ORDER INT LABSPEC ENTEROSCOPY (NO ORAL CONTRAST), [facility] 6 WK FU INFLIXIMAB INFLIXIMAB Reason for Visit Crohn's disease Chronic diarrhea Crohn's disease Exocrine pancreatic insufficiency Chief Complaint Irritable bowel synd florentin E ORDER INT LABSPEC ENTEROSCOPY (NO ORAL CONTRAST), [facility] 6 WK FU INFLIXIMAB INFLIXIMAB 6 M FU Reason for Visit Crohn's disease Chronic diarrhea Crohn's disease Exocrine pancreatic insufficiency Elevated TSH Diabetes Obesity Chief Complaint Irritable bowel synd florentin E ORDER INT LABSPEC ENTEROSCOPY (NO ORAL CONTRAST), [facility] 6 WK FU INFLIXIMAB INFLIXIMAB 6 M FU INFLIXIMAB Reason for Visit Crohn's disease Chronic diarrhea Crohn's disease Exocrine pancreatic insufficiency Elevated TSH Diabetes Obesity Chief Complaint Irritable bowel synd florentin E ORDER INT LABSPEC ENTEROSCOPY (NO ORAL CONTRAST), [facility] 6 WK FU INFLIXIMAB INFLIXIMAB 6 M FU INFLIXIMAB 2 WK FU KUB- KIDNEY STONES Reason for Visit Crohn's disease Chronic diarrhea Crohn's disease Exocrine pancreatic insufficiency Elevated TSH Diabetes Obesity Crohn's disease Chief Complaint INFLIXIMAB 6 M FU INFLIXIMAB 2 WK FU KUB- KIDNEY STONES INFLIXIMAB Reason for Visit Elevated TSH Diabetes Obesity Crohn's disease Chief Complaint 2 WK FU KUB- KIDNEY STONES INFLIXIMAB INFLIXIMAB Reason for Visit Crohn's disease Chief Complaint INFLIXIMAB INFLIXIMAB 4 MO FU Reason for Visit Crohn's disease Exocrine pancreatic insufficiency Chief Complaint INFLIXIMAB 4 MO FU 6 M FU INFLIXIMAB Reason for Visit Crohn's disease Exocrine pancreatic insufficiency Benign hypertension Diabetes Mixed hyperlipidemia Obesity Polyneuropathy due to type 2 diabetes mellitus Chief Complaint INFLIXIMAB INFLIXIMAB 4 MO FU BILAT HIP BURSITIS INFLIXIMAB Reason for Visit Crohn's disease Exocrine pancreatic insufficiency Chief Complaint 4 MO FU BILAT HIP BURSITIS INFLIXIMAB 6 M FU INFLIXIMAB KIDNEY STONES Reason for Visit Crohn's disease Exocrine pancreatic insufficiency Abnormal results of thyroid function studies Benign hypertension Diabetes Obesity Polyneuropathy due to type 2 diabetes mellitus Chief Complaint INFLIXIMAB 6 M FU INFLIXIMAB KIDNEY STONES INFLIXIMAB HTN Reason for Visit Abnormal results of thyroid function studies Benign hypertension Diabetes Obesity Polyneuropathy due to type 2 diabetes mellitus Chief Complaint 4 M FU 6 MO FU INFLECTRA 490MG Reason for Visit Elevated TSH Benign hypertension Diabetes Mixed hyperlipidemia Obesity Polyneuropathy due to type 2 diabetes mellitus Crohn's disease Exocrine pancreatic insufficiency Chief Complaint Admit Date Inflectra September 10, 2024 9:42am 6 M FU October 01, 2024 1:00pm E-ORDER October 07, 2024 9:47am Inflectra November 05, 2024 9 :53am Inflectra December 31, 2024 9:5 1am Reason for Visit Admit Date Crohn's disease October 01, 2024 1:00pm Exocrine pancreatic insufficiency [facility] 2023 1:00pm Chief Complaint Admit Date Inflectra November 05, 2024 9 :53am Inflectra December 31, 2024 9:5 1am 6 M FU January 24, 2025 10:2 8am Inflectra February 25, 2025 9:48am Reason for Visit Admit Date Benign hypertension January 24, 2025 10:2 8am CAD (coronary artery disease) January 24, 2025 10:28am Diabetes January 24, 2025 10:2 8am Mixed hyperlipidemia January 24, 2025 10: 28am Obesity January 24, 2025 10:2 8am Polyneuropathy due to type 2 diabetes me llitus January 24, 2025 10:28am Chief Complaint Admit Date Inflectra December 31, 2024 9:5 1am 6 M FU January 24, 2025 10:2 8am Inflectra February 25, 2025 9:48am 6 M FU March 30, 2025 10:2 0am Reason for Visit Admit Date Benign hypertension January 24, 2025 10:2 8am CAD (coronary artery disease) January 24, 2025 10:28am Diabetes January 24, 2025 10:2 8am Mixed hyperlipidemia January 24, 2025 10: 28am Obesity January 24, 2025 10:2 8am Polyneuropathy due to type 2 diabetes me llitus January 24, 2025 10:28am Chronic diarrhea March 30, 2025 10:2 0am Crohn's disease March 30, 2025 10:2 0am Chief Complaint Admit Date 6 M FU March 30, 2025 10:2 0am 4 M FU July 06, 2025 10:12am Reason for Visit Admit Date Chronic diarrhea March 30, 2025 10:2 0am Crohn's disease March 30, 2025 10:2 0am Chief Complaint Admit Date 6 M FU March 30, 2025 10:2 0am 4 M FU July 06, 2025 10:12am CONCERN FOR UTI July 09, 2025 8:49am Reason for Visit Admit Date Chronic diarrhea March 30, 2025 10:2 0am Crohn's disease March 30, 2025 10:2 0am Abnormal results of thyroid function nabil dies July 06, 2025 10:12am Benign hypertension July 06, 2025 10:12am Diabetes July 06, 2025 10:12am Mixed hyperlipidemia July 06 10:12am Obesity July 06, 2025 10:12am Polyneuropathy due to type 2 diabetes me llitus July 06, 2025 10:12am UTI (urinary tract infection) July 09, 2025 8:49am Additional Source Comments INFORMATION SOURCE (unrecogn ized section and content) DATE CREATED AUTHOR 08/04/2020 [facility] DATE CREATED AUTHOR AUTHOR'S ORGANIZ ATION 08/19/2021 [facility] DATE CREATED AUTHOR AUTHOR'S ORGANIZ ATION 11/15/2023 [facility] ([place]) DATE CREATED AUTHOR AUTHOR'S ORGANIZ ATION 09/17/2024 [facility] DATE CREATED AUTHOR AUTHOR'S ORGANIZ ATION 08/17/2025 [facility] DATE CREATED AUTHOR AUTHOR'S ORGANIZ ATION 08/27/2025 Luca Orosco [facility] DATE CREATED AUTHOR AUTHOR'S ORGANIZ ATION 08/27/2025 [facility] Goals (unrecognized section and content) Goals may be documented in a n alternate sectionGoals may be documented in an alternate sectionGoals may be documented in an alternate sectionGoals may be documented in an alternate sectionGoals may be documented in an alternate sectionGoals may be documented in an alternate sectionGoals may be documented in an alternate sectionGoals may be documented in an alternate sectionGoals may be documented in an alternate sectionGoals may be documented in an alternate section No data available for this sectionGoals may be documented in an alternate section No data available for this section No data available for this section No data available for this section No data available for this section No data available for this section No data available for this section No data available for this sectionGoals may be documented in an alternate sectionGoals may be documented in an alternate sectionGoals may be documented in an alternate sectionGoals may be documented in an alternate sectionGoals may be documented in an alternate section Care Teams (unrecognized sec tion and content) Team Status: Active Member Role Status Dates [facility] PA, PA-C Family Provider Active [facility] PA, PA-C Primary Care Provider Active Team Status: Inactive Member Role Status Dates [facility] PA, PA-C Primary Care Provider, Referri ng Provider Active Joan Webb PLUMBING MECHANIC, PLUMBING MECHANIC-C Attending Provider Active Team Status: Inactive Member Role Status Dates [facility] PA, PA-C Primary Care Provider Active Joan Webb PLUMBING MECHANIC, PLUMBING MECHANIC-C Attending Provider, Referrin g Provider Active Team Status: Inactive Member Role Status Dates [facility] PA, PA-C Primary Care Provider Active Dr. Millie Little MD Attending Provider, Referring Nic lua Active Team Status: Inactive Member Role Status Dates [facility] PA, PA-C Primary Care Provider Active Joan Webb PLUMBING MECHANIC, PLUMBING MECHANIC-C Attending Provider Active Team Status: Inactive Member Role Status Dates [facility] PA, PA-C Primary Care Provider, Referri ng Provider Active Dr. Mouna Zamora MD Attending Provider Active Team Status: Inactive Member Role Status Dates [facility] PA, PA-C Primary Care Provider Active Joan Webb Attending Provider, Referring Provider Active Team Status: Inactive Member Role Status Dates [facility] PA, PA-C Primary Care Provider Active RAPHAEL CORREA NP-C Attending Provider, Referring P stoney Active Team Status: Inactive Member Role Status Dates [facility] PA, PA-C Referring Provider Active Dr. Mouna Zamora MD Attending Provider Active Team Status: Inactive Member Role Status Dates Joan Webb Attending Provider, Referring Provider Active Team Status: Inactive Member Role Status Dates Dr. Artem Cortes DO Attending Provider, Referring Provider Active [facility] PA, PA-C Primary Care Provider Active Team Status: Inactive Member Role Status Dates [facility] PA, PA-C Primary Care Provider Active Dr. Catrachito Gilmore DO Emergency Provider Active Team Status: Inactive Member Role Status Dates [facility] PA, PA-C Primary Care Provider, Referri ng Provider Active Dr. Artem Cortes DO Attending Provider Active Team Status: Inactive Member Role Status Dates Dr. Mouna Zamora MD Attending Provider Active [facility] PA, PA-C Primary Care Provider, Referri ng Provider Active Team Status: Inactive Member Role Status Dates [facility] PA, PA-C Primary Care Provider Active Dr. Artem Cortes DO Attending Provider, Referring Provider Active Team Status: Active Member Role Status Dates [facility] PA, PA-C Primary Care Provider Active Team Status: Inactive Member Role Status Dates [facility] PA, PA-C Primary Care Provider Active Start: September 10, 2024 End: September 10, 2024 Dr. Artem Cortes DO Attending Provider Active Start: September 10, 2024 End: September 10, 2024 Dr. Artem Cortes DO Referring Provider Active Start: September 10, 2024 End: September 10, 2024 Team Status: Inactive Member Role Status Dates [facility] PA, PA-C Primary Care Provider Active Start: October 01, 2024 End: October 01, 2024 [facility] PA, PA-C Referring Provider Active Start: October 01, 2024 End: October 01, 2024 ALBERTO Quinonez Attending Provider Active Start: October 01, 2024 End: October 01, 2024 Team Status: Inactive Member Role Status Dates Reshma Marsh PA, PA-C Primary Care Provider Active Start: October 01, 2024 End: October 01, 2024 ALBERTO Quinonez Attending Provider Active Start: October 01, 2024 End: October 01, 2024 ALBERTO Quinonez Referring Provider Active Start: October 01, 2024 End: October 01, 2024 Team Status: Inactive Member Role Status Dates Reshma Marsh PA, PA-C Primary Care Provider Active Start: October 07, 2024 End: October 07, 2024 ALBERTO Quinonez Attending Provider Active Start: October 07, 2024 End: October 07, 2024 ALBERTO Quinonez Referring Provider Active Start: October 07, 2024 End: October 07, 2024 Team Status: Inactive Member Role Status Dates Reshma Marsh PA, PA-C Primary Care Provider Active Start: November 05, 2024 End: November 05, 2024 Dr. Artem Cortes DO Attending Provider Active Start: November 05, 2024 End: November 05, 2024 Dr. Artem Cortes DO Referring Provider Active Start: November 05, 2024 End: November 05, 2024 Team Status: Inactive Member Role Status Dates Reshma Marsh PA, PA-C Primary Care Provider Active Start: December 31, 2024 End: December 31, 2024 Dr. Artem Cortes DO Attending Provider Active Start: December 31, 2024 End: December 31, 2024 Dr. Artem Cortes DO Referring Provider Active Start: December 31, 2024 End: December 31, 2024 Team Status: Inactive Member Role Status Dates Reshma Marsh PA, PA-C Primary Care Provider Active Start: January 24, 2025 End: January 24, 2025 Reshma [place] PA, PA-C Referring Provider Active Start: January 24, 2025 End: January 24, 2025 Dr. Mouna Zamora MD Attending Provider Active Sta rt: January 24, 2025 End: January 24, 2025 Team Status: Inactive Member Role Status Dates Reshma Marsh PA, PA-C Primary Care Provider Active Start: February 25, 2025 End: February 25, 2025 Dr. Artem Cortes DO Attending Provider Active Start: February 25, 2025 End: February 25, 2025 Dr. Artem Cortes DO Referring Provider Active Start: February 25, 2025 End: February 25, 2025 Team Status: Inactive Member Role Status Dates Reshma Marsh PA, PA-C Primary Care Provider Active Start: March 30, 2025 End: March 30, 2025 Reshma Marsh PA, PA-C Referring Provider Active Start: March 30, 2025 End: March 30, 2025 ALBERTO Quinonez Attending Provider Active Start: March 30, 2025 End: March 30, 2025 Team Status: Active Member Role/Relationship Status Dates Reshma Marsh PA, PA-C Primary care physician Active Team Status: Inactive Member Role/Relationship Status Dates Reshma Marsh PA, PA-C Primary care physician Active Start: March 30, 2025 End: March 30, 2025 Reshma Marsh PA, PA-C Referring Provider Active Start: March 30, 2025 End: March 30, 2025 ALBERTO Quinonez Attending physician Active Start: March 30, 2025 End: March 30, 2025 Team Status: Inactive Member Role/Relationship Status Dates Reshma Marsh PA, PA-C Primary care physician Active Start: April 19, 2025 Dr. Millie Little MD Attending physician Active Start: April 19, 2025 Team Status: Inactive Member Role/Relationship Status Dates Reshma Marsh PA, PA-C Primary care physician Active Start: July 06, 2025 End: July 06, 2025 Reshma Marsh PA, PA-C Referring Provider Active Start: July 06, 2025 End: July 06, 2025 GIO Griffin Attending physician Active Start: July 06, 2025 End: July 06, 2025 Team Status: Inactive Member Role/Relationship Status Dates Reshma Marsh PA, PA-C Primary care physician Active Start: July 09, 2025 End: July 09, 2025 Reshma Marsh PA, PA-C Referring Provider Active Start: July 09, 2025 End: July 09, 2025 ALBERTO Sauceda Attending physician Active Start: July 09, 2025 End: July 09, 2025 Team Status: Active Member Role/Relationship Status Dates Reshmaanel DOMINGUEZ PA-C Primary care physician Active Start: July 09, 2025 ALBERTO Sauceda Attending physician Active Start: July 09, 2025 ALBERTO Sauceda Referring Provider Active Start: July 09, 2025 FOR RECORDS PERTAINING TO PATIENTS WHO ARE OR HAVE BEEN ENROLLED IN A CHEMICAL DEPENDENCY/SUBSTANCEABUSE PROGRAM, SOME INFORMATION MAY BE OMITTED. This clinical summary was aggregated from multiple sources. Caution should be exercised in using it in the provision of clinical care. This summary normalizes information from multiple sources, and as a consequence, information in this document may materially change the coding, format and clinical context of patient data. In addition, data may be omitted in some cases. CLINICAL DECISIONS SHOULD BE BASED ON THE PRIMARY CLINICAL RECORDS. [employer] [facility]. provides no warranty or guarantee of the accuracy or completeness of information in this document.
== END | disposition home or self-care (01) ==
LOC: LABSPEC 11:52
PROVIDERS: PCP Family Medicine; Visit Provider Physician Assistant Surgical
DX: R35.0 Frequency of micturition (principal)
CPT/HCPCS: 87086; 87088